=== PATIENT | male | born 1950 | race Caucasian/White ===

== ENCOUNTER 2017-10-30 12:41 | Emergency (ER) | payer MEDICARE, BC ==
[~2017-10-30] VITALS: Ht 193 cm; Wt 95.3 kg
[~2017-10-30 12:41] MED LIST: AMBIEN10 MG PO; ASPIRIN; ATORVASTATIN CA10 MG PO; AUGMENTIN 875-1 EACH PO; AZITHROMYCIN250 MG PO; CARTIA; CARTIA XT180 MG PO; CINNAMON500 MG PO; CYMBALTA; CYMBALTA60 MG PO; DIGOXIN; DIGOXIN250 MCG PO; DILAUDID2 MG PO; ELEQUIS PO; FENOFIBRATE134 MG PO; FENTANYL1 EAC2 TOP; FISH OIL 1,0001 EAC2 PO; FOLIC ACID1 MG PO; FORTEO2.4 ML SC; FUROSEMIDE20 MG PO; GLIPIZIDE5 MG PO; K DUR10 MEQ PO; LISINOPRIL10 MG PO; LISINOPRIL5 MG PO; LYRICA; LYRICA300 MG PO; MAG-OXIDE400 MG PO; METFORMIN HCL500 M2 PO; METOPROLOL; METOPROLOL SUCC25 MG PO; METOPROLOL SUCC50 MG PO; OPANA10 MG PO; OXYCODONE-ACET1 EAC3 PO; PANTOPRAZOLE SO40 MG PO; POTASSIUM CHLO10 ME1 PO; PRADAXA150 MG PO; PREDNISONE PO; PREDNISONE20 MG PO; SUPER B COMPLE150 MG PO; TAMSULOSIN HCL0.4 MG PO; THERA1 EACH PO; TRAZODONE HCL50 MG PO; VITAMIN D2000 UNIT PO; VYTORIN; VYTORIN 10-401 EACH PO; XARELTO20 MG PO
[2017-10-30] MEDS ORDERED: ZOFRAN ODT4 MG PO (13:34)
[2017-10-30 18:04] LABS: BASOPHILS % 0.4 % (0.0-1.0); EOSINOPHILS % 0.8 % (0.0-6.0); LYMPHOCYTES % 42.5 % (18.0-39.1); MEAN CORPUSCULAR HEMOGLOBIN 31.9 pg (28-32); MEAN CORPUSCULAR HGB CONC 33.3 g/dL (31-35); MEAN CORPUSCULAR VOLUME 95.7 fL (81-99); MONOCYTES # (AUTO) 0.5 (0.2-0.8); NEUTROPHILS # (AUTO) 2.1 (2.1-6.9); NEUTROPHILS % 44.7 % (38.7-80.0); PLATELET COUNT 124 x10e3/uL (140-360); RED BLOOD COUNT 4.39 x10e6/uL (4.3-5.7); RED CELL DISTRIBUTION WIDTH 14.7 % (11.7-14.4)
[2017-10-30 18:13] LABS: INR 1.79; PARTIAL THROMBOPLASTIN TIME 39.3 seconds (23.8-35.5); PROTHROMBIN TIME 21.7 seconds (11.9-14.5)
[2017-10-30 18:14] LABS: ALBUMIN 3.6 g/dL (3.5-5.0); ANION GAP 15.7 mmol/L (8-16); CALCIUM 9.4 mg/dL (8.4-10.2); CREATININE, SERUM 1.53 mg/dL (0.72-1.25); POTASSIUM 4.7 mmol/L (3.5-5.1)
[2017-10-30 18:20] LABS: CREATINE KINASE MB 2.5 ng/mL (0.00-5.00); TROPONIN I 0.033 ng/mL (0-0.300)
== END 2017-10-30 18:24 | disposition left against medical advice (07) ==
LOC: ER 12:41
DX: R53.1 Weakness (principal)
CPT/HCPCS: 36415; 80053; 82550; 82553; 84484; 85025; 85610; 85730

== ENCOUNTER → 2018-01-20 | Outpatient (CLI) | payer MEDICARE, BC ==
[~2018-01-20] MED LIST changes: +ZOFRAN ODT4 MG PO
--- NOTE | 2018-01-20 13:27 | Diagnostic Imaging Report ---
EXAM: CT Chest WITHOUT contrast INDICATION: \[id number] \S\[id number] \S\SMOKER/NICOTINE DEPENDENCE COMPARISON: Chest CT dated 09/15/2017 TECHNIQUE: Chest was scanned utilizing a multidetector helical scanner from the lung apex through the level of the adrenal glands without administration of IV contrast. Absence of intravenous contrast decreases sensitivity for detection of lymphadenopathy and vascular pathology. Coronal and sagittal reformations were obtained. Routine protocol was performed. IV CONTRAST: None COMPLICATIONS: None RADIATION DOSE: Total DLP: 646.13 mGy*cm Estimated effective dose: (DLP x 0.014 x size factor) mSv CTDIvol has been reviewed. It is below the limits set by the Radiation Protocol Committee (RPC). FINDINGS: LINES/ TUBES: None. LUNGS AND AIRWAYS: Upper lobe predominant centrilobular and paraseptal emphysematous changes. Resolved right lower lobe consolidations, seen on prior CT dated 09/15/2017. Unchanged 5 mm right middle lobe nodule (series 3, image 104). Another stable lateral right middle lobe 7 mm nodule (series 3, image 98). Not significant change right upper lobe base scarring with mild traction bronchiectasis and surrounding questionably honeycombing (series 3, image 72). Airways are normal. PLEURA: No significant pleural effusion. No pneumothorax. HEART AND MEDIASTINUM: The thyroid gland is normal. No mediastinal or axillary lymphadenopathy. Scattered subcentimeter mediastinal lymph nodes are seen, unchanged. For example 9 mm paratracheal lymph node (series 2, image 54). The heart is mildly enlarged. There is no pericardial effusion. Main pulmonary artery measures 4.1 cm, suggestive of pulmonary hypertension. Atherosclerotic calcification of coronary arteries and aortic valve. Aorta measures 3.6 cm at a level of right pulmonary artery. UPPER ABDOMEN: Unremarkable. BONES: Thoracolumbar posterior fusion with unchanged compression fracture of T10 vertebral body and T12-L1, L1-L2 discectomies. SOFT TISSUES: Unremarkable. IMPRESSION: 1. Interval resolution of posterior right lower lobe opacities, seen on prior CT dated 09/15/2017. 2. Stable right middle lobe lung nodules. Recommend follow-up in one year to ensure stability. 3. Redemonstration of centrilobular and paraseptal emphysematous changes. Signed by: Dr. Justin Tompkins MD on 01/20/2018 1:23 PM
== END | disposition home or self-care (01) ==
LOC: CT 11:18
PROVIDERS: ATTEND Internal Medicine
DX: F17.200 Nicotine dependence, unspecified, uncomplicated (principal); R91.8 Other nonspecific abnormal finding of lung field; J43.9 Emphysema, unspecified
CPT/HCPCS: 71250

== ENCOUNTER 2018-03-01 01:47 | Inpatient (IN) | payer MEDICARE, BC ==
[~2018-03-01] VITALS: Ht 193 cm; Wt 96.6 kg
[2018-03-01] VITALS (7 sets, daily range): BP systolic 129–159; BP diastolic 65–85
[2018-03-01] MEDS ORDERED: MORPHINE SULFATE 2 MG/ML SYR IV STA (01:49)
[2018-03-01] MEDS ORDERED: ONDANSETRON HCL INJ 2 MG/ML VIAL IV STA (01:49)
--- OUTSIDE RECORDS SUMMARY | 2018-03-01 01:49 | XMS REPORT ---
Author Author [facility] Address Unknown Phone Unavailable Care Team Providers Care Management Manager Name Role Phone CAROL HOANG Unavailable Unavailable CHANEL LÓPEZ Unavailable Unavailable Problems This patient has no known problems. Allergies, Adverse Reactions, Alerts This patient has no known allergies or adverse reactions. Medications This patient has no known medications. Results Test Description Test Time Test Comments Text Results Atomic Results Result Comments CT CHEST WO [place] [address] Patient Name: MOUNA DENT MR #: [id number] : 1950 Age/Sex: 67/M Req # : [id number] [facility] Physician: Ordered by: CAROL HOANG MD Report #: [id number] Location: CT Room/Bed: Procedure: [id number] CT/CT CHEST WO Exam Date: 01/20/18 Exam Time: 1146 REPORT STATUS: Signed EXAM: CT Chest WITHOUT contrast INDICATION: COMPARISON: Chest CT dated 09/15/2017 TECHNIQUE: Chest was scanned utilizing a multidetector helical scanner from the lung apex through the level of the adrenal glands without administration of IV contrast. Absence of intravenous contrast decreases sensitivity for detection of lymphadenopathy and vascular pathology. Coronal and sagittal reformations were obtained. Routine protocol was performed. IV CONTRAST: None COMPLICATIONS: None RADIATION DOSE: Total DLP: 646.13 mGy*cm Estimated effective dose: (DLP x 0.014 x size factor) mSv CTDIvol has been reviewed. It is below the limits set by the Radiation Protocol Committee (RPC). FINDINGS: LINES/ TUBES: None. LUNGS AND AIRWAYS: Upper lobe predominant centrilobular and paraseptal emphysematous changes. Resolved right lower lobe consolidations, seen on prior CT dated 09/15/2017. Unchanged 5 mm right middle lobe nodule (series 3, image 104). Another stable lateral right middle lobe 7 mm nodule (series 3, image 98). Not significant change right upper lobe base scarring with mild traction bronchiectasis and surrounding questionably honeycombing (series 3, image 72). Airways are normal. PLEURA: No significant pleural effusion. No pneumothorax. HEART AND MEDIASTINUM: The thyroid gland is normal. No mediastinal or axillary lymphadenopathy. Scattered subcentimeter mediastinal lymph nodes are seen, unchanged. For example 9 mm paratracheal lymph node ( series 2, image 54). The heart is mildly enlarged. There is no pericardial effusion. Main pulmonary artery measures 4.1 cm, suggestive of pulmonary hypertension. Atherosclerotic calcification of coronary arteries and aortic valve. Aorta measures 3.6 cm at a level of right pulmonary artery. UPPER ABDOMEN: Unremarkable. BONES: Thoracolumbar posterior fusion with unchanged compression fracture of T10 vertebral body and T12-L1, L1-L2 discectomies. SOFT TISSUES: Unremarkable. IMPRESSION: 1. Interval resolution of posterior right lower lobe opacities, seen on prior CT dated 09/15/2017. 2. Stable right middle lobe lung nodules. Recommend follow-up in one year to ensure stability. 3. Redemonstration of centrilobular and paraseptal emphysematous changes. Signed by: Dr. Justin Rutherford MD on 2017 1:23 PM Dictated By: JUSTIN RUTHERFORD MD 1323 Transcribed By: FATOUMATA on 01/20/18 1323 COPY TO: CAROL OHANG MD CT CHEST WO [place] [address] Patient Name: MOUNA DENT MR #: [id number] : 1950 Age/Sex: 67/M [facility] # : [id number] [facility] Physician: Ordered by: CAROL HOANG MD Report #: [id number] Location: RESP Room/Bed: Procedure: [id number] CT/CT CHEST WO Exam Date: 09/15/17 Exam Time: 1444 REPORT STATUS: Signed PROCEDURE: CT CHEST WITHOUT CONTRAST CT scan of the chest WITHOUT intravenous contrast, using standard protocol. TECHNIQUE: The chest was scanned utilizing a multidetector helical scanner from the apex to the level of the adrenal glands. No IV contrast was administered as per physician request. Coronal and sagittal multiplanar reformations were obtained. COMPARISON: CT chest 06/27/2017. INDICATIONS : SMOKER FINDINGS: Lines/tubes: None. Lungs and Airways: Diffuse emphysematous changes are present in the upper lobes and bilateral lower lobes. The centrilobular emphysema is most prominent in the right upper lobe. Interval appearance of multiple consolidative opacities in the right lower lobe, series 3 images 93, 101, 112, and 114. Pleura: The pleural spaces are clear. Heart and mediastinum: The thyroid gland is normal. No significant mediastinal, hilar or axillary lymphadenopathy is seen. The heart and pericardium are within normal limits. Atherosclerotic calcifications of the thoracic aorta and coronary arteries. Calcifications of the mitral valve. Soft tissues: Normal. Abdomen: Limited views of the upper abdomen show no abnormality within the visualized liver, spleen, pancreas, or kidneys. The adrenal glands are normal. Bones: The visualized bony thorax is within normal limits. Postoperative changes of the lower thoracic and upper lumbar spine. Degenerative changes of the thoracic spine. IMPRESSION: Consolidative opacities in the right lower lobe may represent a developing pneumonia. CT of the chest in 6 months after therapy is recommended to document resolution. Emphysematous changes. Dictated by: Shalini Rousseau M.D. on 09/15/2017 at 15:43 Electronically approved by: Shalini Rousseau M.D. on 09/15/2017 at 15:43 Dictated By: SHALINI ROUSSEAU MD 42 Transcribed By: JENY on 09/15/171542 COPY TO: CAROL HOANG MD MRI SPINE LUMBAR WO [place] [address] Patient Name: MOUNA DENT MR #: [id number] : 1950 Age/Sex: 67/M Req #: [id number] Adm Physician: Ordered by: CHANEL LÓPEZ MD Report #: [id number] Location: MRI Room/Bed: Procedure: [id number] MRI/MRI SPINE LUMBAR WO Exam Date: 09/05/17 Exam Time: 1000 REPORT STATUS: Signed Exam: Lumbar spine MRI without IV contrast History: Lumbar MRI 08/06/2011, lumbar spine x-ray 09/04/2015 and included lumbar spine from chest CT of 09/04/2015. Comparison studies: Lower back pain, previous surgeries, most recent of 11/13 Technique: Sagittal and axial T2 , sagittal T1 and IR, axial spin density oblique. Intravenous contrast: None Findings: Exam is limited by susceptibility artifact from metallic spinal fusion hardware. Number of lumbar vertebral bodies: 5. Alignment: Normal lordosis. No scoliosis. Approximately approximately 4 mm grade 1 anterolisthesis of L5 on S1. Soft tissues: Postsurgical changes in the dorsal and lower thoracic soft tissues. A T2/STIR hyperintense 11.9 x 3.1 x 4.3 cm (SI x AP x TV) fluid collection in the dorsal thoracolumbar soft tissues which extends from the middle T11 level to the superior L4 level presumably reflects postsurgical seroma. Seroma was not present on the previous lumbar spine MRI of 08/06/2011 and may be related to the 2015 surgery. Paraspinal muscles: Severe symmetric atrophy. Atrophy has progressed since 2010. Lower thoracic cord : The lower spinal cord and conus are poorly visualized due to artifact. Cauda equina: No masses or evidence of arachnoiditis from L4 caudally. Cannot adequately evaluate nerve roots craniad to L4 due to artifact. Vertebrae : No compression fractures, infection or neoplasm. Postsurgical changes : There are decompressive laminectomies from L1 to S1 and posterior instrumented fusion and discectomy from the T12 to S1 with left transsacral fixation screw in place. Patient was previously fused from L2 to the sacrum and with laminectomies from L3 to S1 on the MRI of 08/06/2011. Craniad extent of fusion into the thoracic spine lies outside imaged [id number] on this exam. Cannot further evaluate hardware integrity by MRI. Degenerative changes: L1-L2: Patent canal and grossly patent foramina. L2-L3: Patent canal and grossly patent foramina. L3-L4: Patent canal and grossly patent foramina. L4-L5: Patent canal and grossly patent foramina. L5-S1: Minimal anterolisthesis of L5 on S1 with associated osteophyte complex and hypertrophic changes at the left facet likely results in at least mild to moderate foraminal stenosis. Cannot adequately evaluate the foramen at this level on the previous exam due to extensive artifact. Patent canal and right foramen. Incidental findings: 11 mm T2 hyperintense right renal cyst. IMPRESSION: Exam limited by susceptibility artifact from fusion hardware. 1. Postsurgical changes of posterior thoracolumbar fusion, discectomy and posterior lumbar decompression. 2. Postsurgical seroma in the dorsal paraspinal soft tissues. 3. Foraminal stenosis on the left at L5-S1. Remaining lumbar foramina are grossly patent. Patient lumbar canal. 4. Grade 1 anterolisthesis of L5 on S1, new since 2010. Signed by: Dr. Jose Juan Brock M.D. on 09/08/2017 5:00 AM Dictated By: JOSE JUAN BROCK MD 0500 Transcribed By: FATOUMATA on 09/08/17 0500 COPY TO: CHANEL LÓPEZ MD CT CHEST WO [address] [place], [place], [place] [address] Patient Name: MOUNA DENT MR #: [id number] : 1950 Age/Sex: 67/M Req # : [id number] Adm Physician: CHANEL LÓPEZ MD Ordered by: JOSE JUAN WASHINGTON MD Report #: [id number] Location: MED/SURG2 Room/Bed: [facility] ___ Procedure: [id number] CT/CT CHEST WO Exam Date: 06/27/17 Exam Time: 1126 REPORT STATUS: Signed PROCEDURE: CT CHEST WITHOUT CONTRAST COMPARISON: CTA chest 11/04/14. INDICATIONS: SOB,COUGH TECHNIQUE: Multiple axial views were obtained of the chest from the lung apices down through the upper abdomen. 5 mm slices were obtained without injection of IV contrast. In addition, reformatted coronal and sagittal images were acquired. FINDINGS: Lymph nodes: No enlarged axillary or subclavicular lymph node enlargement. Mediastinal lymph nodes are increased in number. A precarinal lymph node measures 13 mm. Subcarinal lymph node measures 1.3 x 2.7 cm ( previously, 0.8 x 3.6 cm). No evidence of hilar lymphadenopathy given the lack of intravenous contrast. Thyroid/base of neck: The thyroid gland is normal in size. A tiny low attenuating nodule in the left lobe is stable. Mediastinum: The heart is enlarged with coronary artery and aortic valve and mitral valve calcifications. The ascending aorta measures 4 cm in diameter. The main pulmonary artery measures 4.3 cm in diameter. No pericardial effusion. The esophagus appears normal. Lungs: Right lung: Paraseptal and centrilobular emphysematous changes re-demonstrated. Diffuse cylindrical bronchiectasis and bronchial wall thickening are present, similar to previous exam. There is new groundglass attenuation in the posterior upper lobe surrounding several centrilobular blebs. There is new groundglass attenuation in the posterior lower lobe along expected course of a bronchiole. New tiny groundglass densities have developed in the posterior lower lobe associated with focal bronchiectasis and mucus impaction (image 121). Middle lobe nodule measures 5 mm and is stable. Left centrilobular and paraseptal emphysema is re-demonstrated. There is diffuse bronchial wall thickening and cylindrical bronchiectasis. Small patchy areas of groundglass attenuation have developed in the anterior basal segment of the lower lobe. A band of chronic atelectasis/scar in the posterior costophrenic angle is stable. New ground glass nodule has developed in the lingula measuring 6 mm with patchy airspace opacities in the inferior lingula. One of the lower lobe bronchi now contains mucus (image 99). Pleura: A left pleural effusion is new and measures 7 mm. No evidence of right pleural effusion. Abdomen: Visualized portions of the liver, ulna, pancreas, spleen, and right kidney are normal. There is stable thickening of the left adrenal gland. Visualized portion of the bowel and right kidney are unremarkable. Bones: Compression fracture of T10 is redemonstrated containing bilateral pedicle screws. There is lucency surrounding the screws suggestive of loosening. Pedicle screws and vertical stabilizing bars are in the T11-L2 vertebral bodies. The pedicle screws at these levels are intact without surrounding lucency to suggest loosening. Artificial disc plugs are T12-L1 and L1-L2. No new compression fractures. An ununited chronic fracture of the right ninth rib is stable. There are no new rib fractures. CONCLUSION: 1. New groundglass air space opacities and tiny groundglass inflammatory appearing nodules in each lung with areas of mucus impaction suggestive of an infectious/inflammatory process. A component of aspiration cannot be excluded. Recommend follow-up CT in 4-6 weeks to assess interval change/resolution. Prominent mediastinal lymph nodes may be secondary to an infectious/inflammatory process. 2. Emphysema and chronic bronchitis. 3. Small left pleural effusion. 4. Ascending aortic aneurysm. Enlarged main pulmonary artery suggestive of pulmonary artery hypertension. 5. Stable lucency surrounding T10 pedicle screws suggestive of loosening. Stable compression fracture of T10. Dictated by: Viky Galindo M.D. on 06/27/2017 at 12:31 Electronically approved by: Viky Galindo M.D. on 06/27/2017 at 12:31 Dictated By: VIKY GALINDO MD 1231 Transcribed By: JENY on 06/27/17 1231 COPY TO: JOSE JUAN WASHINGTON MD CHEST SINGLE (PORTABLE) [place] [address] Patient Name: MOUNA DENT MR #: [id number] : 1950 Age/Sex: 67/M Req #: [id number] Adm Physician: CHANEL LÓPEZ MD Ordered by : ARISTIDES KELLY MD Report #: [id number] Location: MED/SURG2 Room/Bed: [facility] Procedure: [id number] DX/CHEST SINGLE (PORTABLE) Exam Date: 06/26/17 Exam Time: 0520 REPORT STATUS: Signed PROCEDURE: CHEST SINGLE (PORTABLE) COMPARISON: 06/25/2017. INDICATIONS: PNEUMONIA. SHORTNESS OF BREATH FINDINGS: Lungs are well-inflated. Improvement in lingular patchy opacity relative to 06/25/2017. No new consolidation. Stable cardiomediastinal contour and pulmonary vasculature. No acute osseous abnormality. Cervical and thoracic spinal fusion hardware partially visualized. CONCLUSION: Patchy left lower lung atelectasis has improved relative to 06/25/2017. No new consolidation. Dictated by: Jose Juan Tam M.D. on 06/26/2017 at 9:00 Electronically approved by: Jose Juan Tam M.D. on 06/26/2017 at 9:00 Dictated By: JOSE JUAN TAM MD 09 Transcribed By: JENY on 06/26/17 09 COPY TO: ARISTIDES KELLY MD CHEST 2 VIEWS [facility] [address] [place] [address] Patient Name: MOUNA DENT MR #: [id number] : 1950 Age/Sex: 67/M Req # : [id number] Adm Physician: Ordered by: STIVEN LIN [employer]OR ROOM [employer]LLER Report #: [id number] Location: ER Room/Bed: Procedure: [id number] DX/CHEST 2 VIEWS Exam Date: 06/25/17 Exam Time: 1420 REPORT STATUS: Signed PROCEDURE: Frontal and lateral views of the chest. COMPARISON: [facility], DX, CHEST SINGLE (PORTABLE ), 11/11/2016, 14:37. INDICATIONS: CHEST PAIN FINDINGS: Lines/tubes: None. Lungs: The lungs are well inflated. Ill-defined patchy opacity in the left left lower lung. There is no evidence of consolidation or pulmonary edema. Pleura: Blunting of the right lateral and posterior costophrenic sulci, likely reflecting a small pleural effusion. No right pleural effusion. Heart and mediastinum: Stable enlargement of cardiac silhouette. Vasculature is normal. Bones: No acute bony abnormality. Stable fusion hardware in the lower cervical and lower thoracic/upper lumbar spine IMPRESSION: 1. ill-defined patchy opacity in the left lower lung may reflect atelectasis or developing pneumonia, in the appropriate clinical setting. 2. Small left pleural effusion. Tona Parra M.D. Dictated by: Tona Parra M.D. on 06/25/2017 at 15:24 Electronically approved by: Tona Parra M.D. on 06/25/2017 at 15:24 Dictated By: TONA PARRA MD 1524 Transcribed By: JENY on 06/25/17 1524 COPY TO: STIVEN LIN NP
[2018-03-01 02:18] LABS: BASOPHILS % 0.5 % (0.0-1.0); EOSINOPHILS # (AUTO) 0.1 (0.0-0.4); HEMATOCRIT 40.5 % (38.2-49.6); HEMOGLOBIN 14.2 g/dL (14.0-18.0); LYMPHOCYTES # (AUTO) 2.5 (1.0-3.2); LYMPHOCYTES % 39.8 % (18.0-39.1); MEAN CORPUSCULAR HEMOGLOBIN 33.3 pg (28-32); MEAN CORPUSCULAR HGB CONC 35.1 g/dL (31-35); MEAN CORPUSCULAR VOLUME 94.8 fL (81-99); MONOCYTES # (AUTO) 0.8 (0.2-0.8); MONOCYTES % 13.5 % (4.4-11.3); NEUTROPHILS # (AUTO) 2.7 (2.1-6.9); NEUTROPHILS % 44.5 % (38.7-80.0); PLATELET COUNT 184 x10e3/uL (140-360); RED BLOOD COUNT 4.27 x10e6/uL (4.3-5.7); RED CELL DISTRIBUTION WIDTH 14.8 % (11.7-14.4)
[2018-03-01] MEDS ORDERED: ONDANSETRON HCL 4 MG ORAL DISINTEGRATING TAB ONE (02:22)
[2018-03-01 02:26] LABS: INR 2.06; PROTHROMBIN TIME 21.8 seconds (11.9-14.5)
[2018-03-01] MEDS: PIPER-TAZ 3.375 GM 50 ML IV SCH ×4 (02:28→18:06)
[2018-03-01 02:36] LABS: ALANINE AMINOTRANSFERASE 32 IU/L (0-55); ALBUMIN 3.6 g/dL (3.5-5.0); ALBUMIN/GLOBULIN RATIO 0.9 (0.8-2.0); ALKALINE PHOSPHATASE 54 IU/L (40-150); BLOOD UREA NITROGEN 11 mg/dL (7-26); BUN/CREATININE RATIO 12 (6-25); CALCIUM 9.5 mg/dL (8.4-10.2); CARBON DIOXIDE 23 mmol/L (22-29); CHLORIDE 104 mmol/L (98-107); CREATININE, SERUM 0.94 mg/dL (0.72-1.25); EST GLOMERULAR FILTRATION RATE > 60 ML/MIN (60-); GLUCOSE 162 mg/dL (74-118); SODIUM 140 mmol/L (136-145)
[2018-03-01] MEDS ORDERED: ONDANSETRON HCL 4 MG ORAL DISINTEGRATING TAB PO ONE (02:45)
[2018-03-01] MEDS ORDERED: ONDANSETRON HCL 4 MG ORAL DISINTEGRATING TAB PO PRN (03:15)
[2018-03-01] MEDS ORDERED: DEXTROSE 50% SYRINGE 50 ML IV PRN (03:15)
[2018-03-01] MEDS ORDERED: OPANA10 MG PO (03:33)
[2018-03-01] MEDS ORDERED: LASIX20 MG PO (03:33)
[2018-03-01] MEDS ORDERED: LISINOPRIL2.5 MG PO (03:33)
[2018-03-01] MEDS ORDERED: CARTIA XT180 MG PEG (03:33)
--- NOTE | 2018-03-01 03:35 | Diagnostic Imaging Report ---
LOWER LEG LEFT HISTORY: Pain COMPARISON: None FINDINGS: Bones: No displaced fracture. Old fracture deformity of the proximal fibular diaphysis. Osseous alignment is within normal limits. Joints: Mild degenerative changes noted at the hindfoot Soft tissues: Vascular calcifications are present. IMPRESSION: No acute radiographic abnormality. No evidence of radiopaque foreign body. Signed by: Dr. Hussain Reis M.D. on 03/01/2018 3:31 AM
[2018-03-01] MEDS ORDERED: TRAZODONE HCL 50 MG TAB PO PRN (03:45)
[2018-03-01] MEDS: VANCOMYCIN 1GM/NS 250 ML 250 ML IV SCH ×2 (03:47→14:02)
[2018-03-01] MEDS: SODIUM CHLORIDE 0.9% 1000ML 1,000 ML IV SCH ×2 (04:30→11:13)
[2018-03-01] MEDS: DILTIAZEM HCL 180 MG CAP CD PO SCH ×2 (08:30→16:40)
[2018-03-01] MEDS: FUROSEMIDE 20 MG TAB PO SCH ×2 (08:30→16:40)
[2018-03-01] MEDS: NICOTINE 21 MG/EA PATCH TOP SCH (08:30)
[2018-03-01] MEDS: INSULIN REGULAR, HUMAN 100 UNIT/1 ML 3ML VIAL SQ SCH ×4 (08:30→20:10)
[2018-03-01] MEDS: DIGOXIN 0.25 MG TAB PO SCH (08:30)
[2018-03-01] MEDS: PANTOPRAZOLE SOD 40 MG TABEC PO SCH (08:30)
[2018-03-01] MEDS: PREGABALIN 75 MG CAP PO SCH ×2 (08:30→16:40)
[2018-03-01] MEDS: RIVAROXABAN 15 MG TABLET PO SCH (08:30)
[2018-03-01] MEDS: FOLIC ACID 1 MG TAB PO SCH (08:30)
[2018-03-01] MEDS: METOPROLOL SUCCINATE 50 MG TAB XL PO SCH ×2 (08:30→16:40)
[2018-03-01] MEDS ORDERED: PREGABALIN 300 MG PO SCH (09:00)
[2018-03-01] MEDS ORDERED: RIVAROXABAN 20 MG TABLET PO SCH (09:00)
--- NOTE | 2018-03-01 16:24 | History and Physical ---
He is a 67-year-old male patient who presented with left lower leg pain and swelling. HISTORY OF PRESENT ILLNESS: Mr. Olaf Delvalle is a 67-year-old male patient with a previous history of COPD, on home oxygen at night, atrial fibrillation, chronic back pain, diabetes mellitus, hypertension, hyperlipidemia, presented to the emergency room with the complaint of left lower leg pain, swelling and redness. The patient had 1 week ago left leg injury. The patient had a fall and he had a wound on his left lower leg with a cut. For that, the patient had seen Dr. Eladio Snider. The patient did not improve with the treatment. The patient had come to the emergency room. ALLERGIES: THE PATIENT IS ALLERGIC TO CODEINE. MEDICATIONS: See from the list. SOCIAL HISTORY: The patient is a heavy tobacco smoker and smokes 1 pack per day and uses alcohol. FAMILY HISTORY: Hypertension and diabetes mellitus. REVIEW OF SYSTEMS: Left lower leg pain and swelling. Also, shortness of breath. PHYSICAL EXAMINATION GENERAL: He is a middle-aged male patient lying in bed not in any acute distress. VITALS: Temperature 96, pulse 70, blood pressure 130/70, respiratory rate 18. HEENT: Normocephalic and atraumatic. No JVD. No lymphadenopathy. LUNGS: Bilateral equal fair air entry. No basal rales present. Rhonchi present. HEART: S1 and S2 irregular. Systolic murmur present. ABDOMEN: Soft. Bowel sounds present. NEUROLOGICAL: No focal neurological deficit. EXTREMITIES: Left lower extremity examination with swelling, redness and warm to touch. The patient has a left lower leg anterior tibial area of 2 x 1 cm large wound with eschar and surrounding erythema. ADMITTING IMPRESSION/DIAGNOSES 1. Left lower leg cellulitis. 2. Diabetes mellitus. 3. Hypertension. 4. Coronary artery disease. 5. Atrial fibrillation. 6. Chronic obstructive pulmonary disease, on home oxygen. PLAN: The patient will be admitted with the above diagnoses. The patient will be given wound care and treated with IV antibiotics of vanco and Zosyn. Will consult Dr. Draper from ID. Job#: [id number] [place]
[2018-03-01] MEDS ORDERED: ONDANSETRON HCL 4 MG ORAL DISINTEGRATING TAB SL SCH (18:00)
[2018-03-01] MEDS: ALBUTEROL/IPRATROPIUM 3 ML NEB NEB SCH (19:00)
[2018-03-01] MEDS: DULOXETINE HCL 30 MG DELAYED RELEASE PO SCH (20:15)
[2018-03-01] MEDS: METFORMIN HCL 500 MG TAB CR PO SCH (20:15)
[2018-03-01] MEDS: ATORVASTATIN 10 MG TAB PO SCH (20:15)
[2018-03-01] MEDS: FENOFIBRATE 145 MG TAB PO SCH (20:16)
[2018-03-01] MEDS ORDERED: NON-FORMULARY MEDICATION (Duloxetine Hcl (Cymbalta) 60 MG) PO SCH (21:00)
[2018-03-01] MEDS ORDERED: FENOFIBRATE 145 MG TAB PO SCH (21:00)
[2018-03-01] MEDS ORDERED: LISINOPRIL 2.5 MG TAB PO SCH (21:00)
[2018-03-01] MEDS ORDERED: NON-FORMULARY MEDICATION (Fenofibrate,Micronized (Fenofibrate) 134 MG) PO SCH (21:00)
[2018-03-02] MEDS: SODIUM CHLORIDE 0.9% 1000ML 1,000 ML IV SCH ×2 (00:04→03:13)
[2018-03-02 00:59] VITALS: BP 136/78
[2018-03-02] MEDS: ALBUTEROL/IPRATROPIUM 3 ML NEB NEB SCH ×4 (01:00→19:30)
[2018-03-02] MEDS: VANCOMYCIN 1GM/NS 250 ML 250 ML IV SCH ×2 (01:50→14:00)
[2018-03-02] MEDS: PIPER-TAZ 3.375 GM 50 ML IV SCH ×3 (02:45→16:38)
[2018-03-02 05:38] VITALS: BP 157/85
[2018-03-02 06:46] LABS: BASOPHILS % 0.3 % (0.0-1.0); EOSINOPHILS % 0.3 % (0.0-6.0); HEMATOCRIT 38.4 % (38.2-49.6); HEMOGLOBIN 13.5 g/dL (14.0-18.0); LYMPHOCYTES # (AUTO) 1.5 (1.0-3.2); LYMPHOCYTES % 23.3 % (18.0-39.1); MEAN CORPUSCULAR HGB CONC 35.2 g/dL (31-35); MEAN CORPUSCULAR VOLUME 93.9 fL (81-99); MONOCYTES # (AUTO) 0.8 (0.2-0.8); MONOCYTES % 12.8 % (4.4-11.3); NEUTROPHILS % 62.5 % (38.7-80.0); PLATELET COUNT 174 x10e3/uL (140-360); RED BLOOD COUNT 4.09 x10e6/uL (4.3-5.7); RED CELL DISTRIBUTION WIDTH 14.3 % (11.7-14.4)
--- NOTE | 2018-03-02 07:05 | Diagnostic Imaging Report ---
EXAMINATION: CHEST 2 VIEWS INDICATION: Shortness of breath COMPARISON: CT of the chest on 01/20/2018 FINDINGS: TUBES and LINES: None. LUNGS: Lungs are well inflated. There are bibasilar atelectasis. Fibrocystic changes noted in the right mid lung There is mild prominence of the central pulmonary vasculature, consistent with pulmonary venous congestion. PLEURA: No pleural effusion or pneumothorax. HEART AND MEDIASTINUM: The cardiomediastinal silhouette is unremarkable. BONES AND SOFT TISSUES: No acute osseous lesion. Thoracolumbar spine fusion with transpedicular screws and interlocking rods for lower thoracic spine compression deformity Soft tissues are unremarkable. UPPER ABDOMEN: No free air under the diaphragm. IMPRESSION: 1. Central vascular congestion without overt edema. 2. Perihilar and bibasilar predominant interstitial changes most likely fibrosis Signed by: Dr. Hussain Reis M.D. on 03/02/2018 7:01 AM
[2018-03-02 07:12] LABS: ALANINE AMINOTRANSFERASE 24 IU/L (0-55); ALBUMIN 3.2 g/dL (3.5-5.0); ALBUMIN/GLOBULIN RATIO 0.9 (0.8-2.0); ALKALINE PHOSPHATASE 46 IU/L (40-150); ANION GAP 15.5 mmol/L (8-16); BLOOD UREA NITROGEN 8 mg/dL (7-26); BUN/CREATININE RATIO 10 (6-25); CALCIUM 8.8 mg/dL (8.4-10.2); CARBON DIOXIDE 25 mmol/L (22-29); CHLORIDE 104 mmol/L (98-107); EST GLOMERULAR FILTRATION RATE > 60 ML/MIN (60-); GLUCOSE 94 mg/dL (74-118); POTASSIUM 3.5 mmol/L (3.5-5.1); SODIUM 141 mmol/L (136-145)
[2018-03-02] MEDS: INSULIN REGULAR, HUMAN 100 UNIT/1 ML 3ML VIAL SQ SCH ×4 (07:30→20:53)
[2018-03-02 08:00] VITALS: BP 152/74
[2018-03-02 08:20] VITALS: BP 152/74
[2018-03-02] MEDS: DIGOXIN 0.25 MG TAB PO SCH (08:32)
[2018-03-02] MEDS: PANTOPRAZOLE SOD 40 MG TABEC PO SCH (08:32)
[2018-03-02] MEDS: DILTIAZEM HCL 180 MG CAP CD PO SCH ×2 (08:32→16:35)
[2018-03-02] MEDS: FOLIC ACID 1 MG TAB PO SCH (08:32)
[2018-03-02] MEDS: PREGABALIN 75 MG CAP PO SCH ×2 (08:32→16:38)
[2018-03-02] MEDS: FUROSEMIDE 20 MG TAB PO SCH ×2 (08:32→16:37)
[2018-03-02] MEDS: NICOTINE 21 MG/EA PATCH TOP SCH (08:33)
[2018-03-02] MEDS: METOPROLOL SUCCINATE 50 MG TAB XL PO SCH ×2 (08:33→16:38)
[2018-03-02] MEDS: RIVAROXABAN 15 MG TABLET PO SCH (08:33)
[2018-03-02] MEDS: CADEXOMER IODINE 30 GM TUBE TOP SCH (09:00)
--- NOTE | 2018-03-02 10:53 | Consultation ---
DATE OF CONSULTATION: PULMONARY CONSULTATION Patient of Dr. Leisa Snider, Dr. Narendra Snider, Dr. Draper. HISTORY: Unfortunate 67-year-old gentleman with history of peripheral neuropathy, COPD, diabetes, atrial fibrillation, multiple back surgeries, fell several days ago injuring his left leg which began to swell. ALLERGIES: HE HAS A HISTORY OF ALLERGY TO CODEINE. MEDICATIONS: Include home oxygen at night, Anoro, Zyrtec, B12, Pepcid, insulin, losartan, Pravachol, meloxicam, metformin, and metoprolol. FAMILY HISTORY: Noncontributory. 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 Smoked a pack a day for 52 years, quit for 3 years using Chantix but does not want to use it again. PAST SURGICAL HISTORY: He has had multiple spine operations . PHYSICAL EXAMINATION: GENERAL: He is a tall white male, in no acute distress, looking his stated age. VITAL SIGNS: Temperature 98, pulse 69, respirations 18, blood pressure 117/59. HEAD: Normocephalic, atraumatic. EYES: Extraocular movements intact. LUNGS: Diminished breath sounds. HEART: Irregular rhythm. ABDOMEN: Nontender. EXTREMITIES: There are stasis changes, lower extremities in area of skin wound and apparent cellulitis of the left lower extremities. Baseline FEV1 of 68% according to office records, diffusion capacity however has been reduced. IMPRESSION: 1. Emphysema. 2. History of tiny subcentimeter pulmonary nodules. 3. Smoking. 4. Paroxysmal atrial fibrillation, on anticoagulant. 5. Wound related to fall. Continue supplemental oxygen. Follow up chest x-ray. Bronchodilators. Antibiotics as per infectious disease service. Thank you for this kind referral. Job#: [id number]
--- NOTE | 2018-03-02 11:15 | Consultation ---
DATE OF CONSULTATION: March 02, 2018 REASON FOR CONSULTATION: Cellulitis. Thank you, Dr. Snider, for asking me to see this patient. HISTORY OF PRESENT ILLNESS: The patient is a 67-year-old man referred for cellulitis. He presented to the emergency department yesterday with progressive pain and redness of the left lower extremity. He denies fever and chills. He fell at home about 4 days earlier and landed on the knees and legs sustaining superficial laceration of the patel bilaterally. The patient was evaluated outpatient with x-ray of the left knee due to increased pain, which was negative for fracture. The patient failed outpatient treatment. In the emergency department, he was noted to have a temperature of 96 degrees Fahrenheit, pulse 70, respiratory rate 18, and blood pressure 130/70. Initial laboratory studies showed WBC count of 6150 with 44.5% neutrophils and blood glucose 162. Left lower extremity ultrasound showed no fracture or foreign body. Venous Doppler ultrasound of the left lower extremity also was negative for deep venous thrombosis. PAST MEDICAL HISTORY: Diabetes mellitus, type 2 with peripheral neuropathy, hypertension, hyperlipidemia, atrial fibrillation, chronic obstructive pulmonary disease, on home oxygen at night, chronic back pain. PAST SURGICAL HISTORY: Lower back surgeries 7 times. ALLERGIES: CODEINE WHICH CAUSES RASH. MEDICATIONS: The current antibiotics are: 1. Zosyn 3.275 g IVPB q.8 h. 2. Vancomycin 1 g IVPB q.12 h. FAMILY HISTORY: Noncontributory. SOCIAL HISTORY: He drinks 3 glasses of wine a day for many years. He smokes a pack of cigarettes a day at least 50 years. REVIEW OF SYSTEMS: As per history of present illness. The patient feels better. PHYSICAL EXAMINATION GENERAL: In no acute distress. VITAL SIGNS: T-max 98.2, pulse 70, respiratory rate 19, blood pressure 152/72. Weight 213 pounds. HEENT: Normocephalic. There is no icterus or injection of conjunctivae. There is no ear or nasal discharge. Moist oral mucosa. No pharyngeal erythema is noted. NECK: Supple. No lymphadenopathy or meningismus. LUNGS: Decreased breath sounds bilaterally. HEART: Normal S1 and S2. ABDOMEN: Soft and nontender. EXTREMITIES: There is superficial lacerations of the anterior aspect of the upper third of the legs bilaterally. There is slight effusion of the left knee with pink discoloration. There is trace edema of the legs bilaterally. There is chronic skin changes with venous of both legs. The dorsalis pedis and posterior tibial pulses are palpable in both feet. SKIN: As per extremities. RELATIONSHIP MGR: Awake, alert and oriented to person, place and time. There is decreased sensation of monofilament examination of the feet bilaterally. Also, there is decreased vibration sensation of the feet. Nonfocal. LABORATORY AND DIAGNOSTICS: WBC 6340, hemoglobin 13.5 and platelets 174,000. Neutrophils 62.5, lymphs 23.3, monos 12.8, eosinophils 0.3, basophils 0.3. BUN 8, creatinine 0.8, blood glucose 94. Wound culture is pending. Blood culture also pending. IMPRESSION 1. Cellulitis of the left lower extremity, present on admission, resolving. 2. Superficial laceration of both legs, present on admission. 3. Chronic obstructive pulmonary disease. 4. Diabetes mellitus, type 2 with peripheral neuropathy. 5. Tobacco use disorder. PLAN 1. Continue antibiotics and local wound care. 2. Smoking cessation counseling was provided to the patient. The patient declined intervention. Also, the patient advised to curb alcohol consumption to no more than 1-2 glasses of wine a day. Job#: [id number] AR
[2018-03-02 12:00] VITALS: BP 148/78
[2018-03-02 16:00] VITALS: BP 161/87
[2018-03-02] MEDS: POTASSIUM CHLORIDE 10 MEQ TABCR PO SCH (16:37)
[2018-03-02] MEDS ORDERED: LISINOPRIL 10 MG TAB PO SCH (21:00)
[2018-03-02] MEDS: METFORMIN HCL 500 MG TAB CR PO SCH (21:20)
[2018-03-02] MEDS: FENOFIBRATE 145 MG TAB PO SCH (21:20)
[2018-03-02] MEDS: ATORVASTATIN 10 MG TAB PO SCH (21:20)
[2018-03-02] MEDS: DULOXETINE HCL 30 MG DELAYED RELEASE PO SCH (21:20)
[2018-03-03] MEDS: PIPER-TAZ 3.375 GM 50 ML IV SCH ×3 (02:13→16:50)
[2018-03-03] MEDS: VANCOMYCIN 1GM/NS 250 ML 250 ML IV SCH ×2 (02:30→14:00)
[2018-03-03 07:10] LABS: ANION GAP 15.2 mmol/L (8-16); BLOOD UREA NITROGEN 6 mg/dL (7-26); BUN/CREATININE RATIO 8 (6-25); CALCIUM 9.2 mg/dL (8.4-10.2); CARBON DIOXIDE 25 mmol/L (22-29); CHLORIDE 103 mmol/L (98-107); CREATININE, SERUM 0.77 mg/dL (0.72-1.25); EST GLOMERULAR FILTRATION RATE > 60 ML/MIN (60-); GLUCOSE 81 mg/dL (74-118); POTASSIUM 3.2 mmol/L (3.5-5.1); SODIUM 140 mmol/L (136-145)
[2018-03-03] MEDS: INSULIN REGULAR, HUMAN 100 UNIT/1 ML 3ML VIAL SQ SCH ×4 (07:30→20:31)
[2018-03-03 08:00] VITALS: BP 167/105
[2018-03-03 08:15] VITALS: BP 167/105
[2018-03-03] MEDS: FUROSEMIDE 20 MG TAB PO SCH ×2 (08:25→16:50)
[2018-03-03] MEDS: PANTOPRAZOLE SOD 40 MG TABEC PO SCH (08:25)
[2018-03-03] MEDS: METOPROLOL SUCCINATE 50 MG TAB XL PO SCH ×2 (08:25→16:50)
[2018-03-03] MEDS: PREGABALIN 75 MG CAP PO SCH ×2 (08:25→16:50)
[2018-03-03] MEDS: FOLIC ACID 1 MG TAB PO SCH (08:25)
[2018-03-03] MEDS: DILTIAZEM HCL 180 MG CAP CD PO SCH ×2 (08:25→16:50)
[2018-03-03] MEDS: POTASSIUM CHLORIDE 10 MEQ TABCR PO SCH ×2 (08:25→16:50)
[2018-03-03] MEDS: MORPHINE SULFATE 2 MG/ML SYR IV PRN ×2 (08:25→16:50)
[2018-03-03] MEDS: RIVAROXABAN 15 MG TABLET PO SCH (08:25)
[2018-03-03] MEDS: NICOTINE 21 MG/EA PATCH TOP SCH (08:25)
[2018-03-03] MEDS: CADEXOMER IODINE 30 GM TUBE TOP SCH (09:00)
[2018-03-03] MEDS ORDERED: SILVER ANTIMICROBIAL WOUND GEL 45ML TOP SCH (09:00)
[2018-03-03] MEDS ORDERED: LISINOPRIL 10 MG TAB PO SCH (09:00)
[2018-03-03] MEDS ORDERED: DIGOXIN 0.125 MG TAB PO SCH (09:00)
[2018-03-03] MEDS ORDERED: POTASSIUM CHLORIDE 10 MEQ TABCR PO NR (09:30)
[2018-03-03] MEDS: ALBUTEROL/IPRATROPIUM 3 ML NEB NEB SCH ×3 (10:03→19:00)
[2018-03-03] MEDS: ACETAMINOPHEN 325 MG TAB PO PRN ×2 (11:00→16:50)
[2018-03-03 12:00] VITALS: BP 162/87
[2018-03-03] MEDS ORDERED: TIZANIDINE HCL 4 MG TAB PO SCH (13:30)
[2018-03-03 16:00] VITALS: BP 143/79
[2018-03-03] MEDS ORDERED: MINOCYCLINE HCL50 MG PO ×2 (17:05→17:10)
[2018-03-03 20:13] VITALS: BP 134/83
[2018-03-03] MEDS: METFORMIN HCL 500 MG TAB CR PO SCH (20:13)
[2018-03-03] MEDS: FENOFIBRATE 145 MG TAB PO SCH (20:13)
[2018-03-03] MEDS: DULOXETINE HCL 30 MG DELAYED RELEASE PO SCH (20:13)
[2018-03-03] MEDS: ATORVASTATIN 10 MG TAB PO SCH (20:13)
== END 2018-03-03 21:47 | disposition home or self-care (01) | DRG 603 ==
LOC: ER 01:47 → ERHOLD 03:19 → MED/SURG2 03:23
PROVIDERS: ADMIT Internal Medicine; ATTEND Internal Medicine
DX: L03.116 Cellulitis of left lower limb (principal); J43.9 Emphysema, unspecified; Z72.0 Tobacco use; I10 Essential (primary) hypertension; Z79.01 Long term (current) use of anticoagulants; F17.210 Nicotine dependence, cigarettes, uncomplicated; E11.42 Type 2 diabetes mellitus with diabetic polyneuropathy; E78.5 Hyperlipidemia, unspecified; J44.9 Chronic obstructive pulmonary disease, unspecified; S81.812A Laceration without foreign body, left lower leg, initial encounter; S81.811A Laceration without foreign body, right lower leg, initial encounter; I48.0 Paroxysmal atrial fibrillation; Z88.5 Allergy status to narcotic agent
CPT/HCPCS: 36415; 71046; 80048; 80053; 80162; 80202; 82948; 85025; 85610; 85730; 87040; 87071; 87205; 93971; 94640; 96372; 99284; J2270; J2543; J3370; J7030

== ENCOUNTER 2018-11-02 15:14 | Inpatient (IN) | payer MEDICARE, BC ==
[~2018-11-02] VITALS: Ht 193 cm; Wt 96.8 kg
[~2018-11-02 15:14] MED LIST changes: +LASIX20 MG PO; +LISINOPRIL2.5 MG PO; +MINOCYCLINE HCL50 MG PO
[2018-11-02] MEDS ORDERED: SODIUM CHLORIDE 0.9% 1000ML 1,000 ML IV STA (15:27)
[2018-11-02] MEDS ORDERED: SODIUM CHLORIDE 0.9% 500ML 500 ML IV ONE (15:45)
[2018-11-02 16:21] LABS: BASOPHILS % 0.4 % (0.0-1.0); EOSINOPHILS # (AUTO) 0.1 (0.0-0.4); EOSINOPHILS % 1.5 % (0.0-6.0); HEMATOCRIT 35.9 % (38.2-49.6); HEMOGLOBIN 12.1 g/dL (14.0-18.0); LYMPHOCYTES # (AUTO) 1.8 (1.0-3.2); LYMPHOCYTES % 37.2 % (18.0-39.1); MEAN CORPUSCULAR HEMOGLOBIN 30.9 pg (28-32); MEAN CORPUSCULAR HGB CONC 33.7 g/dL (31-35); MEAN CORPUSCULAR VOLUME 91.8 fL (81-99); MONOCYTES # (AUTO) 0.6 (0.2-0.8); MONOCYTES % 12.1 % (4.4-11.3); NEUTROPHILS # (AUTO) 2.3 (2.1-6.9); NEUTROPHILS % 48.2 % (38.7-80.0); PLATELET COUNT 143 x10e3/uL (140-360); RED BLOOD COUNT 3.91 x10e6/uL (4.3-5.7); RED CELL DISTRIBUTION WIDTH 16.5 % (11.7-14.4)
[2018-11-02 16:33] LABS: INR 1.24; PROTHROMBIN TIME 16.7 seconds (11.9-14.5)
[2018-11-02 16:34] LABS: PARTIAL THROMBOPLASTIN TIME 49.3 seconds (23.8-35.5)
--- NOTE | 2018-11-02 16:40 | NUR ---
X-RAY AT BEDSIDE FOR CXR AT THIS TIME.
[2018-11-02 16:41] LABS: ALBUMIN 3.2 g/dL (3.5-5.0); ALBUMIN/GLOBULIN RATIO 0.8 (0.8-2.0); ANION GAP 16.4 mmol/L (8-16); CALCIUM 8.8 mg/dL (8.4-10.2); CREATININE, SERUM 1.48 mg/dL (0.72-1.25); MAGNESIUM 1.8 MG/DL (1.3-2.1); POTASSIUM 4.4 mmol/L (3.5-5.1)
--- NOTE | 2018-11-02 16:55 | Diagnostic Imaging Report ---
EXAMINATION: CHEST SINGLE (PORTABLE) INDICATION: Coughing hypertension. COMPARISON: 03/02/18. FINDINGS: TUBES and LINES: None. LUNGS: Mild bilateral pulmonary venous congestion and interstitial edema. PLEURA: No pleural effusion or pneumothorax. HEART AND MEDIASTINUM: The cardiac silhouette is mildly to moderately enlarged. Prominence of the pulmonary hilum bilaterally. BONES AND SOFT TISSUES: Lower cervical fusion hardware. UPPER ABDOMEN: No free air under the diaphragm. IMPRESSION: Bilateral pulmonary venous congestion. Decompensated CHF. Signed by: Dr. Mallory Aguayo M.D. on 11/02/2018 4:52 PM
[2018-11-02] MEDS: ALBUTEROL/IPRATROPIUM 3 ML NEB NEB SCH ×2 (17:00→23:00)
[2018-11-02 17:01] LABS: CREATINE KINASE MB 2.3 ng/mL (0-5.0)
[2018-11-02] MEDS ORDERED: SODIUM CHLORIDE 0.9% 1000ML 1,000 ML IV ONE (18:15)
[2018-11-02] MEDS ORDERED: SODIUM CHLORIDE 0.9% 1000ML 1,000 ML IV SCH (18:15)
--- NOTE | 2018-11-02 19:00 | NUR ---
REPORT GIVEN TO PETAR CLARK
[2018-11-02] MEDS ORDERED: OXYCODONE HCL15 MG PO (19:12)
[2018-11-02] MEDS ORDERED: DIGOXIN125 MCG PO (19:12)
[2018-11-02] MEDS ORDERED: MULTIVITAMINS1 EAC7 PO (19:12)
[2018-11-02] MEDS ORDERED: POTASSIUM CHLOR8 MEQ PO (19:12)
[2018-11-02] MEDS ORDERED: METOPROLOL TART25 MG PO (19:12)
[2018-11-02 19:15] LABS: BILIRUBIN,URINE NEGATIVE (NEGATIVE); CLARITY,URINE SL CLOUDY (CLEAR); COLOR,URINE YELLOW (YELLOW); KETONES,URINE NEGATIVE (NEGATIVE); LEUKOCYTE ESTERASE ,URINE NEGATIVE (NEGATIVE); NITRITE,URINE NEGATIVE (NEGATIVE); PROTEIN,URINE DIPSTICK NEGATIVE (NEGATIVE); URINE UROBILINOGEN 0.2 mg/dL (0.2 - 1)
--- NOTE | 2018-11-02 19:18 | NUR ---
SPOKE WITH DR DUEÑAS REGARDING IVF'S AND CHEST XRAY, ADVISED NOT TO GIVE IVF'S PER DR DUEAÑS
[2018-11-02 19:20] LABS: EPITHELIAL CELLS,URINE RARE /LPF
[2018-11-02] MEDS ORDERED: OXYCODONE HCL IR 15 MG TAB PO PRN (19:30)
[2018-11-02 20:11] VITALS: BP 157/81
--- NOTE | 2018-11-02 21:27 | NUR ---
CONSULT TO DR LAWLER CALLED BY [employer] FINISHER ARLINE.
[2018-11-02 21:30] VITALS: BP 157/81
[2018-11-02] MEDS: TRAZODONE HCL 50 MG TAB PO PRN (22:05)
[2018-11-02] MEDS: ONDANSETRON HCL INJ 2MG/ML 2ML 2 MG/ML VIAL IV PRN (22:09)
[2018-11-03] VITALS (8 sets, daily range): BP systolic 135–168; BP diastolic 67–93
--- NOTE | 2018-11-03 00:10 | NUR ---
BLOOD DRAWN FOR LAB,PT TOLERATED WELL.PT RESTING IN BED WITH NO S/S OF DISTRESS.RESPIRATIONS EVEN/NON LABORED.BED IN LOWEST/LOCKED POSITION.BED ALARM ON.CALL LIGHT WITHIN EASY REACH.
[2018-11-03] MEDS: ALBUTEROL/IPRATROPIUM 3 ML NEB NEB SCH ×2 (03:00→07:18)
--- NOTE | 2018-11-03 03:10 | NUR ---
CALL PLACED TO DR HENRY ANSWERING SERVICE TO NOTIFY ABOUT PT'S HR.SPOKE WITH MAILE,DR HENRY PAGED AT THIS TIME.
--- NOTE | 2018-11-03 03:17 | NUR ---
DR MARTE CALLED BACK FOR DR HENRY,NOTIFIED THAT PT IS AFIB WITH HR FLUCTUATING BETWEEN 110-140'S.N/O RECEIVED.
[2018-11-03] MEDS: METOPROLOL TARTRATE INJ 1 MG/ML VIAL IV PRN ×2 (03:26→06:26)
--- NOTE | 2018-11-03 07:09 | NUR ---
REPORT GIVEN TO ONCOMING NURSE,WALKING ROUNDS MADE,PT RESTING IN BED WITH NO S/S OF DISTRESS.PT HR 98 AT THIS TIME.
--- NOTE | 2018-11-03 07:25 | NUR ---
TELE CALLED STATING PT WAS S TACH. PT GETTING BREATHING TX AT THIS TIME AND ASYMPTOMATIC. RT AT BEDSIDE.
[2018-11-03 08:02] LABS: BASOPHILS % 0.4 % (0.0-1.0); EOSINOPHILS # (AUTO) 0.1 (0.0-0.4); EOSINOPHILS % 0.9 % (0.0-6.0); HEMOGLOBIN 12.3 g/dL (14.0-18.0); LYMPHOCYTES % 43.9 % (18.0-39.1); MEAN CORPUSCULAR HEMOGLOBIN 31.1 pg (28-32); MEAN CORPUSCULAR HGB CONC 33.2 g/dL (31-35); MEAN CORPUSCULAR VOLUME 93.4 fL (81-99); NEUTROPHILS # (AUTO) 2.7 (2.1-6.9); NEUTROPHILS % 40.1 % (38.7-80.0); PLATELET COUNT 125 x10e3/uL (140-360); RED BLOOD COUNT 3.96 x10e6/uL (4.3-5.7); RED CELL DISTRIBUTION WIDTH 16.6 % (11.7-14.4)
[2018-11-03] MEDS: DILTIAZEM HCL 180 MG CAP ER PO SCH ×2 (08:17→17:15)
[2018-11-03] MEDS: PANTOPRAZOLE 40 MG 10ML VIAL IV SCH (08:17)
[2018-11-03] MEDS ORDERED: AMIODARONE HCL 900 MG in DEXTROSE 5% 500ML 500 ML IV SCH (08:30)
[2018-11-03 08:39] LABS: ANION GAP 14.7 mmol/L (8-16); CALCIUM 8.9 mg/dL (8.4-10.2); CHOL/HDL RATIO 2.8 (3.9-4.7); CREATININE, SERUM 1.34 mg/dL (0.72-1.25); POTASSIUM 4.7 mmol/L (3.5-5.1)
--- NOTE | 2018-11-03 08:49 | History and Physical ---
CHIEF COMPLAINT: Shortness of breath, trouble breathing, fatigue, overall weakness since last couple of months and progressively worsening. HISTORY OF PRESENT ILLNESS: A 68-year-old pleasant white male with a past medical history of multiple medical problems was admitted at [facility] last evening with the above complaints. The patient was seen in the clinic last week by me for the above complaints. The patient had a blood test done, which showed creatinine of 1.79 on the routine blood test. The patient's baseline creatinine is 0.8. Hence, the patient was advised to go the hospital yesterday. In the emergency room, the patient was seen by the emergency room doctor and admitted for further care and treatment. At present, the patient is lying comfortably in bed. No apparent distress. No chest pain. No shortness of breath at rest. No nausea, vomiting or diarrhea. No abdominal pain. No loss of consciousness present. No headaches. No hematemesis. No melena. No hematuria. No dysuria. No fever. No cough. No witnessed seizures. PAST MEDICAL HISTORY 1. Atrial fibrillation. 2. CHF. 3. Hyperlipidemia. 4. Hypertension. 5. Chronic pain syndrome. 6. Chronic low back pain. MEDICATIONS: As listed in the chart. ALLERGIES: CODEINE. SURGICAL HISTORY: Multiple lower back surgeries. SOCIAL HISTORY: Smoking plus 1 pack per day for 40+ years. No alcohol. No illicit drug use. and lives with family. REVIEW OF SYSTEMS: Per HPI. FAMILY HISTORY: Noncontributory. PHYSICAL EXAMINATION GENERAL: Patient is alert, awake and oriented times 3. No apparent distress. Lying in bed. VITALS: Temperature is 98, pulse is 102 per minute, respiratory rate 16 per minute, blood pressure is 150/80, and saturation is 95%. SKIN: No cyanosis. No icterus. No pallor. HEENT: Normocephalic and atraumatic. PERRLA. NECK: Soft and supple. LUNGS: Air entry bilaterally. Decreased bibasilar few rales plus. HEART: S1 and S2. No gallop. No rub. ABDOMEN: Soft and nontender. Bowel sounds plus. ASSISTANT COUNSEL: Alert, awake and oriented times 3. No focal deficit. EXTREMITIES: No cyanosis. No clubbing. Peripheral edema trace, +1. LABS: On admission to the ER, sodium 137, potassium 4.4, chloride 101, bicarb 24, BUN 27, creatinine 1.48, glucose 137. LFTs noted. Cardiac enzymes times 2 negative. White count 4.7, hemoglobin 12.1, hematocrit 35.9, and platelets 143,000. INR 1.24, PTT 40.3 now. Urine with no infection. Chest x-ray shows bilateral pulmonary venous congestion and decompensated CHF. EKG shows atrial fibrillation at a rate of 67 beats per minute. ASSESSMENT 1. Dyspnea on exertion, progressively worsening. 2. Acute renal insufficiency. 3. History of atrial fibrillation. 4. Congestive heart failure. 5. Chronic obstructive pulmonary disease. 6. Hypertension. 7. Chronic pain. PLAN: Admit patient to med/tele. Oxygen and neb treatments. Cardiology consult. Echocardiogram. Cardiology consultation with Dr. Urbina. Pulmonary consultation with Dr. Major. Renal consultation with Dr. Chávez. Will get ultrasound of kidneys. Further care during clinical course with the patient in the hospital. Discussed with the patient in detail. Job#: [id number] KENZIE
[2018-11-03] MEDS ORDERED: FUROSEMIDE 20 MG TAB PO SCH (09:00)
[2018-11-03] MEDS ORDERED: DIGOXIN 0.125 MG TAB PO SCH ×2 (09:00)
[2018-11-03] MEDS ORDERED: RIVAROXABAN 20 MG TABLET PO SCH (09:00)
[2018-11-03] MEDS: METOPROLOL TARTRATE 25 MG TAB PO SCH ×2 (09:44→17:15)
[2018-11-03] MEDS: RIVAROXABAN 15 MG TABLET PO SCH (09:45)
--- NOTE | 2018-11-03 09:54 | Consultation ---
DATE OF CONSULTATION: November 02, 2018 CARDIOLOGY CONSULTATION REASON FOR CONSULTATION: CHF. CONSULTING PHYSICIAN: Dr. Tavarez HPI: This is a pleasant 68-year-old male that was sent from the PCP's office due to abnormal labs for further evaluation. He stated he has been feeling weak lately. Went to the PCP's office and did some blood work, and got a call back to come to the emergency room for further evaluation. He has a history of diastolic CHF, chronic AFib, and was anticoagulated with Xarelto. He also smokes a pack to 1-1/2 packs of cigarettes daily. He denied any chest pain, any dizziness, any diaphoresis, or any palpitations. Troponin was negative. EKG with AFib and irregularly irregular. BNP 382. Chest x-ray showed bilateral pulmonary venous congestion versus decompensated CHF. PAST MEDICAL HISTORY: AFib, COPD, hyperlipidemia, chronic back pain, anemia. PAST SURGICAL HISTORY: Back surgery times 7 and shoulder fusion. FAMILY HISTORY: Positive for hypertension. SOCIAL HISTORY: He lives at home with the . He smokes 1-1/2 packs of cigarettes daily. MEDICATIONS: See med list. ALLERGIES: HE IS ALLERGIC TO CODEINE. REVIEW OF SYSTEMS: Negative except those mentioned above. PHYSICAL EXAMINATION VITAL SIGNS: Temperature 97.6, heart rate 126, blood pressure 168/93, respirations 18, oxygen saturation 99% on 2 L nasal cannula. GENERAL: He is awake, alert and oriented times 3. HEENT: Mucous membrane moist. NECK: Supple. LUNGS: Bilateral with decreased breath sounds. CARDIOVASCULAR: Irregularly irregular. ABDOMEN: Soft. NEUROLOGICAL: Intact. EXTREMITIES: With no edema. LABS: Sodium 137, potassium 4.4, chloride 101, CO2 24, BUN 27, creatinine 1.48, glucose 127. White blood cells 4.79, hemoglobin 12.1, hematocrit 35.9, and platelets 143,000. PT 16.7, PTT 49.3 and INR 1.24. IMPRESSION 1. Acute diastolic congestive heart failure exacerbation. 2. Atrial fibrillation with rapid ventricular response. 3. Anemia. 4. Acute renal insufficiency. 5. Possible chronic obstructive pulmonary disease exacerbation. 6. Tobacco abuse. 7. Elevated AST. ASSESSMENT AND PLAN 1. Pending echo to assess the LV and valve function. Heart rate fluctuates. Will continue beta elaine, Cardizem and digoxin. 2. Gentle IV fluids and diuretics. 3. Will change albuterol to Xopenex. 4. He has been counseled on tobacco cessation. 5. Okay to use amiodarone IV if heart rate is not getting better with the p.o. medications. 6. Decrease digoxin to every other day due to the elevated liver function tests. Further cardiac workup pending clinical course. Thank you for this consultation. DICTATED BY MAYCO YAP NP Job#: [id number] RI
[2018-11-03] MEDS: OXYCODONE HCL IR 5 MG TAB PO PRN ×2 (11:42→17:51)
--- NOTE | 2018-11-03 11:44 | Consultation ---
DATE OF CONSULTATION: November 03, 2018 PULMONARY CONSULTATION REASON FOR CONSULTATION: Shortness of breath and wheezing. HPI: Mr. Delvalle is a 68-year-old male who is known to me from my office. He has COPD and was following up with me until January 2018. Then he was lost to follow. I saw him initially for COPD. He was started on Anoro. He had lung nodules and lung masses, which resolved on repeat CAT scan done in January of 2018. The patient reports that for the last few days he was having increasing shortness of breath and wheezing with cough so he decided to come to the emergency room. He has atrial fibrillation and increased heart rate here as well. Denies any nausea, vomiting, loss of consciousness, hematuria, dysuria. REVIEW OF SYSTEMS GENERAL: Denies any fever or chills. HEAD: Denies any head trauma. ENT: Denies any earache. CVS: Denies any chest pain. RESPIRATORY: Cough. GI: Denies any nausea or vomiting. OTHER: Rest of the review of systems are negative except as in HPI. PAST MEDICAL HISTORY: Atrial fibrillation, hyperlipidemia, hypertension, back pain. FAMILY AND SOCIAL HISTORY: He is still smokes. Has been a smoker for 50-plus years. Denies any alcohol use. PHYSICAL EXAMINATION VITAL SIGNS: Temperature 98.2, pulse of 102, blood pressure 153/79, respiratory rate of 18. O2 sat 94% on 2 liters. HEENT: Head is atraumatic, normocephalic. NECK: Supple. CHEST: Markedly reduced air entry. HEART: S1, S2 audible. ABDOMEN: Soft, nontender. EXTREMITIES: No pedal edema. NEUROLOGIC: Awake and alert. No focal neurologic deficit. LABS: White count 6.7, hemoglobin 12.3, platelets 125. Chemistries: Sodium 140, potassium 4.7, chloride 104, BUN 22, creatinine 1.34 (was 1.48 yesterday). Troponins have been negative. CHEST X-RAY: I reviewed the images. It is showing bilateral pulmonary congestion. ASSESSMENT: Mr. Delvalle is a 68-year-old male who presented to the emergency room with worsening shortness of breath. Patient has chronic obstructive pulmonary disease. Still smokes. Also has chronic diastolic heart failure, appears to be decompensated with atrial fibrillation. PLAN 1. I will start the patient on low dose of steroids. 2. Continue nebulizer treatment as ordered. 3. I will start the patient on Atrovent q.8 h. as patient is in atrial fibrillation. 4. He is on p.o. Lasix. Will change the Lasix to IV and follow closely. 5. Oxygen as needed to keep the O2 sat more than or equal to 92%. 6. History of lung nodules, now with worsening wheezing and shortness of breath, still smokes. Will repeat a CAT scan of the chest. Thank you for this consult. Job#: [id number]
--- NOTE | 2018-11-03 13:00 | Diagnostic Imaging Report ---
EXAM: CT Chest WITHOUT contrast INDICATION: Shortness of breath. COMPARISON: Chest CT dated 01/20/2018. TECHNIQUE: Chest was scanned utilizing a multidetector helical scanner from the lung apex through the level of the adrenal glands without administration of IV contrast. Absence of intravenous contrast decreases sensitivity for detection of lymphadenopathy and vascular pathology. Coronal and sagittal reformations were obtained. Routine protocol was performed. IV CONTRAST: None COMPLICATIONS: None RADIATION DOSE: Total DLP: 634.8 mGy*cm CTDIvol has been reviewed. It is below the limits set by the Radiation Protocol Committee (RPC). FINDINGS: LINES/ TUBES: None. LUNGS AND AIRWAYS: Upper lobe predominant moderate centrilobular and paraseptal emphysematous changes. Biapical pleural parenchymal scarring. There are mild peripheral interstitial opacities, for example in the left upper lobe on series 3, image 60, unchanged from prior CT and could reflect early fibrotic changes. There is a 10 mm ground glass nodule which abuts a 7 mm solid nodule inferiorly (axial series 3 images 96 to 99; coronal image 55). The 7 mm solid nodule appears similar to the prior study but the ground glass nodular opacity superiorly is new. There are mild dependent groundglass opacities in the right lower lobe, including a new 8 mm ground glass nodular opacity on series 3, image 94 and new 8 mm ground glass nodular opacity on image 74. Unchanged 5 mm right middle lobe nodule on image 105. Central airways are unremarkable. PLEURA: Trace left pleural effusion. No evidence of pneumothorax. HEART AND MEDIASTINUM: The thyroid gland is normal. No mediastinal or axillary lymphadenopathy. Scattered subcentimeter mediastinal lymph nodes are seen, unchanged. The heart is mildly enlarged. There is no pericardial effusion. Main pulmonary artery measures 4.1 cm, suggestive of pulmonary hypertension. Atherosclerotic calcification of coronary arteries, aorta, and aortic valve. Aorta measures 3.6 cm at a level of right pulmonary artery. UPPER ABDOMEN: Unremarkable limited non-contrast views of the upper abdomen. BONES/SOFT TISSUES: Partially seen thoracolumbar posterior fusion with unchanged compression fracture of T10 vertebral body and T12-L1, L1-L2 discectomies. Partially seen lower cervical fixation hardware. IMPRESSION: A 7 mm solid nodule in the right middle lobe is similar to the prior study however abutting this nodule, there is a new 1 cm ground glass nodular opacity. It is unclear if this is a separate infectious or inflammatory process, however given emphysematous changes, a follow-up chest CT is recommended in 3 months to exclude enlarging nodule. Scattered other ground glass nodular opacities, which maybe infectious or inflammatory. Trace left pleural effusion. Signed by: Dr. Elizabeth Saldaña MD on 11/03/2018 12:56 PM
[2018-11-03] MEDS: ONDANSETRON HCL INJ 2MG/ML 2ML 2 MG/ML VIAL IV PRN ×2 (13:42→22:39)
--- NOTE | 2018-11-03 14:52 | NUR ---
Nutrition Screen Note RD Recommendation for Physician: -Continue cardiac diet as ordered Plan of Care: RD following, monitoring for tolerance and adequacy Nutrition reason for involvement: Nutrition Risk Trigger MST Primary Diagnose(s): 1. Acute diastolic congestive heart failure exacerbation. 2. Atrial fibrillation with rapid ventricular response. 3. Anemia. 4. Acute renal insufficiency. 5. Possible chronic obstructive pulmonary disease exacerbation. 6. Tobacco abuse. 7. Elevated AST. PMH: Afib, CHF, HLD, HTN chronic pain syndrome, chronic low back pain Ht: 76in Wt: 220lb BMI: 26.8kg/m2 IBW: 202lb RD Assessment: (11/03) Chart reviewed. Labs and meds reviewed. 68yo M, who is admitted for SOB. Currently on steroid, Xarelto and Lasix. Visited pt in the room. 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 No GI complains noted. LBM 11/02. Pt denies any chewing or swallowing difficulty. Pt was dx with CHF many years ago. Pt requested RD to return for diet education (CHF) when it is appropriate. Will continue to monitor and follow. Current Diet: cardiac diet Malnutrition Evaluation (11/03/2018) The patient does not meet criteria for a specified degree of malnutrition at this time. Will re-evaluate at follow-up as appropriate. Diet Education Needs Assessment: Diet education indicated, pt is not appropriate at this time. Nutrition Care Level: low Signed: Zainab Alcazar, , RD, LD
[2018-11-03] MEDS: METHYLPREDNISOLONE SOD SUCC 40 MG/ML VIAL 1ML IV SCH ×2 (14:53→22:12)
[2018-11-03] MEDS: IPRATROPIUM BROMIDE 0.02% 2.5 ML NEB NEB SCH ×2 (15:00→20:21)
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
--- NOTE | 2018-11-03 15:05 | NUR ---
Visit made by the Spiritual Care Department Pastoral Visitor, Larisa Sams. Pt sleeping soundly and no family present. Pastoral Visitor left a card describing availability of machinist wood and instructions on how to contact a machinist wood. GEORGE AWAD Astronomy Department Chair Spiritual Care Department O: [phone] Pager: [phone] ([phone] calling from)
--- NOTE | 2018-11-03 16:03 | NUR ---
PT OFF THE UNIT TO ULTRASOUND.
--- NOTE | 2018-11-03 16:46 | Diagnostic Imaging Report ---
EXAM: Renal Ultrasound INDICATION: Acute renal insufficiency. COMPARISON: None TECHNIQUE: Transverse and longitudinal images of the kidneys and bladder were obtained. FINDINGS: Right Kidney: Length: Measures 11.2 x 6.4 x 5.9 cm Appearance: Normal echogenicity. Collecting system: No hydronephrosis Stones: None Cyst/Mass: None Left Kidney: Length: Measures 12.1 x 7.4 x 5.8 cm Appearance: Normal echogenicity. Collecting system: No hydronephrosis Stones: None Cyst/Mass: None Bladder: Unremarkable in appearance. Bilateral ureteral jets are present. IMPRESSION: Unremarkable renal ultrasound. No evidence of hydronephrosis. Signed by: Dr. Elizabeth Saldaña MD on 11/03/2018 4:42 PM
[2018-11-03] MEDS: TRAZODONE HCL 50 MG TAB PO PRN (23:24)
[2018-11-04] VITALS (7 sets, daily range): BP systolic 141–155; BP diastolic 72–86
[2018-11-04 06:08] LABS: HEMATOCRIT 40.1 % (38.2-49.6); HEMOGLOBIN 13.1 g/dL (14.0-18.0); LYMPHOCYTES # (AUTO) 1.2 (1.0-3.2); LYMPHOCYTES % 36.2 % (18.0-39.1); MEAN CORPUSCULAR HEMOGLOBIN 30.2 pg (28-32); MEAN CORPUSCULAR HGB CONC 32.7 g/dL (31-35); MEAN CORPUSCULAR VOLUME 92.4 fL (81-99); MONOCYTES # (AUTO) 0.2 (0.2-0.8); MONOCYTES % 6.6 % (4.4-11.3); NEUTROPHILS # (AUTO) 1.8 (2.1-6.9); NEUTROPHILS % 56.3 % (38.7-80.0); PLATELET COUNT 136 x10e3/uL (140-360); RED BLOOD COUNT 4.34 x10e6/uL (4.3-5.7); RED CELL DISTRIBUTION WIDTH 16.1 % (11.7-14.4)
[2018-11-04] MEDS: METHYLPREDNISOLONE SOD SUCC 40 MG/ML VIAL 1ML IV SCH ×2 (06:10→16:43)
[2018-11-04 06:29] LABS: ALBUMIN 3.3 g/dL (3.5-5.0); ALBUMIN/GLOBULIN RATIO 0.8 (0.8-2.0); ANION GAP 17.8 mmol/L (8-16); CALCIUM 9.2 mg/dL (8.4-10.2); CREATININE, SERUM 1.4 mg/dL (0.72-1.25); POTASSIUM 4.8 mmol/L (3.5-5.1)
[2018-11-04] MEDS: LEVALBUTEROL HCL SOLN NEBU 0.63 MG/3 ML NEB INH PRN ×2 (07:00→14:50)
[2018-11-04] MEDS: IPRATROPIUM BROMIDE 0.02% 2.5 ML NEB NEB SCH ×3 (07:00→14:50)
--- NOTE | 2018-11-04 07:02 | NUR ---
Received patient semi fowlers position, side rails upx2, call light within reach. Resting with eyes closed. Arousable to verbal stimuli. Respirations even and unlabored. Will continue to monitor.
--- NOTE | 2018-11-04 07:28 | NUR ---
REPORT GIVEN TO ONCOMING NURSE,WALKING ROUNDS MADE.PT RESTING IN BED WITH NO S/S OF DISTRESS.
[2018-11-04] MEDS: OXYCODONE HCL IR 5 MG TAB PO PRN ×3 (08:59→21:38)
[2018-11-04] MEDS: PANTOPRAZOLE 40 MG 10ML VIAL IV SCH (09:00)
[2018-11-04] MEDS: RIVAROXABAN 15 MG TABLET PO SCH (09:00)
[2018-11-04] MEDS: DILTIAZEM HCL 180 MG CAP ER PO SCH ×2 (09:00→16:30)
[2018-11-04] MEDS: METOPROLOL TARTRATE 25 MG TAB PO SCH ×2 (09:00→16:30)
[2018-11-04] MEDS ORDERED: FUROSEMIDE INJ 10 MG/ML 4 ML VIAL IV SCH (09:00)
[2018-11-04] MEDS ORDERED: DIGOXIN 0.125 MG TAB PO SCH (10:45)
--- NOTE | 2018-11-04 11:13 | Consultation ---
DATE OF CONSULTATION: November 04, 2018 HISTORY OF PRESENT ILLNESS: This is a 68-year-old gentleman with no prior history of any kidney or prostate problems, history of hypertension, no diabetes, has underlying history of COPD. Renal consulted for management of underlying acute kidney injury. He has underlying history of atrial fibrillation. He has had 7 spine surgeries. Two of them were cervical fusion surgeries. He is on oxycodone at home. He denies taking any nonsteroidal anti-inflammatory drug medications. History of tobacco addiction, quit a few years ago. Followed by Dr. Major as an outpatient and Dr. Love as an outpatient. Laboratory tests show white count of 3.1, hemoglobin 13.1. Potassium 4.8. Creatinine 1.4. His globulin is 4. Total protein 7.3. ALLERGIES: CODEINE. CURRENT MEDICATIONS: Patient is on: 1. Trazodone 50 mg p.r.n. for sleep. 2. Xarelto 15 mg daily. 3. Oxycodone for pain. 4. Ondansetron p.r.n. 5. Methylprednisolone 20 mg IV q.12. 6. Furosemide 40 mg daily. 7. Digoxin 0.25 mg p.o. q.8. 8. Diltiazem 180 mg p.o. b.i.d. FAMILY HISTORY: Significant for hypertension. PHYSICAL EXAMINATION GENERAL: Awake, alert, sitting up, in no apparent distress. VITALS: Blood pressure 146/76, pulse rate 80, afebrile, respiratory rate 14. HEAD AND NECK: Corneas clear. Oral mucosa is moist. LUNGS: Relatively clear. HEART: S1 and S2 audible. ABDOMEN: Otherwise soft and nontender. LOWER EXTREMITIES: No edema. Echo shows biatrial enlargement, poor right side function. Left ventricular ejection fraction is 55% to 60%. His EKG shows a history of atrial fibrillation with bundle-branch block pattern. Rate is 67. IMPRESSION AND PLAN: Acute kidney injury in a patient with underlying hypertension, chronic obstructive pulmonary disease, atrial fibrillation. I am a bit concerned about using both Cardizem and digoxin. Would recommend to discontinue digoxin. Will work up underlying abnormal kidney function. Ultrasound of the kidneys, urine [id number] ratio, urinalysis, serum uric acid. Continue with Lasix for now. Will monitor the patient's kidney function and urine output with you. Further recommendations to follow. Job#: [id number] MH
[2018-11-04] MEDS: MUPIROCIN 2% OINT 22 GM TUBE TOP SCH (11:17)
[2018-11-04 11:33] LABS: BILIRUBIN,URINE NEGATIVE (NEGATIVE); CLARITY,URINE CLEAR (CLEAR); COLOR,URINE YELLOW (YELLOW); KETONES,URINE NEGATIVE (NEGATIVE); LEUKOCYTE ESTERASE ,URINE NEGATIVE (NEGATIVE); NITRITE,URINE NEGATIVE (NEGATIVE); PROTEIN,URINE DIPSTICK NEGATIVE (NEGATIVE); URINE UROBILINOGEN 0.2 mg/dL (0.2 - 1)
[2018-11-04 11:51] LABS: BACTERIA,URINE RARE /HPF; EPITHELIAL CELLS,URINE RARE /LPF; RBC,URINE 0-5 /HPF (0-5); WBC,URINE (MAN) 0-5 /HPF (0-5)
[2018-11-04 11:52] LABS: TRANSITIONAL EPI CELLS,URINE RARE
[2018-11-04 12:09] LABS: CREATININE,URINE RANDOM 24.93 mg/dL (63-166)
[2018-11-04] MEDS: ONDANSETRON HCL INJ 2MG/ML 2ML 2 MG/ML VIAL IV PRN (12:58)
--- NOTE | 2018-11-04 13:44 | Diagnostic Imaging Report ---
EXAM: Renal Ultrasound INDICATION: Acute renal insufficiency. COMPARISON: Renal ultrasound 11/03/2017. TECHNIQUE: Transverse and longitudinal images of the kidneys and bladder were obtained. FINDINGS: Right Kidney: Length: Measures 11.1 x 6.3 x 5.8 cm. Appearance: Normal echogenicity. Collecting system: No hydronephrosis Stones: None Cyst/Mass: None Left Kidney: Length: Measures 13.4 x 6.1 x 5.1 cm. Appearance: Normal echogenicity. Collecting system: No hydronephrosis Stones: None Cyst/Mass: None Bladder: Bladder is partially decompressed. A left ureteral jet is visualized, a right ureteral jet is not visualized. IMPRESSION: Unremarkable renal ultrasound. No evidence of hydronephrosis. Signed by: Dr. Elizabeth Saldaña MD on 11/04/2018 1:41 PM
[2018-11-04] MEDS: PREGABALIN 75 MG CAP PO SCH (16:43)
[2018-11-04] MEDS ORDERED: PREGABALIN 300 MG PO SCH (17:00)
--- NOTE | 2018-11-04 19:10 | NUR ---
Patient visited in room during nursing rounds. Patient appear comfortable and sleeping but easily arousable. Call zuniga within reach. Will monitor closely.
--- NOTE | 2018-11-04 19:24 | NUR ---
Report given to oncoming nurse of patient's status. No s/s of acute distress noted.
[2018-11-04] MEDS: TRAZODONE HCL 50 MG TAB PO PRN (20:26)
[2018-11-04] MEDS ORDERED: NON-FORMULARY MEDICATION (Duloxetine Hcl (Cymbalta) 60 MG) PO SCH (21:00)
[2018-11-04] MEDS ORDERED: DULOXETINE HCL 30 MG DELAYED RELEASE PO SCH (21:00)
[2018-11-05] VITALS: BP 142/82
[2018-11-05 04:00] VITALS: BP 140/76
[2018-11-05] MEDS: OXYCODONE HCL IR 5 MG TAB PO PRN ×2 (05:05→11:06)
[2018-11-05 06:29] LABS: ALBUMIN 3.2 g/dL (3.5-5.0); ALBUMIN/GLOBULIN RATIO 0.9 (0.8-2.0); ANION GAP 14.3 mmol/L (8-16); CALCIUM 9.2 mg/dL (8.4-10.2); CREATININE, SERUM 1.46 mg/dL (0.72-1.25); POTASSIUM 4.3 mmol/L (3.5-5.1)
--- NOTE | 2018-11-05 07:05 | NUR ---
Received patient sitting on chair. AAOX3 to time, person, place. Respirations even and unlabored. Instructed patient to use call light for assistance. Voiced understanding.
[2018-11-05 07:49] VITALS: BP 152/97
[2018-11-05 08:15] VITALS: BP 152/97
[2018-11-05] MEDS: DILTIAZEM HCL 180 MG CAP ER PO SCH ×2 (08:36→16:47)
[2018-11-05] MEDS: PANTOPRAZOLE 40 MG 10ML VIAL IV SCH (08:36)
[2018-11-05] MEDS: METHYLPREDNISOLONE SOD SUCC 40 MG/ML VIAL 1ML IV SCH ×2 (08:36→16:46)
[2018-11-05] MEDS: METOPROLOL TARTRATE 25 MG TAB PO SCH ×2 (08:37→16:47)
[2018-11-05] MEDS: PREGABALIN 75 MG CAP PO SCH ×2 (08:37→16:47)
[2018-11-05] MEDS: RIVAROXABAN 15 MG TABLET PO SCH (08:37)
[2018-11-05] MEDS: MUPIROCIN 2% OINT 22 GM TUBE TOP SCH (08:37)
[2018-11-05] MEDS ORDERED: FUROSEMIDE 40 MG TAB PO SCH (09:00)
--- NOTE | 2018-11-05 09:30 | NUR ---
aware of d/c planning. Per "okay to discharge"
--- NOTE | 2018-11-05 10:00 | NUR ---
Paged of d/c plan. Awaiting for call back
[2018-11-05] MEDS ORDERED: XARELTO10 MG PO (10:21)
[2018-11-05] MEDS ORDERED: PREDNISONE20 MG PO (10:23)
--- NOTE | 2018-11-05 10:53 | NUR ---
Notify of orders. States "Ill be there in about an hour"
[2018-11-05 12:05] VITALS: BP 100/59
--- NOTE | 2018-11-05 12:41 | NUR ---
CM SPOKE TO PATIENT AT BEDSIDE REGARDING IMM LETTER. IMM LETTER GIVEN WITH EXPLANATION. ORIGINAL SIGNED AND PLACED IN CHART; COPY OF ORIGINAL DOCUMENT GIVEN TO PATIENT AT BEDSIDE AND PLACED IN CARE TRANSITION FOLDER. CM CONTACT INFORMATION GIVEN TO PATIENT FOR ANY NEEDS OR CONCERNS. PATIENT WITH NO FURTHER QUESTIONS
--- NOTE | 2018-11-05 15:50 | NUR ---
CASE MANAGEMENT INITIAL ASSESSMENT [employer] Operator to bedside to discuss plan of care with patient/family. CM/SW role and care transitions discussed. Anticipated discharge plan discussed along with duration of care. CM discussed patients right to make decisions in care. CM/SW work hours given. Patient lives: PATIENT LIVES IN [address] STORY HOME WITH DELORIS DENT IN [facility] [id number] Admit/Transfer: ED POA/Emergency contact: DELORIS DENT- [phone] Current/Previous Home Health: NONE PCP/Follow-up Care: DR. Eladio LÓPEZ Current/Previous DME: NONE Other Services: NONE; PATIENT INDEPENDENT PRIOR TO ADMISSION Employment Status: RETIRED Areas of Concerns: NONE AT THIS TIME Referral Needs: NONE Education Needs: NONE IMM/SLATER given and signed (if applicable): NO Goal for discharge: DISCHARGE HOME, INDEPENDENT WITH NO NEEDS CM left business card at the bedside with contact information. Name and number was also written on the patients whiteboard. Patient verbalized understanding of discussion. CM will follow-up with ongoing discharge and transition of care needs. Addendum: 11/05/18 at 1553 by Bessy Allison CM IMM GIVEN
[2018-11-05 16:17] VITALS: BP 120/69
--- NOTE | 2018-11-05 18:01 | NUR ---
Per Dr.Khan ribera to discharge and follow up in 3 weeks. Orders from to discharge patient home received
--- NOTE | 2018-11-05 18:25 | NUR ---
left wrist IV discontinued. No signs of infiltration noted. 2x2 gauze and tape placed. Taken via wheelchair by PCT to car. Accompanied by . AAOX4 to time, person, place, situation. Respirations even and unlabored. RX, discharge instructions, and all personal belongings taken with patient.
== END 2018-11-05 18:26 | disposition home or self-care (01) | DRG 292 ==
LOC: ER 15:14 → ERHOLD 18:09 → MED/SURG 20:12
PROVIDERS: ADMIT Internal Medicine; ATTEND Internal Medicine
DX: I11.0 Hypertensive heart disease with heart failure (principal); J44.1 Chronic obstructive pulmonary disease with (acute) exacerbation; N17.9 Acute kidney failure, unspecified; I50.33 Acute on chronic diastolic (congestive) heart failure; I48.2 Chronic atrial fibrillation; I95.9 Hypotension, unspecified; E78.5 Hyperlipidemia, unspecified; D64.9 Anemia, unspecified; F17.210 Nicotine dependence, cigarettes, uncomplicated; Z82.49 Family history of ischemic heart disease and other diseases of the circulatory system; Z79.891 Long term (current) use of opiate analgesic; R91.8 Other nonspecific abnormal finding of lung field; G89.4 Chronic pain syndrome
CPT/HCPCS: 36415; 71045; 71250; 76770; 80048; 80053; 80061; 80162; 81001; 82140; 82550; 82553; 82570; 83605; 83735; 83880; 84156; 84484; 84550; 85025; 85610; 85730; 87040; 87086; 93005; 93306; 94640; 99284; J1940; J2405; J2920; J7040

== ENCOUNTER → 2018-12-25 | Outpatient (CLI) | payer MEDICARE, BC ==
[~2018-12-25] MED LIST changes: +DIGOXIN125 MCG PO; +METOPROLOL TART25 MG PO; +MULTIVITAMINS1 EAC7 PO; +OXYCODONE HCL15 MG PO; +POTASSIUM CHLOR8 MEQ PO; +XARELTO10 MG PO
--- NOTE | 2018-12-25 16:03 | Diagnostic Imaging Report ---
EXAM: CT Chest WITHOUT contrast 12/25/2018 12:47 PM INDICATION: Pulmonary nodule COMPARISON: Chest CT, 11/03/2018 TECHNIQUE: Chest was scanned utilizing a multidetector helical scanner from the lung apex through the level of the adrenal glands without administration of IV contrast. Absence of intravenous contrast decreases sensitivity for detection of lymphadenopathy and vascular pathology. Coronal and sagittal reformations were obtained. Routine protocol was performed. Dose modulation, iterative reconstruction, and/or weight based adjustment of the mA/kV was utilized to reduce the radiation dose to as low as reasonably achievable. IV CONTRAST: None RADIATION DOSE: Total DLP: 285.19 mGy*cm Estimated effective dose: (DLP x 0.014 x size factor) mSv COMPLICATIONS: None FINDINGS: LINES/ TUBES: None. LUNGS AND AIRWAYS: Moderate centrilobular and paraseptal emphysema. Peripheral, subpleural fibrosis. Nodular densities previously reported in the right lower lobe are no longer evident and may have been related to transient atelectasis or infection. 8 mm nodular density in the right middle lobe (series 3, image 100) is stable from previous exam. Trachea and main bronchi are clear. There is bilateral perihilar bronchial wall thickening likely related to bronchitis. PLEURA: Trace left pleural effusion unchanged. No pneumothorax. HEART AND MEDIASTINUM: The thyroid gland is normal. No mediastinal, hilar or axillary lymphadenopathy. Scattered small mediastinal nodes are likely reactive. The heart is upper normal size.. There is no pericardial effusion. There is dense calcification in the mitral annulus. Extensive coronary artery calcifications are seen. Calcifications and aortic valve noted. Main pulmonary artery is dilated measuring 4.5 cm. UPPER ABDOMEN: Included portions of liver, spleen, pancreas and adrenals are grossly unremarkable although evaluation is suboptimal due to extensive streak artifact from spinal hardware. BONES: No acute or suspicious bony lesions. Thoracolumbar fusion hardware is noted. Again seen is a compression fracture at T10. A screw extending into T10 shows adjacent lucency which may indicate loosening. Cervical fusion hardware is partially visualized. SOFT TISSUES: Superficial surrounding soft tissue unremarkable. IMPRESSION: 1. Nodules previously noted in the right lower lobe are no longer seen and may have been related to atelectasis or infection. 2. An 8 mm nodule in the right middle lobe is persistent. Consider six-month follow-up noncontrast chest CT to assure stability. 3. Again noted is moderate and extensive emphysematous change. Bilateral perihilar bronchial wall thickening likely related to bronchitis. Dilated main pulmonary artery likely reflects pulmonary hypertension. 4. Stable trace left pleural effusion. 5. Again noted is compression of the T10 vertebral body with lucency surrounding the stabilization screw. Signed by: Dr. Arnie Gil M.D. on 12/25/2018 4:00 PM
== END ==
LOC: CT 12:42
PROVIDERS: ATTEND Internal Medicine
DX: R91.1 Solitary pulmonary nodule (principal)
CPT/HCPCS: 71250

== ENCOUNTER 2019-01-13 13:22 | Inpatient (IN) | payer MEDICARE, BC ==
[~2019-01-13] VITALS: Ht 193 cm; Wt 102.1 kg
[2019-01-13] MEDS ORDERED: ALBUTEROL SULF 0.083% NEB SOLN 3 ML NEB NEB STA (13:37)
[2019-01-13] MEDS ORDERED: SODIUM CHLORIDE 0.9% 1000ML 1,000 ML IV STA (13:37)
[2019-01-13] MEDS ORDERED: ALBUTEROL/IPRATROPIUM 3 ML NEB NEB ONE (13:45)
[2019-01-13 14:11] LABS: ABG HCO3 25 mmol/L (23-28); ABG PCO2 46 mmHg (41-51); ABG PH 7.34 (7.31-7.41); ABG PO2 318 mmHg (80-105)
[2019-01-13] MEDS ORDERED: DILTIAZEM HCL 5 MG/ML 5 ML VIAL IV STA (14:17)
[2019-01-13 14:19] LABS: BASOPHILS % 0.4 % (0.0-1.0); EOSINOPHILS % 0.3 % (0.0-6.0); HEMATOCRIT 40.3 % (38.2-49.6); HEMOGLOBIN 12.4 g/dL (14.0-18.0); LYMPHOCYTES % 25.5 % (18.0-39.1); MEAN CORPUSCULAR HEMOGLOBIN 28.1 pg (28-32); MEAN CORPUSCULAR HGB CONC 30.8 g/dL (31-35); MEAN CORPUSCULAR VOLUME 91.2 fL (81-99); MONOCYTES # (AUTO) 0.6 (0.2-0.8); MONOCYTES % 7.6 % (4.4-11.3); PLATELET COUNT 137 x10e3/uL (140-360); RED BLOOD COUNT 4.42 x10e6/uL (4.3-5.7); RED CELL DISTRIBUTION WIDTH 17.1 % (11.7-14.4)
[2019-01-13 14:31] LABS: INR 1.24; PROTHROMBIN TIME 16.2 seconds (11.9-14.5)
[2019-01-13 14:32] LABS: PARTIAL THROMBOPLASTIN TIME 39.7 seconds (23.8-35.5)
[2019-01-13 14:40] LABS: ALANINE AMINOTRANSFERASE 17 IU/L (0-55); ALBUMIN 3.5 g/dL (3.5-5.0); ALBUMIN/GLOBULIN RATIO 0.8 (0.8-2.0); ALKALINE PHOSPHATASE 55 IU/L (40-150); ANION GAP 17.2 mmol/L (8-16); BLOOD UREA NITROGEN 24 mg/dL (7-26); BUN/CREATININE RATIO 21 (6-25); CALCIUM 9.8 mg/dL (8.4-10.2); CARBON DIOXIDE 25 mmol/L (22-29); CHLORIDE 106 mmol/L (98-107); CREATINE KINASE 89 IU/L (30-200); CREATININE, SERUM 1.14 mg/dL (0.72-1.25); EST GLOMERULAR FILTRATION RATE > 60 ML/MIN (60-); GLUCOSE 94 mg/dL (74-118); SODIUM 143 mmol/L (136-145)
[2019-01-13 14:52] LABS: POTASSIUM 5.2 mmol/L (3.5-5.1)
[2019-01-13] MEDS ORDERED: FUROSEMIDE INJ 10 MG/ML 4 ML VIAL IV ONE (15:45)
--- NOTE | 2019-01-13 15:54 | Diagnostic Imaging Report ---
EXAMINATION: CHEST SINGLE (PORTABLE) INDICATION: Shortness of breath. COMPARISON: CT chest 12/25/2018. FINDINGS: TUBES and LINES: None. LUNGS: Moderate lung volumes. Emphysematous changes of the lungs. There are perihilar and interstitial opacities. There are patchy opacities in the bilateral mid and lower lung zones. PLEURA: Trace bilateral pleural effusions. No evidence of pneumothorax. HEART AND MEDIASTINUM: Mild cardiomegaly. Atherosclerotic changes of the aortic arch. BONES AND SOFT TISSUES: No acute osseous abnormality. Partially seen spinal fixation hardware. UPPER ABDOMEN: No free air under the diaphragm. IMPRESSION: Mild cardiomegaly with pulmonary interstitial edema. Patchy opacities in bilateral mid and lower lung zones may represent alveolar edema or pneumonia in the appropriate clinical context. Signed by: Dr. Elizabeth Saldaña MD on 01/13/2019 3:51 PM
[2019-01-13 17:08] LABS: PLATELET MORPHOLOGY COMMENT MODERATE LARGE; RBC MORPHOLOGY COMMENT NORMAL
[2019-01-13 17:09] LABS: PLATELET ESTIMATE MARKEDLY DECREASED
--- NOTE | 2019-01-13 21:05 | NUR ---
INFORMED DR. KELLY OF 4 HEAVILY SATURED BRIEF CHANGES OVER THE LAST 4 HOURS.
[2019-01-13] MEDS ORDERED: DEXTROSE 50% SYRINGE 50 ML IV PRN (21:30)
[2019-01-13] MEDS ORDERED: DILTIAZEM HCL 5 MG/ML 5 ML VIAL IV PRN (21:30)
--- NOTE | 2019-01-13 22:05 | NUR ---
patient came from ER awake alert oriented, no distress noted, O2 on 15 liter non rebreather mask. vitals checked, bruises noted to upper abdomen and left arm, on bedside, will continue to monitor.
[2019-01-13 22:50] VITALS: BP 153/91
[2019-01-13 22:54] VITALS: BP 153/91
[2019-01-13] MEDS: ALBUTEROL/IPRATROPIUM 3 ML NEB NEB SCH (23:00)
[2019-01-13] MEDS ORDERED: SUCCINYLCHOLINE CHLORIDE 20 MG/ML 10ML VIAL ONE ×2 (23:02→23:12)
[2019-01-13] MEDS ORDERED: ETOMIDATE 2 MG/ML 10 ML INJ IV ONE (23:02)
[2019-01-13] MEDS: METHYLPREDNISOLONE SOD SUCC 40 MG/ML VIAL 1ML IV SCH (23:24)
[2019-01-14] VITALS (8 sets, daily range): BP systolic 117–151; BP diastolic 70–88
[2019-01-14] MEDS: ALBUTEROL/IPRATROPIUM 3 ML NEB NEB SCH ×6 (03:00→22:45)
[2019-01-14] MEDS: METHYLPREDNISOLONE SOD SUCC 40 MG/ML VIAL 1ML IV SCH ×3 (05:21→21:07)
--- NOTE | 2019-01-14 06:07 | Diagnostic Imaging Report ---
Examination: Single AP view of the chest. COMPARISON: January 13, 2019 INDICATION: Heart failure DISCUSSION: Lines/tubes: None. Lungs: Stable pulmonary edema with enlargement of the central vessels which are. Pleura: No pleural effusion or pneumothorax. Heart and mediastinum: Cardiomegaly Bones and soft tissues: No acute bony abnormalities. IMPRESSION: Stable cardiomegaly with pulmonary edema Signed by: Dr. Jay Rasheed M.D. on 01/14/2019 6:04 AM
[2019-01-14 06:08] LABS: CREATINE KINASE MB 2.5 ng/mL (0-5.0)
[2019-01-14] MEDS ORDERED: OXYCODONE HCL IR 15 MG TAB PO PRN (07:45)
[2019-01-14] MEDS ORDERED: GUAIFENESIN 600 MG TAB PO PRN (07:45)
[2019-01-14] MEDS ORDERED: ONDANSETRON HCL 4 MG ORAL DISINTEGRATING TAB PO PRN (07:45)
[2019-01-14] MEDS: INSULIN LISPRO 100 UNIT/1 ML 3ML VIAL SQ SCH ×4 (08:00→21:06)
[2019-01-14 08:20] LABS: ANION GAP 13.9 mmol/L (8-16); CALCIUM 8.9 mg/dL (8.4-10.2); CREATININE, SERUM 1.19 mg/dL (0.72-1.25); POTASSIUM 3.9 mmol/L (3.5-5.1)
[2019-01-14] MEDS: METOPROLOL TARTRATE 25 MG TAB PO SCH ×2 (08:51→16:41)
[2019-01-14] MEDS: RIVAROXABAN 15 MG TABLET PO SCH (08:51)
[2019-01-14] MEDS: FOLIC ACID 1 MG TAB PO SCH (08:51)
[2019-01-14] MEDS: PREGABALIN 75 MG CAP PO SCH ×2 (08:51→16:41)
[2019-01-14] MEDS: PANTOPRAZOLE SOD 40 MG TABEC PO SCH (08:51)
[2019-01-14] MEDS: CEFTRIAXONE SOD 2 GM/NS 100 ML 100 ML IV SCH (08:51)
[2019-01-14] MEDS: DILTIAZEM HCL 180 MG CAP ER PO SCH ×2 (08:51→16:41)
[2019-01-14] MEDS: MULTIVITAMINS/MINERALS TAB PO SCH (08:51)
[2019-01-14] MEDS: DIGOXIN 0.125 MG TAB PO SCH (08:51)
[2019-01-14] MEDS ORDERED: FUROSEMIDE INJ 10 MG/ML 4 ML VIAL IV SCH ×2 (09:00→17:00)
[2019-01-14] MEDS ORDERED: PREGABALIN 300 MG PO SCH (09:00)
[2019-01-14] MEDS ORDERED: RIVAROXABAN 20 MG TABLET PO SCH (09:00)
--- NOTE | 2019-01-14 12:14 | Consultation ---
DATE OF CONSULTATION: Pulmonary Consultation CHIEF COMPLAINT: Shortness of breath. HISTORY OF PRESENT ILLNESS: Mr. Delvalle is a 68-year-old male, well known to me from my office visit. He has history of COPD. He has not been very compliant with treatment, still smokes. He came in with complains of shortness of breath going on for the last 2 to 3 days. This was associated with cough and increasing phlegm. He uses 4 L oxygen at home and it was not helping, the breathing treatment was not helping, so he decided to come to the emergency room. In the ER, the patient's chest x-ray showing increased congestions bilaterally. He was last seen in the office on 12/21/2018. At that time, he was prescribed an oral. The patient felt better, but kept on smoking. His PFT done in June of 2017 showed FEV1 of 60% with low DLCO. His CT chest, which was done during last admission here showed right lower lobe area consolidation. We repeated CAT scan in October for the area of consolidation, which resolved; however, he had a 7 mm solid nodule in the right middle lobe, which remained stable for six months and a 1 cm ground-glass nodular opacity. Recommendation was to repeat a CAT scan in three months, which was in January of 2019. He has history of paroxysmal atrial fibrillation. His last echocardiogram was done in October of 2018, which showed EF of 55% to 50% with LV dilatation and LA dilatation, consistent with heart failure with preserved ejection fraction. REVIEW OF SYSTEMS: GENERAL: Denies any fever or chills. HEAD: Denies any head trauma. ENT: Denies any earaches. CVS: Denies any chest pain. RESPIRATORY: Shortness of breath. GI: Denies any nausea or vomiting. MUSCULOSKELETAL: Denies any arthralgias or myalgias. NEURO: Denies any focal weakness. The rest of the review of systems are negative except as in HPI. PAST MEDICAL HISTORY: 1. Moderate COPD. 2. Active smoker. 3. Atrial fibrillation. 4. Hypertension. 5. Chronic diastolic heart failure. 6. Hypertension. 7. Peripheral arterial disease. 8. Diabetes. FAMILY AND SOCIAL HISTORY: He has been a smoker for 45 plus years. He still smokes. Denies any alcohol use. Lives with his . PHYSICAL EXAMINATION: VITAL SIGNS: Temperature 98.2, pulse of 96, blood pressure 144/83, respiratory rate is 18 to 20, and O2 saturation 94% on Venti mask. HEENT: Head, atraumatic and normocephalic. NECK: Supple. CHEST: Markedly reduced air entry bilaterally. HEART: S1 and S2 audible. ABDOMEN: Soft, nontender, and nondistended. EXTREMITIES: No clubbing, cyanosis, edema, or extreme redness. LABS: White count of 7000, hemoglobin 12.4, and platelets 137. Chemistry is within normal limits. Creatinine 1.19. Last admission was 1.46. Chest x-ray is showing increased congestion bilaterally. ASSESSMENT AND PLAN: Mr. Delvalle is a 68-year-old male, well known to me from previous admission and office visit. He has [id number] chronic obstructive pulmonary disease, still smokes, came in with acute on chronic hypoxic respiratory failure with worsening shortness of breath and wheezing. He is on home oxygen for his COPD. He also has evidence of diastolic heart failure. CURRENT PROBLEMS: 1. Acute on chronic hypoxic respiratory failure, likely combination of chronic obstructive pulmonary disease and diastolic heart failure, worsening. Continue the patient on Lasix and Solu-Medrol. I will reduce the dose of Solu-Medrol to 20 mg q.6 hours hourly from 40 mg. We will defer the diuretic use to Cardiology. 2. Lung nodule on previous CAT scan, being followed up. I will repeat a CAT scan to follow up on that lung nodule. The patient is high risk for malignancy because of his history of smoking. 3. Continue the patient on nebulizer treatment as ordered. 4. Oxygen. 5. BiPAP to be used as needed. Currently doing well on Venti mask. 6. IV antibiotics, IV Rocephin and azithromycin for chronic obstructive pulmonary disease exacerbation. Atrial fibrillation, currently stable on Xarelto. Cardiology is following the patient. 7. The patient is still a smoker. I counseled him against smoking. MD SID Banks/RUSLAN /[id number]
--- NOTE | 2019-01-14 13:44 | History and Physical ---
CHIEF COMPLAINT: Shortness of breath and cough since last few days. No chest pain. HISTORY OF PRESENT ILLNESS: This is a 68-year-old male with past medical history of COPD, congestive heart failure, hypertension, diabetes, atrial fibrillation, neuropathy, and chronic pain, was in his usual state until the patient has last few days increasing shortness of breath, increasing cough with expectoration. No chest pain. Mild leg edema. No fever, no headache, no dizziness, no diarrhea, no constipation, no hematemesis, no melena, no hematuria. The patient is on Lasix at home p.o., but increasing shortness of breath and orthopnea, so he came to the emergency room. After giving IV Lasix in the ER, the patient feels better today. PAST MEDICAL HISTORY: 1. Atrial fibrillation. 2. COPD. 3. Systolic congestive heart failure. 4. Diabetes mellitus, type 2. 5. Chronic pain syndrome. 6. Hypertension. 7. Peripheral neuropathy. PAST SURGICAL HISTORY: 1. History of lumbosacral spine surgery. 2. Spinal fusion. 3. Cervical and lumbar disk surgery. SOCIAL HISTORY: The patient is , lives with his . HABITS: He is an ex-smoker and currently no smoking of cigarettes. Denies alcohol use or elicit drug use. FAMILY HISTORY: Noncontributory. MEDICATIONS: List attached. REVIEW OF SYSTEMS: GENERAL: Denies fatigue or weakness. HEENT: No diplopia or blurred vision. CARDIOPULMONARY: Has some shortness of breath and cough with expectoration, but no chest pain. ALIMENTARY SYSTEM: No nausea. No vomiting. No diarrhea. No constipation. GENITOURINARY SYSTEM: No dysuria. No hematuria. MUSCULOSKELETAL: He has some joint pain and chronic pain. CENTRAL NERVOUS SYSTEM: No focal weakness. No seizures. PHYSICAL EXAMINATION: GENERAL: This is a 68-year-old male, who is alert and oriented x3, in no gross acute distress. VITAL SIGNS: Temperature 98.6, pulse 99, respiratory rate 20, blood pressure 117/70, and O2 sat 96% HEENT: Head, atraumatic and normocephalic. Pupils bilaterally equal and reactive to light. Extraocular muscles are intact. Tongue is dry. Sclerae and conjunctivae are normal. NECK: Supple. Mild JVD. No carotid bruits. LUNGS: Air entry fair. Decreased breath sounds in both bases. Few rhonchi is both bases. HEART: S1 and S2 irregularly irregular. No S3, S4, or murmur. ABDOMEN: Soft and nontender. No guarding. No rigidity. EXTREMITIES: No clubbing. No cyanosis. A +1 pitting edema. Peripheral pulse +1. No calf tenderness. ECHOCARDIOGRAPHER: Grossly nonfocal. IMAGING: Chest x-ray, pulmonary edema. EKG, AFib with 96 per minute and right-bundle branch block. No acute ST-T changes. LABORATORY DATA: White count 7.3, hemoglobin 12.4, hematocrit 40.3, and platelets 137. Sodium 143, potassium 5.2, BUN and creatinine normal. AST 46. BNP is 597.7. CK and CK-MB normal. ASSESSMENT: 1. Exacerbation of acute on chronic systolic heart failure. 2. Bronchitis. 3. Exacerbation of chronic obstructive pulmonary disease. 4. Hypertension. 5. Diabetes mellitus, type 2. 6. Atrial fibrillation. 7. Chronic pain syndrome. 8. Peripheral neuropathy. PLAN: Admit the patient to IMCU, oxygen. IV Lasix 60 b.i.d. Hold potassium tablet now. BMP now, digoxin level now. IV Rocephin 2 g q.12 hours, IV Solu-Medrol 40 q.6. Cardiology and Pulmonary consult. Continue all home medicines. MD OTIS Stinson/RUSLAN /[id number]
[2019-01-14 13:53] LABS: CREATINE KINASE MB 2.2 ng/mL (0-5.0)
--- NOTE | 2019-01-14 14:40 | Consultation ---
DATE OF CONSULTATION: 01/14/2019 REASON FOR CONSULTATION: Pulmonary edema. HISTORY OF PRESENT ILLNESS: This is a 68-year-old male, who presented with shortness of breath. According to the patient, for the last 2-3 weeks, he has been having shortness of breath that get worse with exertion. He said that yesterday the shortness of breath got worse that he came to the emergency room for further evaluation. He has a history of COPD, AFib, and he smokes daily. He was recently admitted in October due to CHF also. He had chest x-ray done that showed mild cardiomegaly with pulmonary interstitial edema. BNP was 874. He denied any chest pain, any nausea or vomiting. PAST MEDICAL HISTORY: AFib, COPD, hyperlipidemia, chronic back pain, neuropathy, anemia, and tobacco abuse. PAST SURGICAL HISTORY: Back surgery x7 and shoulder fusion. FAMILY HISTORY: Positive for hypertension. SOCIAL HISTORY: He lives at home with family and he smokes daily. MEDICATIONS: See med list. ALLERGIES: HE IS ALLERGIC TO CODEINE. REVIEW OF SYSTEMS: Negative except those mentioned above. He is positive for shortness of breath. PHYSICAL EXAMINATION: VITAL SIGNS: Temperature 98, heart rate 96, blood pressure 144/83, respirations 23, oxygen saturation 95% on BiPAP. GENERAL: He is lethargic, but follows commands. HEENT: Mucous membranes moist. NECK: Supple. LUNGS: Bilateral with decreased breath sounds. CARDIOVASCULAR: Irregularly irregular. ABDOMEN: Soft. NEUROLOGICAL: Intact. EXTREMITIES: With positive edema. LABS: Sodium 143, potassium 5.2, chloride 106, CO2 of 25, BUN 24, creatinine 1.14, glucose 94. White blood cells 7.73, hemoglobin 12.4, hematocrit 40.3, platelet 137. PT 16.2, PTT 39.7, INR 1.24. IMPRESSION: 1. Acute on chronic diastolic congestive heart failure exacerbation. 2. Chronic obstructive pulmonary disease exacerbation. 3. Atrial fibrillation. 4. Diabetes. 5. Hypertension. 6. Tobacco abuse. 7. Hyperkalemia. PLAN: 1. He was admitted in October 2018, had an echocardiogram that showed normal systolic function and EF 55% to 60%. 2. Continue diuretic, beta-elaine, and MILAGRO inhibitor. 3. We will put him on 2 L fluid restriction. 4. Put him on low-salt diet. 5. Potassium is better today, it is 3.9. We will continue his home medications. Heart rate is controlled and he is anticoagulated. Further cardiac workup pending clinical course. Thank you for this consultation. Dictated by Nikki Quevedo NP MD WES Mendes/RUSLAN /[id number]
[2019-01-14] MEDS: FUROSEMIDE INJ 10 MG/ML 4 ML VIAL IV SCH (16:40)
[2019-01-14] MEDS: (Fenofibrate,Micronized (Fenofibrate) 134 MG) PO SCH (21:00)
[2019-01-14] MEDS ORDERED: NON-FORMULARY MEDICATION (Duloxetine Hcl (Cymbalta) 60 MG) PO SCH (21:00)
[2019-01-14] MEDS: LISINOPRIL 2.5 MG TAB PO SCH (21:06)
[2019-01-14] MEDS: DULOXETINE HCL 30 MG DELAYED RELEASE PO SCH (21:06)
[2019-01-14] MEDS: ATORVASTATIN 10 MG TAB PO SCH (21:06)
[2019-01-15] VITALS (7 sets, daily range): BP systolic 105–145; BP diastolic 70–95
[2019-01-15] MEDS: ALBUTEROL/IPRATROPIUM 3 ML NEB NEB SCH ×6 (02:10→23:05)
[2019-01-15] MEDS: METHYLPREDNISOLONE SOD SUCC 40 MG/ML VIAL 1ML IV SCH ×2 (05:32→16:53)
[2019-01-15 06:00] LABS: ALBUMIN/GLOBULIN RATIO 0.8 (0.8-2.0); ANION GAP 13.5 mmol/L (8-16); CALCIUM 9.1 mg/dL (8.4-10.2); CREATININE, SERUM 1.34 mg/dL (0.72-1.25); MAGNESIUM 1.9 MG/DL (1.3-2.1); POTASSIUM 3.5 mmol/L (3.5-5.1)
[2019-01-15] MEDS: INSULIN LISPRO 100 UNIT/1 ML 3ML VIAL SQ SCH ×4 (07:34→20:31)
[2019-01-15] MEDS: PANTOPRAZOLE SOD 40 MG TABEC PO SCH (07:34)
[2019-01-15] MEDS: CEFTRIAXONE SOD 2 GM/NS 100 ML 100 ML IV SCH (08:01)
[2019-01-15] MEDS: FUROSEMIDE INJ 10 MG/ML 4 ML VIAL IV SCH ×2 (08:01→16:52)
[2019-01-15] MEDS: FOLIC ACID 1 MG TAB PO SCH (08:01)
[2019-01-15] MEDS: DILTIAZEM HCL 180 MG CAP ER PO SCH ×2 (08:01→16:53)
[2019-01-15] MEDS: MULTIVITAMINS/MINERALS TAB PO SCH (08:02)
[2019-01-15] MEDS: METOPROLOL TARTRATE 25 MG TAB PO SCH ×2 (08:02→16:53)
[2019-01-15] MEDS: DIGOXIN 0.125 MG TAB PO SCH (08:02)
[2019-01-15] MEDS: PREGABALIN 75 MG CAP PO SCH ×2 (08:02→16:53)
[2019-01-15] MEDS: RIVAROXABAN 15 MG TABLET PO SCH (08:02)
[2019-01-15] MEDS: OXYCODONE HCL IR 5 MG TAB PO PRN (18:29)
[2019-01-15] MEDS: LISINOPRIL 2.5 MG TAB PO SCH (20:32)
[2019-01-15] MEDS: (Fenofibrate,Micronized (Fenofibrate) 134 MG) PO SCH (20:32)
[2019-01-15] MEDS: DULOXETINE HCL 30 MG DELAYED RELEASE PO SCH (20:32)
[2019-01-15] MEDS: ATORVASTATIN 10 MG TAB PO SCH (20:32)
[2019-01-15] MEDS: TRAZODONE HCL 50 MG TAB PO PRN (20:52)
[2019-01-16] VITALS (9 sets, daily range): BP systolic 116–147; BP diastolic 65–96
[2019-01-16] MEDS: ALBUTEROL/IPRATROPIUM 3 ML NEB NEB SCH ×6 (02:30→22:50)
[2019-01-16 05:33] LABS: HEMATOCRIT 40.4 % (38.2-49.6); HEMOGLOBIN 12.9 g/dL (14.0-18.0); LYMPHOCYTES # (AUTO) 0.6 (1.0-3.2); LYMPHOCYTES % 7.9 % (18.0-39.1); MEAN CORPUSCULAR HEMOGLOBIN 28.6 pg (28-32); MEAN CORPUSCULAR HGB CONC 31.9 g/dL (31-35); MEAN CORPUSCULAR VOLUME 89.6 fL (81-99); MONOCYTES % 12.8 % (4.4-11.3); NEUTROPHILS % 78.8 % (38.7-80.0); PLATELET COUNT 141 x10e3/uL (140-360); RED BLOOD COUNT 4.51 x10e6/uL (4.3-5.7); RED CELL DISTRIBUTION WIDTH 16.5 % (11.7-14.4)
[2019-01-16 05:57] LABS: ANION GAP 13.7 mmol/L (8-16); BLOOD UREA NITROGEN 30 mg/dL (7-26); BUN/CREATININE RATIO 26 (6-25); CALCIUM 9.3 mg/dL (8.4-10.2); CARBON DIOXIDE 29 mmol/L (22-29); CHLORIDE 100 mmol/L (98-107); CREATININE, SERUM 1.15 mg/dL (0.72-1.25); EST GLOMERULAR FILTRATION RATE > 60 ML/MIN (60-); GLUCOSE 160 mg/dL (74-118); POTASSIUM 3.7 mmol/L (3.5-5.1); SODIUM 139 mmol/L (136-145)
--- NOTE | 2019-01-16 07:07 | NUR ---
Report given to AM nurse,walking round done.
[2019-01-16] MEDS: INSULIN LISPRO 100 UNIT/1 ML 3ML VIAL SQ SCH ×4 (07:30→21:33)
[2019-01-16] MEDS: METHYLPREDNISOLONE SOD SUCC 40 MG/ML VIAL 1ML IV SCH ×2 (08:33→16:45)
[2019-01-16] MEDS: PANTOPRAZOLE SOD 40 MG TABEC PO SCH (08:33)
[2019-01-16] MEDS: FOLIC ACID 1 MG TAB PO SCH (08:33)
[2019-01-16] MEDS: DIGOXIN 0.125 MG TAB PO SCH (08:33)
[2019-01-16] MEDS: RIVAROXABAN 15 MG TABLET PO SCH (08:33)
[2019-01-16] MEDS: PREGABALIN 75 MG CAP PO SCH ×2 (08:33→16:46)
[2019-01-16] MEDS: DILTIAZEM HCL 180 MG CAP ER PO SCH ×2 (08:33→16:46)
[2019-01-16] MEDS: MULTIVITAMINS/MINERALS TAB PO SCH (08:33)
[2019-01-16] MEDS: CEFTRIAXONE SOD 2 GM/NS 100 ML 100 ML IV SCH (08:33)
[2019-01-16] MEDS: METOPROLOL TARTRATE 25 MG TAB PO SCH ×3 (08:33→16:46)
[2019-01-16] MEDS: FUROSEMIDE INJ 10 MG/ML 4 ML VIAL IV SCH (08:33)
[2019-01-16] MEDS: OXYCODONE HCL IR 5 MG TAB PO PRN ×2 (08:34→18:04)
--- NOTE | 2019-01-16 19:23 | NUR ---
Report received from AM nurse. Patient received sleeping comfortably on his bed. V/S WNL, continued on 4liters oxygen via nasal canula.Bed in lower position,locked. Call zuniga within reach. Will continue to monitor.
[2019-01-16] MEDS: (Fenofibrate,Micronized (Fenofibrate) 134 MG) PO SCH (21:00)
[2019-01-16] MEDS: ATORVASTATIN 10 MG TAB PO SCH (21:32)
[2019-01-16] MEDS: LISINOPRIL 2.5 MG TAB PO SCH (21:32)
[2019-01-16] MEDS: DULOXETINE HCL 30 MG DELAYED RELEASE PO SCH (21:32)
[2019-01-16] MEDS: TRAZODONE HCL 50 MG TAB PO PRN (23:37)
[2019-01-17] VITALS (8 sets, daily range): BP systolic 123–132; BP diastolic 67–90
[2019-01-17] MEDS: ALBUTEROL/IPRATROPIUM 3 ML NEB NEB SCH ×6 (02:34→23:15)
--- NOTE | 2019-01-17 06:38 | NUR ---
Report given to AM Nurse.
[2019-01-17] MEDS: PANTOPRAZOLE SOD 40 MG TABEC PO SCH (07:34)
[2019-01-17] MEDS: INSULIN LISPRO 100 UNIT/1 ML 3ML VIAL SQ SCH ×4 (07:35→21:19)
[2019-01-17] MEDS: OXYCODONE HCL IR 5 MG TAB PO PRN ×3 (08:10→23:31)
[2019-01-17] MEDS: METHYLPREDNISOLONE SOD SUCC 40 MG/ML VIAL 1ML IV SCH (09:00)
[2019-01-17] MEDS: DILTIAZEM HCL 180 MG CAP ER PO SCH ×2 (09:00→16:50)
[2019-01-17] MEDS: FOLIC ACID 1 MG TAB PO SCH (09:00)
[2019-01-17] MEDS: RIVAROXABAN 15 MG TABLET PO SCH (09:00)
[2019-01-17] MEDS: DIGOXIN 0.125 MG TAB PO SCH (09:00)
[2019-01-17] MEDS: MULTIVITAMINS/MINERALS TAB PO SCH (09:00)
[2019-01-17] MEDS: METOPROLOL TARTRATE 25 MG TAB PO SCH ×2 (09:00→16:51)
[2019-01-17] MEDS: FUROSEMIDE INJ 10 MG/ML 4 ML VIAL IV SCH (09:00)
[2019-01-17] MEDS: PREGABALIN 75 MG CAP PO SCH ×2 (09:00→16:51)
[2019-01-17] MEDS: CEFTRIAXONE SOD 2 GM/NS 100 ML 100 ML IV SCH (09:00)
[2019-01-17] MEDS: DULOXETINE HCL 30 MG DELAYED RELEASE PO SCH (21:14)
[2019-01-17] MEDS: ATORVASTATIN 10 MG TAB PO SCH (21:14)
[2019-01-17] MEDS: LISINOPRIL 2.5 MG TAB PO SCH (21:14)
[2019-01-17] MEDS: (Fenofibrate,Micronized (Fenofibrate) 134 MG) PO SCH (21:14)
[2019-01-17] MEDS: TRAZODONE HCL 50 MG TAB PO PRN (21:14)
[2019-01-18] MEDS: ALBUTEROL/IPRATROPIUM 3 ML NEB NEB SCH ×2 (03:00→07:20)
[2019-01-18 04:43] VITALS: BP 141/77
[2019-01-18 06:43] LABS: BASOPHILS % 0.1 % (0.0-1.0); HEMATOCRIT 40.5 % (38.2-49.6); HEMOGLOBIN 12.9 g/dL (14.0-18.0); LYMPHOCYTES % 14.1 % (18.0-39.1); MEAN CORPUSCULAR HEMOGLOBIN 28.4 pg (28-32); MEAN CORPUSCULAR HGB CONC 31.9 g/dL (31-35); MEAN CORPUSCULAR VOLUME 89.2 fL (81-99); NEUTROPHILS % 71.2 % (38.7-80.0); PLATELET COUNT 150 x10e3/uL (140-360); RED BLOOD COUNT 4.54 x10e6/uL (4.3-5.7); RED CELL DISTRIBUTION WIDTH 15.8 % (11.7-14.4)
[2019-01-18 06:52] LABS: ALANINE AMINOTRANSFERASE 10 IU/L (0-55); ALBUMIN 2.8 g/dL (3.5-5.0); ALBUMIN/GLOBULIN RATIO 0.8 (0.8-2.0); ALKALINE PHOSPHATASE 46 IU/L (40-150); ANION GAP 13.4 mmol/L (8-16); BLOOD UREA NITROGEN 37 mg/dL (7-26); BUN/CREATININE RATIO 34 (6-25); CARBON DIOXIDE 27 mmol/L (22-29); CHLORIDE 104 mmol/L (98-107); CREATININE, SERUM 1.09 mg/dL (0.72-1.25); EST GLOMERULAR FILTRATION RATE > 60 ML/MIN (60-); GLUCOSE 132 mg/dL (74-118); POTASSIUM 3.4 mmol/L (3.5-5.1); SODIUM 141 mmol/L (136-145)
--- NOTE | 2019-01-18 07:06 | NUR ---
Report given to AM RN,walking round done.
[2019-01-18] MEDS ORDERED: METHYLPREDNISOLONE SOD SUCC 40 MG/ML VIAL 1ML IV SCH (07:30)
[2019-01-18] MEDS: INSULIN LISPRO 100 UNIT/1 ML 3ML VIAL SQ SCH (07:30)
[2019-01-18 08:00] VITALS: BP 143/93
[2019-01-18] MEDS: PANTOPRAZOLE SOD 40 MG TABEC PO SCH (08:30)
[2019-01-18] MEDS: OXYCODONE HCL IR 5 MG TAB PO PRN (08:30)
[2019-01-18] MEDS ORDERED: POTASSIUM CHLORIDE 10MEQ EA PO SCH (09:00)
[2019-01-18] MEDS: DIGOXIN 0.125 MG TAB PO SCH (09:42)
[2019-01-18] MEDS: FUROSEMIDE INJ 10 MG/ML 4 ML VIAL IV SCH (09:42)
[2019-01-18] MEDS: DILTIAZEM HCL 180 MG CAP ER PO SCH (09:42)
[2019-01-18] MEDS: FOLIC ACID 1 MG TAB PO SCH (09:42)
[2019-01-18] MEDS: CEFTRIAXONE SOD 2 GM/NS 100 ML 100 ML IV SCH (09:42)
[2019-01-18] MEDS: METOPROLOL TARTRATE 25 MG TAB PO SCH (09:43)
[2019-01-18] MEDS: RIVAROXABAN 15 MG TABLET PO SCH (09:43)
[2019-01-18] MEDS: MULTIVITAMINS/MINERALS TAB PO SCH (09:43)
[2019-01-18] MEDS: PREGABALIN 75 MG CAP PO SCH (09:43)
[2019-01-18] MEDS ORDERED: CEFUROXIME500 MG PO (09:50)
--- NOTE | 2019-01-18 10:20 | NUR ---
PT DISCHARGED AT THIS TIME RX GIVEN EDUCATION AND F/U INSTRUCTION IV DC'D SECURED WITH 4X4 GAUZE AND TAPE.
== END 2019-01-18 10:17 | disposition home or self-care (01) | DRG 291 ==
LOC: ER 13:22 → ERHOLD 21:29 → IMCU 22:00
PROVIDERS: ADMIT Internal Medicine; ATTEND Internal Medicine
DX: I11.0 Hypertensive heart disease with heart failure (principal); J96.21 Acute and chronic respiratory failure with hypoxia; J44.1 Chronic obstructive pulmonary disease with (acute) exacerbation; I48.91 Unspecified atrial fibrillation; I50.23 Acute on chronic systolic (congestive) heart failure; Z79.01 Long term (current) use of anticoagulants; G89.4 Chronic pain syndrome; E11.42 Type 2 diabetes mellitus with diabetic polyneuropathy; J40 Bronchitis, not specified as acute or chronic; F17.200 Nicotine dependence, unspecified, uncomplicated; E87.5 Hyperkalemia; R91.1 Solitary pulmonary nodule; Z79.4 Long term (current) use of insulin
CPT/HCPCS: 36415; 36600; 71045; 80048; 80053; 80162; 82550; 82553; 82805; 82948; 83735; 83880; 84484; 85025; 85610; 85730; 93005; 94640; 96372; 99285; J0330; J0696; J1940; J2920; J7030

== ENCOUNTER → 2019-07-20 | Outpatient (CLI) | payer MEDICARE, BC ==
[~2019-07-20] MED LIST changes: +ALBUTEROL SULF 0.083% NEB SOLN 3 ML NEB ONE; +CEFUROXIME500 MG PO
--- NOTE | 2019-07-20 16:55 | Diagnostic Imaging Report ---
Exam: CT chest Clinical history: Pulmonary nodule Comparison: CT chest, December 25, 2018 Technique: Helical images of the chest were obtained without contrast DOSE REDUCTION: The exams was performed according to the departmental dose-optimization program which includes automated exposure control, adjustment of the mA and/or kV according to patient size and/or use of iterative reconstruction technique. Findings: The previously visualized8 mm nodule in the right middle lobe measuring 5 mm today best seen on image 102. Follow-up imaging in 6 months is recommended to in short resolution. Diffuse emphysematous changes are again noted throughout both lungs most pronounced in the right upper lobe. There is no evidence of pleural effusion or pneumothorax. The cardiac size is within normal limits. The great vessels are normal in caliber and orientation. Atherosclerotic calcification of the aorta is noted. Scattered subcentimeter lymph nodes are again noted in the mediastinum without interval change in size. The visualized upper abdominal solid organs are unremarkable. Impression deformity of the T10 vertebral body along with a spinal rods are again noted. Lucency around the pedicle screws of T10 is again appreciated. Impression: 1. Interval decrease in the size of the right middle lobe nodule measuring 5 mm today. It measured 8 mm previously. Follow-up imaging in 6 months is recommended. 2. Diffuse emphysematous changes of the lungs again noted. 3. Stable appearing small left pleural effusion versus pleural thickening. 4. Compression deformity of the T10 vertebral body along with lucency surrounding the pedicle screws again noted. Signed by: Dr. Peter Lafleur MD on 07/20/2019 4:52 PM
== END ==
LOC: RESP 14:07
PROVIDERS: ATTEND Internal Medicine
DX: R91.1 Solitary pulmonary nodule (principal)
CPT/HCPCS: 71250; 94060; 94640; 94727; 94729

== ENCOUNTER 2019-08-06 10:45 | Outpatient (RCR) | payer MEDICARE, BC ==
[~2019-08-06 10:45] MED LIST changes: -ALBUTEROL SULF 0.083% NEB SOLN 3 ML NEB ONE
== END 2019-08-12 ==
LOC: RESP 10:45
PROVIDERS: ATTEND Internal Medicine
DX: J44.9 Chronic obstructive pulmonary disease, unspecified (principal)
CPT/HCPCS: G0238 ×2; G0424 ×2

== ENCOUNTER 2019-08-16 13:00 | Outpatient (RCR) | payer MEDICARE, BC | END 2019-09-11 | LOC: RESP 13:00 | PROVIDERS: ATTEND Internal Medicine | DX: J44.9 Chronic obstructive pulmonary disease, unspecified (principal) | CPT/HCPCS: G0238 ×2; G0424 ×2 ==

== ENCOUNTER → 2019-12-27 | Outpatient (CLI) | payer MEDICARE, BC ==
--- NOTE | 2019-12-27 16:31 | Diagnostic Imaging Report ---
EXAM: CT Chest WITHOUT intravenous contrast 12/27/2019 1:44 PM INDICATION: Pulmonary nodule COMPARISON: Chest CT 07/20/2019 and 01/20/2018 TECHNIQUE: Chest was scanned utilizing a multidetector helical scanner from the lung apex through the level of the adrenal glands without administration of IV contrast. Coronal and sagittal reformations were obtained. Routine protocol was performed. IV CONTRAST: None RADIATION DOSE: Total DLP: 271.7 mGy*cm. Dose modulation, iterative reconstruction, and/or weight based adjustment of the mA/kV was utilized to reduce the radiation dose to as low as reasonably achievable. COMPLICATIONS: None FINDINGS: LINES/ TUBES: None. LUNGS AND AIRWAYS: The central airways are patent. The lungs are hyperinflated. Moderate upper lobe predominant centrilobular and paraseptal emphysema. Diffuse bronchial wall thickening. The 5 mm right middle lobe pulmonary nodule (series 3 image 101) appears unchanged dating back to the CT of 01/20/2018. No new suspicious pulmonary nodules. Bibasilar dependent subsegmental atelectasis. Areas of subpleural reticulation and subpleural cystic changes, most notably at the lower lobes. PLEURA: No pleural effusion or pneumothorax. HEART AND MEDIASTINUM: The thyroid gland is normal. No supraclavicular, axillary, or hilar lymphadenopathy. Prominent mediastinal lymph nodes do not meet size criteria for lymphadenopathy. Multichamber cardiomegaly. Atherosclerotic calcifications involve the thoracic aorta, coronary arteries, and proximal great vessels. The main pulmonary artery is dilated to 4.3 cm. UPPER ABDOMEN: No acute findings. Evaluation limited by streak artifact related to spinal fusion hardware. BONES: Cervical and thoracic fusion hardware in place. Unchanged loss of anterior vertebral body height at T10 resulting in focal kyphosis at T9-10. No acute osseous injury. SOFT TISSUES: Unremarkable. IMPRESSION: Unchanged 5 mm right middle lobe pulmonary nodule appears stable dating back to a CT of 01/20/2018. Given 2 year interval stability, this nodule is almost certainly benign and requires no further imaging follow-up. Unchanged emphysema and bronchial wall thickening. Multichamber cardiomegaly. Main pulmonary artery enlargement to 4.3 cm is suggestive of underlying pulmonary arterial hypertension. Diffuse atherosclerotic calcifications including of the coronary arteries. Signed by: Patricia Kat MD on 12/27/2019 4:28 PM
== END ==
LOC: CT 13:34
PROVIDERS: ATTEND Internal Medicine
DX: R91.1 Solitary pulmonary nodule (principal)
CPT/HCPCS: 71250

== ENCOUNTER 2020-03-15 00:07 | Emergency (ER) | payer MEDICARE, BC ==
[~2020-03-15] VITALS: Ht 193 cm; Wt 102.1 kg
--- OUTSIDE RECORDS SUMMARY | 2020-03-15 00:11 | XMS REPORT | Continuity of Care Document ---
Author Author [facility] t Organization [facility] Address [address] [place] [address] Phone Unavailable Care Team Providers Care Agricultural Research Director Name Role Phone CHANEL LÓPEZ MD PCP VIKTORCAROL AMADO Attphys Unavailable LÓPEZ, CHANEL Attphys Unavailable LEI, KAITLIN Attphys Unavailable LÓPEZ, DILAAMIR Admphys Unavailable LEI, KAITLIN Admphys Unavailable Payers Payer Name Policy Type Policy Number Effective Date Expiration Date S frida [facility] [id number] 2018 00:00:00 [facility] Medicare A & B [id number] 2010 00:00:00 C [facility] Problems Condition Name Condition Details Condition Category Status Onset Date Resolution Date Last Treatment Date Treating Clinician Comments Source At risk for falls At risk for falling Problem Active 2015-09-03 00:00:0 0 [facility] Closed tibial fracture Closed tibial fracture Problem Active 2015-09-03 00:00:00 [facility] Drug overdose Overdose Problem Active 2015-09-03 00:00:00 [facility] Atrial fibrillation with rapid ventricular response [facility] fibrillation with rapid ventricular response Problem Active 2015-03-15 00:00:00 [facility] Congestive heart failure CHF (congestive heart failure) Problem Active 2015-03-15 00:00:00 [facility] Congestive heart failure CHF (congestive heart failure) Problem Active 2014-12-19 00:00:00 [facility] Alcohol abuse Alcohol abuse Problem Active [facility] Cellulitis of left lower extremity Cellulitis of left leg Problem Active [facility] Hypoglycemia Hypoglycemia Problem Active [facility] Renal insufficiency Renal insufficiency Problem Active [facility] Allergies, Adverse Reactions, Alerts Allergy Name Allergy Type Status Severity Reaction(s) Onset Date Inacti ve Date Treating Clinician Comments Source Codeine Allergy to Substance Active 2016-11-11 00:00:00 [facility] Medications Ordered Medication Name Filled Medication Name Start Date Stop Da te Current Medication? Ordering Clinician Indication Dosage Frequency Signature (SIG) Comments Components Source Minocycline Hcl 50 Mg Capsule, 100 Mg Oral Minocycline Hcl 50 Mg Capsule, 100 Mg Oral 2018-03-03 00:00:00 2018-03-03 00:00:00 No Presley Draper Md 100 Twice A Day [facility] Atorvastatin Calcium 10 Mg Tablet Atorvastatin Calcium 10 Mg Tablet Yes 10 Today At 9:00PM [facility] Cefuroxime Axetil (Cefuroxime) 500 Mg Tablet Cefuroxim e Axetil (Cefuroxime) 500 Mg Tablet Yes 500 Twice A Day [facility] Digoxin 125 Mcg Tablet Digoxin 125 Mcg Tablet Yes 125 Q48 Hours [facility] Diltiazem Hcl (Cartia Xt) 180 Mg Cap.er.24h Diltiazem Hcl (Cartia Xt) 180 Mg Cap.er.24h Yes 180 Twice A Day [facility] Duloxetine Hcl (Cymbalta) 60 Mg Capsule. Duloxetine Hcl (Cymbalta) 60 Mg Capsule. Yes 60 Bedtime [facility] Fenofibrate,Micronized (Fenofibrate) 134 Mg Capsule Demetria nofibrate,Micronized (Fenofibrate) 134 Mg Capsule Yes 134 Bedtime [facility] Folic Acid 1 Mg Tablet Folic Acid 1 Mg Tablet Yes 400 Daily [facility] Furosemide (Lasix) 20 Mg Tablet Furosemide (Lasix) 20 Mg Tablet Yes 40 Daily [facility] Lisinopril 2.5 Mg Tablet Lisinopril 2.5 Mg Tablet Yes 5 Bedtime [facility] Metformin Hcl (Metformin Hcl Er) 500 Mg Tab.er.24 Metf ormin Hcl (Metformin Hcl Er) 500 Mg Tab.er.24 Yes 250 Bedtime [facility] Metoprolol Tartrate 25 Mg Tablet Metoprolol Tartrate 25 Mg Tablet Yes 25 Twice A Day [facility] Multivitamin (Multivitamins) 1 Each Capsule Multivitam in (Multivitamins) 1 Each Capsule Yes 1 Daily [facility] Ondansetron (Zofran Odt) 4 Mg Tab.rapdis Ondansetron ( Zofran Odt) 4 Mg Tab.rapdis Yes 4 Every 6 Hours as needed for Nausea And Vomiting [facility] Oxycodone Hcl 15 Mg Tablet Oxycodone Hcl 15 Mg Tablet Yes 15 Every 6 Hours as needed for Pain [facility] Pantoprazole Sodium (Protonix) 40 Mg Tablet. Pantopr azole Sodium (Protonix) 40 Mg Tablet. Yes 40 Daily [facility] Potassium Chloride 8 Meq Capsule.er Potassium Chloride 8 Meq Capsule. er Yes 20 Daily [facility] Prednisone 20 Mg Tab Prednisone 20 Mg Tab Yes 40 Daily [facility] Pregabalin (Lyrica) 300 Mg Capsule Pregabalin (Lyrica) 300 Mg Capsule Yes 300 Twice A Day [facility] Rivaroxaban (Xarelto) 10 Mg Tablet Rivaroxaban (Xarelto) 10 Mg Tablet Yes 15 Daily [facility] Rivaroxaban (Xarelto) 20 Mg Tablet Rivaroxaban (Xarelto) 20 Mg Tablet Yes 15 Daily [facility] Trazodone Hcl 50 Mg Tablet Trazodone Hcl 50 Mg Tablet Yes 50 Bedtime as needed for Sleep [facility] Diltiazem Hcl (Cartia Xt) 180 Mg Cap.er.24h, 180 Mg Or al Diltiazem Hcl (Cartia Xt) 180 Mg Cap.er.24h, 180 Mg Oral 2018-03-01 00:00:00 No 180 Twice A Day [facility] Multivitamins,Therapeutic (Thera) 1 Each Tablet, 1 Tab Oral Multivitamins,Therapeutic (Thera) 1 Each Tablet, 1 Tab Oral 2018-03-01 00:00:00 No 1 Bedtime [facility] Oxymorphone Hcl (Opana) 10 Mg Tablet, 10 Mg Oral Oxymo rphone Hcl (Opana) 10 Mg Tablet, 10 Mg Oral 2018-03-01 00:00:00 No 10 Every 12 Hours as needed for Pain [facility] Amoxicillin/Potassium Clav (Augmentin 87 5-125 Tablet) 1 Each Tablet, 875 Mg Oral Amoxicillin/Potassium Clav (Augmentin 87 5-125 Tablet) 1 Each Tablet, 875 Mg Oral 2017-10-30 00:00:00 No 875 Every 12 Hours [facility] Azithromycin (Z-Danis) 250 Mg Tablet, 0 Oral Azithromyc in (Z-Danis) 250 Mg Tablet, 0 Oral 2017-10-30 00:00:00 No 0 Use As Directed [facility] Furosemide 20 Mg Tablet, 20 Mg Oral Furosemide 20 Mg Tablet, 20 Mg Oral 2017-10-30 00:00:00 No 20 Twice A Day [facility] Lisinopril 10 Mg Tablet, 20 Mg Oral Lisinopril 10 Mg Tablet, 20 Mg Oral 2017-10-30 00:00:00 No 20 Twice A Day [facility] Magnesium Oxide (Mag-Oxide) 400 Mg Tablet, 400 Mg Oral Magnesium Oxide (Mag- Oxide) 400 Mg Tablet, 400 Mg Oral 2017-10-30 00:00:00 No 40 0 Daily [facility] Oxycodone Hcl/Acetaminophen (Oxycodone-A cetaminophen 10-325) 1 Each Tablet, 1 Tab Oral Oxycodone Hcl/Acetaminophen (Oxycodone-A cetaminophen 10-325) 1 Each Tablet, 1 Tab Oral 2017-10-30 00:00:00 No 1 Every 4 Hours as needed for Pain [facility] Potassium Chloride 10 Meq Tab.er.prt, 10 Meq Oral Pota ssium Chloride 10 Meq Tab.er.prt, 10 Meq Oral 2017-10-30 00:00:00 No 10 Twice A Day [facility] Prednisone 20 Mg Tab, 20 Mg Oral Prednisone 20 Mg Tab, 20 Mg Ora l 2017-10-30 00:00:00 No 20 Use As Directed [facility] Prednisone , Oral Prednisone , Oral 2017-10-30 00:00:00 No [facility] Elequis , 5 Mg Oral Elequis , 5 Mg Oral 2017-06-25 00:00:00 No 5 Twice A Day [facility] Metoprolol Succinate 25 Mg Tab.er.24h, 50 Mg Oral Meto prolol Succinate 25 Mg Tab.er.24h, 50 Mg Oral 2017-06-25 00:00:00 No 50 T wice A Day [facility] Zolpidem Tartrate (Ambien) 10 Mg Tablet, 10 Mg Oral Zo lpidem Tartrate (Ambien) 10 Mg Tablet, 10 Mg Oral 2017-06-25 00:00:00 No 10 Bedtime [facility] Teriparatide Inj (Forteo) 2.4 Ml Syr, 20 Mcg Subcutane ously Teriparatide Inj (Forteo) 2.4 Ml Syr, 20 Mcg Subcutaneously 2016-11-11 00:00:00 No 20 Daily [facility] Ezetimibe/Simvastatin (Vytorin 10-40 Mg Tablet) 1 Each Tablet, 1 Tab Oral Ezetimibe/Simvastatin (Vytorin 10-40 Mg Tablet) 1 Each Tablet, 1 Tab Oral 2015-03-15 00:00:00 No 1 Daily [facility] Fentanyl 1 Each Patch.td72, 50 Mcg Topically Fentanyl 1 Each Patch.td72, 50 Mcg Topically 2015-03-15 00:00:00 No 50 Daily [facility] Hydromorphone Hcl (Dilaudid) 2 Mg Tab, 4 Mg Oral Ramah morphone Hcl (Dilaudid) 2 Mg Tab, 4 Mg Oral 2014-12-23 00:00:00 No 4 Four T imes Daily [facility] Glipizide 5 Mg Tablet, 2.5 Mg Oral Glipizide 5 Mg Tablet, 2.5 Mg Oral 2014-12-19 00:00:00 No 2.5 Twice A Day [facility] Lisinopril 5 Mg Tablet, 5 Mg Oral Lisinopril 5 Mg Tablet, 5 Mg O ral 2014-12-19 00:00:00 No 5 Daily [facility] Aspirin , Aspirin , 2014-08-01 00:00:00 [facility] Cartia , Cartia , 2014-08-01 00:00:00 [facility] Cymbalta , Cymbalta , 2014-08-01 00:00:00 [facility] Digoxin , Digoxin , 2014-08-01 00:00:00 [facility] Lyrica , Lyrica , 2014-08-01 00:00:00 [facility] Metoprolol , Metoprolol , 2014-08-01 00:00:00 [facility] Vytorin , Vytorin , 2014-08-01 00:00:00 [facility] Procedures Procedure Date / Time Performed Performing Clinician [facility] e Computed tomography of chest without contrast 2019-07-20 00: 00:00 VIKTOR MEDINA [facility] Computed tomography of chest without contrast 2018-12-25 00: 00:00 [facility] Encounters Start Date/Time End Date/Time Encounter Type [facility] Encounter ID Source 2019-08-16 13:00:00 2019-09-11 23:59:00 Discharged Recurring [facility] [id number] [facility] 2019-08-06 10:45:00 2019-08-12 23:59:00 Discharged Recurring [facility] [id number] [facility] 2019-07-20 14:07:00 2019-07-20 14:07:00 Registered Clinic 3 CAROL HOANG [facility] [id number] [facility] 2019-01-13 21:29:00 2019-01-18 10:17:00 Discharged Inpatient 1 CHANEL LÓPEZ [facility] [id number] [facility] 2018-12-25 12:42:00 2018-12-25 12:42:00 Registered Clinic CAROL MOREIRA [facility] [id number] [facility] 2018-11-02 18:09:00 2018-11-05 18:26:00 Discharged Inpatient 1 KAITLIN ODOM [facility] [id number] [facility] 2018-03-01 03:19:00 2018-03-03 21:47:00 Discharged Inpatient 1 CHANEL LÓPEZ [facility] [id number] [facility] 2018-01-20 11:18:00 2018-01-20 11:18:00 Registered Clinic BILL BLANDHAMMAD [facility] [id number] [facility] 2017-10-30 12:41:00 2017-10-30 18:24:00 Departed Emergency Room [facility] [id number] [facility] 2017-09-15 13:33:00 2017-09-15 13:33:00 Registered Clinic CAROL BLAND [facility] [id number] [facility] 2017-09-05 09:24:00 2017-09-05 09:24:00 Registered Clinic CHANEL ELLER [facility] [id number] [facility] 2017-06-25 18:26:00 2017-07-01 09:50:00 Discharged Inpatient ER CHANEL LÓPEZ [facility] [id number] [facility] Results Test Description Test Time Test Comments Results Result Comments Source CT CHEST WO 2019-12-27 16:18:00 [facility] [address] [address] Patient Name: MOUNA DENT MR #: [id number] : 1950 Age/Sex: 69/M Req #: [id number] Adm Physician: Ordered by: CAROL HOANG MD Report #: [id number] Location: CT Room/Bed: Procedure: [id number] CT/CT CHEST WO Exam Date: 12/27/19 Exam Time: 1400 REPORT STATUS: Signed EXAM: CT Chest WITHOUT intravenous contrast 12/27/2019 1:44 PM INDICATION: Pulmonary nodule COMPARISON: Chest CT 07/20/2019 and 01/20/2018 TECHNIQUE: Chest was scanned utilizing a multidetector helical scanner from the lung apex through the level of the ad renal glands without administration of IV contrast. Coronal and sagittal reformations were obtained. Routine protocol was performed. IV CONTRAST: None RADIATION DOSE: Total DLP: 271.7 mGy*cm. Dose modulation, iterative reconstruction, and/or weight based adjustment of the mA/kV was utilized to reduce the radiation dose to as low as reasonably achievable. COMPLICATIONS: None FINDINGS: LINES/ TUBES: None. LUNGS AND AIRWAYS: The central airways are patent. The lungs are hyperinflated. Moderate upper lobe predominant centrilobular and paraseptal emphysema. Diffuse bronchial wall thickening. The 5 mm right middle lobe pulmonary nodule (series 3 image 101) appears unchanged dating back to the CT of 01/20/2018. No new suspicious pulmonary nodules. Bibasilar dependent subsegmental atelectasis. Areas of subpleural reticulation and subpleural cystic changes, most notably at the lower lobes. PLEURA: No pleural effusion or pneumothorax. HEART AND MEDIASTINUM: The thyroid gland is normal. No supraclavicular, axillary, or hilar lymphadenopathy. Prominent mediastinal lymph nodes do not meet size criteria for lymphadenopathy. Multichamber cardiomegaly. Atherosclerotic calcifications involve the thoracic aorta, coronary arteries, and proximal great vessels. The main pulmonary artery is dilated to 4.3 cm. UPPER ABDOMEN: No acute findings. Evaluation limited by streak artifact related to spinal fusion hardware. BONES: Cervical and thoracic fusion hardware in place. Unchanged loss of anterior vertebral body height at T10 resulting in focal kyphosis at T9-10. No acute osseous injury. SOFT TISSUES: Unremarkable. IMPRESSION: Unchanged 5 mm right middle lobe pulmonary nodule appears stable dating back to a CT of 01/20/2018. Given 2 year interval stability, this nodule is almost certainly benign and requires no further imaging follow-up. Unchanged emphysema and bronchial wall thickening. Multichamber cardiomegaly. Main pulmonary artery enlargement to 4.3 cm is suggestive of underlying pulmonary arterial hypertension. Diffuse atherosclerotic calcifications including of the coronary arteries. Signed by: Janice Colin MD on 12/27/2019 4:28 PM Dictated By: JANICE COLIN MD 27 Transcribed By: FATOUMATA on 12/27/191627 COPY TO: CAROL HOANG MD CT CHEST WO 2019-07-20 16:47:[address] [address] Patient Name: MOUNA DENT MR #: [id number] : 1950 Age/Sex: 69/M Req #: [id number] Adm Physician: Ordered by: CAROL HOANG MD Report #: [id number] Location: [facility] Room/Bed: Procedure: [id number] CT/CT CHEST WO Exam Date: 07/20/19 Exam Time: 1600 REPORT STATUS: Signed Exam: CT chest Clinical history: Pulmonary nodule Comparison: CT chest, December 25, 2018 Technique: Helical images of the chest were obtained without contrast DOSE REDUCTION: The exams was performed according to the departmental dose-optimization program which includes automated exposure control, adjustment of the mA and/or kV according to patient size and/or use of iterative reconstruction technique. Findings: The previously visualized8 mm nodule in the right middle lobe measuring 5 mm today best seen on image 102. Follow-up imaging in 6 months is recommended to in short resolution. Diffuse emphysematous changes are again n oted throughout both lungs most pronounced in the right upper lobe. There is no evidence of pleural effusion or pneumothorax. The cardiac size is within normal limits. The great vessels are normal in caliber and orientation. Atherosclerotic calcification of the aorta is noted. Scattered subcentimeter lymph nodes are again noted in the mediastinum without interval change in size. The visualized upper abdominal solid organs are unremarkable. Impression deformity of the T10 vertebral body along with a spinal rods are again noted. Lucency around the pedicle screws of T10 is again appreciated. Impression: 1. Interval decrease in the size of the right middle lobe nodule measuring 5 mm today. It measured 8 mm previously. Follow-up imaging in 6 months is recommended. 2. Diffuse emphysematous changes of the lungs again noted. 3. Stable appearing small left pleural effusion versus pleural thickening. 4. Compression deformity of the T10 vertebral body along with lucency surrounding the pedicle screws again noted. Signed by: Dr. Peter Lafleur MD on 07/20/2019 4:52 PM Dictated By: AIDA LAFLEUR MD 51 Transcribed By: FATOUMATA on 07/20/191651 COPY TO: CAROL HOANG MD Bedside Glucose 2019-01-18 08:48:00 Test Item Bedside Glucose (test code = 46958-4) 102 70-120 Meter ID: [id number] Glucose 2019-01-18 08:48:00* Test Item Value Reference Range Interpretation Comments Bedside Glucose (test code = 76964-6) 102 70-120 Meter ID: [id number] Peter Smith Hospital Glucose 2019-01-18 08:48:00* Test Item Value Reference Range Interpretation Comments Bedside Glucose (test code = 77446-9) 102 70-120 Meter ID: [id number] Rollins Brookodium Level 2019-01-18 07:14:00* Test Item Value Reference Range Interpretation Comments Sodium Level (test code = 2951-2) 141 136-145 [facility] [id number] 07:14:00* Test Item Value Reference Range Interpretation Comments Potassium Level (test code = 2823-3) 3.4 3.5-5.1 L [facility] HospitalChloride [id number] 07:14:00* Test Item Value Reference Range Interpretation Comments Chloride Level (test code = 2075-0) 104 98-107 [facility] HospitalCarbon Dioxide [id number] 07:14:00* Test Item Value Reference Range Interpretation Comments Carbon Dioxide Level (test code = 2028-9) 27 22-29 [facility] HospitalAnion [id number] 07:14:00* Test Item Value Reference Range Interpretation Comments Anion Gap (test code = 30291-5) 13.4 8-16 [facility] HospitalBlood Urea [id number] 07:14:00* Test Item Value Reference Range Interpretation Comments Blood Urea Nitrogen (test code = 3094-0) 37 7-26 H [facility] HospitalCreatinine2019 07:14:00* Test Item Value Reference Range Interpretation Comments Creatinine (test code = 2160-0) 1.09 0.72-1.25 [facility] HospitalBUN/Creatinine Brcuj3212-72-51 07:14:00* Test Item Value Reference Range Interpretation Comments BUN/Creatinine Ratio (test code = 3097-3) 34 6-25 H [facility] HospitalEstimat Glomerular Filtration Rate 2019-01-18 07:14:00* Test Item Value Reference Range Interpretation Comments Estimat Glomerular Filtration Rate (test code = 423557031) > 60 >60 Ranges were taken from the National Kidney Disease Education Program and the [facility] Foundation literature.Reference ranges:60 or greater: Dozpsi78-97 ( for 3 consecutive months): Chronic kidney disease 15 or less: Kidney failureCHI [facility] Mar[facility] FallsGlucose Rtxob6293-95-95 07:14:00* Test Item Value Reference Range Interpretation Comments Glucose Level (test code = PSE6234) 132 74-118 H [facility] HospitalCalcium Zrtro9744-66-00 07:14:00* Test Item Value Reference Range Interpretation Comments Calcium Level (test code = 30421-5) 9.0 8.4-10.2 [facility] HospitalTotal Cgnezbymv9864-09-94 07:14:00* Test Item Value Reference Range Interpretation Comments Total Bilirubin (test code = 1975-2) 0.6 0.2-1.2 [facility] HospitalAspartate Amino Transf (AST/SGOT) 2019-01-18 07:14:00* Test Item Value Reference Range Interpretation Comments Aspartate Amino Transf (AST/SGOT) (test code = Aspartate Amino Transf (AST/SGOT)) 15 5-34 [facility] HospitalAlanine Aminotransferase (ALT/SGPT) 2019-01-18 07:14:00* Test Item Value Reference Range Interpretation Comments Alanine Aminotransferase (ALT/SGPT) (test code = 1742-6) 10 0-55 [facility] HospitalTotal Zvhfqdo8401-01-69 07:14:00* Test Item Value Reference Range Interpretation Comments Total Protein (test code = 2885-2) 6.4 6.5-8.1 L [facility] HospitalAlbumin2019 07:14:00* Test Item Value Reference Range Interpretation Comments Albumin (test code = 1751-7) 2.8 3.5-5.0 L [facility] HospitalGlobulin2019 07:14:00* Test Item Value Reference Range Interpretation Comments Globulin (test code = 61861-2) 3.6 2.3-3.5 H [facility] HospitalAlbumin/Globulin Zaoji0345-10-00 07:14:00 * Test Item Value Reference Range Interpretation Comments Albumin/Globulin Ratio (test code = 1759-0) 0.8 0.8-2.0 [facility] HospitalAlkaline Jdlblavjrqp1464-31-79 07:14:00* Test Item Value Reference Range Interpretation Comments Alkaline Phosphatase (test code = 6768-6) 46 40-150 [facility] Ebxzo6585-81-60 07:14:00* Test Item Value Reference Range Interpretation Comments Sodium Level (test code = 2951-2) 141 136-145 [facility] HospitalPotassium Msduy5029-15-35 07:14:00* Test Item Value Reference Range Interpretation Comments Potassium Level (test code = 2823-3) 3.4 3.5-5.1 L [facility] HospitalChloride Lataz4213-87-78 07:14:00* Test Item Value Reference Range Interpretation Comments Chloride Level (test code = 2075-0) 104 98-107 [facility] HospitalCarbon Dioxide Kvgtb1539-86-37 07:14:00* Test Item Value Reference Range Interpretation Comments Carbon Dioxide Level (test code = 2028-9) 27 22-29 [facility] HospitalAnion [id number] 07:14:00* Test Item Value Reference Range Interpretation Comments Anion Gap (test code = 90746-6) 13.4 8-16 [facility] HospitalBlood Urea Pmbememp2282-02-74 07:14:00* Test Item Value Reference Range Interpretation Comments Blood Urea Nitrogen (test code = 3094-0) 37 7-26 H [facility] HospitalCreatinine2019 07:14:00* Test Item Value Reference Range Interpretation Comments Creatinine (test code = 2160-0) 1.09 0.72-1.25 [facility] HospitalBUN/Creatinine Jsvvd5580-92-66 07:14:00* Test Item Value Reference Range Interpretation Comments BUN/Creatinine Ratio (test code = 3097-3) 34 6-25 H [facility] HospitalEstimat Glomerular Filtration Rate 2019-01-18 07:14:00* Test Item Value Reference Range Interpretation Comments Estimat Glomerular Filtration Rate (test code = 606157241) > 60 >60 Ranges were taken from the National Kidney Disease Education Program and the [facility] Kid[facility] Foundation literature.Reference ranges:60 or greater: Tffjhf45-54 ( for 3 consecutive months): Chronic kidney disease 15 or less: Kidney failureMemorial Hermann Sugar Land HospitalGlucose Bikdj9247-48-06 07:14:00* Test Item Value Reference Range Interpretation Comments Glucose Level (test code = QRF9622) 132 74-118 H [facility] HospitalCalcium Zqgtx9704-98-34 07:14:00* Test Item Value Reference Range Interpretation Comments Calcium Level (test code = 15165-4) 9.0 8.4-10.2 [facility] HospitalTotal Nhszkrsyv7774-68-95 07:14:00* Test Item Value Reference Range Interpretation Comments Total Bilirubin (test code = 1975-2) 0.6 0.2-1.2 [facility] HospitalAspartate Amino Transf (AST/SGOT) 2019-01-18 07:14:00* Test Item Value Reference Range Interpretation Comments Aspartate Amino Transf (AST/SGOT) (test code = Aspartate Amino Transf (AST/SGOT)) 15 5-34 [facility] HospitalAlanine Aminotransferase (ALT/SGPT) 2019-01-18 07:14:00* Test Item Value Reference Range Interpretation Comments Alanine Aminotransferase (ALT/SGPT) (test code = 1742-6) 10 0-55 [facility] HospitalTotal Qfgrklo8804-08-36 07:14:00* Test Item Value Reference Range Interpretation Comments Total Protein (test code = 2885-2) 6.4 6.5-8.1 L [facility] HospitalAlbumin2019 07:14:00* Test Item Value Reference Range Interpretation Comments Albumin (test code = 1751-7) 2.8 3.5-5.0 L [facility] HospitalGlobulin2019 07:14:00* Test Item Value Reference Range Interpretation Comments Globulin (test code = 51607-6) 3.6 2.3-3.5 H [facility] HospitalAlbumin/Globulin Jfpes5194-72-50 07:14:00 * Test Item Value Reference Range Interpretation Comments Albumin/Globulin Ratio (test code = 1759-0) 0.8 0.8-2.0 [facility] HospitalAlkaline Rmirtjyxdpi8769-57-96 07:14:00* Test Item Value Reference Range Interpretation Comments Alkaline Phosphatase (test code = 6768-6) 46 40-150 [facility]odium Bkiua5621-77-95 07:14:00* Test Item Value Reference Range Interpretation Comments Sodium Level (test code = 2951-2) 141 136-145 [facility] HospitalPotassium Tzufb4056-34-42 07:14:00* Test Item Value Reference Range Interpretation Comments Potassium Level (test code = 2823-3) 3.4 3.5-5.1 L [facility] HospitalChloride Odpgp0631-95-06 07:14:00* Test Item Value Reference Range Interpretation Comments Chloride Level (test code = 2075-0) 104 98-107 [facility] HospitalCarbon Dioxide Iolmk8971-10-26 07:14:00* Test Item Value Reference Range Interpretation Comments Carbon Dioxide Level (test code = 2028-9) 27 22-29 [facility] HospitalAnion Jtu4932-55-52 07:14:00* Test Item Value Reference Range Interpretation Comments Anion Gap (test code = 12019-7) 13.4 8-16 [facility] HospitalBlood Urea Bvynqino3605-89-60 07:14:00* Test Item Value Reference Range Interpretation Comments Blood Urea Nitrogen (test code = 3094-0) 37 7-26 H [facility] HospitalCreatinine2019 07:14:00* Test Item Value Reference Range Interpretation Comments Creatinine (test code = 2160-0) 1.09 0.72-1.25 [facility] HospitalBUN/Creatinine Xdzuz3056-98-06 07:14:00* Test Item Value Reference Range Interpretation Comments BUN/Creatinine Ratio (test code = 3097-3) 34 6-25 H [facility] HospitalEstimat Glomerular Filtration Rate 2019-01-18 07:14:00* Test Item Value Reference Range Interpretation Comments Estimat Glomerular Filtration Rate (test code = 431103248) > 60 >60 Ranges were taken from the National Kidney Disease Education Program and the [facility] Foundation literature.Reference ranges:60 or greater: Vxawzm63-69 ( for 3 consecutive months): Chronic kidney disease 15 or less: Kidney failureMemorial Hermann [facility] HospitalGlucose Hashs5126-23-42 07:14:00* Test Item Value Reference Range Interpretation Comments Glucose Level (test code = XQS3919) 132 74-118 H [facility] HospitalCalcium Jwnjy2526-60-53 07:14:00* Test Item Value Reference Range Interpretation Comments Calcium Level (test code = 35332-8) 9.0 8.4-10.2 [facility] HospitalTotal Nhezdaitr0616-58-06 07:14:00* Test Item Value Reference Range Interpretation Comments Total Bilirubin (test code = 1975-2) 0.6 0.2-1.2 [facility] HospitalAspartate Amino Transf (AST/SGOT) 2019-01-18 07:14:00* Test Item Value Reference Range Interpretation Comments Aspartate Amino Transf (AST/SGOT) (test code = Aspartate Amino Transf (AST/SGOT)) 15 5-34 [facility] HospitalAlanine Aminotransferase (ALT/SGPT) 2019-01-18 07:14:00* Test Item Value Reference Range Interpretation Comments Alanine Aminotransferase (ALT/SGPT) (test code = 1742-6) 10 0-55 [facility]tal Akimvng1934-30-02 07:14:00* Test Item Value Reference Range Interpretation Comments Total Protein (test code = 2885-2) 6.4 6.5-8.1 L [facility] HospitalAlbumin2019 07:14:00* Test Item Value Reference Range Interpretation Comments Albumin (test code = 1751-7) 2.8 3.5-5.0 L [facility] HospitalGlobulin2019 07:14:00* Test Item Value Reference Range Interpretation Comments Globulin (test code = 77097-0) 3.6 2.3-3.5 H [facility] HospitalAlbumin/Globulin Cneyr4242-65-95 07:14:00 * Test Item Value Reference Range Interpretation Comments Albumin/Globulin Ratio (test code = 1759-0) 0.8 0.8-2.0 [facility] HospitalAlkaline Wbafnqbuybp3820-47-16 07:14:00* Test Item Value Reference Range Interpretation Comments Alkaline Phosphatase (test code = 6768-6) 46 40-150 [facility] HospitalWhite Blood Ypqry2489-51-21 06:45:00* Test Item Value Reference Range Interpretation Comments White Blood Count (test code = 6690-2) 7.00 4.8-10.8 [facility] HospitalRed Blood Sozmr8900-70-62 06:45:00* Test Item Value Reference Range Interpretation Comments Red Blood Count (test code = 789-8) 4.54 4.3-5.7 [facility] HospitalHemoglobin2019 06:45:00* Test Item Value Reference Range Interpretation Comments Hemoglobin (test code = 87104-5) 12.9 14.0-18.0 L [facility] HospitalHematocrit2019 06:45:00* Test Item Value Reference Range Interpretation Comments Hematocrit (test code = 4544-3) 40.5 38.2-49.6 [facility] HospitalMean Corpuscular Gpbmnz0094-01-04 06:45:00* Test Item Value Reference Range Interpretation Comments Mean Corpuscular Volume (test code = 787-2) 89.2 81-99 [facility] HospitalMean Corpuscular Dbbhfpmafa5194-39-95 06:45:00* Test Item Value Reference Range Interpretation Comments Mean Corpuscular Hemoglobin (test code = 785-6) 28.4 28-32 [facility] HospitalMean Corpuscular Hemoglobin Concent 2019-01-18 06:45:00* Test Item Value Reference Range Interpretation Comments Mean Corpuscular Hemoglobin Concent (test code = 786-4) 31.9 31-35 [facility] HospitalRed Cell Distribution Qjqbg2091-36-84 06:45:00* Test Item Value Reference Range Interpretation Comments Red Cell Distribution Width (test code = 37543-6) 15.8 11.7 -14.4 H [facility] HospitalPlatelet Ofozv3901-78-22 06:45:00* Test Item Value Reference Range Interpretation Comments Platelet Count (test code = 777-3) 150 140-360 [facility] HospitalNeutrophils (%) (Auto)2019-01-18 06:45:00 * Test Item Value Reference Range Interpretation Comments Neutrophils (%) (Auto) (test code = 87533-5) 71.2 38.7-80.0 [facility] HospitalLymphocytes (%) (Auto)2019-01-18 06:45:00 * Test Item Value Reference Range Interpretation Comments Lymphocytes (%) (Auto) (test code = 736-9) 14.1 18.0-39.1 L [facility] HospitalMonocytes (%) (Auto)2019-01-18 06:45:00* Test Item Value Reference Range Interpretation Comments Monocytes (%) (Auto) (test code = 5905-5) 14.0 4.4-11.3 H [facility] HospitalEosinophils (%) (Auto)2019-01-18 06:45:00 * Test Item Value Reference Range Interpretation Comments Eosinophils (%) (Auto) (test code = 713-8) 0.0 0.0-6.0 [facility] HospitalBasophils (%) (Auto)2019-01-18 06:45:00* Test Item Value Reference Range Interpretation Comments Basophils (%) (Auto) (test code = 706-2) 0.1 0.0-1.0 [facility] HospitalIM GRANULOCYTES %2019-01-18 06:45:00* Test Item Value Reference Range Interpretation Comments IM GRANULOCYTES % (test code = IM GRANULOCYTES %) 0.6 0.0- 1.0 [facility] HospitalNeutrophils # (Auto)2019-01-18 06:45:00* Test Item Value Reference Range Interpretation Comments Neutrophils # (Auto) (test code = 751-8) 5.0 2.1-6.9 [facility] HospitalLymphocytes # (Auto)2019-01-18 06:45:00* Test Item Value Reference Range Interpretation Comments Lymphocytes # (Auto) (test code = 16749-1) 1.0 1.0-3.2 [facility] HospitalMonocytes # (Auto)2019-01-18 06:45:00* Test Item Value Reference Range Interpretation Comments Monocytes # (Auto) (test code = 742-7) 1.0 0.2-0.8 H [facility] HospitalEosinophils # (Auto)2019-01-18 06:45:00* Test Item Value Reference Range Interpretation Comments Eosinophils # (Auto) (test code = 711-2) 0.0 0.0-0.4 [facility] HospitalBasophils # (Auto)2019-01-18 06:45:00* Test Item Value Reference Range Interpretation Comments Basophils # (Auto) (test code = 704-7) 0.0 0.0-0.1 [facility] HospitalAbsolute Immature Granulocyte (auto 2019-01-18 06:45:00* Test Item Value Reference Range Interpretation Comments Absolute Immature Granulocyte (auto (yuliana t code = Absolute Immature Granulocyte (auto) 0.04 0-0.1 [facility] HospitalWhite Blood Zgjnj0087-14-87 06:45:00* Test Item Value Reference Range Interpretation Comments White Blood Count (test code = 6690-2) 7.00 4.8-10.8 [facility] HospitalRed Blood Pppwz4859-18-56 06:45:00* Test Item Value Reference Range Interpretation Comments Red Blood Count (test code = 789-8) 4.54 4.3-5.7 [facility] HospitalHemoglobin2019 06:45:00* Test Item Value Reference Range Interpretation Comments Hemoglobin (test code = 83329-9) 12.9 14.0-18.0 L [facility] HospitalHematocrit2019 06:45:00* Test Item Value Reference Range Interpretation Comments Hematocrit (test code = 4544-3) 40.5 38.2-49.6 [facility] HospitalMean Corpuscular Owyrbu5886-97-76 06:45:00* Test Item Value Reference Range Interpretation Comments Mean Corpuscular Volume (test code = 787-2) 89.2 81-99 [facility] HospitalMean Corpuscular Jjrybndrnk2189-28-39 06:45:00* Test Item Value Reference Range Interpretation Comments Mean Corpuscular Hemoglobin (test code = 785-6) 28.4 28-32 [facility] HospitalMean Corpuscular Hemoglobin Concent 2019-01-18 06:45:00* Test Item Value Reference Range Interpretation Comments Mean Corpuscular Hemoglobin Concent (test code = 786-4) 31.9 31-35 [facility] HospitalRed Cell Distribution Ujqpl2616-35-39 06:45:00* Test Item Value Reference Range Interpretation Comments Red Cell Distribution Width (test code = 76622-7) 15.8 11.7 -14.4 H [facility] HospitalPlatelet Vrtcd5232-15-32 06:45:00* Test Item Value Reference Range Interpretation Comments Platelet Count (test code = 777-3) 150 140-360 [facility] HospitalNeutrophils (%) (Auto)2019-01-18 06:45:00 * Test Item Value Reference Range Interpretation Comments Neutrophils (%) (Auto) (test code = 68032-2) 71.2 38.7-80.0 [facility] HospitalLymphocytes (%) (Auto)2019-01-18 06:45:00 * Test Item Value Reference Range Interpretation Comments Lymphocytes (%) (Auto) (test code = 736-9) 14.1 18.0-39.1 L [facility] HospitalMonocytes (%) (Auto)2019-01-18 06:45:00* Test Item Value Reference Range Interpretation Comments Monocytes (%) (Auto) (test code = 5905-5) 14.0 4.4-11.3 H [facility] HospitalEosinophils (%) (Auto)2019-01-18 06:45:00 * Test Item Value Reference Range Interpretation Comments Eosinophils (%) (Auto) (test code = 713-8) 0.0 0.0-6.0 [facility] HospitalBasophils (%) (Auto)2019-01-18 06:45:00* Test Item Value Reference Range Interpretation Comments Basophils (%) (Auto) (test code = 706-2) 0.1 0.0-1.0 [facility] HospitalIM GRANULOCYTES %2019-01-18 06:45:00* Test Item Value Reference Range Interpretation Comments IM GRANULOCYTES % (test code = IM GRANULOCYTES %) 0.6 0.0- 1.0 [facility] HospitalNeutrophils # (Auto)2019-01-18 06:45:00* Test Item Value Reference Range Interpretation Comments Neutrophils # (Auto) (test code = 751-8) 5.0 2.1-6.9 [facility] HospitalLymphocytes # (Auto)2019-01-18 06:45:00* Test Item Value Reference Range Interpretation Comments Lymphocytes # (Auto) (test code = 43207-1) 1.0 1.0-3.2 [facility] HospitalMonocytes # (Auto)2019-01-18 06:45:00* Test Item Value Reference Range Interpretation Comments Monocytes # (Auto) (test code = 742-7) 1.0 0.2-0.8 H [facility] HospitalEosinophils # (Auto)2019-01-18 06:45:00* Test Item Value Reference Range Interpretation Comments Eosinophils # (Auto) (test code = 711-2) 0.0 0.0-0.4 [facility] HospitalBasophils # (Auto)2019-01-18 06:45:00* Test Item Value Reference Range Interpretation Comments Basophils # (Auto) (test code = 704-7) 0.0 0.0-0.1 [facility] HospitalAbsolute Immature Granulocyte (auto 2019-01-18 06:45:00* Test Item Value Reference Range Interpretation Comments Absolute Immature Granulocyte (auto (yuliana t code = Absolute Immature Granulocyte (auto) 0.04 0-0.1 [facility] HospitalWhite Blood Asjga6451-94-30 06:45:00* Test Item Value Reference Range Interpretation Comments White Blood Count (test code = 6690-2) 7.00 4.8-10.8 [facility] HospitalRed Blood Gkqiz5851-54-77 06:45:00* Test Item Value Reference Range Interpretation Comments Red Blood Count (test code = 789-8) 4.54 4.3-5.7 [facility] HospitalHemoglobin2019 06:45:00* Test Item Value Reference Range Interpretation Comments Hemoglobin (test code = 92782-3) 12.9 14.0-18.0 L [facility] HospitalHematocrit2019 06:45:00* Test Item Value Reference Range Interpretation Comments Hematocrit (test code = 4544-3) 40.5 38.2-49.6 [facility] HospitalMean Corpuscular Tikjbt8418-43-45 06:45:00* Test Item Value Reference Range Interpretation Comments Mean Corpuscular Volume (test code = 787-2) 89.2 81-99 [facility] HospitalMean Corpuscular Ihvymseutp4814-91-50 06:45:00* Test Item Value Reference Range Interpretation Comments Mean Corpuscular Hemoglobin (test code = 785-6) 28.4 28-32 [facility] HospitalMean Corpuscular Hemoglobin Concent 2019-01-18 06:45:00* Test Item Value Reference Range Interpretation Comments Mean Corpuscular Hemoglobin Concent (test code = 786-4) 31.9 31-35 [facility] HospitalRed Cell Distribution Mleay2358-42-63 06:45:00* Test Item Value Reference Range Interpretation Comments Red Cell Distribution Width (test code = 20640-5) 15.8 11.7 -14.4 H [facility] HospitalPlatelet Cnjjj0010-18-87 06:45:00* Test Item Value Reference Range Interpretation Comments Platelet Count (test code = 777-3) 150 140-360 [facility] HospitalNeutrophils (%) (Auto)2019-01-18 06:45:00 * Test Item Value Reference Range Interpretation Comments Neutrophils (%) (Auto) (test code = 05993-6) 71.2 38.7-80.0 [facility] HospitalLymphocytes (%) (Auto)2019-01-18 06:45:00 * Test Item Value Reference Range Interpretation Comments Lymphocytes (%) (Auto) (test code = 736-9) 14.1 18.0-39.1 L [facility] HospitalMonocytes (%) (Auto)2019-01-18 06:45:00* Test Item Value Reference Range Interpretation Comments Monocytes (%) (Auto) (test code = 5905-5) 14.0 4.4-11.3 H [facility] HospitalEosinophils (%) (Auto)2019-01-18 06:45:00 * Test Item Value Reference Range Interpretation Comments Eosinophils (%) (Auto) (test code = 713-8) 0.0 0.0-6.0 [facility] HospitalBasophils (%) (Auto)2019-01-18 06:45:00* Test Item Value Reference Range Interpretation Comments Basophils (%) (Auto) (test code = 706-2) 0.1 0.0-1.0 [facility] HospitalIM GRANULOCYTES %2019-01-18 06:45:00* Test Item Value Reference Range Interpretation Comments IM GRANULOCYTES % (test code = IM GRANULOCYTES %) 0.6 0.0- 1.0 [facility] HospitalNeutrophils # (Auto)2019-01-18 06:45:00* Test Item Value Reference Range Interpretation Comments Neutrophils # (Auto) (test code = 751-8) 5.0 2.1-6.9 [facility] HospitalLymphocytes # (Auto)2019-01-18 06:45:00* Test Item Value Reference Range Interpretation Comments Lymphocytes # (Auto) (test code = 15889-1) 1.0 1.0-3.2 [facility] HospitalMonocytes # (Auto)2019-01-18 06:45:00* Test Item Value Reference Range Interpretation Comments Monocytes # (Auto) (test code = 742-7) 1.0 0.2-0.8 H [facility] HospitalEosinophils # (Auto)2019-01-18 06:45:00* Test Item Value Reference Range Interpretation Comments Eosinophils # (Auto) (test code = 711-2) 0.0 0.0-0.4 [facility] HospitalBasophils # (Auto)2019-01-18 06:45:00* Test Item Value Reference Range Interpretation Comments Basophils # (Auto) (test code = 704-7) 0.0 0.0-0.1 [facility] HospitalAbsolute Immature Granulocyte (auto 2019-01-18 06:45:00* Test Item Value Reference Range Interpretation Comments Absolute Immature Granulocyte (auto (yuliana t code = Absolute Immature Granulocyte (auto) 0.04 0-0.1 [facility]2019-04-05 06:20:00* Test Item Value Reference Range Interpretation Comments Magnesium Level (test code = 91040-2) 1.9 1.3-2.1 [facility]2019-04-05 06:20:00* Test Item Value Reference Range Interpretation Comments Magnesium Level (test code = 75963-2) 1.9 1.3-2.1 [facility]2019-04-05 06:20:00* Test Item Value Reference Range Interpretation Comments Magnesium Level (test code = 15274-8) 1.9 1.3-2.1 [facility] HospitalCreatine Kinase DG8372-64-46 13:55:00* Test Item Value Reference Range Interpretation Comments Creatine Kinase MB (test code = 12118-3) 2.20 0-5.0 [facility] HospitalTrformerly [facility] northeastn U3215-13-39 13:55:00* Test Item Value Reference Range Interpretation Comments Troponin I (test code = JSF9918) 0.064 0-0.300 [facility] HospitalCreatine Kinase RO7001-00-70 13:55:00* Test Item Value Reference Range Interpretation Comments Creatine Kinase MB (test code = 44584-0) 2.20 0-5.0 [place] 23255019-04-04 13:55:00* Test Item Value Reference Range Interpretation Comments Troponin I (test code = GUH5993) 0.064 0-0.300 [facility] HospitalCreatine Kinase NP6554-57-59 13:55:00* Test Item Value Reference Range Interpretation Comments Creatine Kinase MB (test code = 99146-7) 2.20 0-5.0 [facility] HospitalTroponin O1410-75-09 13:55:00* Test Item Value Reference Range Interpretation Comments Troponin I (test code = VWV5015) 0.064 0-0.300 [facility] HospitalCreatine Lxmsrx4083-62-24 13:46:00* Test Item Value Reference Range Interpretation Comments Creatine Kinase (test code = 2157-6) 64 30-200 [facility] HospitalCreatine Bohlcq2695-50-43 13:46:00* Test Item Value Reference Range Interpretation Comments Creatine Kinase (test code = 2157-6) 64 30-200 [facility] HospitalCreatine Vjtbzj7010-66-17 13:46:00* Test Item Value Reference Range Interpretation Comments Creatine Kinase (test code = 2157-6) 64 30-200 [facility] HospitalDigoxin Bpumi6790-00-50 08:49:00* Test Item Value Reference Range Interpretation Comments Digoxin Level (test code = 61145-3) < 0.30 0.8-2.0 L [facility] HospitalDixin Soins0115-44-92 08:49:00* Test Item Value Reference Range Interpretation Comments Digoxin Level (test code = 37215-2) < 0.30 0.8-2.0 L [facility] HospitalDixin Eibrs1338-60-44 08:49:00* Test Item Value Reference Range Interpretation Comments Digoxin Level (test code = 36457-6) < 0.30 0.8-2.0 L [facility] HospitalCHEST SINGLE (PORTABLE)2019-01-14 06:03:00 [place] [address] Patient Name: MOUNA DENT MR #: [id number] : 1950 Age/Sex: 68/M Req #: [id number] Adm Physician: CHANEL LÓPEZ MD Ordered by: ARNIE KELLY MD Report #: [id number] Location: [facility], [place] Room/Bed: [place] [address] Procedure: 04 DX/CHEST SINGLE (PORTABLE) Exam Date: Exam Time: REPORT STATUS: Signed Examinat ion: Single AP view of the chest. COMPARISON: January 13, 2019 INDICATION : Heart failure DISCUSSION: Lines/tubes: None. Lungs: Stab le pulmonary edema with enlargement of the central vessels which are. Ple ura: No pleural effusion or pneumothorax. Heart and mediastinum: Cardiome patsy Bones and soft tissues: No acute bony abnormalities. IMPRESSIO N: Stable cardiomegaly with pulmonary edema Signed by: Dr. Ophelia aguiar M.D. on 01/14/2019 6:04 AM Dictated By: OPHELIA FELIZ MD [facility] Signed By: OPHELIA FELIZ MD on 01/14/19603 Transcribed By: FATOUMATA on 01/14/19603 COPY TO: ARNIE KELLY MD B-Type Natriuretic Gidhqbc9228-22-47 23:51:00* Test Item Value Reference Range Interpretation Comments B-Type Natriuretic Peptide (test code = 07341-4) 874.3 0-100 H [facility] HospitalB-Type Natriuretic Wfmznjk7154-42-72 23:51:00* Test Item Value Reference Range Interpretation Comments B-Type Natriuretic Peptide (test code = 56494-8) 874.3 0-100 H [facility] HospitalB-Type Natriuretic Lxlkdrs1140-16-84 23:51:00* Test Item Value Reference Range Interpretation Comments B-Type Natriuretic Peptide (test code = 54798-8) 874.3 0-100 H [facility] HospitalPlatelet Ywlhziog9436-48-23 17:09:00* Test Item Value Reference Range Interpretation Comments Platelet Estimate (test code = 93543-0) MARKEDLY DECREASED [facility] HospitalPlatelet Morphology Pncmann3307-70-22 17:09:00* Test Item Value Reference Range Interpretation Comments Platelet Morphology Comment (test code = 67465-5) MODERATE LARGE [facility] HospitalRed Cell Morphology Pjboyfw4312-91-81 17:09:00* Test Item Value Reference Range Interpretation Comments Red Cell Morphology Comment (test code = 6742-1) NORMAL [facility] HospitalPlatelet Pfvnjpge6673-53-41 17:09:00* Test Item Value Reference Range Interpretation Comments Platelet Estimate (test code = 00380-4) MARKEDLY DECREASED [facility] HospitalPlatewest [facility] Morphology Uwbxiuq2158-60-62 17:09:00* Test Item Value Reference Range Interpretation Comments Platelet Morphology Comment (test code = 50039-0) MODERATE LARGE [facility] HospitalRed Cell Morphology Ojnzdlm8990-21-80 17:09:00* Test Item Value Reference Range Interpretation Comments Red Cell Morphology Comment (test code = 6742-1) NORMAL [facility] HospitalPlatelet Ffrgbgjx5120-15-64 17:09:00* Test Item Value Reference Range Interpretation Comments Platelet Estimate (test code = 12888-1) MARKEDLY DECREASED [facility] HospitalPlatelet Morphology Veleohf7292-51-81 17:09:00* Test Item Value Reference Range Interpretation Comments Platelet Morphology Comment (test code = 08707-8) MODERATE LARGE [facility] HospitalRed Cell Morphology Paubdan8679-88-77 17:09:00* Test Item Value Reference Range Interpretation Comments Red Cell Morphology Comment (test code = 6742-1) NORMAL [facility] HospitalCHES SINGLE (PORTABLE)2019-01-13 15:47:00 [place] [address] Patient Name: MOUNA DENT MR #: [id number] : 1950 Age/Sex: 68/M Req #: [id number] Adm Physician: Ordered by: ARNIE KELLY MD Report #: [id number] Location: ER Room/Bed: Procedure: [id number] D X/CHEST SINGLE (PORTABLE) Exam Date: 01/13/19 Exam T melodie: 1505 REPORT STATUS: Signed EXAMINATION: CHEST SINGLE (PORTABLE) INDICATION: Shortness of breath. COMPARISON: CT chest 12/25/2018. FINDINGS: TUBES and LINES: N one. LUNGS: Moderate lung volumes. Emphysematous changes of the lungs. Ther e are perihilar and interstitial opacities. There are patchy opacities in the bilateral mid and lower lung zones. PLEURA: Trace bilateral pleural effus ions. No evidence of pneumothorax. HEART AND MEDIASTINUM: Mild cardiomegaly . Atherosclerotic changes of the aortic arch. BONES AND SOFT TISSUES: No acute osseous abnormality. Partially seen spinal fixation hardware. UPPER ABDOMEN: No free air under the diaphragm. IMPRESSION: Mild cardiome patsy with pulmonary interstitial edema. Patchy opacities in bilateral mid and lower lung zones may represent alveolar edema or pneumonia in the appropriate clinical context. Signed by: Dr. Reina Hopkins MD on 01/13/2019 3:51 PM Dictated By: REINA HOPKINS MD [id number] Transcribed By: FATOUMATA on 01/13/19 1551 COPY TO: ARNIE KELLY MD Prothrombin Gnyn8736-18-52 14:34:00* Test Item Value Reference Range Interpretation Comments Prothrombin Time (test code = 5902-2) 16.2 11.9-14.5 H [facility] HospitalProthromb Time International Ratio 2019-01-13 14:34:00* Test Item Value Reference Range Interpretation Comments Prothromb Time International Ratio (test code = 6301-6) 1.24 Oral Anticoagulant Therapy INR Values:1. Low Intensity Therapy 1.5 - 2.02 . Moderate Intensity Therapy 2.0 - 3.03. High Intensity Therapy(1) 2.5 - 3. 54. High Intensity Therapy(2) 3.0 - 4.05. Panic Value INR > 5.0 [facility] Partial Thromboplast Time 2019-01-13 14:34:00* Test Item Value Reference Range Interpretation Comments Activated Partial Thromboplast Time (test code = 09214-5) 39.7 23.8-35.5 H [facility] HospitalProthrombin Cbzd2296-40-94 14:34:00* Test Item Value Reference Range Interpretation Comments Prothrombin Time (test code = 5902-2) 16.2 11.9-14.5 H [facility] HospitalProthromb Time International Ratio 2019-01-13 14:34:00* Test Item Value Reference Range Interpretation Comments Prothromb Time International Ratio (test code = 6301-6) 1.24 Oral Anticoagulant Therapy INR Values:1. Low Intensity Therapy 1.5 - 2.02 . Moderate Intensity Therapy 2.0 - 3.03. High Intensity Therapy(1) 2.5 - 3. 54. High Intensity Therapy(2) 3.0 - 4.05. Panic Value INR > 5.0 [facility]Act[facility] Partial Thromboplast Time 2019-01-13 14:34:00* Test Item Value Reference Range Interpretation Comments Activated Partial Thromboplast Time (test code = 59288-4) 39.7 23.8-35.5 H [facility] HospitalProthrombin Vjtc5466-08-71 14:34:00* Test Item Value Reference Range Interpretation Comments Prothrombin Time (test code = 5902-2) 16.2 11.9-14.5 H [facility] HospitalProthromb Time International Ratio 2019-01-13 14:34:00* Test Item Value Reference Range Interpretation Comments Prothromb Time International Ratio (test code = 6301-6) 1.24 Oral Anticoagulant Therapy INR Values:1. Low Intensity Therapy 1.5 - 2.02 . Moderate Intensity Therapy 2.0 - 3.03. High Intensity Therapy(1) 2.5 - 3. 54. High Intensity Therapy(2) 3.0 - 4.05. Panic Value INR > 5.0 [facility]Act[facility] Partial Thromboplast Time 2019-01-13 14:34:00* Test Item Value Reference Range Interpretation Comments Activated Partial Thromboplast Time (test code = 86094-8) 39.7 23.8-35.5 H [facility] HospitalArterial Blood [id number] 14:12:00* Test Item Value Reference Range Interpretation Comments Arterial Blood pH (test code = 2744-1) 7.34 7.31-7.41 [facility]Ar[facility] Blood Partial Pressure CO2 2019-01-13 14:12:00* Test Item Value Reference Range Interpretation Comments Arterial Blood Partial Pressure CO2 (test code = 2018-) 46 41-51 [facility]Ar[facility] Partial Pressure O2 2019-01-13 14:12:00* Test Item Value Reference Range Interpretation Comments Arterial Blood Partial Pressure O2 (test code = 2018-) 318 80-105 [facility] [id number] 14:12:00* Test Item Value Reference Range Interpretation Comments Arterial Blood HCO3 (test code = 1960-4) 25 23-28 [facility]Ar[facility] Blood Base Fnhfed5666-54-96 14:12:00* Test Item Value Reference Range Interpretation Comments Arterial Blood Base Excess (test code = 1925-7) 0.0 -2-3 [facility] Blood Oxygen Saturation 2019-01-13 14:12:00* Test Item Value Reference Range Interpretation Comments Arterial Blood Oxygen Saturation (test code = 2708-6) 100.0 95-98 H [facility] HospitalFiO22019-04-03 14:12:00* Test Item Value Reference Range Interpretation Comments FiO2 (test code = FiO2) 100 [facility] Blood [id number] 14:12:00* Test Item Value Reference Range Interpretation Comments Arterial Blood pH (test code = 2744-1) 7.34 7.31-7.41 [facility]Ar[facility] Blood Partial Pressure CO2 2019-01-13 14:12:00* Test Item Value Reference Range Interpretation Comments Arterial Blood Partial Pressure CO2 (test code = 2019-8) 46 41-51 [facility]Ar[facility] Partial Pressure O2 2019-01-13 14:12:00* Test Item Value Reference Range Interpretation Comments Arterial Blood Partial Pressure O2 (test code = 2019-8) 318 80-[address] [facility] Blood [id number] 14:12:00* Test Item Value Reference Range Interpretation Comments Arterial Blood HCO3 (test code = 1960-4) [facility] Base Lhyfks3045-11-61 14:12:00* Test Item Value Reference Range Interpretation Comments Arterial Blood Base Excess (test code = 1925-7) 0.0 -2-3 [facility] Blood Oxygen Saturation 2019-01-13 14:12:00* Test Item Value Reference Range Interpretation Comments Arterial Blood Oxygen Saturation (test code = 2708-6) 100.0 95-98 H [facility] HospitalFiO22019-04-03 14:12:00* Test Item Value Reference Range Interpretation Comments FiO2 (test code = FiO2) 100 [facility] Blood [id number] 14:12:00* Test Item Value Reference Range Interpretation Comments Arterial Blood pH (test code = 2744-1) 7.34 7.31-7.41 [facility]Ar[facility] Blood Partial Pressure CO2 2019-01-13 14:12:00* Test Item Value Reference Range Interpretation Comments Arterial Blood Partial Pressure CO2 (test code = 2018-8) 46 41-51 [facility]Ar[facility] Partial Pressure O2 2019-01-13 14:12:00* Test Item Value Reference Range Interpretation Comments Arterial Blood Partial Pressure O2 (test code = 2018-8) 318 80-105 H [facility] Blood [id number] 14:12:00* Test Item Value Reference Range Interpretation Comments Arterial Blood HCO3 (test code = 1960-4) - [facility] Base Vdggnf4560-03-75 14:12:00* Test Item Value Reference Range Interpretation Comments Arterial Blood Base Excess (test code = 1925-7) 0.0 -2-3 [facility] Blood Oxygen Saturation 2019-01-13 14:12:00* Test Item Value Reference Range Interpretation Comments Arterial Blood Oxygen Saturation (test code = 2708-6) 100.0 95-98 H [facility] HospitalFiO22019-04-03 14:12:00* Test Item Value Reference Range Interpretation Comments FiO2 (test code = FiO2) 100 [facility] HospitalCT CHEST [id number] 15:32:00 [facility] [address] [address] Patient Name: MOUNA DENT MR #: [id number] : 1950 Age/Sex: 68/M Req #: [id number] Adm Physician: Ordered by: CAROL HOANG MD Report #: [id number] Location: CT Room/Bed: Procedure: [id number] C T/CT CHEST WO Exam Date: 12/25/18 Exam Time: 1250 REPORT STATUS: Signed EXAM: CT [facility] WITHOUT contrast 12/25/2018 12:47 PM INDICATION: Pulmonary nodule COMPARI SON: Chest CT, 11/03/2018 TECHNIQUE: Chest was scanned utilizing a multidetec tor helical scanner from the lung apex through the level of the adrenal glands without administration of IV contrast. Absence of intravenous contrast decrea ses sensitivity for detection of lymphadenopathy and vascular pathology. Coron al and sagittal reformations were obtained. Routine protocol was performed. Dose modulation, iterative reconstruction, and/or weight based adjustment of the mA/kV was utilized to reduce the radiation dose to as low as reasonably achievable. IV CONTRAST: None RADIATION DOSE: To isai DLP: 285.19 mGy*cm Estimated effective dose: (DLP x 0.014 x si ze factor) mSv COMPLICATIONS: None FINDINGS: LINES/ TUBES : None. LUNGS AND AIRWAYS: Moderate centrilobular and paraseptal emphysema . Peripheral, subpleural fibrosis. Nodular densities previously reported in th e right lower lobe are no longer evident and may have been related to transien t atelectasis or infection. 8 mm nodular density in the right middle lobe (ser ies 3, image 100) is stable from previous exam. Trachea and main bronchi are c lear. There is bilateral perihilar bronchial wall thickening likely related to bronchitis. PLEURA: Trace left pleural effusion unchanged. No pneumothor ax. HEART AND MEDIASTINUM: The thyroid gland is normal. No mediastinal, hi lar or axillary lymphadenopathy. Scattered small mediastinal nodes are likely reactive. The heart is upper normal size.. There is no pericardial effusion. There is dense calcification in the mitral annulus. Extensive coronary artery calcifications are seen. Calcifications and aortic valve noted. Main pulmonary artery is dilated measuring 4.5 cm. UPPER ABDOMEN: Included portions of liver, spleen, pancreas and adrenals are grossly unremarkable although saritha luation is suboptimal due to extensive streak artifact from spinal hardware. BONES: No acute or suspicious bony lesions. Thoracolumbar fusion hardware is noted. Again seen is a compression fracture at T10. A screw extending into T10 shows adjacent lucency which may indicate loosening. Cervical fusion hardware is partially visualized. SOFT TISSUES: Superficial surrounding soft tissue unremarkable. IMPRESSION: 1. Nodules previously noted in the right lower lobe are no longer seen and may have been related to atelectasis or in fection. 2. An 8 mm nodule in the right middle lobe is persistent. Consider six-month follow-up noncontrast chest CT to assure stability. 3. Again n oted is moderate and extensive emphysematous change. Bilateral perihilar bronc hial wall thickening likely related to bronchitis. Dilated main pulmonary valerie ry likely reflects pulmonary hypertension. 4. Stable trace left pleural eff usion. 5. Again noted is compression of the T10 vertebral body with lucency surrounding the stabilization screw. Signed by: Dr. Arnie Gil M.D. on 12/25/2018 4:00 PM Dictated By: ARNIE GIL MD 1600 Transcribed By: FATOUMATA on 12/25/18 1600 COPY TO: CAROL HOANG MD Blood Ierhajh2974-13-98 16:14:00* Test Item Value Reference Range Interpretation Comments Blood Culture (test code = 61013716) NO GROWTH AFTER 5 DAYS, [facility] Oheibzt1622-30-92 16:14:00* Test Item Value Reference Range Interpretation Comments Blood Culture (test code = 03772421) NO GROWTH AFTER 5 DAYS, FINAL [facility]PORT [facility] Gokjybd1608-15-56 16:14:00* Test Item Value Reference Range Interpretation Comments Blood Culture (test code = 53489182) NO GROWTH AFTER 72 HOURS [facility] Ugdgv8744-57-69 06:33:00* Test Item Value Reference Range Interpretation Comments Sodium Level (test code = 2951-2) 138 136-145 [facility] HospitalPotassium Wuotf9147-82-57 06:33:00* Test Item Value Reference Range Interpretation Comments Potassium Level (test code = 2823-3) 4.3 3.5-5.1 [facility] HospitalChloride Glred5140-29-23 06:33:00* Test Item Value Reference Range Interpretation Comments Chloride Level (test code = 2075-0) 99 98-107 [facility] HospitalCarbon Dioxide Hheqb7230-01-44 06:33:00* Test Item Value Reference Range Interpretation Comments Carbon Dioxide Level (test code = 2028-9) 29 22-29 [facility] HospitalAnion Vgw2818-66-18 06:33:00* Test Item Value Reference Range Interpretation Comments Anion Gap (test code = 63391-7) 14.3 8-16 [facility] HospitalBlood Urea Pborpbik5055-45-59 06:33:00* Test Item Value Reference Range Interpretation Comments Blood Urea Nitrogen (test code = 3094-0) 27 7-26 H [facility] HospitalCreatinine2019-01-24 06:33:00* Test Item Value Reference Range Interpretation Comments Creatinine (test code = 2160-0) 1.46 0.72-1.25 H [facility] HospitalBUN/Creatinine Xdhqa3968-81-11 06:33:00* Test Item Value Reference Range Interpretation Comments BUN/Creatinine Ratio (test code = 3097-3) 18 6-25 [facility] HospitalEstimat Glomerular Filtration Rate 2018-11-05 06:33:00* Test Item Value Reference Range Interpretation Comments Estimat Glomerular Filtration Rate (test code = 628452458) 48 >60 L Ranges were taken from the National Kidney Disease Education Program and the [facility] Kidney Foundation literature.Reference ranges:60 or greater: Onkgtz15-79 ( for 3 consecutive months): Chronic kidney disease 15 or less: Kidney failureMemorial Hermann Sugar Land HospitalGlucose Bepch0664-41-66 06:33:00* Test Item Value Reference Range Interpretation Comments Glucose Level (test code = CBK1066) 191 74-118 H [facility] HospitalCalcium Ayqqu6039-59-75 06:33:00* Test Item Value Reference Range Interpretation Comments Calcium Level (test code = 88300-7) 9.2 8.4-10.2 [facility] HospitalTotal Hwkruteuz9067-03-43 06:33:00* Test Item Value Reference Range Interpretation Comments Total Bilirubin (test code = 1975-2) 1.0 0.2-1.2 [facility] HospitalAspartate Amino Transf (AST/SGOT) 2018-11-05 06:33:00* Test Item Value Reference Range Interpretation Comments Aspartate Amino Transf (AST/SGOT) (test code = Aspartate Amino Transf (AST/SGOT)) 33 5-34 [facility] HospitalAlanine Aminotransferase (ALT/SGPT) 2018-11-05 06:33:00* Test Item Value Reference Range Interpretation Comments Alanine Aminotransferase (ALT/SGPT) (test code = 1742-6) 15 0-55 [facility] HospitalTotal Duofjtq5413-85-05 06:33:00* Test Item Value Reference Range Interpretation Comments Total Protein (test code = 2885-2) 6.7 6.5-8.1 [facility] HospitalAlbumin2019-01-24 06:33:00* Test Item Value Reference Range Interpretation Comments Albumin (test code = 1751-7) 3.2 3.5-5.0 L [facility] HospitalGlobulin2019-01-24 06:33:00* Test Item Value Reference Range Interpretation Comments Globulin (test code = 53565-1) 3.5 2.3-3.5 [facility] HospitalAlbumin/Globulin Uxjkw3980-82-51 06:33:00 * Test Item Value Reference Range Interpretation Comments Albumin/Globulin Ratio (test code = 1759-0) 0.9 0.8-2.0 [facility] HospitalAlkaline Fnhhbzyfqcn3340-32-24 06:33:00* Test Item Value Reference Range Interpretation Comments Alkaline Phosphatase (test code = 6768-6) 41 40-150 [facility] HospitalUS RENAL RETROPERITONEAL PFRG4221-16-32 13:37:00 [facility] [address] [place] [address] Patient Name: MOUNA DENT MR #: [id number] : 1950 Age/Sex: 68/M Req #: [id number] Adm Physician: KAITLIN ODOM MD Ordered by: NURIS MURRAY, ALYSIA MURRAY Report #: [id number] Location: MED/SURG Room/Bed: [facility] Procedure: [id number] US /US RENAL RETROPERITONEAL COMP Exam Date: 11/04/18 E xam Time: 1118 REPORT STATUS: Shaila d EXAM: Renal Ultrasound INDICATION: Acute renal insufficiency. COMPARISON: Renal ultrasound 11/03/2017. TECHNIQUE: Transverse and longitud inal images of the kidneys and bladder were obtained. FINDINGS: Right Kidney: Length: Measures 11.1 x 6.3 x 5.8 cm. Appearance: Normal echogenicity. Collecting system: No hydronephrosis Stones: None Cyst/Mas s: None Left Kidney: Length: Measures 13.4 x 6.1 x 5.1 cm. Appearance : Normal echogenicity. Collecting system: No hydronephrosis Stones: None Cyst/Mass: None Bladder: Bladder is partially decompressed. A left uret eral jet is visualized, a right ureteral jet is not visualized. IMPRESSI ON: Unremarkable renal ultrasound. No evidence of hydronephrosis. Sign ed by: Dr. Reina Hopkins MD on 11/04/2018 1:41 PM Dictated By: REINA HOPKINS MD 1341 Transcribed By: SUBHA PAUL on 11/04/18 1341 COPY TO: ALYSIA LAWLER Urine Random Total Kdqnawn5045-34-75 12:11:00* Test Item Value Reference Range Interpretation Comments Urine Random Total Protein (test code = 2888-6) 8.0 10-26 [facility] HospitalUrine Mlhfcrsdil3428-87-91 12:11:00* Test Item Value Reference Range Interpretation Comments Urine Creatinine (test code = 2161-8) 24.93 63-166 L [facility] HospitalUrine Protein/Creatinine Remme2660-91-47 12:11:00* Test Item Value Reference Range Interpretation Comments Urine Protein/Creatinine Ratio (test code = 12478-9) 0.00 [facility] HospitalUrine Random Total Zkftpdh4657-86-57 12:11:00* Test Item Value Reference Range Interpretation Comments Urine Random Total Protein (test code = 2888-6) 8.0 10-26 [facility] HospitalUrine Kidjogffhp9474-22-35 12:11:00* Test Item Value Reference Range Interpretation Comments Urine Creatinine (test code = 2161-8) 24.93 63-166 L [facility] HospitalUrine Protein/Creatinine Qgrga0777-95-85 12:11:00* Test Item Value Reference Range Interpretation Comments Urine Protein/Creatinine Ratio (test code = 92130-3) 0.00 [facility] HospitalUrine Random Total Gbzuzvc5392-26-09 12:11:00* Test Item Value Reference Range Interpretation Comments Urine Random Total Protein (test code = 2888-6) 8.0 1-14 [facility] HospitalUrine Qpvfuxczpv6776-09-78 12:11:00* Test Item Value Reference Range Interpretation Comments Urine Creatinine (test code = 2161-8) 24.93 63-166 L [facility] HospitalUrine Protein/Creatinine Qrlkj6430-89-66 12:11:00* Test Item Value Reference Range Interpretation Comments Urine Protein/Creatinine Ratio (test code = 24142-1) 0.00 [facility] HospitalUrine YRC5760-36-52 11:52:00* Test Item Value Reference Range Interpretation Comments Urine WBC (test code = 5821-4) 0-5 0-5 [facility] HospitalUrine JKE1379-35-44 11:52:00* Test Item Value Reference Range Interpretation Comments Urine RBC (test code = 14896-1) 0-5 0-5 [facility] Hwwqxfly7361-07-36 11:52:00* Test Item Value Reference Range Interpretation Comments Urine Bacteria (test code = 52723-8) RARE NONE [facility] HospitalUrine Epithelial Vdidx7724-56-34 11:52:00 * Test Item Value Reference Range Interpretation Comments Urine Epithelial Cells (test code = 57830-7) RARE NONE [facility] HospitalUrine Transitional Epithelial Cells 2018-11-04 11:52:00* Test Item Value Reference Range Interpretation Comments Urine Transitional Epithelial Cells (test code = 8249-5) RARE NONE [facility] HospitalUrine EYM4174-18-27 11:52:00* Test Item Value Reference Range Interpretation Comments Urine WBC (test code = 5821-4) 0-5 0-5 [facility] HospitalUrine MHG3924-66-39 11:52:00* Test Item Value Reference Range Interpretation Comments Urine RBC (test code = 63661-7) 0-5 0-5 [facility] HospitalU[facility] Eihlvuvh6414-67-06 11:52:00* Test Item Value Reference Range Interpretation Comments Urine Bacteria (test code = 91309-8) RARE NONE [facility] HospitalUrine Epithelial Dxlpw0450-99-19 11:52:00 * Test Item Value Reference Range Interpretation Comments Urine Epithelial Cells (test code = 46114-2) RARE NONE [facility] HospitalU[facility] Transitional Epithelial Cells 2018-11-04 11:52:00* Test Item Value Reference Range Interpretation Comments Urine Transitional Epithelial Cells (test code = 8249-5) RARE NONE [facility] HospitalU[facility] BPF0452-94-69 11:52:00* Test Item Value Reference Range Interpretation Comments Urine WBC (test code = 5821-4) 0-5 0-5 [facility] HospitalU[facility] ARG5063-94-14 11:52:00* Test Item Value Reference Range Interpretation Comments Urine RBC (test code = 53197-5) 0-5 0-5 [facility] Arryjmtn7965-37-72 11:52:00* Test Item Value Reference Range Interpretation Comments Urine Bacteria (test code = 44021-2) RARE NONE [facility] HospitalUrine Epithelial Jxwru0298-97-48 11:52:00 * Test Item Value Reference Range Interpretation Comments Urine Epithelial Cells (test code = 61539-7) RARE NONE [facility] HospitalU[facility] Transitional Epithelial Cells 2018-11-04 11:52:00* Test Item Value Reference Range Interpretation Comments Urine Transitional Epithelial Cells (test code = 8249-5) RARE NONE [facility] HospitalUrine Bedti1782-76-92 11:33:00* Test Item Value Reference Range Interpretation Comments Urine Color (test code = 5778-6) YELLOW YELLOW [facility] HospitalU[facility] Peobhmf1947-38-16 11:33:00* Test Item Value Reference Range Interpretation Comments Urine Clarity (test code = 82081-8) CLEAR CLEAR [facility] HospitalU[facility] Specific Yfoqqiu6550-46-75 11:33:00 * Test Item Value Reference Range Interpretation Comments Urine Specific [place] (test code = 5811-5) 1.015 1.010-1.02 5 [facility] HospitalU[facility] bT5920-38-52 11:33:00* Test Item Value Reference Range Interpretation Comments Urine pH (test code = 18252-7) 7 5-7 [facility] Leukocyte Cxyqangk3612-06-22 11:33:00* Test Item Value Reference Range Interpretation Comments Urine Leukocyte Esterase (test code = 5799-2) NEGATIVE NEGATIVE [facility] HospitalU[facility] Rbiauko4532-77-70 11:33:00* Test Item Value Reference Range Interpretation Comments Urine Nitrite (test code = 97718-1) NEGATIVE NEGATIVE [facility] Myflhvi3145-64-11 11:33:00* Test Item Value Reference Range Interpretation Comments Urine Protein (test code = 5804-0) NEGATIVE NEGATIVE [facility] HospitalU[facility] Glucose (UA)2018-11-04 11:33:00* Test Item Value Reference Range Interpretation Comments Urine Glucose (UA) (test code = 2349-9) NEGATIVE NEGATIVE [facility] Mwvwrtt6652-22-10 11:33:00* Test Item Value Reference Range Interpretation Comments Urine Ketones (test code = 80179-1) NEGATIVE NEGATIVE [facility] Sguadsqoerxc2696-61-01 11:33:00* Test Item Value Reference Range Interpretation Comments Urine Urobilinogen (test code = 97436-9) 0.2 0.2-1 [facility] Wstcyeknv7922-69-37 11:33:00* Test Item Value Reference Range Interpretation Comments Urine Bilirubin (test code = 1978-6) NEGATIVE NEGATIVE [facility] Vovzk4625-80-66 11:33:00* Test Item Value Reference Range Interpretation Comments Urine Blood (test code = 33250-1) TRACE NEGATIVE H [facility] Dbpat6368-66-35 11:33:00* Test Item Value Reference Range Interpretation Comments Urine Color (test code = 5778-6) YELLOW YELLOW [facility] Nmdeshc5908-73-43 11:33:00* Test Item Value Reference Range Interpretation Comments Urine Clarity (test code = 01441-4) CLEAR CLEAR [facility] HospitalU[facility] Specific Vdafuiq1245-28-52 11:33:00 * Test Item Value Reference Range Interpretation Comments Urine Specific [place] (test code = 5811-5) 1.015 1.010-1.02 5 [facility] qS6881-27-41 11:33:00* Test Item Value Reference Range Interpretation Comments Urine pH (test code = 42171-8) 7 5-7 [facility] Leukocyte Zpdhislf3602-90-63 11:33:00* Test Item Value Reference Range Interpretation Comments Urine Leukocyte Esterase (test code = 5799-2) NEGATIVE NEGATIVE [facility] Nsbphix4710-23-37 11:33:00* Test Item Value Reference Range Interpretation Comments Urine Nitrite (test code = 33692-6) NEGATIVE NEGATIVE [facility] Epcuqiq5083-05-95 11:33:00* Test Item Value Reference Range Interpretation Comments Urine Protein (test code = 5804-0) NEGATIVE NEGATIVE [facility] Glucose (UA)2018-11-04 11:33:00* Test Item Value Reference Range Interpretation Comments Urine Glucose (UA) (test code = 2349-9) NEGATIVE NEGATIVE [facility] Racfrfz1982-79-22 11:33:00* Test Item Value Reference Range Interpretation Comments Urine Ketones (test code = 00814-1) NEGATIVE NEGATIVE [facility] Blthexjzrwfc3900-85-83 11:33:00* Test Item Value Reference Range Interpretation Comments Urine Urobilinogen (test code = 88045-1) 0.2 0.2-1 [facility] Erymbjgig9713-63-49 11:33:00* Test Item Value Reference Range Interpretation Comments Urine Bilirubin (test code = 1978-6) NEGATIVE NEGATIVE [facility] Oqygy9205-83-16 11:33:00* Test Item Value Reference Range Interpretation Comments Urine Blood (test code = 87569-1) TRACE NEGATIVE H [facility] Qcjze8691-63-39 11:33:00* Test Item Value Reference Range Interpretation Comments Urine Color (test code = 5778-6) YELLOW YELLOW [facility] Oepldtz8726-81-16 11:33:00* Test Item Value Reference Range Interpretation Comments Urine Clarity (test code = 12264-7) CLEAR CLEAR [facility] HospitalU[facility] Specific Jhcbzry4774-28-51 11:33:00 * Test Item Value Reference Range Interpretation Comments Urine Specific [place] (test code = 5811-5) 1.015 1.010-1.02 5 [facility] mM6388-17-06 11:33:00* Test Item Value Reference Range Interpretation Comments Urine pH (test code = 87962-3) 7 5-7 [facility] Leukocyte Luazigqg7362-38-75 11:33:00* Test Item Value Reference Range Interpretation Comments Urine Leukocyte Esterase (test code = 5799-2) NEGATIVE NEGATIVE [facility] Lzgzazn0297-45-39 11:33:00* Test Item Value Reference Range Interpretation Comments Urine Nitrite (test code = 32898-9) NEGATIVE NEGATIVE [facility] Ptchtvv3497-01-49 11:33:00* Test Item Value Reference Range Interpretation Comments Urine Protein (test code = 5804-0) NEGATIVE NEGATIVE [facility] Glucose (UA)2018-11-04 11:33:00* Test Item Value Reference Range Interpretation Comments Urine Glucose (UA) (test code = 2349-9) NEGATIVE NEGATIVE [facility] Fdjfkmb1790-52-02 11:33:00* Test Item Value Reference Range Interpretation Comments Urine Ketones (test code = 75098-6) NEGATIVE NEGATIVE [facility] Ecwdwnorxrnb2544-61-80 11:33:00* Test Item Value Reference Range Interpretation Comments Urine Urobilinogen (test code = 26528-8) 0.2 0.2-1 [facility] Kpsiskxcg7442-59-93 11:33:00* Test Item Value Reference Range Interpretation Comments Urine Bilirubin (test code = 1978-6) NEGATIVE NEGATIVE [facility] Njcei3936-40-27 11:33:00* Test Item Value Reference Range Interpretation Comments Urine Blood (test code = 60038-5) TRACE NEGATIVE H [facility] HospitalUric Knju0887-40-14 10:51:00* Test Item Value Reference Range Interpretation Comments Uric Acid (test code = 3084-1) 7.2 4.8-8.0 [facility] Yuyb2694-03-83 10:51:00* Test Item Value Reference Range Interpretation Comments Uric Acid (test code = 3084-1) 7.2 4.8-8.0 [facility] Gstt3948-68-20 10:51:00* Test Item Value Reference Range Interpretation Comments Uric Acid (test code = 3084-1) 7.2 4.8-8.0 [facility] HospitalWhite Blood Suspm2466-02-46 06:18:00* Test Item Value Reference Range Interpretation Comments White Blood Count (test code = 6690-2) 3.18 4.8-10.8 L [facility] HospitalRed Blood Oqhqk0141-94-42 06:18:00* Test Item Value Reference Range Interpretation Comments Red Blood Count (test code = 789-8) 4.34 4.3-5.7 [facility] HospitalHemoglobin2019-01-23 06:18:00* Test Item Value Reference Range Interpretation Comments Hemoglobin (test code = 11046-0) 13.1 14.0-18.0 L [facility] HospitalHematocrit2019-01-23 06:18:00* Test Item Value Reference Range Interpretation Comments Hematocrit (test code = 4544-3) 40.1 38.2-49.6 [facility] HospitalMean Corpuscular Fboniq9467-16-38 06:18:00* Test Item Value Reference Range Interpretation Comments Mean Corpuscular Volume (test code = 787-2) 92.4 81-99 [facility] HospitalMean Corpuscular Bpxfbehnrw9814-11-40 06:18:00* Test Item Value Reference Range Interpretation Comments Mean Corpuscular Hemoglobin (test code = 785-6) 30.2 28-32 [facility] HospitalMean Corpuscular Hemoglobin Concent 2018-11-04 06:18:00* Test Item Value Reference Range Interpretation Comments Mean Corpuscular Hemoglobin Concent (test code = 786-4) 32.7 31-35 [facility] HospitalRed Cell Distribution Uknsx3602-20-39 06:18:00* Test Item Value Reference Range Interpretation Comments Red Cell Distribution Width (test code = 96819-1) 16.1 11.7 -14.4 H [facility] HospitalPlatelet Smllq1552-24-94 06:18:00* Test Item Value Reference Range Interpretation Comments Platelet Count (test code = 777-3) 136 140-360 L [facility] HospitalNeutrophils (%) (Auto)2018-11-04 06:18:00 * Test Item Value Reference Range Interpretation Comments Neutrophils (%) (Auto) (test code = 56695-0) 56.3 38.7-80.0 [facility] HospitalLymphocytes (%) (Auto)2018-11-04 06:18:00 * Test Item Value Reference Range Interpretation Comments Lymphocytes (%) (Auto) (test code = 736-9) 36.2 18.0-39.1 [facility] HospitalMonocytes (%) (Auto)2018-11-04 06:18:00* Test Item Value Reference Range Interpretation Comments Monocytes (%) (Auto) (test code = 5905-5) 6.6 4.4-11.3 [facility] HospitalEosinophils (%) (Auto)2018-11-04 06:18:00 * Test Item Value Reference Range Interpretation Comments Eosinophils (%) (Auto) (test code = 713-8) 0.0 0.0-6.0 [facility] HospitalBasophils (%) (Auto)2018-11-04 06:18:00* Test Item Value Reference Range Interpretation Comments Basophils (%) (Auto) (test code = 706-2) 0.0 0.0-1.0 [facility] HospitalIM GRANULOCYTES %2018-11-04 06:18:00* Test Item Value Reference Range Interpretation Comments IM GRANULOCYTES % (test code = IM GRANULOCYTES %) 0.9 0.0- 1.0 [facility] HospitalNeutrophils # (Auto)2018-11-04 06:18:00* Test Item Value Reference Range Interpretation Comments Neutrophils # (Auto) (test code = 751-8) 1.8 2.1-6.9 L [facility] HospitalLymphocytes # (Auto)2018-11-04 06:18:00* Test Item Value Reference Range Interpretation Comments Lymphocytes # (Auto) (test code = 06917-8) 1.2 1.0-3.2 [facility] HospitalMonocytes # (Auto)2018-11-04 06:18:00* Test Item Value Reference Range Interpretation Comments Monocytes # (Auto) (test code = 742-7) 0.2 0.2-0.8 [facility] HospitalEosinophils # (Auto)2018-11-04 06:18:00* Test Item Value Reference Range Interpretation Comments Eosinophils # (Auto) (test code = 711-2) 0.0 0.0-0.4 [facility] HospitalBasophils # (Auto)2018-11-04 06:18:00* Test Item Value Reference Range Interpretation Comments Basophils # (Auto) (test code = 704-7) 0.0 0.0-0.1 [facility] HospitalAbsolute Immature Granulocyte (auto 2018-11-04 06:18:00* Test Item Value Reference Range Interpretation Comments Absolute Immature Granulocyte (auto (yuliana t code = Absolute Immature Granulocyte (auto) 0.03 0-0.1 [facility] HospitalCreatine Kinase LR9790-41-42 18:18:00* Test Item Value Reference Range Interpretation Comments Creatine Kinase MB (test code = 38575-7) 2.00 0-5.0 [facility] HospitalTroponin S0271-39-20 18:18:00* Test Item Value Reference Range Interpretation Comments Troponin I (test code = KCY4408) 0.037 0-0.300 [facility] HospitalCreatine Wlurgf5063-04-88 18:11:00* Test Item Value Reference Range Interpretation Comments Creatine Kinase (test code = 2157-6) 80 30-200 [facility] HospitalUS RENAL RETROPERITONEAL WARF8858-94-73 16:41:00 [place] [address] Patient Name: MOUNA DENT MR #: [id number] : 1950 Age/Sex: 68/M Req #: [id number] Adm Physician: KAITLIN ODOM MD Ordered by: KAITLIN ODOM MD Report #: [id number] Location: MED/SURG Room/Bed: [facility] Procedure: [id number] US/US RENAL RETROPERITONEAL COMP Exam Date: 11/03/18 Exam Time: 1551 REPORT STATUS: Signed EXAM: Renal Ultrasound INDICATION: Acute renal insufficiency. COM PARISON: None TECHNIQUE: Transverse and longitudinal images of the kidneys and bladder were obtained. FINDINGS: Right Kidney: Length: Measures 11.2 x 6.4 x 5.9 cm Appearance: Normal echogenicity. Collecting system: No hydronephrosis Stones: None Cyst/Mass: None Left Kidney: Length: Measures 12.1 x 7.4 x 5.8 cm Appearance: Normal echogenicity. Col lecting system: No hydronephrosis Stones: None Cyst/Mass: None Bladder: Unremarkable in appearance. Bilateral ureteral jets are present. IMPRES YARITZA: Unremarkable renal ultrasound. No evidence of hydronephrosis. Shaila d by: Dr. Reina Hopkins MD on 11/03/2018 4:42 PM Dictated By: REINA HOPKINS MD 41 Transcribed By: RAHEEL SPARROW on 11/03/181641 COPY TO: KAITLIN ODOM MD CT CHEST BY5024-69-43 12:38:00 [place] [address] Patient Name: MOUNA DENT MR #: [id number] : 1950 Age/Sex: 68/M Req #: [id number] [facility] Physician: KAITLIN ODOM MD Ordered by: CAROL HOANG MD Report #: [id number] Location: MED/SURG Room/Bed: [facility] Procedure: [id number] C T/CT CHEST WO Exam Date: 11/03/18 Exam Time: 1200 REPORT STATUS: Signed EXAM: CT [address] WITHOUT contrast INDICATION: Shortness of breath. COMPARISON: Ches t CT dated 01/20/2018. TECHNIQUE: Chest was scanned utilizing a multidetec tor helical scanner from the lung apex through the level of the adrenal glands without administration of IV contrast. Absence of intravenous contrast decrea ses sensitivity for detection of lymphadenopathy and vascular pathology. Coron al and sagittal reformations were obtained. Routine protocol was performed. IV CONTRAST: None COMPLICATIONS: None RADIATION DOSE: Total DLP: 634.8 mGy*cm CTDIvol has been reviewed. It is below the finn its set by the Radiation Protocol Committee (RPC). FINDINGS: LINES/ TUBES: None. LUNGS AND AIRWAYS: Upper lobe predominant moderate ce ntrilobular and paraseptal emphysematous changes. Biapical pleural parenchyma l scarring. There are mild peripheral interstitial opacities, for example in t he left upper lobe on series 3, image 60, unchanged from prior CT and could re flect early fibrotic changes. There is a 10 mm ground glass nodule which abuts a 7 mm solid nodule inferiorly (axial series 3 images 96 to 99; coronal image 55). The 7 mm solid nodule appears similar to the prior study but the gr ound glass nodular opacity superiorly is new. There are mild dependent groundg lass opacities in the right lower lobe, including a new 8 mm ground glass nodu lar opacity on series 3, image 94 and new 8 mm ground glass nodular opacity on image 74. Unchanged 5 mm right middle lobe nodule on image 105. Central airwa ys are unremarkable. PLEURA: Trace left pleural effusion. No evidence of pn eumothorax. HEART AND MEDIASTINUM: The thyroid gland is normal. No mediast inal or axillary lymphadenopathy. Scattered subcentimeter mediastinal lymph no shaneka are seen, unchanged. The heart is mildly enlarged. There is no pericardial effusion. Main pulmonary artery measures 4.1 cm, suggestive of pulmonary hyp ertension. Atherosclerotic calcification of coronary arteries, aorta, and aort ic valve. Aorta measures 3.6 cm at a level of right pulmonary artery. UPP ER ABDOMEN: Unremarkable limited non-contrast views of the upper abdomen. B ONES/SOFT TISSUES: Partially seen thoracolumbar posterior fusion with unchange d compression fracture of T10 vertebral body and T12-L1, L1-L2 discectomies. P artially seen lower cervical fixation hardware. IMPRESSION: A 7 mm solid nodule in the right middle lobe is similar to the prior study however abutting this nodule, there is a new 1 cm ground glass nodular opacity. It is unclear if this is a separate infectious or inflammatory process, however given emphy sematous changes, a follow-up chest CT is recommended in 3 months to exclude e nlarging nodule. Scattered other ground glass nodular opacities, which may be infectious or inflammatory. Trace left pleural effusion. Signed by: Dr. Reina Hopkins MD on 11/03/2018 12:56 PM Dictated By: REINA HOPKINS MD 1256 Transcribed By: RAHEEL SPARROW on 11/03/18 1256 COPY TO: CAROL HOANG MD Triglycerides Rcbcj5736-71-89 08:41:00* Test Item Value Reference Range Interpretation Comments Triglycerides Level (test code = 2571-8) 79 0-149 [facility] HospitalCholesterol Uahcz5831-61-58 08:41:00* Test Item Value Reference Range Interpretation Comments Cholesterol Level (test code = 2093-3) 159 0-199 Less than 200 mg/dL Low Cgrz044 - 239 mg/dL Borderline Vcoi287 m g/dl and greater High Risk [facility] HospitalLDL Sqhxlcorpre5840-20-83 08:41:00* Test Item Value Reference Range Interpretation Comments LDL Cholesterol (test code = 2089-1) 86 60-130 [facility] Fhqwlxkmxvj0674-77-51 08:41:00* Test Item Value Reference Range Interpretation Comments HDL Cholesterol (test code = 2085-9) 57 40-60 [facility] HospitalCholesterol/HDL Hjeck8647-90-94 08:41:00 * Test Item Value Reference Range Interpretation Comments Cholesterol/HDL Ratio (test code = 9830-1) 2.8 3.9-4.7 L [facility] HospitalTriglycerides Ghyvn7030-43-69 08:41:00* Test Item Value Reference Range Interpretation Comments Triglycerides Level (test code = 2571-8) 79 0-149 [facility] HospitalCholesterol Hmody2566-17-34 08:41:00* Test Item Value Reference Range Interpretation Comments Cholesterol Level (test code = 2093-3) 159 0-199 Less than 200 mg/dL Low Bjwq965 - 239 mg/dL Borderline Wkip905 m g/dl and greater High Risk [facility] HospitalLDL Brzypztphhn2320-26-95 08:41:00* Test Item Value Reference Range Interpretation Comments LDL Cholesterol (test code = 2089-1) 86 60-130 [facility] Iyaixolavye6001-72-78 08:41:00* Test Item Value Reference Range Interpretation Comments HDL Cholesterol (test code = 2085-9) 57 40-60 [facility] HospitalCholesterol/HDL Yhgmq9639-31-99 08:41:00 * Test Item Value Reference Range Interpretation Comments Cholesterol/HDL Ratio (test code = 9830-1) 2.8 3.9-4.7 L [facility] HospitalTriglycerides Mbqhg0411-55-23 08:41:00* Test Item Value Reference Range Interpretation Comments Triglycerides Level (test code = 2571-8) 79 0-149 [facility] HospitalCholesterol Gbnxj2938-41-68 08:41:00* Test Item Value Reference Range Interpretation Comments Cholesterol Level (test code = 2093-3) 159 0-199 Less than 200 mg/dL Low Benp465 - 239 mg/dL Borderline Vhxs781 m g/dl and greater High Risk [facility] HospitalLDL Fxfmutcsdld7509-11-19 08:41:00* Test Item Value Reference Range Interpretation Comments LDL Cholesterol (test code = 2089-1) 86 60-130 [facility] HospitalHDL Uwxvldmuykv6570-31-21 08:41:00* Test Item Value Reference Range Interpretation Comments HDL Cholesterol (test code = 2085-9) 57 40-60 [facility] HospitalCholesterol/HDL Whvqe5098-29-74 08:41:00 * Test Item Value Reference Range Interpretation Comments Cholesterol/HDL Ratio (test code = 9830-1) 2.8 3.9-4.7 L [facility] HospitalDigoxin Trqfe4275-90-48 17:20:00* Test Item Value Reference Range Interpretation Comments Digoxin Level (test code = 18937-8) 0.49 0.8-2.0 L [facility] HospitalB-Type Natriuretic Iidfvth7878-09-80 17:00:00* Test Item Value Reference Range Interpretation Comments B-Type Natriuretic Peptide (test code = 01544-9) 382.3 0-100 H [facility] HospitalCHEST SINGLE (PORTABLE)2018-11-02 16:50:00 [facility] [address] [place] [address] Patient Name: MOUNA DENT MR #: [id number] : 1950 Age/Sex: 68/M Req #: [id number] Adm Physician: Ordered by: EDUARDO MESA [employer] Report #: [id number] Location: ER Room/Bed: Procedure: [id number] DX/CHEST SINGLE (PORTABLE) Exam Date: 11/02/18 Exam Time: 1630 REPORT STATUS: Signed EXAMINATION: CHEST SINGLE (PORTABLE) INDICATION: Coughing hypertensi on. COMPARISON: 03/02/18. FINDINGS: TUBES and LINES: None. LUNGS: Mild bilateral pulmonary venous congestion and interstitial edema. PLEURA: No pleural effusion or pneumothorax. HEART AND MEDIASTINUM: The c ardiac silhouette is mildly to moderately enlarged. Prominence of the pulmonar y hilum bilaterally. BONES AND SOFT TISSUES: Lower cervical fusion hardware . UPPER ABDOMEN: No free air under the diaphragm. IMPRESSION: B ilateral pulmonary venous congestion. Decompensated CHF. Signed by: Dr. Mallory Charles M.D. on 11/02/2018 4:52 PM Dictated By: SANTI CHARLES MD, MD 51 Transcri bed By: FATOUMATA on 11/02/181651 COPY TO: EDUARDO MESA NP Magnesium Aumbk7872-78-45 16:45:00* Test Item Value Reference Range Interpretation Comments Magnesium Level (test code = 67715-9) 1.8 1.3-2.1 [facility] HospitalLactic Acid Qphus3217-72-48 16:39:00* Test Item Value Reference Range Interpretation Comments Lactic Acid Level (test code = Lactic Acid Level) 14.3 4.5- 19.8 [facility] HospitalLactic Acid Gosqa6928-80-03 16:39:00* Test Item Value Reference Range Interpretation Comments Lactic Acid Level (test code = Lactic Acid Level) 14.3 4.5- 19.8 [facility] HospitalLactic Acid Pmwlx5168-25-97 16:39:00* Test Item Value Reference Range Interpretation Comments Lactic Acid Level (test code = Lactic Acid Level) 14.3 4.5- 19.8 [facility] HospitalProthrombin Bfys1584-57-97 16:37:00* Test Item Value Reference Range Interpretation Comments Prothrombin Time (test code = 5902-2) 16.7 11.9-14.5 H [facility] HospitalProthromb Time International Ratio 2018-11-02 16:37:00* Test Item Value Reference Range Interpretation Comments Prothromb Time International Ratio (test code = 6301-6) 1.24 Oral Anticoagulant Therapy INR Values:1. Low Intensity Therapy 1.5 - 2.02 . Moderate Intensity Therapy 2.0 - 3.03. High Intensity Therapy(1) 2.5 - 3. 54. High Intensity Therapy(2) 3.0 - 4.05. Panic Value INR > 5.0 [facility] HospitalActivated Partial Thromboplast Time 2018-11-02 16:37:00* Test Item Value Reference Range Interpretation Comments Activated Partial Thromboplast Time (test code = 86832-5) 49.3 23.8-35.5 H [facility]2019-01-21 16:32:00* Test Item Value Reference Range Interpretation Comments Ammonia (test code = 98045-1) 83 [address] [facility]2019-01-21 16:32:00* Test Item Value Reference Range Interpretation Comments Ammonia (test code = 34652-9) 83 [facility]123 [facility]2019-01-21 16:32:00* Test Item Value Reference Range Interpretation Comments Ammonia (test code = 87327-3) 83 [facility]123 [facility] Vplcstc1869-83-94 17:41:00* Test Item Value Reference Range Interpretation Comments Bedside Glucose (test code = 24754-7) 294 70-120 H Meter ID: [id number] Peter Smith Hospital Glucose 2018-03-03 19:50:00* Test Item Value Reference Range Interpretation Comments Bedside Glucose (test code = 69952-0) 230 70-120 H Meter ID: [id number] Rollins Brookodium Level 2018-03-03 07:11:00* Test Item Value Reference Range Interpretation Comments Sodium Level (test code = 2951-2) 140 136-145 [facility] HospitalPotassium Kukjf0648-03-94 07:11:00* Test Item Value Reference Range Interpretation Comments Potassium Level (test code = 2823-3) 3.2 3.5-5.1 L [facility] HospitalChloride Smoqg8263-38-38 07:11:00* Test Item Value Reference Range Interpretation Comments Chloride Level (test code = 2075-0) 103 98-107 [facility] HospitalCarbon Dioxide Swtev5881-01-91 07:11:00* Test Item Value Reference Range Interpretation Comments Carbon Dioxide Level (test code = 2028-9) 25 22-29 [facility] HospitalAnion Xbm5525-40-12 07:11:00* Test Item Value Reference Range Interpretation Comments Anion Gap (test code = 08101-3) 15.2 8-16 [facility] HospitalBlood Urea Rguawlri5419-43-44 07:11:00* Test Item Value Reference Range Interpretation Comments Blood Urea Nitrogen (test code = 3094-0) 6 7-26 L [facility] HospitalCreatinine2018-05-22 07:11:00* Test Item Value Reference Range Interpretation Comments Creatinine (test code = 2160-0) 0.77 0.72-1.25 [facility] HospitalBUN/Creatinine Qdhnh8170-44-63 07:11:00* Test Item Value Reference Range Interpretation Comments BUN/Creatinine Ratio (test code = 3097-3) 8 6-25 [facility] HospitalEstimat Glomerular Filtration Rate 2018-03-03 07:11:00* Test Item Value Reference Range Interpretation Comments Estimat Glomerular Filtration Rate (test code = 80047-6) 60- >60 Ranges were taken from the National Kidney Disease Education Program and the [facility] Kidney Foundation literature.Reference ranges:60 or greater: Czifya70-00 ( for 3 consecutive months): Chronic kidney disease 15 or less: Kidney failureMemorial Hermann Sugar Land HospitalGlucose Uyiap5186-76-72 07:11:00* Test Item Value Reference Range Interpretation Comments Glucose Level (test code = JKY6411) 81 74-118 [facility] HospitalCalcium Secpo3197-28-47 07:11:00* Test Item Value Reference Range Interpretation Comments Calcium Level (test code = 37209-6) 9.2 8.4-10.2 [facility] HospitalDigoxin Nbcjh7125-06-93 07:05:00* Test Item Value Reference Range Interpretation Comments Digoxin Level (test code = 66881-7) -0.30 0.8-2.0 L [facility] HospitalVancomycin Level Ncprpq7307-86-04 02:48:00* Test Item Value Reference Range Interpretation Comments Vancomycin Level Trough (test code = 4092-3) 9.4 5.0-10.0 [facility] HospitalVancomycin Level Goxszz6606-14-08 02:48:00* Test Item Value Reference Range Interpretation Comments Vancomycin Level Trough (test code = 4092-3) 9.4 5.0-10.0 [facility] HospitalBlood Kfvljrw3195-40-22 02:16:00* Test Item Value Reference Range Interpretation Comments Blood Culture (test code = 78130485) NO GROWTH AFTER 48 HOURS [facility] HospitalTotal Uwzwwjnpj0690-49-77 07:14:00* Test Item Value Reference Range Interpretation Comments Total Bilirubin (test code = 1975-2) 1.5 0.2-1.2 H [facility] HospitalAspartate Amino Transf (AST/SGOT) 2018-03-02 07:14:00* Test Item Value Reference Range Interpretation Comments Aspartate Amino Transf (AST/SGOT) (test code = Aspartate Amino Transf (AST/SGOT)) 33 5-34 [facility] HospitalAlanine Aminotransferase (ALT/SGPT) 2018-03-02 07:14:00* Test Item Value Reference Range Interpretation Comments Alanine Aminotransferase (ALT/SGPT) (test code = 1742-6) 24 0-55 [facility] HospitalTotal Ohqvycz4923-48-45 07:14:00* Test Item Value Reference Range Interpretation Comments Total Protein (test code = 2885-2) 6.6 6.5-8.1 [facility] HospitalAlbumin2018-05-21 07:14:00* Test Item Value Reference Range Interpretation Comments Albumin (test code = 1751-7) 3.2 3.5-5.0 L [facility] HospitalGlobulin2018-05-21 07:14:00* Test Item Value Reference Range Interpretation Comments Globulin (test code = 98555-7) 3.4 2.3-3.5 [facility] HospitalAlbumin/Globulin Dpxdo5095-47-47 07:14:00 * Test Item Value Reference Range Interpretation Comments Albumin/Globulin Ratio (test code = 1759-0) 0.9 0.8-2.0 [facility] HospitalAlkaline Wnpkcjcnkay3950-90-09 07:14:00* Test Item Value Reference Range Interpretation Comments Alkaline Phosphatase (test code = 6768-6) 46 40-150 [facility] HospitalWhite Blood Mfgqf8737-38-53 06:49:00* Test Item Value Reference Range Interpretation Comments White Blood Count (test code = 6690-2) 6.34 4.8-10.8 [facility] HospitalRed Blood Wlark4426-82-47 06:49:00* Test Item Value Reference Range Interpretation Comments Red Blood Count (test code = 789-8) 4.09 4.3-5.7 L [facility] HospitalHemoglobin2018-05-21 06:49:00* Test Item Value Reference Range Interpretation Comments Hemoglobin (test code = 11989-2) 13.5 14.0-18.0 L [facility] HospitalHematocrit2018-05-21 06:49:00* Test Item Value Reference Range Interpretation Comments Hematocrit (test code = 4544-3) 38.4 38.2-49.6 [facility] HospitalMean Corpuscular Oowhix8958-94-91 06:49:00* Test Item Value Reference Range Interpretation Comments Mean Corpuscular Volume (test code = 787-2) 93.9 81-99 [facility] HospitalMean Corpuscular Qxbfgdruhz9919-01-12 06:49:00* Test Item Value Reference Range Interpretation Comments Mean Corpuscular Hemoglobin (test code = 785-6) 33.0 28-32 [facility] Hem[facility] Concent 2018-03-02 06:49:00* Test Item Value Reference Range Interpretation Comments Mean Corpuscular Hemoglobin Concent (test code = 786-4) 35.2 31-35 H [facility] HospitalRed Cell Distribution Htvnb3621-08-60 06:49:00* Test Item Value Reference Range Interpretation Comments Red Cell Distribution Width (test code = 71476-5) 14.3 11.7 -14.4 [facility] HospitalPlatelet Mxetc6247-86-68 06:49:00* Test Item Value Reference Range Interpretation Comments Platelet Count (test code = 777-3) 174 140-360 [facility] HospitalNeutrophils (%) (Auto)2018-03-02 06:49:00 * Test Item Value Reference Range Interpretation Comments Neutrophils (%) (Auto) (test code = 82719-4) 62.5 38.7-80.0 [facility] HospitalLymphocytes (%) (Auto)2018-03-02 06:49:00 * Test Item Value Reference Range Interpretation Comments Lymphocytes (%) (Auto) (test code = 736-9) 23.3 18.0-39.1 [facility] HospitalMonocytes (%) (Auto)2018-03-02 06:49:00* Test Item Value Reference Range Interpretation Comments Monocytes (%) (Auto) (test code = 5905-5) 12.8 4.4-11.3 H [facility] HospitalEosinophils (%) (Auto)2018-03-02 06:49:00 * Test Item Value Reference Range Interpretation Comments Eosinophils (%) (Auto) (test code = 713-8) 0.3 0.0-6.0 [facility] HospitalBasophils (%) (Auto)2018-03-02 06:49:00* Test Item Value Reference Range Interpretation Comments Basophils (%) (Auto) (test code = 706-2) 0.3 0.0-1.0 [facility] HospitalIM GRANULOCYTES %2018-03-02 06:49:00* Test Item Value Reference Range Interpretation Comments IM GRANULOCYTES % (test code = IM GRANULOCYTES %) 0.8 0.0- 1.0 [facility] HospitalNeutrophils # (Auto)2018-03-02 06:49:00* Test Item Value Reference Range Interpretation Comments Neutrophils # (Auto) (test code = 751-8) 4.0 2.1-6.9 [facility] HospitalLymphocytes # (Auto)2018-03-02 06:49:00* Test Item Value Reference Range Interpretation Comments Lymphocytes # (Auto) (test code = 76593-1) 1.5 1.0-3.2 [facility] HospitalMonocytes # (Auto)2018-03-02 06:49:00* Test Item Value Reference Range Interpretation Comments Monocytes # (Auto) (test code = 742-7) 0.8 0.2-0.8 [facility] HospitalEosinophils # (Auto)2018-03-02 06:49:00* Test Item Value Reference Range Interpretation Comments Eosinophils # (Auto) (test code = 711-2) 0.0 0.0-0.4 [facility] HospitalBasophils # (Auto)2018-03-02 06:49:00* Test Item Value Reference Range Interpretation Comments Basophils # (Auto) (test code = 704-7) 0.0 0.0-0.1 [facility] HospitalAbsolute Immature Granulocyte (auto 2018-03-02 06:49:00* Test Item Value Reference Range Interpretation Comments Absolute Immature Granulocyte (auto (yuliana t code = Absolute Immature Granulocyte (auto) 0.05 0-0.1 [facility] HospitalProthrombin Twlk6886-06-55 02:28:00* Test Item Value Reference Range Interpretation Comments Prothrombin Time (test code = 5902-2) 21.8 11.9-14.5 H [facility] HospitalProthromb Time International Ratio 2018-03-01 02:28:00* Test Item Value Reference Range Interpretation Comments Prothromb Time International Ratio (test code = 6301-6) 2.06 Oral Anticoagulant Therapy INR Values:1. Low Intensity Therapy 1.5 - 2.02 . Moderate Intensity Therapy 2.0 - 3.03. High Intensity Therapy(1) 2.5 - 3. 54. High Intensity Therapy(2) 3.0 - 4.05. Panic Value INR > 5.0 [facility] HospitalActivated Partial Thromboplast Time 2018-03-01 02:28:00* Test Item Value Reference Range Interpretation Comments Activated Partial Thromboplast Time (test code = 75000-6) 97.0 23.8-35.5 H [facility] HospitalCreatine Kinase DZ3838-79-35 18:21:00* Test Item Value Reference Range Interpretation Comments Creatine Kinase MB (test code = 27898-9) 2.50 0.00-5.00 [facility] HospitalTroponin Q1170-15-04 18:21:00* Test Item Value Reference Range Interpretation Comments Troponin I (test code = ACF2243) 0.033 0-0.300 [facility] HospitalCreatine Kkauzj0409-38-12 18:14:00* Test Item Value Reference Range Interpretation Comments Creatine Kinase (test code = 2157-6) 51 30-200 [facility] Pajsxbg4334-69-87 14:18:00* Test Item Value Reference Range Interpretation Comments Sputum Culture (test code = 624-7) Organism: GEREMIAS ALBICANS [facility] HospitalHemoglobin A1c Zwglutn9665-70-76 06:51:00 * Test Item Value Reference Range Interpretation Comments Hemoglobin A1c Percent (test code = Hemoglobin A1c Percent) 5.3 4.0-7.0 [facility] HospitalDifferential Total Cells Counted 2017-06-26 10:02:00* Test Item Value Reference Range Interpretation Comments Differential Total Cells Counted (test code = Differen tial Total Cells Counted) 100 [facility] HospitalNeutrophils % (Manual)2017-06-26 10:02:00 * Test Item Value Reference Range Interpretation Comments Neutrophils % (Manual) (test code = 31645-7) 77 40-74 H [facility] HospitalLymphocytes % (Manual)2017-06-26 10:02:00 * Test Item Value Reference Range Interpretation Comments Lymphocytes % (Manual) (test code = 737-7) 19 19-48 [facility] HospitalMonocytes % (Manual)2017-06-26 10:02:00* Test Item Value Reference Range Interpretation Comments Monocytes % (Manual) (test code = 744-3) 1 3.4-9.0 L [facility] HospitalReactive Uazzppyxvvm4069-00-10 10:02:00* Test Item Value Reference Range Interpretation Comments Reactive Lymphocytes (test code = 64631-8) 3 [facility] HospitalPlatelet Eewqfmqa4086-94-11 10:02:00* Test Item Value Reference Range Interpretation Comments Platelet Estimate (test code = 45495-5) SLIGHTLY DECREASED [facility] HospitalPlatelet Morphology Nbkjsiy7327-11-53 10:02:00* Test Item Value Reference Range Interpretation Comments Platelet Morphology Comment (test code = 43006-3) FEW LARGE [facility] HospitalRed Cell Morphology Aqgpphn6355-64-06 10:02:00* Test Item Value Reference Range Interpretation Comments Red Cell Morphology Comment (test code = 6742-1) NORMAL [facility] HospitalInfluenza Virus Types A,B Antigen 2017-06-25 17:29:00* Test Item Value Reference Range Interpretation Comments Influenza Virus Types A,B Antigen (test code = 84953-6) NEGATIVE NEGATIVE [facility] HospitalUrine MHI9499-29-24 14:25:00* Test Item Value Reference Range Interpretation Comments Urine WBC (test code = 5821-4) 6-10 0-5 H [facility] HospitalUrine XML1789-69-51 14:25:00* Test Item Value Reference Range Interpretation Comments Urine RBC (test code = 14107-0) NONE 0-5 [facility] HospitalUrine Nfixfcxx2383-48-65 14:25:00* Test Item Value Reference Range Interpretation Comments Urine Bacteria (test code = 25765-9) NONE NONE [facility] HospitalUrine Epithelial Dtues9651-35-92 14:25:00 * Test Item Value Reference Range Interpretation Comments Urine Epithelial Cells (test code = 31894-3) RARE NONE [facility] HospitalUrine Ixjcu5216-90-55 14:01:00* Test Item Value Reference Range Interpretation Comments Urine Color (test code = 5778-6) YELLOW YELLOW [facility] HospitalUrine Hhsxpkx5378-80-27 14:01:00* Test Item Value Reference Range Interpretation Comments Urine Clarity (test code = 85133-4) SL CLOUDY CLEAR H [facility] HospitalUrine Specific Kaamvol8592-39-78 14:01:00 * Test Item Value Reference Range Interpretation Comments Urine Specific [place] (test code = 5811-5) 1.020 1.010-1.02 5 [facility] HospitalUrine rW5182-67-73 14:01:00* Test Item Value Reference Range Interpretation Comments Urine pH (test code = 13630-4) 5 5-7 [facility] HospitalUrine Leukocyte Dkgsilqc0316-43-58 14:01:00* Test Item Value Reference Range Interpretation Comments Urine Leukocyte Esterase (test code = 5799-2) 2+ NEGATIVE H [facility] HospitalUrine Koylvtl1366-33-85 14:01:00* Test Item Value Reference Range Interpretation Comments Urine Nitrite (test code = 96981-4) NEGATIVE NEGATIVE [facility] HospitalUrine Pwizqpz5841-42-70 14:01:00* Test Item Value Reference Range Interpretation Comments Urine Protein (test code = 5804-0) 1+ NEGATIVE H [facility] HospitalUrine Glucose (UA)2017-06-25 14:01:00* Test Item Value Reference Range Interpretation Comments Urine Glucose (UA) (test code = 2349-9) NEGATIVE NEGATIVE [facility] HospitalUrine Yikfnja9061-37-66 14:01:00* Test Item Value Reference Range Interpretation Comments Urine Ketones (test code = 11668-3) NEGATIVE NEGATIVE [facility] Mrkavprlglme5892-00-53 14:01:00* Test Item Value Reference Range Interpretation Comments Urine Urobilinogen (test code = 46008-6) 0.2 0.2-1 [facility] HospitalUrine Nthadiizo6131-08-05 14:01:00* Test Item Value Reference Range Interpretation Comments Urine Bilirubin (test code = 1978-6) NEGATIVE NEGATIVE [facility] HospitalUrine Gnnwj1095-38-54 14:01:00* Test Item Value Reference Range Interpretation Comments Urine Blood (test code = 02899-0) NEGATIVE NEGATIVE [facility] HospitalThyroid Stimulating Hormone (TSH) 2017-06-25 13:33:00* Test Item Value Reference Range Interpretation Comments Thyroid Stimulating Hormone (TSH) (test code = 27646-5) 0.351 0.350-4.940 [facility] HospitalB-Type Natriuretic Hltqqvs1131-43-54 13:25:00* Test Item Value Reference Range Interpretation Comments B-Type Natriuretic Peptide (test code = 96347-5) 442.0 0-100 H [facility] HospitalMagnesium Ejykz4280-60-97 13:15:00* Test Item Value Reference Range Interpretation Comments Magnesium Level (test code = 43011-4) 1.9 1.3-2.1 [facility] HospitalLipase2017-09-13 13:15:00* Test Item Value Reference Range Interpretation Comments Lipase (test code = 3040-3) 23 8-78 [facility] HospitalLactic Acid Ajafb5286-90-55 13:00:00* Test Item Value Reference Range Interpretation Comments Lactic Acid Level (test code = Lactic Acid Level) 9.8 4.5- 19.8 [facility] HospitalCHEST 2 VIEWS [facility] [address] [address] Patient Name: MOUNA DENT MR #: [id number] : 1950 Age/Sex: 67/M Req #: [id number] Adm Physician: CHANEL LÓPEZ MD Ordered by: JOSE JUAN WASHINGTON MD Report #: [id number] Location: [facility] Room/Bed: [facility] Procedure: [id number] D X/CHEST 2 VIEWS Exam Date: 03/02/18 Exam Time: 0640 REPORT STATUS: Signed EXAMINATION: CHEST 2 VIEWS INDICATION: Shortness of breath COMPARISON: CT of the chest on 01/20/2018 FINDINGS: TUBES and LINES: None. LUNGS: Lungs are well inflated. There are bibasilar atelectasis. Fibrocystic changes noted in the right mid lung There is mild prominence of the central pulmonary vasculature, consiste nt with pulmonary venous congestion. PLEURA: No pleural effusion or pneumo thorax. HEART AND MEDIASTINUM: The cardiomediastinal silhouette is unremar kable. BONES AND SOFT TISSUES: No acute osseous lesion. Thoracolumbar spine fusion with transpedicular screws and interlocking rods for lower thorac ic spine compression deformity Soft tissues are unremarkable. UPPER ABDOM EN: No free air under the diaphragm. IMPRESSION: 1. Central vascula r congestion without overt edema. 2. Perihilar and bibasilar predominant inte rstitial changes most likely fibrosis Signed by: Dr. Hussain Reis M.D. on 03/02/2018 7:01 AM Dictated By: HUSSAIN ANDRADE MD 0 Transcribed By: FATOUMATA on 03/02/18700 COPY TO: JOSE JUAN WASHINGTON MD LOWER LEG LEFT [place] [address] Patient Name: MOUNA DENT MR #: [id number] : 1950 Age/Sex: 67/M Req #: [id number] Adm Physician: CHANEL LÓPEZ MD Ordered by: VIRGINIA HANNAH MD Report #: [id number] Location: MED/SURG2 Room/Bed: [facility] Procedure: DX/LOWER LEG LEFT Exam Date: 03/01/18 Exam T melodie: 0305 REPORT STATUS: Signed LOWER LEG LEFT HISTORY: Pain COMPARISON: None FINDINGS: Bones: No displaced fracture. Old fr acture deformity of the proximal fibular diaphysis. Osseous alignment is wit hin normal limits. Joints: Mild degenerative changes noted at the hindfoo t Soft tissues: Vascular calcifications are present. IMPRESSION: No acute radiographic abnormality. No evidence of radiopaque foreign body. Signed by: Dr. Hussain Resi M.D. on 03/01/2018 3:31 AM Dictated By: Joey ANDRDAE MD 0 COPY TO: VIRGINIA HANNAH MD CT CHEST WO [place] [address] Patient Name: MOUNA DENT MR #: [id number] : 1950 Age/Sex: 67/M Req #: [id number] Adm Physician: Ordered by: CAROL HOANG MD Report #: [id number] Location: CT Room/Bed: Procedure: [id number] CT/CT CHEST WO Exam Date: 0 01/20/18 Exam Time: 1146 REPORT STATUS: Signed EXAM: CT Chest WITHOUT contrast INDICATION: COMPARISON: [facility] CT dated 09/15/2017 TECHNIQUE: Chest was scanned utilizing a multidetec tor helical scanner from the lung apex through the level of the adrenal glands without administration of IV contrast. Absence of intravenous contrast decrea ses sensitivity for detection of lymphadenopathy and vascular pathology. Coron al and sagittal reformations were obtained. Routine protocol was performed. IV CONTRAST: None COMPLICATIONS: None RADIATION DOSE: Total DLP: 646.13 mGy*cm Estimated effective dose: (DLP x 0.014 x size fa ctor) mSv CTDIvol has been reviewed. It is below the limits set by the [facility] Protocol Committee (RPC). FINDINGS: LINES/ TUBES: None. LUNGS AND AIRWAYS: Upper lobe predominant centrilobular and parasep isai emphysematous changes. Resolved right lower lobe consolidations, seen on p rior CT dated 09/15/2017. Unchanged 5 mm right middle lobe nodule (series 3, im age 104). Another stable lateral right middle lobe 7 mm nodule (series 3, imag e 98). Not significant change right upper lobe base scarring with mild tractio n bronchiectasis and surrounding questionably honeycombing (series 3, image 72 ). Airways are normal. PLEURA: No significant pleural effusion. No pneumo thorax. HEART AND MEDIASTINUM: The thyroid gland is normal. No mediastinal or axillary lymphadenopathy. Scattered subcentimeter mediastinal lymph nodes are seen, unchanged. For example 9 mm paratracheal lymph node (series 2, image 54). The heart is mildly enlarged. There is no pericardial effusion. Main pu lmonary artery measures 4.1 cm, suggestive of pulmonary hypertension. Atherosc lerotic calcification of coronary arteries and aortic valve. Aorta measures 3. 6 cm at a level of right pulmonary artery. UPPER ABDOMEN: Unremarkable. BONES: Thoracolumbar posterior fusion with unchanged compression fracture of T10 vertebral body and T12-L1, L1-L2 discectomies. SOFT TISSUES: Unremar kable. IMPRESSION: 1. Interval resolution of posterior right lower lobe opacities, seen on prior CT dated 09/15/2017. 2. Stable right middle lobe jeff ng nodules. Recommend follow-up in one year to ensure stability. 3. Redemon stration of centrilobular and paraseptal emphysematous changes. Signed by: Dr. Justin Rutherford MD on 01/20/2018 1:23 PM Dictated By: JUSTIN RUTHERFORD MD 1323 Transcribed By: NITISH GUY on 01/20/18 1323 COPY TO: CAROL HOANG MD CT CHEST WO [place] [address] Patient Name: MOUNA DENT MR #: [id number] : 1950 Age/Sex: 67/M Req #: [id number] Adm Physician: Ordered by: CAROL HOANG MD Report #: [id number] Location: [facility] Room /Bed: Procedure: [id number] CT/CT CHEST WO Exam Date: 09/15/17 Exam Time: 1444 REPORT STATUS: Signed PROCEDURE: CT CHEST WITHOUT CONTRAST CT scan of the chest WITHOUT intraven ous contrast, using standard protocol. TECHNIQUE: The chest was scann ed utilizing a multidetector helical scanner from the apex to the level of th e adrenal glands. No IV contrast was administered as per physician request. Coronal and sagittal multiplanar reformations were obtained. COMPARISO N: CT chest 06/27/2017. INDICATIONS: SMOKER FINDINGS: Lines/tubes : None. Lungs and Airways: Diffuse emphysematous changes are present in t he upper lobes and bilateral lower lobes. The centrilobular emphysema is m ost prominent in the right upper lobe. Interval appearance of multiple consol idative opacities in the right lower lobe, series 3 images 93, 101, 112, and 114. Pleura: The pleural spaces are clear. Heart and mediastinum: T he thyroid gland is normal. No significant mediastinal, hilar or axillary lym phadenopathy is seen. The heart and pericardium are within normal limits. Ath erosclerotic calcifications of the thoracic aorta and coronary arteries. Calc ifications of the mitral valve. Soft tissues: Normal. Abdomen: Li mited views of the upper abdomen show no abnormality within the visualized li anahy, spleen, pancreas, or kidneys. The adrenal glands are normal. Bones : The visualized bony thorax is within normal limits. Postoperative changes o f the lower thoracic and upper lumbar spine. Degenerative changes of the thor acic spine. IMPRESSION: Consolidative opacities in the right lower lobe may represent a developing pneumonia. CT of the chest in 6 months after therapy is recommended to document resolution. Emphysematous changes. Dictated by: Shalini Rousseau M.D. on 09/15/2017 at 15:43 Electronically approved by: Shalini Rousseau M.D. on 09/15/2017 at 15:43 Dict ated By: SHALINI ROUSSEAU MD 15 43 Transcribed By: JENY on 09/15/17 3143 COPY TO: CAROL HOANG MD MRI SPINE LUMBAR WO [place] [address] Patient Name: MOUNA DENT MR #: [id number] : 1950 Age/Sex: 67/M Req #: [id number] Adm Physician: Ordered by: CHANEL LÓPEZ MD Report #: [id number] Location: MRI Room/Bed: Procedure: [id number] MRI/MRI SPINE LUMBAR WO E xam Date: 09/05/17 Exam Time: 1000 REPORT STATU S: Signed Exam: Lumbar spine MRI without IV contrast History: Lumbar MRI , lumbar spine x-ray 09/04/2015 and included lumbar spine from chest C T of 09/04/2015. Comparison studies: Lower back pain, previous surgeries, most recent of 11/13/2014 Technique: Sagittal and axial T2 , sagittal T1 and IR, axial spin density oblique. Intravenous contrast: None Findings: Exam is limited by susceptibility artifact from metallic spinal fusion hard velázquez. Number of lumbar vertebral bodies: 5. Alignment: Normal lordosis . No scoliosis. Approximately approximately 4 mm grade 1 anterolisthesis of L5 on S1. Soft tissues: Postsurgical changes in the dorsal and lower thoracic soft tissues. A T2/STIR hyperintense 11.9 x 3.1 x 4.3 cm (SI x AP x TV) fluid collection in the dorsal thoracolumbar soft tissues which extends from the middle T11 level to the superior L4 level presumably reflects postsurgical ser genoveva. Seroma was not present on the previous lumbar spine MRI of 08/06/2011 and may be related to the 2015 surgery. Paraspinal muscles: Severe symmetric a trophy. Atrophy has progressed since 2010. Lower thoracic cord: The lower spinal cord and conus are poorly visualized due to artifact. Cauda equi na: No masses or evidence of arachnoiditis from L4 caudally. Cannot adequately evaluate nerve roots craniad to L4 due to artifact. Vertebrae: No compr ession fractures, infection or neoplasm. Postsurgical changes: There are decompressive laminectomies from L1 to S1 and posterior instrumented fusion an d discectomy from the T12 to S1 with left transsacral fixation screw in place. Patient was previously fused from L2 to the sacrum and with laminectomies from L3 to S1 on the MRI of 08/06/2011. Craniad extent of fusion into the thoracic spine lies outside imaged [id number] on this exam. Cannot further evaluate hardware integrity by MRI. Degenerative changes: L1-L2: Patent canal and grossly patent foramina. L2-L3: Patent canal and grossly patent f oramina. L3-L4: Patent canal and grossly patent foramina. L4-L5: P atent canal and grossly patent foramina. L5-S1: Minimal anterolisthesis o f L5 on S1 with associated osteophyte complex and hypertrophic changes at the left facet likely results in at least mild to moderate foraminal stenosis. Can not adequately evaluate the foramen at this level on the previous exam due to extensive artifact. Patent canal and right foramen. Incidental findings: 11 mm T2 hyperintense right renal cyst. IMPRESSION: Exam limited by susceptibility artifact from fusion hardware. 1. Postsurgical changes of posterior thoracolumbar fusion, discectomy and posterior lumbar decompression. 2. Postsurgical seroma in the dorsal paraspinal soft tissues. 3. Ximena inal stenosis on the left at L5-S1. Remaining lumbar foramina are grossly reynolds nt. Patient lumbar canal. 4. Grade 1 anterolisthesis of L5 on S1, new since 2 011. Signed by: Dr. Jose Juan Brock M.D. on 09/08/2017 5:00 AM Dictat ed By: JOSE JUAN BROCK MD 9 COPY TO: LATOYA LÓPEZ MD CT CHEST WO [place] [address] Patient Name: MOUNA DENT MR #: [id number] : 1950 Age/Sex: 67/M Req #: [id number] Adm Physician: CHANEL LÓPEZ MD Ordered by: JOSE JUAN WASHINGTON MD Report #: [id number] Location: [facility] Room/Bed: [facility] Procedure: [id number] C T/CT CHEST WO Exam Date: 06/27/17 Exam Time: 1126 REPORT STATUS: Signed PROCEDURE: CT CHEST WITHOUT CONTRAST COM PARISON: CTA chest 11/04/14. INDICATIONS: SOB,COUGH TECHNIQ UE: Multiple axial views were obtained of the chest from the lung apices down through the upper abdomen. 5 mm slices were obtained without injection of IV contrast. In addition, reformatted coronal and sagittal images were a cquired. FINDINGS: Lymph nodes: No enlarged axillary or subclavic ular lymph node enlargement. Mediastinal lymph nodes are increased in number. A precarinal lymph node measures 13 mm. Subcarinal lymph node measures 1.3 x 2.7 cm (previously, 0.8 x 3.6 cm). No evidence of hilar lymphadenopathy g iven the lack of intravenous contrast. Thyroid/base of neck: The thyroid g land is normal in size. A tiny low attenuating nodule in the left lobe is sta ble. Mediastinum: The heart is enlarged with coronary artery and aortic valve and mitral valve calcifications. The ascending aorta measures 4 cm in diameter. The main pulmonary artery measures 4.3 cm in diameter. No pericardi al effusion. The esophagus appears normal. Lungs: Right lung: Paraseptal and centrilobular emphysematous changes re-demonstrated. Diffuse cylindrical bronchiectasis and bronchial wall thickening are present, similar to previous exam. There is new groundglass attenuation in the posterior upper lobe surr ounding several centrilobular blebs. There is new groundglass attenuation in the posterior lower lobe along expected course of a bronchiole. New tiny g roundglass densities have developed in the posterior lower lobe associated wi th focal bronchiectasis and mucus impaction (image 121). Middle lobe nodule m easures 5 mm and is stable. Left centrilobular and paraseptal emphysema is re-demonstrated. There is diffuse bronchial wall thickening and cylindrical bronchiectasis. Small patchy areas of groundglass attenuation have developed in the anterior basal segment of the lower lobe. A band of chronic atelect asis/scar in the posterior costophrenic angle is stable. New ground glass nod ule has developed in the lingula measuring 6 mm with patchy airspace opacitie s in the inferior lingula. One of the lower lobe bronchi now contains mucus ( image 99). Pleura: A left pleural effusion is new and measures 7 mm. No ev idence of right pleural effusion. Abdomen: Visualized portions of the l iver, ulna, pancreas, spleen, and right kidney are normal. There is stable th ickening of the left adrenal gland. Visualized portion of the bowel and right kidney are unremarkable. Bones: Compression fracture of T10 is redemon strated containing bilateral pedicle screws. There is lucency surrounding the screws suggestive of loosening. Pedicle screws and vertical stabilizing bars are in the T11-L2 vertebral bodies. The pedicle screws at these levels are intact without surrounding lucency to suggest loosening. Artificial disc pl ugs are T12-L1 and L1-L2. No new compression fractures. 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 There are no new rib fractures. CONCLUSION: 1. New groundglass air space opacities and tiny jose undglass inflammatory appearing nodules in each lung with areas of mucus i mpaction suggestive of an infectious/inflammatory process. A component of asp iration cannot be excluded. Recommend follow-up CT in 4-6 weeks to assess int erval change/resolution. Prominent mediastinal lymph nodes may be secondary t o an infectious/inflammatory process. 2. Emphysema and chronic bronchitis. 3. Small left pleural effusion. 4. Ascending aortic aneurysm. Enlarged main pulmonary artery suggestive of pulmonary artery hypertension. 5. Stable jeff cency surrounding T10 pedicle screws suggestive of loosening. Stable compress ion fracture of T10. Dictated by: Viky Galindo M.D. on 06/27/2017 at 12:31 Electronically approved by: Viky Galindo M.D. on 06/27/2017 at 12:31 Dictated By: VIKY GALINDO MD Electronically Sig everett By: VIKY GALINDO MD on 06/27/17 1231 Transcribed By: JENY on 06/27/17 1231 COPY TO: JOSE JUAN WASHINGTON MD CHEST SINGLE (PORTABLE) [place] [address] Patient Name: MOUNA DENT MR #: [id number] : 1950 Age/Sex: 67/M Req #: [id number] Adm Physician: CHANEL LÓPEZ MD Ordered by: ARNIE KELLY MD Report #: [id number] ocation: MED/SURG2 Room/Bed: [facility] Procedure: DX/CHEST SINGLE (PORTABLE) Exam Date: 06/26/17 Ex am Time: 0520 REPORT STATUS: Signed PROCEDURE: CHEST SINGLE (PORTABLE) COMPARISON: 06/25/2017. INDICATIONS: PNEUMONIA. SHORTNESS OF BREATH FIN DINGS: Lungs are well-inflated. Improvement in lingular patchy opacity relative to 06/25/2017. No new consolidation. Stable cardiomediastinal conto ur and pulmonary vasculature. No acute osseous abnormality. Cervical and thor acic spinal fusion hardware partially visualized. CONCLUSION: Patchy left lower lung atelectasis has improved relative to 06/25/2017. No new consol idation. Dictated by: Jose Juan Tam M.D. on 06/26/2017 at 9:00 Elect ronically approved by: Jose Juan Tam M.D. 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 COMPARISON: [facility], DX, CHEST SINGLE (PORTABLE), 11/11/2016, 14:37. ALBINA CATIONS: CHEST PAIN FINDINGS: Lines/tubes: None. Lungs: Th e lungs are well inflated. Ill-defined patchy opacity in the left left lower lung. There is no evidence of consolidation or pulmonary edema. Pleura: Blunting of the right lateral and posterior costophrenic sulci, likely refle cting a small pleural effusion. No right pleural effusion. Heart and media stinum: Stable enlargement of cardiac silhouette. Vasculature is normal. Bones: No acute bony abnormality. Stable fusion hardware in the lower cerv ical and lower thoracic/upper lumbar spine IMPRESSION: 1. ill-defin ed patchy opacity in the left lower lung may reflect atelectasis or developin g pneumonia, in the appropriate clinical setting. 2. Small left pleural eff usion. Jhonatan Parra M.D. Dictated by: Nikole Tafoya on 06/25/2017 at 15:24 Electronically approved by: Jhonatan Parra M.D. on 06/25/2017 at 15:24 Dictated By: JHONATAN PARRA MD El ectronically Signed By: JHONATAN PARRA MD on 06/25/17 1524 Transcribed By: [facility] on 06/25/17 1524 COPY TO: STIVEN LIN NP
[2020-03-15] MEDS ORDERED: MULTIVITAMINS- 12 INJECTION 10 ML, FOLIC ACID MDV 5 MG, THIAMINE HCL INJ 100 MG in SODI... IV ONE (00:15)
--- NOTE | 2020-03-15 00:25 | NUR ---
Patient given a urinal. Patient states he does not need to urinate at this time.
--- NOTE | 2020-03-15 00:37 | Emergency Department Note ---
History of Present Illnes History of Present Illness Chief Complaint: Alcohol Abuse/Intoxication History of Present Illness This is a 69 year old male PRESENTS TO THE ER VIA EMS FROM HOME C/O FAMILY PT UNCONSCIOUS IN WALKER IN THE GARAGE; PER EMS, FAMILY COULD NOT AROUSE PT FOR "15 MINUTES"; ON ARRIVAL BY EMS, PT A&OX4, DIAPHORETIC AND CLAMMY; PT REPORTS DRINKING X3 GLASSES OF WINE; NAD NOTED AT THIS TIME; PT REPORTS HE WAS IN GARAGE SMOKING AND DRINKING, STATES HE DRINKS ETOH EVERY DAY, HAS NO COMPLAINTS AT THIS TIME. 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 Onset (how long ago): hour(s) (1) Location: NONE Quality: REPORTED UNRESPONSIVE BY FAMILY WHEN THEY CALLED 911 Radiation: non-radiation Severity: unable to specify Onset quality: unable to specify (PER EMS FAMILY FOUND HIM IN GARAGE UNRESPONSIVE SITTING IN HIS WALKER SEAT.) Duration (how long): hour(s) (1) Timing of current episode: unable to specify Progression: resolved Chronicity: new Context: recent illness Relieving factors: none Exacerbating factors: none Associated symptoms: denies other symptoms Treatments prior to arrival: none Past Medical/Family History Physician Review I have reviewed the patient's past medical and family history. Any updates have been documented here. Past Medical History Recent Fever: No Clinical Suspicion of Infectio: No New/Unexplained Change in Ment: No Past Medical History: Hypertension, COPD, CHF, A-Fib Other Medical History: PERIPHERAL NEUROPATHY ETOH ABUSE - DAILY DRINKER Past Surgical History: Back Surgery Other Surgery: 1 LUMBAR LAMINECTOMY C-SPINE SURGERY Social History Smoking Cessation: Current every day smoker Counseling Performed: Yes Alcohol Use: Daily Any Illegal Drug Use: No TB Exposure/Symptoms: No Physically hurt or threatened: No Other Last Tetanus: <10 YRS Any Pre-Existing Lines (PICC,: No Is patient up to date on immun: No Last Flu: unk Last Pneumovax: unk Review of Systems Review of Systems Constitutional: no symptoms EENTM: no symptoms Cardiovascular: no symptoms Respiratory: no symptoms Gastrointestinal: no symptoms Genitourinary: no symptoms Musculoskeletal: no symptoms Neurological: as per HPI Psychological: no symptoms Endocrine: no symptoms Hematological/Lymphatic: no symptoms Review of other systems All other systems reviewed and negative. Physical Exam Related Data Allergies: Coded Allergies: codeine (Verified Allergy, Unknown, 11/11/16) Triage Vital Signs Vital Signs Date Time Temp Pulse Resp B/P (MAP) Pulse Ox O2 Delivery O2 Flow Rate FiO2 03/15/20 00:07 97.9 70 14 124/67 93 Vital signs reviewed: Yes Physical Exam CONSTITUTIONAL Constitutional: well-developed, well-nourished HENT HENT: normocephalic, atraumatic, oropharynx clear/moist, nose normal HENT L/R: left ext ear normal, right ext ear normal EYES Eyes: PERRL, conjunctivae normal NECK Neck: ROM normal PULMONARY Pulmonary: effort normal, other (MILDLY DECREASED BREATH SOUNDS AT BASES BILATERAL) CARDIOVASCULAR Cardiovascular: regular rhythm, heart sounds normal, capillary refill normal, normal rate GASTROINTESTINAL Abdominal: soft, nontender, bowel sounds normal GENITOURINARY Genitourinary: exam deferred SKIN Skin: warm, dry MUSCULOSKELETAL Musculoskeletal: ROM normal NEUROLOGICAL Neurological: alert, oriented x 3, no gross motor or sensory deficits PSYCHOLOGICAL Psychological: mood/affect normal, judgement normal Results Laboratory Laboratory Laboratory Tests Test 03/15/20 00:21 White Blood Count 4.51 x10e3/uL (4.8-10.8) Red Blood Count 4.26 x10e6/uL (4.3-5.7) Hemoglobin 13.7 g/dL (14.0-18.0) Hematocrit 41.8 % (38.2-49.6) Mean Corpuscular Volume 98.1 fL (81-99) Mean Corpuscular Hemoglobin 32.2 pg (28-32) Mean Corpuscular Hemoglobin Concent 32.8 g/dL (31-35) Red Cell Distribution Width 15.3 % (11.7-14.4) Platelet Count 113 x10e3/uL (140-360) Neutrophils (%) (Auto) 40.5 % (38.7-80.0) Lymphocytes (%) (Auto) 41.0 % (18.0-39.1) Monocytes (%) (Auto) 14.9 % (4.4-11.3) Eosinophils (%) (Auto) 2.0 % (0.0-6.0) Basophils (%) (Auto) 0.7 % (0.0-1.0) Neutrophils # (Auto) 1.8 (2.1-6.9) Lymphocytes # (Auto) 1.9 (1.0-3.2) Monocytes # (Auto) 0.7 (0.2-0.8) Eosinophils # (Auto) 0.1 (0.0-0.4) Basophils # (Auto) 0.0 (0.0-0.1) Absolute Immature Granulocyte (auto 0.04 x10e3/uL (0-0.1) Sodium Level 140 mmol/L (136-145) Potassium Level 4.0 mmol/L (3.5-5.1) Chloride Level 101 mmol/L (98-107) Carbon Dioxide Level 25 mmol/L (22-29) Anion Gap 18.0 mmol/L (8-16) Blood Urea Nitrogen 26 mg/dL (7-26) Creatinine 1.35 mg/dL (0.72-1.25) Estimat Glomerular Filtration Rate 52 ML/MIN (60-) BUN/Creatinine Ratio 19 (6-25) Glucose Level 102 mg/dL (74-118) Calcium Level 8.9 mg/dL (8.4-10.2) Total Bilirubin 0.6 mg/dL (0.2-1.2) Aspartate Amino Transf (AST/SGOT) 40 IU/L (5-34) Alanine Aminotransferase (ALT/SGPT) 21 IU/L (0-55) Alkaline Phosphatase 42 IU/L (40-150) Creatine Kinase 87 IU/L (30-200) Creatine Kinase MB 3.70 ng/mL (0-5.0) Troponin I 0.108 ng/mL (0-0.300) Total Protein 7.0 g/dL (6.5-8.1) Albumin 3.6 g/dL (3.5-5.0) Globulin 3.4 g/dL (2.3-3.5) Albumin/Globulin Ratio 1.1 (0.8-2.0) Ethyl Alcohol Level 220.4 mg/dL (0.0-10.0) Lab results reviewed: Yes Imaging Imaging results reviewed: Yes Impressions Procedure: [id number] DX/CHEST SINGLE (PORTABLE) Exam Date: 03/15/20 Exam Time: 49 REPORT STATUS: Signed EXAMINATION: CHEST SINGLE (PORTABLE) COMPARISON: CT chest 12/27/2019 INDICATION: ^SOB, HAS COPD ^20200315 ^0050 ^Y DISCUSSION: Frontal view of the chest obtained at 0053 hours. HEART AND MEDIASTINUM: Stable cardiomegaly. Mild pulmonary venous congestion and prominence of the pulmonary artery suggestive of pulmonary artery hypertension. LINES: None. LUNGS/PLEURA: Diffuse hyperinflation consistent with COPD/emphysema. Prominent reticular markings in the mid and lower lung zones. No confluent infiltrates. No nodules. No pleural effusion or pneumothorax. BONES AND SOFT TISSUES: No focal osseous lesion. The soft tissues are normal. IMPRESSION: 1. Cardiomegaly without evidence of CHF. Mild pulmonary venous hypertension. Prominent main pulmonary artery suggestive of pulmonary artery hypertension. 2. Pulmonary hyperinflation suggestive of COPD/emphysema. No acute pulmonary process. Signed by: Dr. Evelyn Noble MD on 03/15/2020 1:22 AM Dictated By: EVELYN NOBLE MD 1 Transcribed By: FATOUMATA on 03/15/20121 Procedures 12 Lead ECG Interpretation Cco: Interpreted by ED physician Rhythm: atrial fibrillation Rate: normal BPM: 73 QRS axis: normal Conduction: complete RBBB ST segment flattening: all T waves normal: No (INVERTED IN MULTIPLE LEADS) Q waves: III, V1, V2 Clinical Impression: abnormal ECG Critical Care Time Subsequent provider I assumed direction of critical care for this patient from another provider of my specialty. Assessment & Plan Assessment & Plan Final Impression: (1) ALCOHOL USE, UNSPECIFIED WITH INTOXICATION, UNSPECIFIED (2) Alcohol abuse Assessment & Plan PT REPORTEDLY FOUND UNRESPONSIVE BY FAMILY IN HIS GARAGE, HE REPORTS HE WAS IN GARAGE DRINKING AND SMOKING, DENIES ANY COMPLAINTS AT THIS TIME CBC, CMP, EKG, CARDIAC ENZYMES, ETOH, CXR ORDERED TO EVAL FOR ETOH INTOXICATION, MYOCARDIAL INFARCTION, ELECTROLYTE ABNORMALITY. Depart Disposition: HOME, SELF-CARE Last Vital Signs Date Time Temp Pulse Resp B/P (MAP) Pulse Ox O2 Delivery O2 Flow Rate FiO2 03/15/20 00:15 68 14 124/67 93 03/15/20 00:07 97.9 Home Meds Reported Medications Cefuroxime Axetil (CEFUROXIME) 500 Mg Tablet, 500 MG PO BID for 7 Days 01/18/19 Prednisone (PREDNISONE) 20 Mg Tab, 40 MG PO DAILY for 4 Days, TAB 11/05/18 Rivaroxaban (XARELTO) 10 Mg Tablet, 15 MG PO DAILY 11/05/18 Oxycodone Hcl (OXYCODONE HCL) 15 Mg Tablet, 15 MG PO Q6HR PRN for PAIN 11/02/18 Multivitamin (MULTIVITAMINS) 1 Each Capsule, 1 CAP PO DAILY 11/02/18 Metoprolol Tartrate (METOPROLOL TARTRATE) 25 Mg Tablet, 25 MG PO BID, #60 TAB 11/02/18 Potassium Chloride (POTASSIUM CHLORIDE) 8 Meq Capsule.er, 20 MEQ PO DAILY 11/02/18 Digoxin (DIGOXIN) 125 Mcg Tablet, 125 MCG PO q48 hours, #15 11/02/18 Lisinopril (LISINOPRIL) 2.5 Mg Tablet, 5 MG PO HS, #30 TAB 03/01/18 Diltiazem Hcl (CARTIA XT) 180 Mg Cap.er.24h, 180 MG PO BID, #60 03/01/18 Furosemide (LASIX) 20 Mg Tablet, 40 MG PO DAILY, #30 TAB 03/01/18 Ondansetron (ZOFRAN ODT) 4 Mg Tab.rapdis, 4 MG PO Q6H PRN for NAUSEA AND VOM ITING, TAB 10/30/17 Trazodone Hcl (TRAZODONE HCL) 50 Mg Tablet, 50 MG PO HS PRN for SLEEP, #30 TAB 06/25/17 Rivaroxaban (XARELTO) 20 Mg Tablet, 15 MG PO DAILY 06/25/17 Pantoprazole Sodium* (PROTONIX) 40 Mg Tablet.dr, 40 MG PO DAILY, TAB 11/11/16 Atorvastatin Calcium (ATORVASTATIN CALCIUM) 10 Mg Tablet, 10 MG PO 2100, #30 TAB 09/03/15 Metformin Hcl (METFORMIN HCL ER) 500 Mg Tab.er.24, 250 MG PO HS, #60 TAB 12/19/14 Fenofibrate,Micronized (FENOFIBRATE) 134 Mg Capsule, 134 MG PO HS 08/01/14 Pregabalin (LYRICA) 300 Mg Capsule, 300 MG PO BID 08/01/14 Folic Acid (FOLIC ACID) 1 Mg Tablet, 400 MCG PO DAILY, #30 TAB 08/01/14 Duloxetine Hcl (CYMBALTA) 60 Mg Capsule.dr, 60 MG PO HS 08/01/14 Medications in the ED Multivitamins 10 ml/Folic Acid 5 mg/Thiamine HCl 100 mg/Sodium Chloride 1,012 ml @ 250 mls/hr Q4H3M ONCE IV ; Start 03/15/20 at 00:15; Stop 03/15/20 at 00:16; Status DC VIRGINIA HANNAH MD Mar 15, 2020 00:37
[2020-03-15 01:03] LABS: BASOPHILS % 0.7 % (0.0-1.0); EOSINOPHILS # (AUTO) 0.1 (0.0-0.4); HEMATOCRIT 41.8 % (38.2-49.6); HEMOGLOBIN 13.7 g/dL (14.0-18.0); LYMPHOCYTES # (AUTO) 1.9 (1.0-3.2); MEAN CORPUSCULAR HEMOGLOBIN 32.2 pg (28-32); MEAN CORPUSCULAR HGB CONC 32.8 g/dL (31-35); MEAN CORPUSCULAR VOLUME 98.1 fL (81-99); MONOCYTES # (AUTO) 0.7 (0.2-0.8); MONOCYTES % 14.9 % (4.4-11.3); NEUTROPHILS # (AUTO) 1.8 (2.1-6.9); NEUTROPHILS % 40.5 % (38.7-80.0); PLATELET COUNT 113 x10e3/uL (140-360); RED BLOOD COUNT 4.26 x10e6/uL (4.3-5.7); RED CELL DISTRIBUTION WIDTH 15.3 % (11.7-14.4)
[2020-03-15 01:26] LABS: ALBUMIN 3.6 g/dL (3.5-5.0); ALBUMIN/GLOBULIN RATIO 1.1 (0.8-2.0); CALCIUM 8.9 mg/dL (8.4-10.2); CREATININE, SERUM 1.35 mg/dL (0.72-1.25)
--- NOTE | 2020-03-15 01:26 | Diagnostic Imaging Report ---
EXAMINATION: CHEST SINGLE (PORTABLE) COMPARISON: CT chest 12/27/2019 INDICATION: ^SOB, HAS COPD ^20200315 ^0050 ^Y DISCUSSION: Frontal view of the chest obtained at 0053 hours. HEART AND MEDIASTINUM: Stable cardiomegaly. Mild pulmonary venous congestion and prominence of the pulmonary artery suggestive of pulmonary artery hypertension. LINES: None. LUNGS/PLEURA: Diffuse hyperinflation consistent with COPD/emphysema. Prominent reticular markings in the mid and lower lung zones. No confluent infiltrates. No nodules. No pleural effusion or pneumothorax. BONES AND SOFT TISSUES: No focal osseous lesion. The soft tissues are normal. IMPRESSION: 1. Cardiomegaly without evidence of CHF. Mild pulmonary venous hypertension. Prominent main pulmonary artery suggestive of pulmonary artery hypertension. 2. Pulmonary hyperinflation suggestive of COPD/emphysema. No acute pulmonary process. Signed by: Dr. Viky Noble MD on 03/15/2020 1:22 AM
[2020-03-15 01:48] LABS: CREATINE KINASE MB 3.7 ng/mL (0-5.0)
[2020-03-15 02:21] VITALS: BP 110/64
== END 2020-03-15 02:30 | disposition home or self-care (01) ==
LOC: ER 00:07
DX: F10.129 Alcohol abuse with intoxication, unspecified (principal); I10 Essential (primary) hypertension; I51.7 Cardiomegaly; I50.9 Heart failure, unspecified; I48.91 Unspecified atrial fibrillation; J44.9 Chronic obstructive pulmonary disease, unspecified; G62.9 Polyneuropathy, unspecified; F17.210 Nicotine dependence, cigarettes, uncomplicated
CPT/HCPCS: 36415; 71045; 80053; 80320; 82550; 82553; 84484; 85025; 93005; 99284

== ENCOUNTER 2020-06-28 15:07 | Emergency (ER) | payer MEDICARE, BC ==
[~2020-06-28] VITALS: Ht 193 cm; Wt 102.1 kg
[2020-06-28] MEDS ORDERED: SODIUM CHLORIDE 0.9% 500ML 500 ML IV STA (15:18)
[2020-06-28 15:41] LABS: BASOPHILS % 0.4 % (0.0-1.0); EOSINOPHILS # (AUTO) 0.1 (0.0-0.4); EOSINOPHILS % 1.9 % (0.0-6.0); HEMOGLOBIN 14.1 g/dL (14.0-18.0); LYMPHOCYTES # (AUTO) 2.2 (1.0-3.2); LYMPHOCYTES % 41.2 % (18.0-39.1); MEAN CORPUSCULAR HEMOGLOBIN 31.9 pg (28-32); MEAN CORPUSCULAR HGB CONC 33.6 g/dL (31-35); MONOCYTES # (AUTO) 0.7 (0.2-0.8); MONOCYTES % 12.6 % (4.4-11.3); NEUTROPHILS # (AUTO) 2.3 (2.1-6.9); NEUTROPHILS % 43.3 % (38.7-80.0); PLATELET COUNT 168 x10e3/uL (140-360); RED BLOOD COUNT 4.42 x10e6/uL (4.3-5.7); RED CELL DISTRIBUTION WIDTH 15.5 % (11.7-14.4)
--- NOTE | 2020-06-28 15:45 | Emergency Department Note ---
History of Present Illnes History of Present Illness Chief Complaint: General Medicine Complaints History of Present Illness This is a 70 year old male Chief Complaint Comment PATIENT IN FROM PCP OFFICE FOR EVALUATION OF HYPOTENSION AND WEAKNESS; EMS STATES BP WAS 70/40 AT PCP OFFICE. PATIENT HAS BEEN BEING TREATED FOR CELLULITIS TO BILATERAL LOWER EXTREMITIES - NEXT APPOINTMENT TOMORROW. DENIES PAIN. 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 Any updates have been documented here. Past Medical History Recent Fever: No Clinical Suspicion of Infectio: No New/Unexplained Change in Ment: No Past Medical History: Hypertension, COPD, CHF, A-Fib Other Medical History: PERIPHERAL NEUROPATHY ETOH ABUSE - DAILY DRINKER Past Surgical History: Back Surgery Other Surgery: 1 LUMBAR LAMINECTOMY C-SPINE SURGERY Other Last Tetanus: <10 YRS Review of Systems Review of Systems Constitutional: Reports as per HPI EENTM: Reports no symptoms Cardiovascular: Reports no symptoms Respiratory: Reports no symptoms Gastrointestinal: Reports no symptoms Genitourinary: Reports no symptoms Musculoskeletal: Reports no symptoms Integumentary: Reports as per HPI (Cellulitis) Neurological: Reports no symptoms Psychological: Reports no symptoms Endocrine: Reports no symptoms Hematological/Lymphatic: Reports no symptoms Physical Exam Related Data Allergies: Coded Allergies: codeine (Verified Allergy, Unknown, 11/11/16) Triage Vital Signs Vital Signs Date Time Temp Pulse Resp B/P (MAP) Pulse Ox O2 Delivery O2 Flow Rate FiO2 06/28/20 15:23 92 16 116/72 94 Room Air Vital signs reviewed: Yes Physical Exam CONSTITUTIONAL Constitutional: Present well-developed, Present well-nourished HENT HENT: Present normocephalic, Present atraumatic, Present oropharynx clear/moist, Present nose normal HENT L/R: Present left ext ear normal, Present right ext ear normal EYES Eyes: Reports PERRL, Reports conjunctivae normal NECK Neck: Present ROM normal PULMONARY Pulmonary: Present effort normal, Present breath sounds normal CARDIOVASCULAR Cardiovascular: Present regular rhythm, Present heart sounds normal, Present capillary refill normal, Present normal rate GASTROINTESTINAL Abdominal: Present soft, Present nontender, Present bowel sounds normal GENITOURINARY Genitourinary: Present exam deferred SKIN Skin: Present warm, Present dry, Present other (Erythema and flaking to BLE around ankles) MUSCULOSKELETAL Musculoskeletal: Present ROM normal NEUROLOGICAL Neurological: Present alert, Present oriented x 3, Present no gross motor or sensory deficits PSYCHOLOGICAL Psychological: Present mood/affect normal, Present judgement normal Results Laboratory Lab results reviewed: Yes Imaging Imaging results reviewed: Yes Procedures 12 Lead ECG Interpretation ECG Interpretation : Sales Engineer Engineered Products: Interpreted by ED physician Date: Jun 28, 2020 Prior ECG tracings: reviewed Rhythm: atrial fibrillation Rate: tachycardia BPM: 101 QRS axis: normal Conduction: right bundle branch block ST segments normal: Yes T waves normal: Yes Clinical Impression: abnormal ECG Assessment & Plan Medical Decision Making MDM 70-year-old male presents for an episode of hypotension at clinic. He denies any symptoms in his blood pressure has since been within normal limits. Examination shows overall well-appearing male in no acute distress, vital signs stable, within normal limits. There is some cellulitis to the lower extremities which is currently being managed and he has a infectious disease appointment. Workup is largely unremarkable. We'll discharge patient home with instructions follow up with his infectious disease appointment. He will continue to take his Doxy. Reassessment Reassessment time: 17:06 Reassessment Resting comfortably Assessment & Plan Final Impression: (1) Cellulitis Depart Disposition: HOME, SELF-CARE Last Vital Signs Date Time Temp Pulse Resp B/P (MAP) Pulse Ox O2 Delivery O2 Flow Rate FiO2 06/28/20 15:23 92 16 116/72 94 Room Air Home Meds Reported Medications Cefuroxime Axetil (CEFUROXIME) 500 Mg Tablet, 500 MG PO BID for 7 Days 01/18/19 Prednisone (PREDNISONE) 20 Mg Tab, 40 MG PO DAILY for 4 Days, TAB 11/05/18 Rivaroxaban (XARELTO) 10 Mg Tablet, 15 MG PO DAILY 11/05/18 Oxycodone Hcl (OXYCODONE HCL) 15 Mg Tablet, 15 MG PO Q6HR PRN for PAIN 11/02/18 Multivitamin (MULTIVITAMINS) 1 Each Capsule, 1 CAP PO DAILY 11/02/18 Metoprolol Tartrate (METOPROLOL TARTRATE) 25 Mg Tablet, 25 MG PO BID, #60 TAB 11/02/18 Potassium Chloride (POTASSIUM CHLORIDE) 8 Meq Capsule.er, 20 MEQ PO DAILY 11/02/18 Digoxin (DIGOXIN) 125 Mcg Tablet, 125 MCG PO q48 hours, #15 11/02/18 Lisinopril (LISINOPRIL) 2.5 Mg Tablet, 5 MG PO HS, #30 TAB 03/01/18 Diltiazem Hcl (CARTIA XT) 180 Mg Cap.er.24h, 180 MG PO BID, #60 03/01/18 Furosemide (LASIX) 20 Mg Tablet, 40 MG PO DAILY, #30 TAB 03/01/18 Ondansetron (ZOFRAN ODT) 4 Mg Tab.rapdis, 4 MG PO Q6H PRN for NAUSEA AND VOMITING, TAB 10/30/17 Trazodone Hcl (TRAZODONE HCL) 50 Mg Tablet, 50 MG PO HS PRN for SLEEP, #30 TAB 06/25/17 Rivaroxaban (XARELTO) 20 Mg Tablet, 15 MG PO DAILY 06/25/17 Pantoprazole Sodium* (PROTONIX) 40 Mg Tablet.dr, 40 MG PO DAILY, TAB 11/11/16 Atorvastatin Calcium (ATORVASTATIN CALCIUM) 10 Mg Tablet, 10 MG PO 2100, #30 TAB 09/03/15 Metformin Hcl (METFORMIN HCL ER) 500 Mg Tab.er.24, 250 MG PO HS, #60 TAB 12/19/14 Fenofibrate,Micronized (FENOFIBRATE) 134 Mg Capsule, 134 MG PO HS 08/01/14 Pregabalin (LYRICA) 300 Mg Capsule, 300 MG PO BID 08/01/14 Folic Acid (FOLIC ACID) 1 Mg Tablet, 400 MCG PO DAILY, #30 TAB 08/01/14 Duloxetine Hcl (CYMBALTA) 60 Mg Capsule.dr, 60 MG PO HS 08/01/14 Medications in the ED Sodium Chloride 500 ml @ 0 mls/hr Q0M STAT IV ; Start 06/28/20 at 15:18; Stop 06/28/20 at 15:20; Status DC JEET CHERRY MD Jun 28, 2020 15:45
[2020-06-28 15:57] LABS: ALANINE AMINOTRANSFERASE 22 IU/L (0-55); ALBUMIN 3.8 g/dL (3.5-5.0); ALBUMIN/GLOBULIN RATIO 1.1 (0.8-2.0); ALKALINE PHOSPHATASE 52 IU/L (40-150); ANION GAP 18.4 mmol/L (8-16); BLOOD UREA NITROGEN 28 mg/dL (7-26); BUN/CREATININE RATIO 27 (6-25); CALCIUM 8.3 mg/dL (8.4-10.2); CARBON DIOXIDE 22 mmol/L (22-29); CHLORIDE 102 mmol/L (98-107); CREATININE, SERUM 1.02 mg/dL (0.72-1.25); EST GLOMERULAR FILTRATION RATE > 60 ML/MIN (60-); GLUCOSE 79 mg/dL (74-118); POTASSIUM 4.4 mmol/L (3.5-5.1); SODIUM 138 mmol/L (136-145)
--- NOTE | 2020-06-28 15:57 | Diagnostic Imaging Report ---
EXAMINATION: CHEST SINGLE (PORTABLE) INDICATION: Hypotension COMPARISON: Chest radiograph 06/25/2017 FINDINGS: LINES/TUBES:EKG leads overlie the chest. LUNGS:The lungs are hyperinflated. There is perihilar fullness and indistinctness of the pulmonary vasculature. No focal consolidation. PLEURA:No pleural effusion or pneumothorax. MEDIASTINUM:The cardiomediastinal silhouette appears normal in size and shape. Atherosclerotic calcifications of the thoracic aorta. BONES/SOFT TISSUES:No acute osseous injury. Partial visualization of cervical and thoracolumbar fusion hardware. ABDOMEN:No free air under the diaphragm. IMPRESSION: Mild interstitial pulmonary edema. No focal pneumonia. Signed by: Patricia Kat MD on 06/28/2020 3:53 PM
--- NOTE | 2020-06-28 16:35 | Diagnostic Imaging Report ---
Exam: ANKLE LIMITED BILATERAL - 2 views of each side History: Cellulitis Comparison: None. Findings: Right ankle: No fractures or acute osseous abnormalities. Specifically, no focal osseous destruction or periosteal reaction. Diffuse osseous demineralization. No joint malalignment or dislocation. Ankle mortise appears symmetric. Mild diffuse soft tissue swelling. Left ankle: No fractures or acute osseous abnormalities. Specifically, no focal osseous destruction or periosteal reaction. Diffuse osseous demineralization. No joint malalignment or dislocation. Ankle mortise appears symmetric. Mild degenerative arthrosis at the talonavicular joint. Mild diffuse soft tissue swelling. Impression: 1. Mild diffuse soft tissue swelling surrounding the bilateral ankles, likely correlates with reported cellulitis. 2. No acute osseous abnormalities, specifically no focal osseous destruction to suggest osteomyelitis. If clinical concern for osteomyelitis persists, consider ankle/hindfoot MRI for further evaluation. Signed by: Dr. Jerald Stallings M.D. on 06/28/2020 4:32 PM
== END 2020-06-28 17:42 | disposition home or self-care (01) ==
LOC: ER 15:20
DX: L03.116 Cellulitis of left lower limb (principal); L03.115 Cellulitis of right lower limb; R53.1 Weakness; I10 Essential (primary) hypertension; G62.9 Polyneuropathy, unspecified; I48.91 Unspecified atrial fibrillation; I50.9 Heart failure, unspecified
CPT/HCPCS: 36415; 71045; 73600; 80053; 83880; 84484; 85025; 93005; 99284; J7040

== ENCOUNTER 2020-06-29 16:59 | Inpatient (IN) | payer MEDICARE, BC ==
[~2020-06-29] VITALS: Ht 193 cm; Wt 93.1 kg
[2020-06-29] MEDS ORDERED: VANCOMYCIN 1GM/NS 250 ML 250 ML IV SCH (19:45)
[2020-06-29 20:00] VITALS: BP 121/73
[2020-06-29] MEDS ORDERED: TRAZODONE HCL 50 MG TAB PO PRN (20:00)
[2020-06-29] MEDS ORDERED: ACETAMINOPHEN 325 MG TAB PO PRN (20:00)
[2020-06-29 20:24] LABS: BASOPHILS % 0.6 % (0.0-1.0); EOSINOPHILS # (AUTO) 0.1 (0.0-0.4); EOSINOPHILS % 2.2 % (0.0-6.0); HEMATOCRIT 41.6 % (38.2-49.6); HEMOGLOBIN 13.7 g/dL (14.0-18.0); LYMPHOCYTES # (AUTO) 1.8 (1.0-3.2); LYMPHOCYTES % 32.5 % (18.0-39.1); MEAN CORPUSCULAR HEMOGLOBIN 32.5 pg (28-32); MEAN CORPUSCULAR HGB CONC 32.9 g/dL (31-35); MEAN CORPUSCULAR VOLUME 98.6 fL (81-99); MONOCYTES # (AUTO) 0.7 (0.2-0.8); MONOCYTES % 13.8 % (4.4-11.3); NEUTROPHILS # (AUTO) 2.7 (2.1-6.9); NEUTROPHILS % 50.2 % (38.7-80.0); PLATELET COUNT 144 x10e3/uL (140-360); RED BLOOD COUNT 4.22 x10e6/uL (4.3-5.7); RED CELL DISTRIBUTION WIDTH 15.6 % (11.7-14.4)
[2020-06-29 20:47] LABS: ALANINE AMINOTRANSFERASE 19 IU/L (0-55); ALBUMIN 3.8 g/dL (3.5-5.0); ALBUMIN/GLOBULIN RATIO 1.2 (0.8-2.0); ALKALINE PHOSPHATASE 67 IU/L (40-150); ANION GAP 16.1 mmol/L (8-16); BLOOD UREA NITROGEN 26 mg/dL (7-26); BUN/CREATININE RATIO 25 (6-25); CALCIUM 8.3 mg/dL (8.4-10.2); CARBON DIOXIDE 26 mmol/L (22-29); CHLORIDE 104 mmol/L (98-107); CREATININE, SERUM 1.02 mg/dL (0.72-1.25); EST GLOMERULAR FILTRATION RATE > 60 ML/MIN (60-); GLUCOSE 87 mg/dL (74-118); POTASSIUM 4.1 mmol/L (3.5-5.1); SODIUM 142 mmol/L (136-145)
[2020-06-29] MEDS: CEFEPIME 1GM/NS 0.9% 50 ML 50 ML IV SCH (21:10)
[2020-06-29] MEDS: FENOFIBRATE 145 MG TAB PO SCH (21:10)
[2020-06-29] MEDS: DULOXETINE HCL 30 MG DELAYED RELEASE PO SCH (21:10)
[2020-06-29] MEDS: ATORVASTATIN 10 MG TAB PO SCH (21:10)
[2020-06-29] MEDS ORDERED: SODIUM CHLORIDE 0.9% 250ML 250 ML ONE (21:11)
[2020-06-29 22:00] VITALS: BP 121/73
[2020-06-30] VITALS (8 sets, daily range): BP systolic 134–155; BP diastolic 67–97
[2020-06-30] MEDS: ONDANSETRON HCL 4 MG ORAL DISINTEGRATING TAB PO PRN ×2 (02:40→09:00)
--- NOTE | 2020-06-30 06:42 | NUR ---
PICC is in SVC per verbal report from radiologist Dr Tapia. Picc is ok to use
--- NOTE | 2020-06-30 06:42 | NUR ---
RECEIVED BEDSIDE SHIFT REPORT FROM OFF GOING NURSE. PATIENT IS RESTING IN BED. NO ACUTE DISTRESS NOTED. CALL LIGHT WITHIN REACH. BED IN THE LOWEST POSITION.
--- NOTE | 2020-06-30 07:27 | Diagnostic Imaging Report ---
EXAMINATION: CHEST XRAY LINE PLACEMENT INDICATION: ^PICC PLACEMENT ^[id number] ^0624 COMPARISON: None FINDINGS: TUBES and LINES: Left PICC tip projects over the proximal SVC. LUNGS: Normal lung volumes. Lungs are clear. No consolidations. PLEURA: No pleural effusion or pneumothorax. HEART AND MEDIASTINUM: Unchanged cardiomediastinal silhouette with unchanged increased perihilar densities. IMPRESSION: Left PICC tip projects over the proximal SVC. No pneumothorax. Signed by: Richy Tapia MD on 06/30/2020 7:24 AM
[2020-06-30] MEDS ORDERED: ANORO ELLIPTA1 EACH INH (08:42)
[2020-06-30] MEDS ORDERED: MAGNESIUM OXID400 MG PO (08:42)
[2020-06-30] MEDS ORDERED: ARNUITY ELLIP100 MCG INH (08:42)
[2020-06-30] MEDS ORDERED: MS CONTIN15 MG PO (08:42)
[2020-06-30] MEDS: FUROSEMIDE 40 MG TAB PO SCH (09:00)
[2020-06-30] MEDS ORDERED: PREGABALIN 25 MG CAP PO SCH (09:00)
[2020-06-30] MEDS: PREGABALIN 75 MG CAP PO SCH ×2 (09:00→16:53)
[2020-06-30] MEDS: HOME MEDICATION--PATIENTS OWN INH SCH ×2 (09:00)
[2020-06-30] MEDS: FOLIC ACID 1 MG TAB PO SCH (09:00)
[2020-06-30] MEDS: CEFEPIME 1GM/NS 0.9% 50 ML 50 ML IV SCH ×2 (09:00→20:58)
[2020-06-30] MEDS: MULTIVITAMINS/MINERALS TAB PO SCH (09:00)
[2020-06-30] MEDS: DIGOXIN 0.125 MG TAB PO SCH (09:48)
[2020-06-30] MEDS: METOPROLOL TARTRATE 25 MG TAB PO SCH (09:48)
[2020-06-30] MEDS: RIVAROXABAN 15 MG TABLET PO SCH (09:49)
[2020-06-30] MEDS: MAGNESIUM OXIDE 400 MG TAB PO SCH (09:49)
[2020-06-30] MEDS: VANCOMYCIN 1GM/NS 250 ML 250 ML IV SCH ×2 (09:49→22:34)
--- OUTSIDE RECORDS SUMMARY | 2020-06-30 10:32 | XMS REPORT | Continuity of Care Document ---
Author Author 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 Medicare A & B [id number] 2010 00:00:00 [facility] [id number] I [facility] Problems Condition Name Condition Details Condition Category Status Onset Date Resolution Date Last Treatment Date Treating Clinician Comments Source At risk for falls At risk for falling Problem Active 2015-09-03 00:00:0 0 [facility] Closed tibial fracture Closed tibial fracture Problem Active 2015-09-03 00:00:00 [facility] Drug overdose Overdose Problem Active 2015-09-03 00:00:00 [facility] Atrial fibrillation with rapid ventricular response [facility] fibrillation with rapid ventricular response Problem Active 2015-03-15 00:00:00 [facility] Congestive heart failure CHF (congestive heart failure) Problem Active 2015-03-15 00:00:00 [facility] Congestive heart failure CHF (congestive heart failure) Problem Active 2014-12-19 00:00:00 [facility] Alcohol abuse Alcohol abuse Problem Active [facility] Cellulitis of left lower extremity Cellulitis of left leg Problem Active [facility] Hypoglycemia Hypoglycemia Problem Active [facility] Renal insufficiency Renal insufficiency Problem Active [facility] Cellulitis Problem Active [facility] Allergies, Adverse Reactions, Alerts Allergy Name Allergy Type Status Severity Reaction(s) Onset Date Inacti ve Date Treating Clinician Comments Source Codeine Allergy to substance Active 2016-11-11 00:00:00 [facility] Family History Family Member Diagnosis Comments Start Date Stop Date Source 33 FATHER Family history of malignant neoplasm [facility] Social History Social Habit Start Date Stop Date Quantity Comments Source Sex Assigned At 1950 00:00:00 1950 00:00:00 Male [facility] Medications Ordered Medication Name Filled Medication Name Start Date Stop Da te Current Medication? Ordering Clinician Indication Dosage Frequency Signature (SIG) Comments Components Source Minocycline Hcl Minocycline Hcl 2018-03-03 17:05:00 2018-03-03 00:00:00 No 100 Twice A Day [facility] Atorvastatin Calcium Atorvastatin Calcium Yes 10 Today At 9:00PM [facility] Cefuroxime Axetil (Cefuroxime) 500 Mg TABLET Cefuroxim e Axetil (Cefuroxime) 500 Mg TABLET Yes 500 Twice A Day [facility] Digoxin Digoxin Yes 125 Q48 Hours [facility] Diltiazem Hcl (Cartia Xt) 180 Mg CAP.ER.24H Diltiazem Hcl (Cartia Xt) 180 Mg CAP.ER.24H Yes 180 Twice A Day [facility] Duloxetine Hcl (Cymbalta) 60 Mg CAPSULE. Duloxetine Hcl (Cymbalta) 60 Mg CAPSULE. Yes 60 Bedtime [facility] Fenofibrate,Micronized (Fenofibrate) 134 Mg CAPSULE Fe nofibrate,Micronized (Fenofibrate) 134 Mg CAPSULE Yes 134 Bedtime [facility] Folic Acid Folic Acid Yes 400 Daily I [facility] Furosemide (Lasix) 20 Mg TABLET Furosemide (Lasix) 20 Mg TABLET Yes 40 Daily [facility] Lisinopril Lisinopril Yes 5 Bedtime [facility] Metformin Hcl (Metformin Hcl Er) 500 Mg TAB.ER.24 Metf ormin Hcl (Metformin Hcl Er) 500 Mg TAB.ER.24 Yes 250 Bedtime [facility] Metoprolol Tartrate Metoprolol Tartrate Yes 25 Twice A Day [facility] Multivitamin (Multivitamins) 1 Each CAPSULE Multivitam in (Multivitamins) 1 Each CAPSULE Yes 1 Daily [facility] Ondansetron (Zofran Odt) 4 Mg TAB.RAPDIS Ondansetron ( Zofran Odt) 4 Mg TAB.RAPDIS Yes 4 Every 6 Hours as needed for Nausea And Vomiting [facility] Oxycodone Hcl Oxycodone Hcl Yes 15 Ever y 6 Hours as needed for Pain [facility] Pantoprazole Sodium (Protonix) 40 Mg TABLET. Pantopr azole Sodium (Protonix) 40 Mg TABLET. Yes 40 Daily [facility] Potassium Chloride Potassium Chloride Yes 20 Da america [facility] Prednisone Prednisone Yes 40 Daily [facility] Pregabalin (Lyrica) 300 Mg CAPSULE Pregabalin (Lyrica) 300 Mg CAPSULE Yes 300 Twice A Day [facility] Rivaroxaban (Xarelto) 10 Mg TABLET Rivaroxaban (Xarelto) 10 Mg TABLET Yes 15 Daily [facility] Rivaroxaban (Xarelto) 20 Mg TABLET Rivaroxaban (Xarelto) 20 Mg TABLET Yes 15 Daily [facility] Trazodone Hcl Trazodone Hcl Yes 50 Bedtime as n eeded for Sleep [facility] Diltiazem Hcl (Cartia Xt) 180 Mg CAP.ER.24H Diltiazem Hcl (Cartia Xt) 180 Mg CAP.ER.24H 2018-03-01 00:00:00 No 180 Twice A Day [facility] Multivitamins,Therapeutic (Thera) 1 Each TABLET Multiv itamins,Therapeutic (Thera) 1 Each TABLET 2018-03-01 00:00:00 No 1 Be dtime [facility] Oxymorphone Hcl (Opana) 10 Mg TABLET Oxymorphone Hcl (Opana) 10 Mg TABLET 2018-03-01 00:00:00 No 10 Every 12 Hours as ne eded for Pain [facility] Amoxicillin/Potassium Clav (Augmentin 875-125 Tablet) 1 Each TABLET Amoxicillin/Potassium Clav (Augmentin 875-125 Tablet) 1 Each TABLET 2017-10-30 00:00:00 No 875 Every 12 Hours [facility] Azithromycin (Z-Danis) 250 Mg TABLET Azithromycin (Z-Danis) 250 Mg T ABLET 2017-10-30 00:00:00 No 0 Use As Directed [facility] Furosemide Furosemide 2017-10-30 00:00:00 No 20 Twi ce A Day [facility] Lisinopril Lisinopril 2017-10-30 00:00:00 No 20 Twi ce A Day [facility] Magnesium Oxide (Mag-Oxide) 400 Mg TABLET Magnesium Ox allison (Mag-Oxide) 400 Mg TABLET 2017-10-30 00:00:00 No 400 Daily [facility] Oxycodone Hcl/Acetaminophen (Oxycodone-Acetaminophen 1 0-325) 1 Each TABLET Oxycodone Hcl/Acetaminophen (Oxycodone-Acetaminophen 10-325) 1 Each TABLET 2017-10-30 00:00:00 No 1 Every 4 Hours as nee ded for Pain [facility] Potassium Chloride Potassium Chloride 2017-10-30 00:00:00 No [address] [facility] Prednisone Prednisone 2017-10-30 00:00:00 No 20 Use As Directed [facility] Prednisone Prednisone 2017-10-30 00:00:00 No [facility] Elequis Elequis 2017-06-25 00:00:00 No 5 Twice A D ay [facility] Metoprolol Succinate Metoprolol Succinate 2017-06-25 00:00:00 No [address] [facility] Zolpidem Tartrate (Ambien) 10 Mg TABLET Zolpidem Tartrate (A mbien) 10 Mg TABLET 2017-06-25 00:00:00 No 10 Bedtime [facility] Teriparatide Inj (Forteo) 2.4 Ml SYR Teriparatide Inj (Forteo) 2 .4 Ml SYR 2016-11-11 00:00:00 No 20 Daily [facility] Ezetimibe/Simvastatin (Vytorin 10-40 Mg Tablet) 1 Each TABLET Ezetimibe/Simvastatin (Vytorin 10-40 Mg Tablet) 1 Each TABLET 2015-03-15 00:00:00 No 1 Daily [facility] Fentanyl Fentanyl 2015-03-15 00:00:00 No 50 Daily [facility] Hydromorphone Hcl (Dilaudid) 2 Mg TAB Hydromorphone Hcl (Dilaudi d) 2 Mg TAB 2014-12-23 00:00:00 No 4 Four Times Daily [facility] Glipizide Glipizide 2014-12-19 00:00:00 No 2.5 Twice A Day [facility] Lisinopril Lisinopril 2014-12-19 00:00:00 No 5 Keily ly [facility] Aspirin Aspirin 2014-08-01 00:00:00 [facility] Cartia Cartia 2014-08-01 00:00:00 [facility] Cymbalta Cymbalta 2014-08-01 00:00:00 [facility] Digoxin Digoxin 2014-08-01 00:00:00 [facility] Lyrica Lyrica 2014-08-01 00:00:00 [facility] Metoprolol Metoprolol 2014-08-01 00:00:00 [facility] Vytorin Vytorin 2014-08-01 00:00:00 No [facility] Vital Signs Vital Name Observation Time Observation Value Comments Source Weight 2020-06-28 15:23:00 225 [lb_av] [facility] BMI (Body Mass Index) 2020-06-28 15:23:00 27.4 kg/m2 [facility] Body Temperature 2020-03-15 02:21:00 98.2 [degF] [facility] Procedures Procedure Date / Time Performed Performing Clinician Sour e Computed tomography of chest without contrast 2019-12-27 00:00:0 0 [facility] Plan of Care Planned Activity Planned Date Details Comments Source Instructions Cellulitis [facility] Encounters Start Date/Time End Date/Time En[facility] ID Source 2020-06-28 15:20:00 2020-06-28 17:42:00 Departed Emergency Room 1 Jeet Ceballos [facility] [id number] [facility] 2020-03-15 00:07:00 2020-03-15 02:30:00 Departed Emergency Room 1 VIRGINIA HANNAH [facility] [id number] [facility] 2019-12-27 13:34:00 2019-12-27 13:34:00 Registered Clinic 3 CAROL HOANG [facility] [id number] [facility] 2019-08-16 13:00:00 2019-09-11 23:59:00 Discharged Recurring [facility] [id number] [facility] 2019-08-06 10:45:00 2019-08-12 23:59:00 Discharged Recurring [facility] [id number] [facility] 2019-07-20 14:07:00 2019-07-20 14:07:00 Registered Clinic 3 CAROL HOANG [facility] [id number] [facility] 2019-01-13 21:29:00 2019-01-18 10:17:00 Discharged Inpatient 1 CHANEL LÓPEZ [facility] [id number] [facility] 2018-12-25 12:42:00 2018-12-25 12:42:00 Registered Clinic 3 CAROL HOANG [facility] [id number] [facility] 2018-11-02 18:09:00 2018-11-05 18:26:00 Discharged Inpatient 1 KAITLIN ODOM [facility] [id number] [facility] 2018-03-01 03:19:00 2018-03-03 21:47:00 Discharged Inpatient 1 CHANEL LÓPEZ [facility] [id number] [facility] 2018-01-20 11:18:00 2018-01-20 11:18:00 Registered Clinic AUDREY HOANG MEDINA [facility] [id number] [facility] 2017-10-30 12:41:00 2017-10-30 18:24:00 Departed Emergency Room [facility] [id number] [facility] 2017-09-15 13:33:00 2017-09-15 13:33:00 Registered Clinic BILL BLANDHAMMAD [facility] [id number] [facility] 2017-09-05 09:24:00 2017-09-05 09:24:00 Registered Clinic CHANEL ELLER [facility] [id number] [facility] 2017-06-25 18:26:00 2017-07-01 09:50:00 Discharged Inpatient ER CHANEL LÓPEZ [facility] [id number] [facility] Results Test Description Test Time Test Comments Results Result Comments Source CHEST XRAY LINE PLACEMENT 2020-06-30 06:41:00 [facility] [address] [place] [id number] Patient Name: MOUNA DENT MR #: [id number] : 1950 Age/Sex: 70/M Req #: [id number] Adm Physician: VALENTÍN KNIGHT MD Ordered by: DAVI GUERRERO MD Report #: [id number] Location: [facility] Room/Bed: [facility] Procedure: [id number] DX/CHEST XRAY LINE PLACEMENT Exam Date: 06/30/20 Exam Time: 623 REPORT STATUS: Signed EXAMINATION: CHEST XRAY LINE PLACEMENT INDICATION: PICC PLACEMENT 20200630 COMPARISON: None FINDINGS: TUBES and LINES: Left PICC tip projects over the proximal SVC. LUNGS: Normal lung volumes. Lungs are clear. No consolidations. PLEURA: No pleural effusion or pneumothorax. HEART AND MEDIASTINUM: Unchanged cardiomediastinal silhouette with unchanged increased perihilar densities. IMPRESSION: Left PICC tip projects over the proximal SVC. No pneumothorax. Signed by: Shalini Tapia MD on 06/30/2020 7:24 AM Dictated By: SHALINI TAPIA MD 3 Transcribed By: FATOUMATA on 06/30/20723 COPY TO: DAVI GUERRERO MD Troponin I measurement by highly sensitive enzyme immu noassay 2020-06-28 17:01:00 Test Item Troponin I (test code = 08603-8) 0.048 0-0.300 [facility] [id number] 16:24:00 [place] [address] Patient Name: MOUNA DENT MR #: [id number] : 1950 Age/Sex: 70/M Req #: [id number] [facility] Physician: Ordered by: Jeet Ceballos MD Report #: [id number] Location: ER Room/Bed: Procedure: [id number] DX/ANKLE LIMITED BILATERAL Exam Date: 06/28/20 Exam Time: 155 0 REPORT STATUS: Signed Exam: A NKLE LIMITED BILATERAL - 2 views of each side History: Cellulitis Com parison: None. Findings: Right ankle: No fractures or acute osseous abnormalities. Specifically, no focal osseous destruction or periosteal react ion. Diffuse osseous demineralization. No joint malalignment or dislocation. A nkle mortise appears symmetric. Mild diffuse soft tissue swelling. Left a nkle: No fractures or acute osseous abnormalities. Specifically, no focal osse ous destruction or periosteal reaction. Diffuse osseous demineralization. No joint malalignment or dislocation. Ankle mortise appears symmetric. Mild dege nerative arthrosis at the talonavicular joint. Mild diffuse soft tissue swelli ng. Impression: 1. Mild diffuse soft tissue swelling surrounding the bilateral ankles, likely correlates with reported cellulitis. 2. No acute o sseous abnormalities, specifically no focal osseous destruction to suggest ost eomyelitis. If clinical concern for osteomyelitis persists, consider ankle/hin dfoot MRI for further evaluation. Signed by: Dr. Jerald Stallings M.D. on 06/28/2020 4:32 PM Dictated By: JERALD STALLINGS MD 31 Transcribed By: FATOUMATA on 06/28/201631 COPY TO: JEET CEBALLOS MD CHEST SINGLE (PORTABLE)2020-06-28 15:52:00 [address] [place], [place] [address] Patient Name: MOUNA DENT MR #: [id number] : 1950 Age/Sex: 70/M Req #: [id number] Adm Physician: Ordered by: Jeet Ceballos MD Report #: [id number] Location: ER Room/Bed: Procedure: [id number] DX/CHEST SINGLE (PORTABLE) Exam Date: 06/28/20 Exam Time: 151 5 REPORT STATUS: Signed EXAMINAT ION: CHEST SINGLE (PORTABLE) INDICATION: Hypotension COMPARISON: Chest radiograph 06/25/2017 FINDINGS: LINES/TUBES:EKG leads overli e the chest. LUNGS:The lungs are hyperinflated. There is perihilar fullness and indistinctness of the pulmonary vasculature. No focal consolidation. PLEURA:No pleural effusion or pneumothorax. MEDIASTINUM:The cardiomediasti nal silhouette appears normal in size and shape. Atherosclerotic calcification s of the thoracic aorta. BONES/SOFT TISSUES:No acute osseous injury. Partia l visualization of cervical and thoracolumbar fusion hardware. ABDOMEN:No free air under the diaphragm. IMPRESSION: Mild interstitial pulmonar y edema. No focal pneumonia. Signed by: Janice Colin MD on 06/28/2020 3:53 PM Dictated By: JANICE COLIN MD 52 COPY TO: JEET CEBALLOS MD Blood leukocytes automated count (number/volume)2020-06-28 15:30:00* Test Item Value Reference Range Interpretation Comments White Blood Count (test code = 6690-2) 5.22 4.8-10.8 [facility] erythrocytes automated count (number/volume)2020-06-28 15:30:00* Test Item Value Reference Range Interpretation Comments Red Blood Count (test code = 789-8) 4.42 4.3-5.7 [facility] (moles/volume)2020-06-28 15:30:00* Test Item Value Reference Range Interpretation Comments Hemoglobin (test code = 28544-3) 14.1 14.0-18.0 [facility] blood hematocrit (volume fraction)2020-06-28 15:30:00* Test Item Value Reference Range Interpretation Comments Hematocrit (test code = 4544-3) 42.0 38.2-49.6 [facility]ville[facility] erythrocyte mean corpuscular [id number] 15:30:00* Test Item Value Reference Range Interpretation Comments Mean Corpuscular Volume (test code = 787-2) 95.0 81-99 [facility] erythrocyte mean corpuscular hemoglobin (mass per erythrocyte)2020-06-28 15:30:00* Test Item Value Reference Range Interpretation Comments Mean Corpuscular Hemoglobin (test code = 785-6) 31.9 28-32 [facility]ville[facility] erythrocyte mean corpuscular hemoglobin concentration measurement (mass/volume)2020-06-28 15:30:00* Test Item Value Reference Range Interpretation Comments Mean Corpuscular Hemoglobin Concent (test code = 786-4) 33.6 31-35 [facility]villeRDW [id number]-[id number] 15:30:00* Test Item Value Reference Range Interpretation Comments Red Cell Distribution Width (test code = 64882-3) 15.5 11.7 -14.4 [facility]ville[facility] blood platelet count (count/volume)2020-06-28 15:30:00* Test Item Value Reference Range Interpretation Comments Platelet Count (test code = 777-3) 168 140-360 [facility] neutrophil count as percentage of total bueskvcjrq0714-23-25 15:30:00* Test Item Value Reference Range Interpretation Comments Neutrophils (%) (Auto) (test code = 89698-5) 43.3 38.7-80.0 [facility] lymphocyte count as percentage ot total [id number] 15:30:00* Test Item Value Reference Range Interpretation Comments Lymphocytes (%) (Auto) (test code = 736-9) 41.2 18.0-39.1 [facility] monocyte count as percentage of total miforgfmzz9778-00-12 15:30:00* Test Item Value Reference Range Interpretation Comments Monocytes (%) (Auto) (test code = 5905-5) 12.6 4.4-11.3 [facility] blood eosinophil count as percentage of total iqdhopoemf1067-84-17 15:30:00* Test Item Value Reference Range Interpretation Comments Eosinophils (%) (Auto) (test code = 713-8) 1.9 0.0-6.0 [facility] blood basophil count as percentage of total [id number] 15:30:00* Test Item Value Reference Range Interpretation Comments Basophils (%) (Auto) (test code = 706-2) 0.4 0.0-1.0 [facility]villeFluoroscopic procedure less than one hour ilhhdxfq2709-16-08 15:30:00* Test Item Value Reference Range Interpretation Comments IM GRANULOCYTES % (test code = IM GRANULOCYTES %) 0.6 0.0- 1.0 [facility] blood neutrophil count 2020-06-28 15:30:00* Test Item Value Reference Range Interpretation Comments Neutrophils # (Auto) (test code = 751-8) 2.3 2.1-6.9 [facility] lymphocytes count (number/volume) 2020-06-28 15:30:00* Test Item Value Reference Range Interpretation Comments Lymphocytes # (Auto) (test code = 97233-7) 2.2 1.0-3.2 [facility] monocytes automated count (number/volume)2020-06-28 15:30:00* Test Item Value Reference Range Interpretation Comments Monocytes # (Auto) (test code = 742-7) 0.7 0.2-0.8 [facility] blood eosinophil count 2020-06-28 15:30:00* Test Item Value Reference Range Interpretation Comments Eosinophils # (Auto) (test code = 711-2) 0.1 0.0-0.4 [facility] blood basophil count (count/volume)2020-06-28 15:30:00* Test Item Value Reference Range Interpretation Comments Basophils # (Auto) (test code = 704-7) 0.0 0.0-0.1 [facility]villeFluoroscopic procedure less than one hour [id number] 15:30:00* Test Item Value Reference Range Interpretation Comments Absolute Immature Granulocyte (auto (yuliana t code = Absolute Immature Granulocyte (auto) 0.03 0-0.1 [facility] sodium measurement (moles/volume)2020-06-28 15:30:00* Test Item Value Reference Range Interpretation Comments Sodium Level (test code = 2951-2) 138 136-145 [facility] or plasma potassium measurement (moles/volume)2020-06-28 15:30:00* Test Item Value Reference Range Interpretation Comments Potassium Level (test code = 2823-3) 4.4 3.5-5.1 [facility] [place] [facility] or plasma chloride measurement (moles/volume)2020-06-28 15:30:00* Test Item Value Reference Range Interpretation Comments Chloride Level (test code = 2075-0) 102 98-107 [facility]um or plasma carbon dioxide, total measurement (moles/volume)2020-06-28 15:30:00* Test Item Value Reference Range Interpretation Comments Carbon Dioxide Level (test code = 2028-9) 22 22-29 [facility] or plasma anion aqq4510-80-56 15:30:00* Test Item Value Reference Range Interpretation Comments Anion Gap (test code = 31577-5) 18.4 8-16 [facility] [place] [facility] or plasma urea nitrogen measurement (mass/volume)2020-06-28 15:30:00* Test Item Value Reference Range Interpretation Comments Blood Urea Nitrogen (test code = 3094-0) 28 7-26 [facility] [place] [facility] or plasma creatinine measurement (mass/volume)2020-06-28 15:30:00* Test Item Value Reference Range Interpretation Comments Creatinine (test code = 2160-0) 1.02 0.72-1.25 [facility] or plasma urea nitrogen/creatinine mass [id number] 15:30:00* Test Item Value Reference Range Interpretation Comments BUN/Creatinine Ratio (test code = 3097-3) 27 6-25 [facility]villeEstimated glomerular filtration rate (GFR) ertquykzvphsn3481-92-00 15:30:00* Test Item Value Reference Range Interpretation Comments Estimat Glomerular Filtration Rate (test code = 839580586) > 60 >60 Ranges were taken from the National Kidney Disease Education Program and the [facility] [employer] literature.Reference ranges:60 or greater: Zgmtkg68-40 ( for 3 consecutive months): Chronic kidney disease 15 or less: Kidney failureVal[facility]villeGlucose anzgutyjvec2721-33-31 15:30:00* Test Item Value Reference Range Interpretation Comments Glucose Level (test code = EJS9733) 79 74-118 [facility] [place] [facility]ener[facility] or plasma calcium measurement (mass/volume)2020-06-28 15:30:00* Test Item Value Reference Range Interpretation Comments Calcium Level (test code = 61281-7) 8.3 8.4-10.2 [facility] or plasma total bilirubin measurement (mass/volume)2020-06-28 15:30:00* Test Item Value Reference Range Interpretation Comments Total Bilirubin (test code = 1975-2) 0.6 0.2-1.2 [facility]villeFluoroscopic procedure less than one hour elhrjgwi4212-08-43 15:30:00* Test Item Value Reference Range Interpretation Comments Aspartate Amino Transf (AST/SGOT) (test code = Aspartate Amino Transf (AST/SGOT)) 43 5-34 [facility]Allenerum or plasma alanine aminotransferase measurement (enzymatic activity/volume)2020-06-28 15:30:00* Test Item Value Reference Range Interpretation Comments Alanine Aminotransferase (ALT/SGPT) (test code = 1742-6) 22 0-55 [facility] or plasma protein measurement (mass/volume)2020-06-28 15:30:00* Test Item Value Reference Range Interpretation Comments Total Protein (test code = 2885-2) 7.3 6.5-8.1 [facility] or plasma albumin measurement (mass/volume)2020-06-28 15:30:00* Test Item Value Reference Range Interpretation Comments Albumin (test code = 1751-7) 3.8 3.5-5.0 [facility]villePlasma globulin measurement (mass/volume) 2020-06-28 15:30:00* Test Item Value Reference Range Interpretation Comments Globulin (test code = 80986-3) 3.5 2.3-3.5 [facility] or plasma albumin/globulin mass xteqg3829-50-11 15:30:00* Test Item Value Reference Range Interpretation Comments Albumin/Globulin Ratio (test code = 1759-0) 1.1 0.8-2.0 [facility] or plasma alkaline phosphatase measurement (enzymatic activity/volume)2020-06-28 15:30:00* Test Item Value Reference Range Interpretation Comments Alkaline Phosphatase (test code = 6768-6) 52 40-150 [facility] Uto-yRtm1963-72-16 15:30:00* Test Item Value Reference Range Interpretation Comments B-Type Natriuretic Peptide (test code = 80678-9) 99.8 0-100 [facility]villeCHEST SINGLE (PORTABLE)2020-03-15 01:18:00 [place] [address] Patient Name: MOUNA DENT MR #: [id number] : 1950 Age/Sex: 69/M Req #: [id number] Adm Physician: Ordered by: VIRGINIA HANNAH MD Report #: [id number] Location: ER Room/Bed: Procedure: [id number] DX/CHES T SINGLE (PORTABLE) Exam Date: 03/15/20 Exam Time: 0 050 REPORT STATUS: Signed EXAMIN ATION: CHEST SINGLE (PORTABLE) COMPARISON: CT chest 12/27/2019 IND ICATION: SOB, HAS COPD 20200315 0050 Y DISCUSSION: Frontal view of the chest obtained at 0053 hours. HEART AND MEDIASTINUM: Stable c ardiomegaly. Mild pulmonary venous congestion and prominence of the pulmonary artery suggestive of pulmonary artery hypertension. LINES: None. LUNGS/PLEURA: Diffuse hyperinflation consistent with COPD/emphysema. Prominent reticular markings in the mid and lower lung zones. No confluent infiltrates. No nodules. No pleural effusion or pneumothorax. BONES AND SOFT TISSUES: No focal osseous lesion. The soft tissues are normal. IMPRESSION: 1 . Cardiomegaly without evidence of CHF. Mild pulmonary venous hypertension. P rominent main pulmonary artery suggestive of pulmonary artery hypertension. 2. Pulmonary hyperinflation suggestive of COPD/emphysema. No acute pulmonary process. Signed by: Dr. Viky Galindo MD on 03/15/2020 1:22 AM Di ctated By: VIKY GALINDO MD 1 Transcribed By: FATOUMATA on 03/15/20121 COPY TO: VIRGINIA NAVARRETE MD Serum or plasma creatine kinase measurement (enzymatic activity/volume)2020-03-15 00:21:00* Test Item Value Reference Range Interpretation Comments Creatine Kinase (test code = 2157-6) 87 30-200 [facility] or plasma creatine kinase MB measurement (mass/volume)2020-03-15 00:21:00* Test Item Value Reference Range Interpretation Comments Creatine Kinase MB (test code = 17900-7) 3.70 0-5.0 [facility] or plasma ethanol measurement (mass/volume)2020-03-15 00:21:00* Test Item Value Reference Range Interpretation Comments Ethyl Alcohol Level (test code = 5643-2) 220.4 0.0-10.0 [facility] [id number] 16:18:00 [facility] [address] [address] Patient Name: MOUNA DENT MR #: [id number] : 1950 Age/Sex: 69/M Req #: [id number] Adm Physician: Ordered by: CAROL HOANG MD Report #: [id number] Location: CT Room/Bed: Procedure: [id number] C T/CT CHEST WO Exam Date: 12/27/19 Exam Time: 1400 REPORT STATUS: Signed EXAM: CT [facility] WITHOUT intravenous contrast 12/27/2019 1:44 PM INDICATION: Pulmonary nodul e COMPARISON: Chest CT 07/20/2019 and 01/20/2018 TECHNIQUE: Chest was scanne d utilizing a multidetector helical scanner from the lung apex through the lev el of the adrenal glands without administration of IV contrast. Coronal and sa gittal reformations were obtained. Routine protocol was performed. IV CON TRAST: None RADIATION DOSE: Total DLP: 271.7 mGy*cm. Dose modulation, iterativ e reconstruction, and/or weight based adjustment of the mA/kV was utilized to reduce the radiation dose to as low as reasonably achievable. COMPLICATIONS : None FINDINGS: LINES/ TUBES: None. LUNGS AND AIRWAYS: The cent ral airways are patent. The lungs are hyperinflated. Moderate upper lobe predo minant centrilobular and paraseptal emphysema. Diffuse bronchial wall thickeni ng. The 5 mm right middle lobe pulmonary nodule (series 3 image 101) appears u nchanged dating back to the CT of 01/20/2018. No new suspicious pulmonary nodul es. Bibasilar dependent subsegmental atelectasis. Areas of subpleural reticula tion and subpleural cystic changes, most notably at the lower lobes. PLEU RA: No pleural effusion or pneumothorax. HEART AND MEDIASTINUM: The thyroid gland is normal. No supraclavicular, axillary, or hilar lymphadenopathy. Pro minent mediastinal lymph nodes do not meet size criteria for lymphadenopathy. Multichamber cardiomegaly. Atherosclerotic calcifications involve the thoracic aorta, coronary arteries, and proximal great vessels. The main pulmonary valerie ry is dilated to 4.3 cm. UPPER ABDOMEN: No acute findings. Evaluation finn ited by streak artifact related to spinal fusion hardware. BONES: Cervica l and thoracic fusion hardware in place. Unchanged loss of anterior vertebral body height at T10 resulting in focal kyphosis at T9-10. No acute osseous inju ry. SOFT TISSUES: Unremarkable. IMPRESSION: Unchanged 5 mm right mi ddle lobe pulmonary nodule appears stable dating back to a CT of 01/20/2018. Gi anjelica 2 year interval stability, this nodule is almost certainly benign and requ ires no further imaging follow-up. Unchanged emphysema and bronchial wall t hickening. Multichamber cardiomegaly. Main pulmonary artery enlargement to 4.3 cm is suggestive of underlying pulmonary arterial hypertension. Diffu se atherosclerotic calcifications including of the coronary arteries. Shaila d by: Janice Colin MD on 12/27/2019 4:28 PM Dictated By: JANICE COLIN MD Louise ctronically Signed By: JANICE COLIN MD on 12/27/191627 Transcribed By: FATOUMATA antonio 12/27/198 COPY TO: CAROL HOANG MD CT CHEST WO 2019-07-20 16:47:00 [place] [address] Patient Name: MOUNA DENT MR #: [id number] : 1950 Age/Sex: 69/M Req #: [id number] Adm Physician: Ordered by: CAROL HOANG MD Report #: [id number] Location: RESP Room/Bed: Procedure: [id number] C T/CT CHEST WO Exam Date: 07/20/19 Exam Time: 1600 REPORT STATUS: Signed Exam: CT [facility] Clinical history: Pulmonary nodule Comparison: CT chest, December 25, 2018 Technique: Helical images of the chest were obtained without contrast DOSE REDUCTION: The exams was performed according to the departmental do se-optimization program which includes automated exposure control, adjustment of the mA and/or kV according to patient size and/or use of iterative reconstr uction technique. Findings: The previously visualized8 mm nodule in the rig ht middle lobe measuring 5 mm today best seen on image 102. Follow-up imaging in 6 months is recommended to in short resolution. Diffuse emphysematous prater es are again noted throughout both lungs most pronounced in the right upper lo be. There is no evidence of pleural effusion or pneumothorax. The cardiac size is within normal limits. The great vessels are normal in caliber and orientat ion. Atherosclerotic calcification of the aorta is noted. Scattered subcentime ter lymph nodes are again noted in the mediastinum without interval change in size. The visualized upper abdominal solid organs are unremarkable. Im pression deformity of the T10 vertebral body along with a spinal rods are agai n noted. Lucency around the pedicle screws of T10 is again appreciated. Imp ression: 1. Interval decrease in the size of the right middle lobe nodule raymond uring 5 mm today. It measured 8 mm previously. Follow-up imaging in 6 months i s recommended. 2. Diffuse emphysematous changes of the lungs again noted. 3. Stable appearing small left pleural effusion versus pleural thickening. 4. Compression deformity of the T10 vertebral body along with lucency surrounding the pedicle screws again noted. Signed by: Dr. Peter Lafleur MD on 9 4:52 PM Dictated By: AIDA LAFLEUR MD 51 Transcribed By: FATOUMATA on 07/20/191651 CO PY TO: CAROL HOANG MD Bedside Kntuppp9441-13-32 08:48:00* Test Item Value Reference Range Interpretation Comments Bedside Glucose (test code = 31267-4) 102 70-120 Meter ID: [id number] Regional Medical Centerside Glucose 2019-01-18 08:48:00* Test Item Value Reference Range Interpretation Comments Bedside Glucose (test code = 49466-4) 102 70-120 Meter ID: [id number] Regional Medical Centerside Glucose 2019-01-18 08:48:00* Test Item Value Reference Range Interpretation Comments Bedside Glucose (test code = 70160-2) 102 70-120 Meter ID: [id number] [facility] McAllenodium Level 2019-01-18 07:14:00* Test Item Value Reference Range Interpretation Comments Sodium Level (test code = 2951-2) 141 136-145 [facility]villePotassium Gmtnf0585-77-17 07:14:00* Test Item Value Reference Range Interpretation Comments Potassium Level (test code = 2823-3) 3.4 3.5-5.1 L [facility] BrownsvilleChloride Bhzzt3609-35-25 07:14:00* Test Item Value Reference Range Interpretation Comments Chloride Level (test code = 2075-0) 104 98-107 [facility] BrownsvilleCarbon Dioxide Npshp6457-47-27 07:14:00* Test Item Value Reference Range Interpretation Comments Carbon Dioxide Level (test code = 2028-9) 27 22-29 [facility] BrownsvilleAnion Igu9814-57-17 07:14:00* Test Item Value Reference Range Interpretation Comments Anion Gap (test code = 11131-6) 13.4 8-16 [facility] BrownsvilleBlood Urea Xesmeurb9610-71-87 07:14:00* Test Item Value Reference Range Interpretation Comments Blood Urea Nitrogen (test code = 3094-0) 37 7-26 H [facility] BrownsvilleCreatinine2019 07:14:00* Test Item Value Reference Range Interpretation Comments Creatinine (test code = 2160-0) 1.09 0.72-1.25 [facility]villeBUN/Creatinine Tvrba8754-17-21 07:14:00* Test Item Value Reference Range Interpretation Comments BUN/Creatinine Ratio (test code = 3097-3) 34 6-25 H [facility] BrownsvilleEstimat Glomerular Filtration Rate 2019-01-18 07:14:00* Test Item Value Reference Range Interpretation Comments Estimat Glomerular Filtration Rate (test code = 994776902) > 60 >60 Ranges were taken from the National Kidney Disease Education Program and the [facility] Kidney Foundation literature.Reference ranges:60 or greater: Ibdzzh47-72 ( for 3 consecutive months): Chronic kidney disease 15 or less: Kidney failureValley Baptist Medical Center – BrownsvilleGlucose Wfgxs1612-79-75 07:14:00* Test Item Value Reference Range Interpretation Comments Glucose Level (test code = SGG4000) 132 74-118 H [facility] BrownsvilleCalcium Rdnuf8355-45-66 07:14:00* Test Item Value Reference Range Interpretation Comments Calcium Level (test code = 24494-7) 9.0 8.4-10.2 [facility] BrownsvilleTotal Qabjylbam2699-37-17 07:14:00* Test Item Value Reference Range Interpretation Comments Total Bilirubin (test code = 1975-2) 0.6 0.2-1.2 [facility] BrownsvilleAspartate Amino Transf (AST/SGOT) 2019-01-18 07:14:00* Test Item Value Reference Range Interpretation Comments Aspartate Amino Transf (AST/SGOT) (test code = Aspartate Amino Transf (AST/SGOT)) 15 5-34 [facility] BrownsvilleAlanine Aminotransferase (ALT/SGPT) 2019-01-18 07:14:00* Test Item Value Reference Range Interpretation Comments Alanine Aminotransferase (ALT/SGPT) (test code = 1742-6) 10 0-55 [facility] BrownsvilleTotal Jryczop4499-78-95 07:14:00* Test Item Value Reference Range Interpretation Comments Total Protein (test code = 2885-2) 6.4 6.5-8.1 L [facility] BrownsvilleAlbumin2019 07:14:00* Test Item Value Reference Range Interpretation Comments Albumin (test code = 1751-7) 2.8 3.5-5.0 L [facility] BrownsvilleGlobulin2019 07:14:00* Test Item Value Reference Range Interpretation Comments Globulin (test code = 46196-7) 3.6 2.3-3.5 H [facility] BrownsvilleAlbumin/Globulin Knlkz3413-28-94 07:14:00 * Test Item Value Reference Range Interpretation Comments Albumin/Globulin Ratio (test code = 1759-0) 0.8 0.8-2.0 [facility] BrownsvilleAlkaline Xnptmuwpfmh6007-80-56 07:14:00* Test Item Value Reference Range Interpretation Comments Alkaline Phosphatase (test code = 6768-6) 46 40-150 [facility] McAllenodium Ucivz1243-79-86 07:14:00* Test Item Value Reference Range Interpretation Comments Sodium Level (test code = 2951-2) 141 136-145 [facility]villePotassium Swkaf5242-93-22 07:14:00* Test Item Value Reference Range Interpretation Comments Potassium Level (test code = 2823-3) 3.4 3.5-5.1 L [facility] BrownsvilleChloride Qdjrk4590-22-34 07:14:00* Test Item Value Reference Range Interpretation Comments Chloride Level (test code = 2075-0) 104 98-107 [facility] BrownsvilleCarbon Dioxide Tzbqo9599-36-32 07:14:00* Test Item Value Reference Range Interpretation Comments Carbon Dioxide Level (test code = 2028-9) 27 22-29 [facility] BrownsvilleAnion Rpn9290-14-52 07:14:00* Test Item Value Reference Range Interpretation Comments Anion Gap (test code = 24534-8) 13.4 8-16 [facility] BrownsvilleBlood Urea Hyhuftqs1084-77-32 07:14:00* Test Item Value Reference Range Interpretation Comments Blood Urea Nitrogen (test code = 3094-0) 37 7-26 H [facility] BrownsvilleCreatinine2019 07:14:00* Test Item Value Reference Range Interpretation Comments Creatinine (test code = 2160-0) 1.09 0.72-1.25 [facility]villeBUN/Creatinine Xgpym9423-16-91 07:14:00* Test Item Value Reference Range Interpretation Comments BUN/Creatinine Ratio (test code = 3097-3) 34 6-25 H [facility] BrownsvilleEstimat Glomerular Filtration Rate 2019-01-18 07:14:00* Test Item Value Reference Range Interpretation Comments Estimat Glomerular Filtration Rate (test code = 040113236) > 60 >60 Ranges were taken from the National Kidney Disease Education Program and the [facility] Kidney Foundation literature.Reference ranges:60 or greater: Ijiuto78-54 ( for 3 consecutive months): Chronic kidney disease 15 or less: Kidney failureValley Baptist Medical Center – BrownsvilleGlucose Vaxle2251-87-62 07:14:00* Test Item Value Reference Range Interpretation Comments Glucose Level (test code = OZH5835) 132 74-118 H [facility] BrownsvilleCalcium Xobjd5641-25-90 07:14:00* Test Item Value Reference Range Interpretation Comments Calcium Level (test code = 50470-5) 9.0 8.4-10.2 [facility] BrownsvilleTotal Ynbfqmcuk9941-24-47 07:14:00* Test Item Value Reference Range Interpretation Comments Total Bilirubin (test code = 1975-2) 0.6 0.2-1.2 [facility] BrownsvilleAspartate Amino Transf (AST/SGOT) 2019-01-18 07:14:00* Test Item Value Reference Range Interpretation Comments Aspartate Amino Transf (AST/SGOT) (test code = Aspartate Amino Transf (AST/SGOT)) 15 5-34 [facility] BrownsvilleAlanine Aminotransferase (ALT/SGPT) 2019-01-18 07:14:00* Test Item Value Reference Range Interpretation Comments Alanine Aminotransferase (ALT/SGPT) (test code = 1742-6) 10 0-55 [facility] BrownsvilleTotal Dqdqkac9506-67-42 07:14:00* Test Item Value Reference Range Interpretation Comments Total Protein (test code = 2885-2) 6.4 6.5-8.1 L [facility] BrownsvilleAlbumin2019 07:14:00* Test Item Value Reference Range Interpretation Comments Albumin (test code = 1751-7) 2.8 3.5-5.0 L [facility] BrownsvilleGlobulin2019 07:14:00* Test Item Value Reference Range Interpretation Comments Globulin (test code = 38845-0) 3.6 2.3-3.5 H [facility] BrownsvilleAlbumin/Globulin Lvmxf7184-50-71 07:14:00 * Test Item Value Reference Range Interpretation Comments Albumin/Globulin Ratio (test code = 1759-0) 0.8 0.8-2.0 [facility] BrownsvilleAlkaline Bhumheummkl4086-90-61 07:14:00* Test Item Value Reference Range Interpretation Comments Alkaline Phosphatase (test code = 6768-6) 46 40-150 [facility] McAllenodium Imfkv5658-46-41 07:14:00* Test Item Value Reference Range Interpretation Comments Sodium Level (test code = 2951-2) 141 136-145 [facility] BrownsvillePotassium Whpfy9788-70-49 07:14:00* Test Item Value Reference Range Interpretation Comments Potassium Level (test code = 2823-3) 3.4 3.5-5.1 L [facility] BrownsvilleChloride Lixth1364-66-90 07:14:00* Test Item Value Reference Range Interpretation Comments Chloride Level (test code = 2075-0) 104 98-107 [facility] BrownsvilleCarbon Dioxide Cstef6862-64-11 07:14:00* Test Item Value Reference Range Interpretation Comments Carbon Dioxide Level (test code = 2028-9) 27 22-29 [facility] BrownsvilleAnion Hvd0424-89-40 07:14:00* Test Item Value Reference Range Interpretation Comments Anion Gap (test code = 15485-9) 13.4 8-16 [facility] BrownsvilleBlood Urea Unznqcew5722-34-14 07:14:00* Test Item Value Reference Range Interpretation Comments Blood Urea Nitrogen (test code = 3094-0) 37 7-26 H [facility] BrownsvilleCreatinine2019 07:14:00* Test Item Value Reference Range Interpretation Comments Creatinine (test code = 2160-0) 1.09 0.72-1.25 [facility]villeBUN/Creatinine Nrali5855-36-63 07:14:00* Test Item Value Reference Range Interpretation Comments BUN/Creatinine Ratio (test code = 3097-3) 34 6-25 H [facility] BrownsvilleEstimat Glomerular Filtration Rate 2019-01-18 07:14:00* Test Item Value Reference Range Interpretation Comments Estimat Glomerular Filtration Rate (test code = 274396303) > 60 >60 Ranges were taken from the National Kidney Disease Education Program and the [facility] Kidney Foundation literature.Reference ranges:60 or greater: Rcdyan45-71 ( for 3 consecutive months): Chronic kidney disease 15 or less: Kidney failureValley Baptist Medical Center – BrownsvilleGlucose Kvaqz8582-06-93 07:14:00* Test Item Value Reference Range Interpretation Comments Glucose Level (test code = XWS8049) 132 74-118 H [facility] BrownsvilleCalcium Euenz3368-40-41 07:14:00* Test Item Value Reference Range Interpretation Comments Calcium Level (test code = 64753-4) 9.0 8.4-10.2 [facility] BrownsvilleTotal Xbjukgjhy6617-46-99 07:14:00* Test Item Value Reference Range Interpretation Comments Total Bilirubin (test code = 1975-2) 0.6 0.2-1.2 [facility] BrownsvilleAspartate Amino Transf (AST/SGOT) 2019-01-18 07:14:00* Test Item Value Reference Range Interpretation Comments Aspartate Amino Transf (AST/SGOT) (test code = Aspartate Amino Transf (AST/SGOT)) 15 5-34 [facility] BrownsvilleAlanine Aminotransferase (ALT/SGPT) 2019-01-18 07:14:00* Test Item Value Reference Range Interpretation Comments Alanine Aminotransferase (ALT/SGPT) (test code = 1742-6) 10 0-55 [facility] BrownsvilleTotal Prfiruw4616-83-41 07:14:00* Test Item Value Reference Range Interpretation Comments Total Protein (test code = 2885-2) 6.4 6.5-8.1 L [facility] BrownsvilleAlbumin2019 07:14:00* Test Item Value Reference Range Interpretation Comments Albumin (test code = 1751-7) 2.8 3.5-5.0 L [facility] BrownsvilleGlobulin2019 07:14:00* Test Item Value Reference Range Interpretation Comments Globulin (test code = 34334-2) 3.6 2.3-3.5 H [facility] BrownsvilleAlbumin/Globulin Kzzbs7600-86-25 07:14:00 * Test Item Value Reference Range Interpretation Comments Albumin/Globulin Ratio (test code = 1759-0) 0.8 0.8-2.0 [facility] BrownsvilleAlkaline Phxkjlqyghr8232-47-19 07:14:00* Test Item Value Reference Range Interpretation Comments Alkaline Phosphatase (test code = 6768-6) 46 40-150 [facility] BrownsvilleWhite Blood Anvwk6455-85-71 06:45:00* Test Item Value Reference Range Interpretation Comments White Blood Count (test code = 6690-2) 7.00 4.8-10.8 [facility] BrownsvilleRed Blood Glrmb0572-09-84 06:45:00* Test Item Value Reference Range Interpretation Comments Red Blood Count (test code = 789-8) 4.54 4.3-5.7 [facility] BrownsvilleHemoglobin2019 06:45:00* Test Item Value Reference Range Interpretation Comments Hemoglobin (test code = 84118-3) 12.9 14.0-18.0 L [facility] BrownsvilleHematocrit2019 06:45:00* Test Item Value Reference Range Interpretation Comments Hematocrit (test code = 4544-3) 40.5 38.2-49.6 [facility] BrownsvilleMean Corpuscular Qfvgqn0814-97-07 06:45:00* Test Item Value Reference Range Interpretation Comments Mean Corpuscular Volume (test code = 787-2) 89.2 81-99 [facility] BrownsvilleMean Corpuscular Fxyxqdfcsd9507-54-49 06:45:00* Test Item Value Reference Range Interpretation Comments Mean Corpuscular Hemoglobin (test code = 785-6) 28.4 28-32 [facility] BrownsvilleMean Corpuscular Hemoglobin Concent 2019-01-18 06:45:00* Test Item Value Reference Range Interpretation Comments Mean Corpuscular Hemoglobin Concent (test code = 786-4) 31.9 31-35 [facility] BrownsvilleRed Cell Distribution Bkmhd3993-20-44 06:45:00* Test Item Value Reference Range Interpretation Comments Red Cell Distribution Width (test code = 12352-8) 15.8 11.7 -14.4 H [facility] BrownsvillePlatelet Nmdlr0425-73-21 06:45:00* Test Item Value Reference Range Interpretation Comments Platelet Count (test code = 777-3) 150 140-360 [facility] BrownsvilleNeutrophils (%) (Auto)2019-01-18 06:45:00 * Test Item Value Reference Range Interpretation Comments Neutrophils (%) (Auto) (test code = 24068-5) 71.2 38.7-80.0 [facility] BrownsvilleLymphocytes (%) (Auto)2019-01-18 06:45:00 * Test Item Value Reference Range Interpretation Comments Lymphocytes (%) (Auto) (test code = 736-9) 14.1 18.0-39.1 L [facility] BrownsvilleMonocytes (%) (Auto)2019-01-18 06:45:00* Test Item Value Reference Range Interpretation Comments Monocytes (%) (Auto) (test code = 5905-5) 14.0 4.4-11.3 H [facility] BrownsvilleEosinophils (%) (Auto)2019-01-18 06:45:00 * Test Item Value Reference Range Interpretation Comments Eosinophils (%) (Auto) (test code = 713-8) 0.0 0.0-6.0 [facility] BrownsvilleBasophils (%) (Auto)2019-01-18 06:45:00* Test Item Value Reference Range Interpretation Comments Basophils (%) (Auto) (test code = 706-2) 0.1 0.0-1.0 [facility]IM [facility]ULOC[facility]TES %2019-01-18 06:45:00* Test Item Value Reference Range Interpretation Comments IM GRANULOCYTES % (test code = IM GRANULOCYTES %) 0.6 0.0- 1.0 [facility]villeNeutrophils # (Auto)2019-01-18 06:45:00* Test Item Value Reference Range Interpretation Comments Neutrophils # (Auto) (test code = 751-8) 5.0 2.1-6.9 [facility]villeLymphocytes # (Auto)2019-01-18 06:45:00* Test Item Value Reference Range Interpretation Comments Lymphocytes # (Auto) (test code = 65224-1) 1.0 1.0-3.2 [facility]villeMonocytes # (Auto)2019-01-18 06:45:00* Test Item Value Reference Range Interpretation Comments Monocytes # (Auto) (test code = 742-7) 1.0 0.2-0.8 H [facility]villeEosinophils # (Auto)2019-01-18 06:45:00* Test Item Value Reference Range Interpretation Comments Eosinophils # (Auto) (test code = 711-2) 0.0 0.0-0.4 [facility]Basophils # (Auto)2019-01-18 06:45:00* Test Item Value Reference Range Interpretation Comments Basophils # (Auto) (test code = 704-7) 0.0 0.0-0.1 [facility]villeAbsolute Immature Granulocyte (auto 2019-01-18 06:45:00* Test Item Value Reference Range Interpretation Comments Absolute Immature Granulocyte (auto (yuliana t code = Absolute Immature Granulocyte (auto) 0.04 0-0.1 [facility]villeWhite Blood Vioqn5828-57-17 06:45:00* Test Item Value Reference Range Interpretation Comments White Blood Count (test code = 6690-2) 7.00 4.8-10.8 [facility]villeRed Blood Trbnc8374-68-35 06:45:00* Test Item Value Reference Range Interpretation Comments Red Blood Count (test code = 789-8) 4.54 4.3-5.7 [facility]villeHemoglobin2019 06:45:00* Test Item Value Reference Range Interpretation Comments Hemoglobin (test code = 60134-8) 12.9 14.0-18.0 L [facility]villeHematocrit2019 06:45:00* Test Item Value Reference Range Interpretation Comments Hematocrit (test code = 4544-3) 40.5 38.2-49.6 [facility]villeMean Corpuscular Kgsdec2743-42-43 06:45:00* Test Item Value Reference Range Interpretation Comments Mean Corpuscular Volume (test code = 787-2) 89.2 81-99 [facility]villeMean Corpuscular Jftribujlz6219-76-55 06:45:00* Test Item Value Reference Range Interpretation Comments Mean Corpuscular Hemoglobin (test code = 785-6) 28.4 28-32 [facility]villeMean Corpuscular Hemoglobin Concent 2019-01-18 06:45:00* Test Item Value Reference Range Interpretation Comments Mean Corpuscular Hemoglobin Concent (test code = 786-4) 31.9 31-35 [facility]villeRed Cell Distribution Aqbtj1511-29-17 06:45:00* Test Item Value Reference Range Interpretation Comments Red Cell Distribution Width (test code = 04478-1) 15.8 11.7 -14.4 H [facility]villePlatelet Utoic0768-58-16 06:45:00* Test Item Value Reference Range Interpretation Comments Platelet Count (test code = 777-3) 150 140-360 [facility]villeNeutrophils (%) (Auto)2019-01-18 06:45:00 * Test Item Value Reference Range Interpretation Comments Neutrophils (%) (Auto) (test code = 79166-3) 71.2 38.7-80.0 [facility]villeLymphocytes (%) (Auto)2019-01-18 06:45:00 * Test Item Value Reference Range Interpretation Comments Lymphocytes (%) (Auto) (test code = 736-9) 14.1 18.0-39.1 L [facility]villeMonocytes (%) (Auto)2019-01-18 06:45:00* Test Item Value Reference Range Interpretation Comments Monocytes (%) (Auto) (test code = 5905-5) 14.0 4.4-11.3 H [facility]villeEosinophils (%) (Auto)2019-01-18 06:45:00 * Test Item Value Reference Range Interpretation Comments Eosinophils (%) (Auto) (test code = 713-8) 0.0 0.0-6.0 [facility]Basophils (%) (Auto)2019-01-18 06:45:00* Test Item Value Reference Range Interpretation Comments Basophils (%) (Auto) (test code = 706-2) 0.1 0.0-1.0 [facility]villeIM GRANULOCYTES %2019-01-18 06:45:00* Test Item Value Reference Range Interpretation Comments IM GRANULOCYTES % (test code = IM GRANULOCYTES %) 0.6 0.0- 1.0 [facility]villeNeutrophils # (Auto)2019-01-18 06:45:00* Test Item Value Reference Range Interpretation Comments Neutrophils # (Auto) (test code = 751-8) 5.0 2.1-6.9 [facility]villeLymphocytes # (Auto)2019-01-18 06:45:00* Test Item Value Reference Range Interpretation Comments Lymphocytes # (Auto) (test code = 22189-4) 1.0 1.0-3.2 [facility]villeMonocytes # (Auto)2019-01-18 06:45:00* Test Item Value Reference Range Interpretation Comments Monocytes # (Auto) (test code = 742-7) 1.0 0.2-0.8 H [facility]villeEosinophils # (Auto)2019-01-18 06:45:00* Test Item Value Reference Range Interpretation Comments Eosinophils # (Auto) (test code = 711-2) 0.0 0.0-0.4 [facility]villeBasophils # (Auto)2019-01-18 06:45:00* Test Item Value Reference Range Interpretation Comments Basophils # (Auto) (test code = 704-7) 0.0 0.0-0.1 [facility]villeAbsolute Immature Granulocyte (auto 2019-01-18 06:45:00* Test Item Value Reference Range Interpretation Comments Absolute Immature Granulocyte (auto (yuliana t code = Absolute Immature Granulocyte (auto) 0.04 0-0.1 [facility]villeWhite Blood Owrof1981-54-52 06:45:00* Test Item Value Reference Range Interpretation Comments White Blood Count (test code = 6690-2) 7.00 4.8-10.8 [facility]villeRed Blood Xykkr5693-90-88 06:45:00* Test Item Value Reference Range Interpretation Comments Red Blood Count (test code = 789-8) 4.54 4.3-5.7 [facility]villeHemoglobin2019 06:45:00* Test Item Value Reference Range Interpretation Comments Hemoglobin (test code = 96300-5) 12.9 14.0-18.0 L [facility]villeHematocrit2019 06:45:00* Test Item Value Reference Range Interpretation Comments Hematocrit (test code = 4544-3) 40.5 38.2-49.6 [facility]villeMean Corpuscular Pmaaei6212-02-38 06:45:00* Test Item Value Reference Range Interpretation Comments Mean Corpuscular Volume (test code = 787-2) 89.2 81-99 [facility]villeMean Corpuscular Ejtsdjufic8358-92-31 06:45:00* Test Item Value Reference Range Interpretation Comments Mean Corpuscular Hemoglobin (test code = 785-6) 28.4 28-32 [facility]villeMean Corpuscular Hemoglobin Concent 2019-01-18 06:45:00* Test Item Value Reference Range Interpretation Comments Mean Corpuscular Hemoglobin Concent (test code = 786-4) 31.9 31-35 [facility]villeRed Cell Distribution Syaag8051-24-76 06:45:00* Test Item Value Reference Range Interpretation Comments Red Cell Distribution Width (test code = 72370-8) 15.8 11.7 -14.4 H [facility]villePlatelet Jkjxg9959-27-11 06:45:00* Test Item Value Reference Range Interpretation Comments Platelet Count (test code = 777-3) 150 140-360 [facility]villeNeutrophils (%) (Auto)2019-01-18 06:45:00 * Test Item Value Reference Range Interpretation Comments Neutrophils (%) (Auto) (test code = 70191-1) 71.2 38.7-80.0 [facility]villeLymphocytes (%) (Auto)2019-01-18 06:45:00 * Test Item Value Reference Range Interpretation Comments Lymphocytes (%) (Auto) (test code = 736-9) 14.1 18.0-39.1 L [facility]villeMonocytes (%) (Auto)2019-01-18 06:45:00* Test Item Value Reference Range Interpretation Comments Monocytes (%) (Auto) (test code = 5905-5) 14.0 4.4-11.3 H [facility]villeEosinophils (%) (Auto)2019-01-18 06:45:00 * Test Item Value Reference Range Interpretation Comments Eosinophils (%) (Auto) (test code = 713-8) 0.0 0.0-6.0 [facility]villeBasophils (%) (Auto)2019-01-18 06:45:00* Test Item Value Reference Range Interpretation Comments Basophils (%) (Auto) (test code = 706-2) 0.1 0.0-1.0 [facility]villeIM GRANULOCYTES %2019-01-18 06:45:00* Test Item Value Reference Range Interpretation Comments IM GRANULOCYTES % (test code = IM GRANULOCYTES %) 0.6 0.0- 1.0 [facility]villeNeutrophils # (Auto)2019-01-18 06:45:00* Test Item Value Reference Range Interpretation Comments Neutrophils # (Auto) (test code = 751-8) 5.0 2.1-6.9 [facility]villeLymphocytes # (Auto)2019-01-18 06:45:00* Test Item Value Reference Range Interpretation Comments Lymphocytes # (Auto) (test code = 77388-6) 1.0 1.0-3.2 [facility]villeMonocytes # (Auto)2019-01-18 06:45:00* Test Item Value Reference Range Interpretation Comments Monocytes # (Auto) (test code = 742-7) 1.0 0.2-0.8 H [facility]villeEosinophils # (Auto)2019-01-18 06:45:00* Test Item Value Reference Range Interpretation Comments Eosinophils # (Auto) (test code = 711-2) 0.0 0.0-0.4 [facility]villeBasophils # (Auto)2019-01-18 06:45:00* Test Item Value Reference Range Interpretation Comments Basophils # (Auto) (test code = 704-7) 0.0 0.0-0.1 [facility]villeAbsolute Immature Granulocyte (auto 2019-01-18 06:45:00* Test Item Value Reference Range Interpretation Comments Absolute Immature Granulocyte (auto (yuliana t code = Absolute Immature Granulocyte (auto) 0.04 0-0.1 [facility]villeMagnesium Smwip6224-32-18 06:20:00* Test Item Value Reference Range Interpretation Comments Magnesium Level (test code = 18066-9) 1.9 1.3-2.1 [facility]villeMagnesium Jlnfl5611-25-01 06:20:00* Test Item Value Reference Range Interpretation Comments Magnesium Level (test code = 70138-0) 1.9 1.3-2.1 [facility]villeMagnesium Sjxim0381-40-07 06:20:00* Test Item Value Reference Range Interpretation Comments Magnesium Level (test code = 52459-0) 1.9 1.3-2.1 [facility]villeCreatine Kinase [id number] 13:55:00* Test Item Value Reference Range Interpretation Comments Creatine Kinase MB (test code = 72652-1) 2.20 0-5.0 [place] 06083019-04-04 13:55:00* Test Item Value Reference Range Interpretation Comments Troponin I (test code = ZWX5199) 0.064 0-0.300 [facility]villeCreatine Kinase [id number] 13:55:00* Test Item Value Reference Range Interpretation Comments Creatine Kinase MB (test code = 22516-0) 2.20 0-5.0 [facility]villeTrcolumbia [facility] K7957-42-47 13:55:00* Test Item Value Reference Range Interpretation Comments Troponin I (test code = QPY6604) 0.064 0-0.300 [facility]villeCreatine Kinase GO8012-91-07 13:55:00* Test Item Value Reference Range Interpretation Comments Creatine Kinase MB (test code = 27059-8) 2.20 0-5.0 [place] 06083019-04-04 13:55:00* Test Item Value Reference Range Interpretation Comments Troponin I (test code = CZF8002) 0.064 0-0.300 [facility]villeCreatine Qsfspi6158-41-98 13:46:00* Test Item Value Reference Range Interpretation Comments Creatine Kinase (test code = 2157-6) 64 30-200 [facility]villeCreatine Ujubuy4280-87-19 13:46:00* Test Item Value Reference Range Interpretation Comments Creatine Kinase (test code = 2157-6) 64 30-200 [facility]villeCreatine Hbwodl9867-54-71 13:46:00* Test Item Value Reference Range Interpretation Comments Creatine Kinase (test code = 2157-6) 64 30-200 [facility] BrownsvilleDixin Brhcy7595-98-81 08:49:00* Test Item Value Reference Range Interpretation Comments Digoxin Level (test code = 80614-7) < 0.30 0.8-2.0 [facility] Mptdj2170-46-63 08:49:00* Test Item Value Reference Range Interpretation Comments Digoxin Level (test code = 20955-7) < 0.30 0.8-2.0 L [facility] Fwnmt2421-53-40 08:49:00* Test Item Value Reference Range Interpretation Comments Digoxin Level (test code = 65099-5) < 0.30 0.8-2.0 L [facility] MarcosCHES SINGLE (PORTABLE)2019-01-14 06:03:00 [facility] [address] [address] Patient Name: MOUNA DENT MR #: [id number] : 1950 Age/Sex: 68/M Req #: [id number] Adm Physician: CHANEL LÓPEZ MD Ordered by: ARISTIDES KELLY MD Report #: [id number] Location: [facility] Room/Bed: [place] [address] Procedure: DX/CHEST SINGLE (PORTABLE) Exam Date: Exam Time: [...] 6:04 AM Dictated By: OPHELIA FELIZ MD [facility] Signed By: OPHELIA FELIZ MD on 01/14/19603 Transcribed By: FATOUMATA on 01/14/19603 COPY TO: ARISTIDES KELLY MD B-Type Natriuretic Zopdqdt9501-36-89 23:51:00* Test Item Value Reference Range Interpretation Comments B-Type Natriuretic Peptide (test code = 12620-0) 874.3 0-100 H [facility]villeB-Type Natriuretic Qvtpdvr5230-16-07 23:51:00* Test Item Value Reference Range Interpretation Comments B-Type Natriuretic Peptide (test code = 06596-3) 874.3 0-100 H [facility]villeB-Type Natriuretic Ahkwgmx3077-96-14 23:51:00* Test Item Value Reference Range Interpretation Comments B-Type Natriuretic Peptide (test code = 91813-9) 874.3 0-100 H [facility]villePlatelet Yhrlncag9530-94-52 17:09:00* Test Item Value Reference Range Interpretation Comments Platelet Estimate (test code = 99577-0) MARKEDLY DECREASED [facility]villePlatelet Morphology Crypiuq4867-09-01 17:09:00* Test Item Value Reference Range Interpretation Comments Platelet Morphology Comment (test code = 02981-5) MODERATE LARGE [facility]villeRed Cell Morphology Rhmvodz2488-09-95 17:09:00* Test Item Value Reference Range Interpretation Comments Red Cell Morphology Comment (test code = 6742-1) NORMAL [facility]villePlatelet Fxmjidie6494-37-53 17:09:00* Test Item Value Reference Range Interpretation Comments Platelet Estimate (test code = 63318-0) MARKEDLY DECREASED [facility] BrownsvillePlatelet Morphology Rpmbhve4808-51-50 17:09:00* Test Item Value Reference Range Interpretation Comments Platelet Morphology Comment (test code = 83371-8) MODERATE LARGE [facility]villeRed Cell Morphology Oyfzmkn9201-21-16 17:09:00* Test Item Value Reference Range Interpretation Comments Red Cell Morphology Comment (test code = 6742-1) NORMAL [facility]villePlatelet Gntbdzaq9850-02-70 17:09:00* Test Item Value Reference Range Interpretation Comments Platelet Estimate (test code = 73770-9) MARKEDLY DECREASED [facility] BrownsvillePlatelet Morphology Rciymdc4023-44-62 17:09:00* Test Item Value Reference Range Interpretation Comments Platelet Morphology Comment (test code = 55279-6) MODERATE LARGE [facility]villeRed Cell Morphology Pawnuid2747-66-06 17:09:00* Test Item Value Reference Range Interpretation Comments Red Cell Morphology Comment (test code = 6742-1) NORMAL [facility]villeCHEST SINGLE (PORTABLE)2019-01-13 15:47:00 [facility] [address] [address] Patient Name: MOUNA DENT MR #: [id number] : 1950 Age/Sex: 68/M Req #: [id number] Adm Physician: Ordered by: ARISTIDES KELLY MD Report #: [id number] Location: ER Room/Bed: Procedure: [id number] D X/CHEST SINGLE (PORTABLE) Exam Date: 01/13/19 [...] 3:51 PM Dictated By: REINA HOPKINS MD 50 Transcribed By: FATOUMATA on 01/13/191550 COPY TO: ARISTIDES KELLY MD Prothrombin Orbz2726-86-31 14:34:00* Test Item Value Reference Range Interpretation Comments Prothrombin Time (test code = 5902-2) 16.2 11.9-14.5 H [facility]villeProthromb Time International Ratio 2019-01-13 14:34:00* Test Item Value Reference Range Interpretation Comments Prothromb Time International Ratio (test code = 6301-6) 1.24 Oral Anticoagulant Therapy INR Values:1. Low Intensity Therapy 1.5 - 2.02 . Moderate Intensity Therapy 2.0 - 3.03. High Intensity Therapy(1) 2.5 - 3. 54. High Intensity Therapy(2) 3.0 - 4.05. Panic Value INR > 5.0 [facility] BrownsvilleActivated Partial Thromboplast Time 2019-01-13 14:34:00* Test Item Value Reference Range Interpretation Comments Activated Partial Thromboplast Time (test code = 29267-1) 39.7 23.8-35.5 H [facility]villeProthrombin Hdpm4104-69-90 14:34:00* Test Item Value Reference Range Interpretation Comments Prothrombin Time (test code = 5902-2) 16.2 11.9-14.5 H [facility] BrownsvilleProthromb Time International Ratio 2019-01-13 14:34:00* Test Item Value Reference Range Interpretation Comments Prothromb Time International Ratio (test code = 6301-6) 1.24 Oral Anticoagulant Therapy INR Values:1. Low Intensity Therapy 1.5 - 2.02 . Moderate Intensity Therapy 2.0 - 3.03. High Intensity Therapy(1) 2.5 - 3. 54. High Intensity Therapy(2) 3.0 - 4.05. Panic Value INR > 5.0 [facility]villeActivated Partial Thromboplast Time 2019-01-13 14:34:00* Test Item Value Reference Range Interpretation Comments Activated Partial Thromboplast Time (test code = 51028-2) 39.7 23.8-35.5 H [facility]villeProthrombin Hmbm9033-31-43 14:34:00* Test Item Value Reference Range Interpretation Comments Prothrombin Time (test code = 5902-2) 16.2 11.9-14.5 H [facility]villeProthromb Time International Ratio 2019-01-13 14:34:00* Test Item Value Reference Range Interpretation Comments Prothromb Time International Ratio (test code = 6301-6) 1.24 Oral Anticoagulant Therapy INR Values:1. Low Intensity Therapy 1.5 - 2.02 . Moderate Intensity Therapy 2.0 - 3.03. High Intensity Therapy(1) 2.5 - 3. 54. High Intensity Therapy(2) 3.0 - 4.05. Panic Value INR > 5.0 [facility]villeActivated Partial Thromboplast Time 2019-01-13 14:34:00* Test Item Value Reference Range Interpretation Comments Activated Partial Thromboplast Time (test code = 16752-6) 39.7 23.8-35.5 H [facility]villeArterial Blood [id number] 14:12:00* Test Item Value Reference Range Interpretation Comments Arterial Blood pH (test code = 2744-1) 7.34 7.31-7.41 [facility]villeArterial Blood Partial Pressure CO2 2019-01-13 14:12:00* Test Item Value Reference Range Interpretation Comments Arterial Blood Partial Pressure CO2 (test code = 2019-8) 46 41-51 [facility]villeArterial Blood Partial Pressure O2 2019-01-13 14:12:00* Test Item Value Reference Range Interpretation Comments Arterial Blood Partial Pressure O2 (test code = 2018-8) 318 80-105 H [facility]villeArterial Blood [id number] 14:12:00* Test Item Value Reference Range Interpretation Comments Arterial Blood HCO3 (test code = 1960-4) 25 23-28 [facility]villeArterial Blood Base Batqwp9228-26-30 14:12:00* Test Item Value Reference Range Interpretation Comments Arterial Blood Base Excess (test code = 1925-7) 0.0 -2-3 [facility]villeArterial Blood Oxygen Saturation 2019-01-13 14:12:00* Test Item Value Reference Range Interpretation Comments Arterial Blood Oxygen Saturation (test code = 2708-6) 100.0 95-98 H [facility] BrownsvilleFiO22019-04-03 14:12:00* Test Item Value Reference Range Interpretation Comments FiO2 (test code = FiO2) 100 [facility] Blood [id number] 14:12:00* Test Item Value Reference Range Interpretation Comments Arterial Blood pH (test code = 2744-1) 7.34 7.31-7.41 [facility]villeArterial Blood Partial Pressure CO2 2019-01-13 14:12:00* Test Item Value Reference Range Interpretation Comments Arterial Blood Partial Pressure CO2 (test code = 2018-8) 46 41-51 [facility]villeArterial Blood Partial Pressure O2 2019-01-13 14:12:00* Test Item Value Reference Range Interpretation Comments Arterial Blood Partial Pressure O2 (test code = 2018-8) 318 80-105 H [facility] Blood [id number] 14:12:00* Test Item Value Reference Range Interpretation Comments Arterial Blood HCO3 (test code = 1960-4) 25 23-28 [facility] Base Myrehe7025-86-71 14:12:00* Test Item Value Reference Range Interpretation Comments Arterial Blood Base Excess (test code = 1925-7) 0.0 -2-3 [facility]villeArterial Blood Oxygen Saturation 2019-01-13 14:12:00* Test Item Value Reference Range Interpretation Comments Arterial Blood Oxygen Saturation (test code = 2708-6) 100.0 95-98 H [facility] BrownsvilleFiO22019-04-03 14:12:00* Test Item Value Reference Range Interpretation Comments FiO2 (test code = FiO2) 100 [facility] Blood [id number] 14:12:00* Test Item Value Reference Range Interpretation Comments Arterial Blood pH (test code = 2744-1) 7.34 7.31-7.41 [facility]villeArterial Blood Partial Pressure CO2 2019-01-13 14:12:00* Test Item Value Reference Range Interpretation Comments Arterial Blood Partial Pressure CO2 (test code = 2019-05) 46 41-51 [facility]villeArterial Blood Partial Pressure O2 2019-01-13 14:12:00* Test Item Value Reference Range Interpretation Comments Arterial Blood Partial Pressure O2 (test code = 2019-05) 318 80-105 H [facility]villeArterial Blood JKP99987-68-12 14:12:00* Test Item Value Reference Range Interpretation Comments Arterial Blood HCO3 (test code = 1960-4) 25 23-28 [facility]villeArterial Blood Base Dqevdi2364-62-07 14:12:00* Test Item Value Reference Range Interpretation Comments Arterial Blood Base Excess (test code = 1925-7) 0.0 -2-3 [facility]villeArterial Blood Oxygen Saturation 2019-01-13 14:12:00* Test Item Value Reference Range Interpretation Comments Arterial Blood Oxygen Saturation (test code = 2708-6) 100.0 95-98 H [facility] BrownsvilleFiO22019-04-03 14:12:00* Test Item Value Reference Range Interpretation Comments FiO2 (test code = FiO2) 100 [facility]villeCT CHEST [id number] 15:32:00 [place] [address] Patient Name: MOUNA DENT MR #: [id number] : 1950 Age/Sex: 68/M Req #: [id number] Adm Physician: Ordered by: CAROL HOANG MD Report #: [id number] Location: [place] Room/Bed: Procedure: [id number] C T/CT CHEST WO Exam Date: 12/25/18 Exam Time: 1250 REPORT STATUS: Signed EXAM: CT [address] WITHOUT contrast 12/25/2018 12:47 PM INDICATION: Pulmonary [...] fracture at T10. A screw extending into T1 0 shows adjacent lucency which may indicate loosening. Cervical fusion hardwar e is partially visualized. SOFT TISSUES: Superficial surrounding soft tis richard unremarkable. IMPRESSION: 1. Nodules previously noted in the righ t lower lobe are no longer seen and [...] surrounding the stabilization screw. Signed by: Dr. Aristides Gil M.D. on 12/25/2018 4:00 PM Dictated By: ARISTIDES GIL MD 1600 Transcribed By: FATOUMATA on 12/25/18 1600 COPY TO: CAROL HOANG MD Blood Wmxjopn7618-10-07 16:14:00* Test Item Value Reference Range Interpretation Comments Blood Culture (test code = 25595686) NO GROWTH AFTER 5 DAYS, FINAL REPORT [facility]villeBlood Oteveva8299-00-01 16:14:00* Test Item Value Reference Range Interpretation Comments Blood Culture (test code = 78282087) NO GROWTH AFTER 5 DAYS, FINAL REPORT [facility] Dkfevnw5064-99-25 16:14:00* Test Item Value Reference Range Interpretation Comments Blood Culture (test code = 58417987) NO GROWTH AFTER 72 HOURS [facility] Vujgw1060-51-77 06:33:00* Test Item Value Reference Range Interpretation Comments Sodium Level (test code = 2951-2) 138 136-145 [facility]villePotassium Inknj4294-06-54 06:33:00* Test Item Value Reference Range Interpretation Comments Potassium Level (test code = 2823-3) 4.3 3.5-5.1 [facility]villeChloride Wvdqj2644-68-86 06:33:00* Test Item Value Reference Range Interpretation Comments Chloride Level (test code = 2075-0) 99 98-107 [facility]villeCarbon Dioxide Uoxwv2983-12-18 06:33:00* Test Item Value Reference Range Interpretation Comments Carbon Dioxide Level (test code = 2028-9) 29 22-29 [facility]villeAnion Wpu4549-75-26 06:33:00* Test Item Value Reference Range Interpretation Comments Anion Gap (test code = 86098-9) 14.3 8-16 [facility]villeBlood Urea Syirmpci7304-83-80 06:33:00* Test Item Value Reference Range Interpretation Comments Blood Urea Nitrogen (test code = 3094-0) 27 7-26 H [facility]villeCreatinine2019-01-24 06:33:00* Test Item Value Reference Range Interpretation Comments Creatinine (test code = 2160-0) 1.46 0.72-1.25 H [facility]villeBUN/Creatinine Zvrjd9724-95-79 06:33:00* Test Item Value Reference Range Interpretation Comments BUN/Creatinine Ratio (test code = 3097-3) 18 6-25 [facility] BrownsvilleEstimat Glomerular Filtration Rate 2018-11-05 06:33:00* Test Item Value Reference Range Interpretation Comments Estimat Glomerular Filtration Rate (test code = 279502370) 48 >60 L Ranges were taken from the National Kidney Disease Education Program and the [facility] care[facility] [employer] literature.Reference ranges:60 or greater: Lvcwqm89-64 ( for 3 consecutive months): Chronic kidney disease 15 or less: Kidney failureVal[facility] BrownsvilleGlucose Aggzw9468-68-69 06:33:00* Test Item Value Reference Range Interpretation Comments Glucose Level (test code = YKT8691) 191 74-118 H [facility]villeCalcium Ieiyn2359-15-38 06:33:00* Test Item Value Reference Range Interpretation Comments Calcium Level (test code = 56330-4) 9.2 8.4-10.2 [facility]villeTotal Kccwoqipe3347-89-59 06:33:00* Test Item Value Reference Range Interpretation Comments Total Bilirubin (test code = 1975-2) 1.0 0.2-1.2 [facility] BrownsvilleAspartate Amino Transf (AST/SGOT) 2018-11-05 06:33:00* Test Item Value Reference Range Interpretation Comments Aspartate Amino Transf (AST/SGOT) (test code = Aspartate Amino Transf (AST/SGOT)) 33 5-34 [facility]villeAlanine Aminotransferase (ALT/SGPT) 2018-11-05 06:33:00* Test Item Value Reference Range Interpretation Comments Alanine Aminotransferase (ALT/SGPT) (test code = 1742-6) 15 0-55 [facility]villeTotal Ckpxjca8395-28-32 06:33:00* Test Item Value Reference Range Interpretation Comments Total Protein (test code = 2885-2) 6.7 6.5-8.1 [facility] BrownsvilleAlbumin2019-01-24 06:33:00* Test Item Value Reference Range Interpretation Comments Albumin (test code = 1751-7) 3.2 3.5-5.0 L [facility] BrownsvilleGlobulin2019-01-24 06:33:00* Test Item Value Reference Range Interpretation Comments Globulin (test code = 16752-3) 3.5 2.3-3.5 [facility]villeAlbumin/Globulin Ovdgy4309-44-70 06:33:00 * Test Item Value Reference Range Interpretation Comments Albumin/Globulin Ratio (test code = 1759-0) 0.9 0.8-2.0 [facility]villeAlkaline Rsiggprasef2292-09-41 06:33:00* Test Item Value Reference Range Interpretation Comments Alkaline Phosphatase (test code = 6768-6) 41 40-150 [facility] BrownsvilleUS RENAL RETROPERITONEAL ZSEY9325-70-81 13:37:00 [facility] [address] [place] [address] Patient Name: MOUNA DENT MR #: [id number] : 1950 Age/Sex: 68/M Req #: [id number] Adm Physician: KAITLIN ODOM MD Ordered by: NURIS MURRAY, ALYSIA MURRAY Report #: [id number] Location: MED/SURG Room/Bed: [facility] Procedure: [id number] US /US RENAL RETROPERITONEAL COMP Exam Date: [...] COPY TO: ALYSIA LAWLER Urine Random Total Odnvwry8750-24-18 12:11:00* Test Item Value Reference Range Interpretation Comments Urine Random Total Protein (test code = 2888-6) 8.0 1-14 [facility]villeUrine Jneolrydsy4982-38-43 12:11:00* Test Item Value Reference Range Interpretation Comments Urine Creatinine (test code = 2161-8) 24.93 63-166 L [facility]villeUrine Protein/Creatinine Pukxw0213-20-16 12:11:00* Test Item Value Reference Range Interpretation Comments Urine Protein/Creatinine Ratio (test code = 37237-1) 0.00 [facility]villeUrine Random Total Mcbyjwz9237-10-68 12:11:00* Test Item Value Reference Range Interpretation Comments Urine Random Total Protein (test code = 2888-6) 8.0 -14 [facility]villeUrine Kugtxkyqaw8106-09-16 12:11:00* Test Item Value Reference Range Interpretation Comments Urine Creatinine (test code = 2161-8) 24.93 63-166 L [facility] Protein/Creatinine Xzycf4554-87-85 12:11:00* Test Item Value Reference Range Interpretation Comments Urine Protein/Creatinine Ratio (test code = 11886-6) 0.00 [facility] Random Total Vqrdplx1685-78-48 12:11:00* Test Item Value Reference Range Interpretation Comments Urine Random Total Protein (test code = 2888-6) 8.0 -14 [facility]villeUrine Anhurwrvma9451-78-63 12:11:00* Test Item Value Reference Range Interpretation Comments Urine Creatinine (test code = 2161-8) 24.93 63-166 L [facility] Protein/Creatinine Famog2448-39-01 12:11:00* Test Item Value Reference Range Interpretation Comments Urine Protein/Creatinine Ratio (test code = 80419-7) 0.00 [facility]villeUrine BLZ7845-82-97 11:52:00* Test Item Value Reference Range Interpretation Comments Urine WBC (test code = 5821-4) 0-5 0-5 [facility]villeUrine VKR5003-42-92 11:52:00* Test Item Value Reference Range Interpretation Comments Urine RBC (test code = 43116-2) 0-5 0-5 [facility]villeUrine Wcnisbjb3796-17-68 11:52:00* Test Item Value Reference Range Interpretation Comments Urine Bacteria (test code = 36991-8) RARE NONE [facility]villeUrine Epithelial Ueskg9376-01-66 11:52:00 * Test Item Value Reference Range Interpretation Comments Urine Epithelial Cells (test code = 94705-6) RARE NONE [facility]villeUrine Transitional Epithelial Cells 2018-11-04 11:52:00* Test Item Value Reference Range Interpretation Comments Urine Transitional Epithelial Cells (test code = 8249-5) RARE NONE [facility]villeUrine ETQ1706-12-82 11:52:00* Test Item Value Reference Range Interpretation Comments Urine WBC (test code = 5821-4) 0-5 0-5 [facility] NWF6577-66-05 11:52:00* Test Item Value Reference Range Interpretation Comments Urine RBC (test code = 79236-2) 0-5 0-5 [facility] Fcwqfruy8101-83-06 11:52:00* Test Item Value Reference Range Interpretation Comments Urine Bacteria (test code = 59317-5) RARE NONE [facility] Epithelial Izbrq5485-01-84 11:52:00 * Test Item Value Reference Range Interpretation Comments Urine Epithelial Cells (test code = 68080-2) RARE NONE [facility] Transitional Epithelial Cells 2018-11-04 11:52:00* Test Item Value Reference Range Interpretation Comments Urine Transitional Epithelial Cells (test code = 8249-5) RARE NONE [facility] OLB7442-16-10 11:52:00* Test Item Value Reference Range Interpretation Comments Urine WBC (test code = 5821-4) 0-5 0-5 [facility] MJK1232-41-03 11:52:00* Test Item Value Reference Range Interpretation Comments Urine RBC (test code = 94967-8) 0-5 0-5 [facility] Rjxsfnru9308-78-29 11:52:00* Test Item Value Reference Range Interpretation Comments Urine Bacteria (test code = 38407-3) RARE NONE [facility] Epithelial Ztftk5286-50-45 11:52:00 * Test Item Value Reference Range Interpretation Comments Urine Epithelial Cells (test code = 16802-4) RARE NONE [facility]villeU[facility] Transitional Epithelial Cells 2018-11-04 11:52:00* Test Item Value Reference Range Interpretation Comments Urine Transitional Epithelial Cells (test code = 8249-5) RARE NONE [facility] Wcnhx2798-50-74 11:33:00* Test Item Value Reference Range Interpretation Comments Urine Color (test code = 5778-6) YELLOW YELLOW [facility]villeUrine Wsnhgma0998-64-93 11:33:00* Test Item Value Reference Range Interpretation Comments Urine Clarity (test code = 23226-5) CLEAR CLEAR [facility]villeU[facility] Specific Thndwgy4070-90-35 11:33:00 * Test Item Value Reference Range Interpretation Comments Urine Specific [place] (test code = 5811-5) 1.015 1.010-1.02 5 [facility]villeUrine lP7826-61-96 11:33:00* Test Item Value Reference Range Interpretation Comments Urine pH (test code = 54768-9) 7 5-7 [facility]villeU[facility] Leukocyte Sqseneor6107-02-26 11:33:00* Test Item Value Reference Range Interpretation Comments Urine Leukocyte Esterase (test code = 5799-2) NEGATIVE NEGATIVE [facility] Qtwqotc7976-32-25 11:33:00* Test Item Value Reference Range Interpretation Comments Urine Nitrite (test code = 67367-5) NEGATIVE NEGATIVE [facility]villeU[facility] Mdatdhu0881-33-25 11:33:00* Test Item Value Reference Range Interpretation Comments Urine Protein (test code = 5804-0) NEGATIVE NEGATIVE [facility] Glucose (UA)2018-11-04 11:33:00* Test Item Value Reference Range Interpretation Comments Urine Glucose (UA) (test code = 2349-9) NEGATIVE NEGATIVE [facility]villeU[facility] Ymqmoxf8601-21-17 11:33:00* Test Item Value Reference Range Interpretation Comments Urine Ketones (test code = 88565-3) NEGATIVE NEGATIVE [facility] Dcxolyirquwu5831-33-16 11:33:00* Test Item Value Reference Range Interpretation Comments Urine Urobilinogen (test code = 11926-2) 0.2 0.2-1 [facility]villeU[facility] Mnqfgulpc5804-49-76 11:33:00* Test Item Value Reference Range Interpretation Comments Urine Bilirubin (test code = 1978-6) NEGATIVE NEGATIVE [facility]villeU[facility] Xngzq3428-23-13 11:33:00* Test Item Value Reference Range Interpretation Comments Urine Blood (test code = 39564-7) TRACE NEGATIVE H [facility]villeUrine Kjyfm6154-99-33 11:33:00* Test Item Value Reference Range Interpretation Comments Urine Color (test code = 5778-6) YELLOW YELLOW [facility]villeU[facility] Ysckeot9693-30-11 11:33:00* Test Item Value Reference Range Interpretation Comments Urine Clarity (test code = 99570-6) CLEAR CLEAR [facility]villeU[facility] Specific Qxatlwg1523-60-74 11:33:00 * Test Item Value Reference Range Interpretation Comments Urine Specific [place] (test code = 5811-5) 1.015 1.010-1.02 5 [facility]villeU[facility] cE4530-78-89 11:33:00* Test Item Value Reference Range Interpretation Comments Urine pH (test code = 58003-3) 7 5-7 [facility]villeU[facility] Leukocyte Czrdjcph5437-67-34 11:33:00* Test Item Value Reference Range Interpretation Comments Urine Leukocyte Esterase (test code = 5799-2) NEGATIVE NEGATIVE [facility]villeU[facility] Qysfeom6036-54-83 11:33:00* Test Item Value Reference Range Interpretation Comments Urine Nitrite (test code = 93608-7) NEGATIVE NEGATIVE [facility]villeU[facility] Usglzsh1352-69-21 11:33:00* Test Item Value Reference Range Interpretation Comments Urine Protein (test code = 5804-0) NEGATIVE NEGATIVE [facility]villeU[facility] Glucose (UA)2018-11-04 11:33:00* Test Item Value Reference Range Interpretation Comments Urine Glucose (UA) (test code = 2349-9) NEGATIVE NEGATIVE [facility]villeU[facility] Tmbfcjp9573-49-96 11:33:00* Test Item Value Reference Range Interpretation Comments Urine Ketones (test code = 32653-4) NEGATIVE NEGATIVE [facility]villeU[facility] Qzcddtugedsy4356-70-55 11:33:00* Test Item Value Reference Range Interpretation Comments Urine Urobilinogen (test code = 11284-8) 0.2 0.2-1 [facility]villeU[facility] Rqpbcfoqg6140-01-01 11:33:00* Test Item Value Reference Range Interpretation Comments Urine Bilirubin (test code = 1978-6) NEGATIVE NEGATIVE [facility]villeU[facility] Ggkqe9278-55-19 11:33:00* Test Item Value Reference Range Interpretation Comments Urine Blood (test code = 44106-0) TRACE NEGATIVE H [facility]villeUrine Dwnby0188-61-69 11:33:00* Test Item Value Reference Range Interpretation Comments Urine Color (test code = 5778-6) YELLOW YELLOW [facility]villeU[facility] Lpmfsls1826-83-84 11:33:00* Test Item Value Reference Range Interpretation Comments Urine Clarity (test code = 63173-4) CLEAR CLEAR [facility]villeU[facility] Specific Ftcbtej2371-21-92 11:33:00 * Test Item Value Reference Range Interpretation Comments Urine Specific [place] (test code = 5811-5) 1.015 1.010-1.02 5 [facility]villeU[facility] tI7566-37-11 11:33:00* Test Item Value Reference Range Interpretation Comments Urine pH (test code = 89927-6) 7 5-7 [facility]villeU[facility] Leukocyte Uaqtgmhr4580-81-62 11:33:00* Test Item Value Reference Range Interpretation Comments Urine Leukocyte Esterase (test code = 5799-2) NEGATIVE NEGATIVE [facility]villeU[facility] Bufuvjn5483-54-65 11:33:00* Test Item Value Reference Range Interpretation Comments Urine Nitrite (test code = 28711-5) NEGATIVE NEGATIVE [facility]villeU[facility] Ifvbfop7600-54-54 11:33:00* Test Item Value Reference Range Interpretation Comments Urine Protein (test code = 5804-0) NEGATIVE NEGATIVE [facility]villeU[facility] Glucose (UA)2018-11-04 11:33:00* Test Item Value Reference Range Interpretation Comments Urine Glucose (UA) (test code = 2349-9) NEGATIVE NEGATIVE [facility]villeUrine Aqwdwom1963-94-44 11:33:00* Test Item Value Reference Range Interpretation Comments Urine Ketones (test code = 06988-5) NEGATIVE NEGATIVE [facility]villeUrine Vvivgshgcswt5276-14-52 11:33:00* Test Item Value Reference Range Interpretation Comments Urine Urobilinogen (test code = 84578-7) 0.2 0.2-1 [facility]villeUrine Vebtykxih7788-38-62 11:33:00* Test Item Value Reference Range Interpretation Comments Urine Bilirubin (test code = 1978-6) NEGATIVE NEGATIVE [facility]villeUrine Olngy6587-80-86 11:33:00* Test Item Value Reference Range Interpretation Comments Urine Blood (test code = 61191-8) TRACE NEGATIVE H [facility] BrownsvilleUric Pxbr8301-48-40 10:51:00* Test Item Value Reference Range Interpretation Comments Uric Acid (test code = 3084-1) 7.2 4.8-8.0 [facility] BrownsvilleUric Fxhf7922-13-89 10:51:00* Test Item Value Reference Range Interpretation Comments Uric Acid (test code = 3084-1) 7.2 4.8-8.0 [facility]villeUric Bmet9016-65-05 10:51:00* Test Item Value Reference Range Interpretation Comments Uric Acid (test code = 3084-1) 7.2 4.8-8.0 [facility] BrownsvilleWhite Blood Uoxut4040-26-71 06:18:00* Test Item Value Reference Range Interpretation Comments White Blood Count (test code = 6690-2) 3.18 4.8-10.8 L [facility] BrownsvilleRed Blood Blqjs2112-31-69 06:18:00* Test Item Value Reference Range Interpretation Comments Red Blood Count (test code = 789-8) 4.34 4.3-5.7 [facility]villeHemoglobin2019-01-23 06:18:00* Test Item Value Reference Range Interpretation Comments Hemoglobin (test code = 46906-7) 13.1 14.0-18.0 L [facility] BrownsvilleHematocrit2019-01-23 06:18:00* Test Item Value Reference Range Interpretation Comments Hematocrit (test code = 4544-3) 40.1 38.2-49.6 [facility] BrownsvilleMean Corpuscular Sotfye2974-96-66 06:18:00* Test Item Value Reference Range Interpretation Comments Mean Corpuscular Volume (test code = 787-2) 92.4 81-99 [facility] BrownsvilleMean Corpuscular Nhwyajeanq3491-03-90 06:18:00* Test Item Value Reference Range Interpretation Comments Mean Corpuscular Hemoglobin (test code = 785-6) 30.2 28-32 [facility] BrownsvilleMean Corpuscular Hemoglobin Concent 2018-11-04 06:18:00* Test Item Value Reference Range Interpretation Comments Mean Corpuscular Hemoglobin Concent (test code = 786-4) 32.7 31-35 [facility] BrownsvilleRed Cell Distribution Ofrah9696-91-46 06:18:00* Test Item Value Reference Range Interpretation Comments Red Cell Distribution Width (test code = 42880-3) 16.1 11.7 -14.4 H [facility] BrownsvillePlatelet Gxpqn4761-00-61 06:18:00* Test Item Value Reference Range Interpretation Comments Platelet Count (test code = 777-3) 136 140-360 L [facility] BrownsvilleNeutrophils (%) (Auto)2018-11-04 06:18:00 * Test Item Value Reference Range Interpretation Comments Neutrophils (%) (Auto) (test code = 75849-7) 56.3 38.7-80.0 [facility] BrownsvilleLymphocytes (%) (Auto)2018-11-04 06:18:00 * Test Item Value Reference Range Interpretation Comments Lymphocytes (%) (Auto) (test code = 736-9) 36.2 18.0-39.1 [facility]villeMonocytes (%) (Auto)2018-11-04 06:18:00* Test Item Value Reference Range Interpretation Comments Monocytes (%) (Auto) (test code = 5905-5) 6.6 4.4-11.3 [facility]villeEosinophils (%) (Auto)2018-11-04 06:18:00 * Test Item Value Reference Range Interpretation Comments Eosinophils (%) (Auto) (test code = 713-8) 0.0 0.0-6.0 [facility]villeBasophils (%) (Auto)2018-11-04 06:18:00* Test Item Value Reference Range Interpretation Comments Basophils (%) (Auto) (test code = 706-2) 0.0 0.0-1.0 [facility] BrownsvilleIM GRANULOCYTES %2018-11-04 06:18:00* Test Item Value Reference Range Interpretation Comments IM GRANULOCYTES % (test code = IM GRANULOCYTES %) 0.9 0.0- 1.0 [facility] BrownsvilleNeutrophils # (Auto)2018-11-04 06:18:00* Test Item Value Reference Range Interpretation Comments Neutrophils # (Auto) (test code = 751-8) 1.8 2.1-6.9 L [facility] BrownsvilleLymphocytes # (Auto)2018-11-04 06:18:00* Test Item Value Reference Range Interpretation Comments Lymphocytes # (Auto) (test code = 11072-3) 1.2 1.0-3.2 [facility]villeMonocytes # (Auto)2018-11-04 06:18:00* Test Item Value Reference Range Interpretation Comments Monocytes # (Auto) (test code = 742-7) 0.2 0.2-0.8 [facility]villeEosinophils # (Auto)2018-11-04 06:18:00* Test Item Value Reference Range Interpretation Comments Eosinophils # (Auto) (test code = 711-2) 0.0 0.0-0.4 [facility]villeBasophils # (Auto)2018-11-04 06:18:00* Test Item Value Reference Range Interpretation Comments Basophils # (Auto) (test code = 704-7) 0.0 0.0-0.1 [facility] BrownsvilleAbsolute Immature Granulocyte (auto 2018-11-04 06:18:00* Test Item Value Reference Range Interpretation Comments Absolute Immature Granulocyte (auto (yuliana t code = Absolute Immature Granulocyte (auto) 0.03 0-0.1 [facility] BrownsvilleCreatine Kinase OI8819-20-05 18:18:00* Test Item Value Reference Range Interpretation Comments Creatine Kinase MB (test code = 54596-9) 2.00 0-5.0 [facility] BrownsvilleTroponin G9616-40-93 18:18:00* Test Item Value Reference Range Interpretation Comments Troponin I (test code = SVR5159) 0.037 0-0.300 [facility] BrownsvilleCreatine Uyhmcg2299-28-46 18:11:00* Test Item Value Reference Range Interpretation Comments Creatine Kinase (test code = 2157-6) 80 30-200 [facility] BrownsvilleUS RENAL RETROPERITONEAL TSJO1838-32-19 16:41:00 [facility] [address] [address] Patient Name: MOUNA DENT MR #: [id number] : 1950 Age/Sex: 68/M Req #: [id number] [facility] Physician: KAITLIN ODOM MD Ordered by: KAITLIN ODOM MD Report #: [id number] Location: MED/SURG Room/Bed: [facility] Procedure: [id number] US/US RENAL RETROPERITONEAL COMP Exam Date: 11/03/18 Exam Time: 1551 REPORT STATUS: Signed EXAM: Renal Ultrasound INDICATION: Acute renal insufficiency. COM PARISON: None TECHNIQUE: Transverse and longitudinal images of the kidneys and bladder were obtained. FINDINGS: Right Kidney: Length : Measures 11.2 x 6.4 x 5.9 cm [...] COPY TO: KAITLIN ODOM MD CT CHEST RM2928-99-16 12:38:[address] [place] [address] Patient Name: MOUNA DENT MR #: [id number] : 1950 Age/Sex: 68/M Req #: [id number] Adm Physician: KAITLIN ODOM MD Ordered by: CAROL HOANG MD Report #: [id number] Location: MED/SURG Room/Bed: [facility] Procedure: [id number] C T/CT CHEST WO Exam Date: 11/03/18 Exam Time: 1200 REPORT STATUS: Signed EXAM: CT [address] WITHOUT contrast INDICATION: Shortness of breath. COMPARISON: [facility] t CT dated 01/20/2018. TECHNIQUE: Chest was [...] is similar to the prior study however abuttin g this nodule, there is a new 1 [...] 1256 COPY TO: CAROL HOANG MD Triglycerides Jqywj1873-08-48 08:41:00* Test Item Value Reference Range Interpretation Comments Triglycerides Level (test code = 2571-8) 79 0-149 [facility] BrownsvilleCholesterol Otpep4794-18-52 08:41:00* Test Item Value Reference Range Interpretation Comments Cholesterol Level (test code = 2093-3) 159 0-199 Less than 200 mg/dL Low Ehoz788 - 239 mg/dL Borderline Gjcv369 m g/dl and greater High Risk [facility] BrownsvilleLDL Dpylltguevl6798-00-40 08:41:00* Test Item Value Reference Range Interpretation Comments LDL Cholesterol (test code = 2089-1) 86 60-130 [facility] BrownsvilleHDL Orsddcvccrq3656-97-98 08:41:00* Test Item Value Reference Range Interpretation Comments HDL Cholesterol (test code = 2085-9) 57 40-60 [facility]villeCholesterol/HDL Dpezt8550-11-29 08:41:00 * Test Item Value Reference Range Interpretation Comments Cholesterol/HDL Ratio (test code = 9830-1) 2.8 3.9-4.7 L [facility] BrownsvilleTriglycerides Oltbc7552-60-48 08:41:00* Test Item Value Reference Range Interpretation Comments Triglycerides Level (test code = 2571-8) 79 0-149 [facility] BrownsvilleCholesterol Erbhv9893-37-28 08:41:00* Test Item Value Reference Range Interpretation Comments Cholesterol Level (test code = 2093-3) 159 0-199 Less than 200 mg/dL Low Jggo642 - 239 mg/dL Borderline Linx372 m g/dl and greater High Risk [facility] BrownsvilleLDL Rnfoajgmfqk3441-59-39 08:41:00* Test Item Value Reference Range Interpretation Comments LDL Cholesterol (test code = 2089-1) 86 60-130 [facility] [facility]villeHDL Ckowwpwqxwf9015-15-51 08:41:00* Test Item Value Reference Range Interpretation Comments HDL Cholesterol (test code = 2085-9) 57 40-60 [facility]villeCholesterol/HDL Lcbip2658-05-88 08:41:00 * Test Item Value Reference Range Interpretation Comments Cholesterol/HDL Ratio (test code = 9830-1) 2.8 3.9-4.7 L [facility]villeTriglycerides Mfbeo7953-47-95 08:41:00* Test Item Value Reference Range Interpretation Comments Triglycerides Level (test code = 2571-8) 79 0-149 [facility]villeCholesterol Wsajf6338-60-26 08:41:00* Test Item Value Reference Range Interpretation Comments Cholesterol Level (test code = 2093-3) 159 0-199 Less than 200 mg/dL Low Cgjk202 - 239 mg/dL Borderline Rfom223 m g/dl and greater High Risk [facility]villeLDL Llczgwqqyoz4047-86-36 08:41:00* Test Item Value Reference Range Interpretation Comments LDL Cholesterol (test code = 2089-1) 86 60-130 [facility]villeHDL Ggmjgkxjyyd9418-44-78 08:41:00* Test Item Value Reference Range Interpretation Comments HDL Cholesterol (test code = 2085-9) 57 40-60 [facility]villeCholesterol/HDL Dggre4328-04-04 08:41:00 * Test Item Value Reference Range Interpretation Comments Cholesterol/HDL Ratio (test code = 9830-1) 2.8 3.9-4.7 L [facility]villeDigoxin Pimul1641-69-21 17:20:00* Test Item Value Reference Range Interpretation Comments Digoxin Level (test code = 88801-5) 0.49 0.8-2.0 L [facility]villeB-Type Natriuretic Qeqhnbf8472-72-27 17:00:00* Test Item Value Reference Range Interpretation Comments B-Type Natriuretic Peptide (test code = 76488-1) 382.3 0-100 H [facility]villeCHEST SINGLE (PORTABLE)2018-11-02 16:50:00 [facility] [address] [place] [address] Patient Name: MOUNA DENT MR #: [id number] : 1950 Age/Sex: 68/M Req #: [id number] Adm Physician: Ordered by: EDUARDO MESA ROOM CLERK Report #: [id number] Location: ER Room/Bed: Procedure: [id number] DX/CHEST SINGLE (PORTABLE) Exam Date: 11/02/18 Exam [...] FATOUMATA on 11/02/181651 COPY TO: EDUARDO MESA ROOM CLERK Magnesium Snetx9073-09-91 16:45:00* Test Item Value Reference Range Interpretation Comments Magnesium Level (test code = 36161-7) 1.8 1.3-2.1 [facility]villeLactic Acid Mxwqg2480-64-30 16:39:00* Test Item Value Reference Range Interpretation Comments Lactic Acid Level (test code = Lactic Acid Level) 14.3 4.5- 19.8 [facility]villeLactic Acid Vzyue6552-79-79 16:39:00* Test Item Value Reference Range Interpretation Comments Lactic Acid Level (test code = Lactic Acid Level) 14.3 4.5- 19.8 [facility]villeLactic Acid Sblwi4990-46-47 16:39:00* Test Item Value Reference Range Interpretation Comments Lactic Acid Level (test code = Lactic Acid Level) 14.3 4.5- 19.8 [facility]villeProthrombin Iedy4488-41-65 16:37:00* Test Item Value Reference Range Interpretation Comments Prothrombin Time (test code = 5902-2) 16.7 11.9-14.5 H [facility]villeProthromb Time International Ratio 2018-11-02 16:37:00* Test Item Value Reference Range Interpretation Comments Prothromb Time International Ratio (test code = 6301-6) 1.24 Oral Anticoagulant Therapy INR Values:1. Low Intensity Therapy 1.5 - 2.02 . Moderate Intensity Therapy 2.0 - 3.03. High Intensity Therapy(1) 2.5 - 3. 54. High Intensity Therapy(2) 3.0 - 4.05. Panic Value INR > 5.0 [facility]villeActivated Partial Thromboplast Time 2018-11-02 16:37:00* Test Item Value Reference Range Interpretation Comments Activated Partial Thromboplast Time (test code = 06827-3) 49.3 23.8-35.5 H [facility]2019-01-21 16:32:00* Test Item Value Reference Range Interpretation Comments Ammonia (test code = 89263-5) 83 31-123 [facility]2019-01-21 16:32:00* Test Item Value Reference Range Interpretation Comments Ammonia (test code = 83281-8) 83 31-123 [facility]2019-01-21 16:32:00* Test Item Value Reference Range Interpretation Comments Ammonia (test code = 24515-0) 83 31-123 [facility]villeBedside Kpztecd6486-22-19 17:41:00* Test Item Value Reference Range Interpretation Comments Bedside Glucose (test code = 80461-5) 294 70-120 H Meter ID: [id number] [facility] BrownsvilleBedside Glucose 2018-03-03 19:50:00* Test Item Value Reference Range Interpretation Comments Bedside Glucose (test code = 59385-6) 230 70-120 H Meter ID: [id number] [facility] Health System McAllenodium Level 2018-03-03 07:11:00* Test Item Value Reference Range Interpretation Comments Sodium Level (test code = 2951-2) 140 136-145 [facility]villePotassium Iedmy3485-93-16 07:11:00* Test Item Value Reference Range Interpretation Comments Potassium Level (test code = 2823-3) 3.2 3.5-5.1 L [facility]villeChloride Zfkty1521-43-46 07:11:00* Test Item Value Reference Range Interpretation Comments Chloride Level (test code = 2075-0) 103 98-107 [facility] BrownsvilleCarbon Dioxide Xnjma1411-61-79 07:11:00* Test Item Value Reference Range Interpretation Comments Carbon Dioxide Level (test code = 2028-9) 25 22-29 [facility]villeAnion Iij5725-94-88 07:11:00* Test Item Value Reference Range Interpretation Comments Anion Gap (test code = 01319-8) 15.2 8-16 [facility]villeBlood Urea Lwsuecao5726-52-48 07:11:00* Test Item Value Reference Range Interpretation Comments Blood Urea Nitrogen (test code = 3094-0) 6 7-26 L [facility]villeCreatinine2018-05-22 07:11:00* Test Item Value Reference Range Interpretation Comments Creatinine (test code = 2160-0) 0.77 0.72-1.25 [facility]villeBUN/Creatinine Vnvbu8974-56-96 07:11:00* Test Item Value Reference Range Interpretation Comments BUN/Creatinine Ratio (test code = 3097-3) 8 6-25 [facility] BrownsvilleEstimat Glomerular Filtration Rate 2018-03-03 07:11:00* Test Item Value Reference Range Interpretation Comments Estimat Glomerular Filtration Rate (test code = 71356-7) 60- >60 Ranges were taken from the National Kidney Disease Education Program and the [facility] Kid[facility] Foundation literature.Reference ranges:60 or greater: Krkwla87-73 ( for 3 consecutive months): Chronic kidney disease 15 or less: Kidney failureValley [facility] Medical Center – BrownsvilleGlucose Qsvbz7722-37-43 07:11:00* Test Item Value Reference Range Interpretation Comments Glucose Level (test code = BXM7153) 81 74-118 [facility]villeCalcium Mjajl6511-62-13 07:11:00* Test Item Value Reference Range Interpretation Comments Calcium Level (test code = 97115-4) 9.2 8.4-10.2 [facility]villeDigoxin Ksmtx4364-26-24 07:05:00* Test Item Value Reference Range Interpretation Comments Digoxin Level (test code = 70636-3) -0.30 0.8-2.0 L [facility]villeVancomycin Level Xxamrg4491-97-53 02:48:00* Test Item Value Reference Range Interpretation Comments Vancomycin Level Trough (test code = 4092-3) 9.4 5.0-10.0 [facility]villeVancomycin Level Swugun0055-68-35 02:48:00* Test Item Value Reference Range Interpretation Comments Vancomycin Level Trough (test code = 4092-3) 9.4 5.0-10.0 [facility] BrownsvilleBlood Xdjoyjq7629-10-66 02:16:00* Test Item Value Reference Range Interpretation Comments Blood Culture (test code = 87479761) NO GROWTH AFTER 48 HOURS [facility] BrownsvilleTotal Auwfuptww7706-31-65 07:14:00* Test Item Value Reference Range Interpretation Comments Total Bilirubin (test code = 1975-2) 1.5 0.2-1.2 H [facility] BrownsvilleAspartate Amino Transf (AST/SGOT) 2018-03-02 07:14:00* Test Item Value Reference Range Interpretation Comments Aspartate Amino Transf (AST/SGOT) (test code = Aspartate Amino Transf (AST/SGOT)) 33 5-34 [facility]villeAlanine Aminotransferase (ALT/SGPT) 2018-03-02 07:14:00* Test Item Value Reference Range Interpretation Comments Alanine Aminotransferase (ALT/SGPT) (test code = 1742-6) 24 0-55 [facility]villeTotal Synvpch2754-99-90 07:14:00* Test Item Value Reference Range Interpretation Comments Total Protein (test code = 2885-2) 6.6 6.5-8.1 [facility] BrownsvilleAlbumin2018-05-21 07:14:00* Test Item Value Reference Range Interpretation Comments Albumin (test code = 1751-7) 3.2 3.5-5.0 L [facility]villeGlobulin2018-05-21 07:14:00* Test Item Value Reference Range Interpretation Comments Globulin (test code = 81474-1) 3.4 2.3-3.5 [facility]villeAlbumin/Globulin Laahp0053-29-25 07:14:00 * Test Item Value Reference Range Interpretation Comments Albumin/Globulin Ratio (test code = 1759-0) 0.9 0.8-2.0 [facility]villeAlkaline Gpjzdwuvkuz0155-00-35 07:14:00* Test Item Value Reference Range Interpretation Comments Alkaline Phosphatase (test code = 6768-6) 46 40-150 [facility]villeWhite Blood Qhiyr0966-59-16 06:49:00* Test Item Value Reference Range Interpretation Comments White Blood Count (test code = 6690-2) 6.34 4.8-10.8 [facility]villeRed Blood Dzauw6762-98-12 06:49:00* Test Item Value Reference Range Interpretation Comments Red Blood Count (test code = 789-8) 4.09 4.3-5.7 L [facility]villeHemoglobin2018-05-21 06:49:00* Test Item Value Reference Range Interpretation Comments Hemoglobin (test code = 18620-4) 13.5 14.0-18.0 L [facility]villeHematocrit2018-05-21 06:49:00* Test Item Value Reference Range Interpretation Comments Hematocrit (test code = 4544-3) 38.4 38.2-49.6 [facility]villeMean Corpuscular Lkbfim5837-20-89 06:49:00* Test Item Value Reference Range Interpretation Comments Mean Corpuscular Volume (test code = 787-2) 93.9 81-99 [facility]villeMean Corpuscular Qzjhansrlx6125-88-15 06:49:00* Test Item Value Reference Range Interpretation Comments Mean Corpuscular Hemoglobin (test code = 785-6) 33.0 28-32 H [facility] BrownsvilleMean Corpuscular Hemoglobin Concent 2018-03-02 06:49:00* Test Item Value Reference Range Interpretation Comments Mean Corpuscular Hemoglobin Concent (test code = 786-4) 35.2 31-35 H [facility]villeRed Cell Distribution Ewukr9486-45-62 06:49:00* Test Item Value Reference Range Interpretation Comments Red Cell Distribution Width (test code = 07561-2) 14.3 11.7 -14.4 [facility]villePlatelet Dkjcx4712-78-56 06:49:00* Test Item Value Reference Range Interpretation Comments Platelet Count (test code = 777-3) 174 140-360 [facility]villeNeutrophils (%) (Auto)2018-03-02 06:49:00 * Test Item Value Reference Range Interpretation Comments Neutrophils (%) (Auto) (test code = 16892-6) 62.5 38.7-80.0 [facility]villeLymphocytes (%) (Auto)2018-03-02 06:49:00 * Test Item Value Reference Range Interpretation Comments Lymphocytes (%) (Auto) (test code = 736-9) 23.3 18.0-39.1 [facility]villeMonocytes (%) (Auto)2018-03-02 06:49:00* Test Item Value Reference Range Interpretation Comments Monocytes (%) (Auto) (test code = 5905-5) 12.8 4.4-11.3 H [facility]villeEosinophils (%) (Auto)2018-03-02 06:49:00 * Test Item Value Reference Range Interpretation Comments Eosinophils (%) (Auto) (test code = 713-8) 0.3 0.0-6.0 [facility]villeBasophils (%) (Auto)2018-03-02 06:49:00* Test Item Value Reference Range Interpretation Comments Basophils (%) (Auto) (test code = 706-2) 0.3 0.0-1.0 [facility]villeIM GRANULOCYTES %2018-03-02 06:49:00* Test Item Value Reference Range Interpretation Comments IM GRANULOCYTES % (test code = IM GRANULOCYTES %) 0.8 0.0- 1.0 [facility]villeNeutrophils # (Auto)2018-03-02 06:49:00* Test Item Value Reference Range Interpretation Comments Neutrophils # (Auto) (test code = 751-8) 4.0 2.1-6.9 [facility]villeLymphocytes # (Auto)2018-03-02 06:49:00* Test Item Value Reference Range Interpretation Comments Lymphocytes # (Auto) (test code = 24186-9) 1.5 1.0-3.2 [facility]villeMonocytes # (Auto)2018-03-02 06:49:00* Test Item Value Reference Range Interpretation Comments Monocytes # (Auto) (test code = 742-7) 0.8 0.2-0.8 [facility]villeEosinophils # (Auto)2018-03-02 06:49:00* Test Item Value Reference Range Interpretation Comments Eosinophils # (Auto) (test code = 711-2) 0.0 0.0-0.4 [facility]villeBasophils # (Auto)2018-03-02 06:49:00* Test Item Value Reference Range Interpretation Comments Basophils # (Auto) (test code = 704-7) 0.0 0.0-0.1 [facility] BrownsvilleAbsolute Immature Granulocyte (auto 2018-03-02 06:49:00* Test Item Value Reference Range Interpretation Comments Absolute Immature Granulocyte (auto (yuliana t code = Absolute Immature Granulocyte (auto) 0.05 0-0.1 [facility]villeProthrombin Njri7241-00-96 02:28:00* Test Item Value Reference Range Interpretation Comments Prothrombin Time (test code = 5902-2) 21.8 11.9-14.5 H [facility] BrownsvilleProthromb Time International Ratio 2018-03-01 02:28:00* Test Item Value Reference Range Interpretation Comments Prothromb Time International Ratio (test code = 6301-6) 2.06 Oral Anticoagulant Therapy INR Values:1. Low Intensity Therapy 1.5 - 2.02 . Moderate Intensity Therapy 2.0 - 3.03. High Intensity Therapy(1) 2.5 - 3. 54. High Intensity Therapy(2) 3.0 - 4.05. Panic Value INR > 5.0 [facility]villeActivated Partial Thromboplast Time 2018-03-01 02:28:00* Test Item Value Reference Range Interpretation Comments Activated Partial Thromboplast Time (test code = 62000-3) 97.0 23.8-35.5 H [facility]villeCreatine Kinase TV0474-60-59 18:21:00* Test Item Value Reference Range Interpretation Comments Creatine Kinase MB (test code = 68694-9) 2.50 0.00-5.00 [facility]villeTroponin L3854-77-42 18:21:00* Test Item Value Reference Range Interpretation Comments Troponin I (test code = BLB6462) 0.033 0-0.300 [facility]villeCreatine Zfsfqe6812-32-94 18:14:00* Test Item Value Reference Range Interpretation Comments Creatine Kinase (test code = 2157-6) 51 30-200 [facility] McAllenputum Adtrckh8542-12-40 14:18:00* Test Item Value Reference Range Interpretation Comments Sputum Culture (test code = 624-7) Organism: GEREMIAS ALBICANS [facility]villeHemoglobin A1c Lqmcxcu9811-63-07 06:51:00 * Test Item Value Reference Range Interpretation Comments Hemoglobin A1c Percent (test code = Hemoglobin A1c Percent) 5.3 4.0-7.0 [facility]villeDifferential Total Cells Counted 2017-06-26 10:02:00* Test Item Value Reference Range Interpretation Comments Differential Total Cells Counted (test code = Forrest vargas Total Cells Counted) 100 [facility]villeNeutrophils % (Manual)2017-06-26 10:02:00 * Test Item Value Reference Range Interpretation Comments Neutrophils % (Manual) (test code = 93415-4) 77 40-74 H [facility]villeLymphocytes % (Manual)2017-06-26 10:02:00 * Test Item Value Reference Range Interpretation Comments Lymphocytes % (Manual) (test code = 737-7) 19 19-48 [facility]villeMonocytes % (Manual)2017-06-26 10:02:00* Test Item Value Reference Range Interpretation Comments Monocytes % (Manual) (test code = 744-3) 1 3.4-9.0 L [facility]villeReactive Bfammdwnzzp4416-15-72 10:02:00* Test Item Value Reference Range Interpretation Comments Reactive Lymphocytes (test code = 42693-1) 3 [facility]villePlatelet Tiffwjil4986-72-38 10:02:00* Test Item Value Reference Range Interpretation Comments Platelet Estimate (test code = 08398-1) SLIGHTLY DECREASED [facility] BrownsvillePlatelet Morphology Tohxmqn5358-44-15 10:02:00* Test Item Value Reference Range Interpretation Comments Platelet Morphology Comment (test code = 37877-4) FEW LARGE [facility]villeRed Cell Morphology Atxsgsc4556-93-97 10:02:00* Test Item Value Reference Range Interpretation Comments Red Cell Morphology Comment (test code = 6742-1) NORMAL [facility]villeInfluenza Virus Types A,B Antigen 2017-06-25 17:29:00* Test Item Value Reference Range Interpretation Comments Influenza Virus Types A,B Antigen (test code = 46467-4) NEGATIVE NEGATIVE [facility] BrownsvilleUrine JOX3235-52-23 14:25:00* Test Item Value Reference Range Interpretation Comments Urine WBC (test code = 5821-4) 6-10 0-5 H [facility] BrownsvilleUrine LZB6162-33-39 14:25:00* Test Item Value Reference Range Interpretation Comments Urine RBC (test code = 71740-0) NONE 0-5 [facility]villeUrine Kveikfki4502-71-79 14:25:00* Test Item Value Reference Range Interpretation Comments Urine Bacteria (test code = 47406-2) NONE NONE [facility]villeUrine Epithelial Anomu0019-06-89 14:25:00 * Test Item Value Reference Range Interpretation Comments Urine Epithelial Cells (test code = 28941-1) RARE NONE [facility]villeUrine Izixd2106-30-38 14:01:00* Test Item Value Reference Range Interpretation Comments Urine Color (test code = 5778-6) YELLOW YELLOW [facility]villeUrine Vddutsd3387-06-25 14:01:00* Test Item Value Reference Range Interpretation Comments Urine Clarity (test code = 72404-2) SL CLOUDY CLEAR [facility] Specific Bwjuver1712-61-95 14:01:00 * Test Item Value Reference Range Interpretation Comments Urine Specific [place] (test code = 5811-5) 1.020 1.010-1.02 5 [facility]villeUrine uS2245-11-82 14:01:00* Test Item Value Reference Range Interpretation Comments Urine pH (test code = 38093-9) 5 5-7 [facility]villeUrine Leukocyte Anumtgaz5312-23-82 14:01:00* Test Item Value Reference Range Interpretation Comments Urine Leukocyte Esterase (test code = 5799-2) 2+ NEGATIVE H [facility]villeUrine Waznyud6064-70-04 14:01:00* Test Item Value Reference Range Interpretation Comments Urine Nitrite (test code = 85351-1) NEGATIVE NEGATIVE [facility]villeUrine Dvxdjje7745-95-94 14:01:00* Test Item Value Reference Range Interpretation Comments Urine Protein (test code = 5804-0) 1+ NEGATIVE H [facility]villeUrine Glucose (UA)2017-06-25 14:01:00* Test Item Value Reference Range Interpretation Comments Urine Glucose (UA) (test code = 2349-9) NEGATIVE NEGATIVE [facility]villeUrine Zxxhtpk3605-38-91 14:01:00* Test Item Value Reference Range Interpretation Comments Urine Ketones (test code = 85761-0) NEGATIVE NEGATIVE [facility] BrownsvilleUrine Plyabkedlpas6333-97-13 14:01:00* Test Item Value Reference Range Interpretation Comments Urine Urobilinogen (test code = 98026-2) 0.2 0.2-1 [facility]villeUrine Eeyudnozj2893-87-65 14:01:00* Test Item Value Reference Range Interpretation Comments Urine Bilirubin (test code = 1978-6) NEGATIVE NEGATIVE [facility]villeUrine Wajfk5722-89-11 14:01:00* Test Item Value Reference Range Interpretation Comments Urine Blood (test code = 49503-4) NEGATIVE NEGATIVE [facility] BrownsvilleThyroid Stimulating Hormone (TSH) 2017-06-25 13:33:00* Test Item Value Reference Range Interpretation Comments Thyroid Stimulating Hormone (TSH) (test code = 89419-2) 0.351 0.350-4.940 [facility] BrownsvilleB-Type Natriuretic Gdqhcbp7912-36-62 13:25:00* Test Item Value Reference Range Interpretation Comments B-Type Natriuretic Peptide (test code = 41762-6) 442.0 0-100 H [facility] BrownsvilleMagnesium Duhep9976-63-86 13:15:00* Test Item Value Reference Range Interpretation Comments Magnesium Level (test code = 89865-6) 1.9 1.3-2.1 [facility] BrownsvilleLipase2017-09-13 13:15:00* Test Item Value Reference Range Interpretation Comments Lipase (test code = 3040-3) 23 8-78 [facility]villeLactic Acid Urlas7252-66-40 13:00:00* Test Item Value Reference Range Interpretation Comments Lactic Acid Level (test code = Lactic Acid Level) 9.8 4.5- 19.8 [facility]villeCHEST 2 VIEWS [facility] [address] [place] [address] Patient Name: MOUNA DENT MR #: [id number] : 1950 Age/Sex: 67/M Req #: [id number] Adm Physician: CHANEL LÓPEZ MD Ordered by: JOSE JUAN WASHINGTON MD Report #: [id number] Location: MED/SURG2 Room/Bed: [facility] Procedure: [id number] D X/CHEST 2 VIEWS Exam Date: 03/02/18 Exam Time: 0640 REPORT STATUS: Signed EXAMINATION: CHEST 2 VIEWS INDICATION: Shortness of breath COMPARISON: CT of the chest on 01/20/2018 FINDINGS: TUBES and LINES: None. LUNGS: Lungs are well inflated . There are bibasilar atelectasis. Fibrocystic changes noted [...] 7:01 AM Dictated By: HUSSAIN ANDRADE MD Electronicall y Signed By: HUSSAIN ANDRADE MD on 03/02/18700 Transcribed By: FATOUMATA antonio 03/02/18 07 COPY TO: JOSE JUAN WASHINGTON MD LOWER LEG LEFT [place] [address] Patient Name: MOUNA DENT MR #: [id number] : 1950 Age/Sex: 67/M Req #: [id number] Adm Physician: CHANEL LÓPEZ MD Ordered by: VIRGINIA HANNAH MD Report #: [id number] Location: MED/SURG2 Room/Bed: 208-1 Procedure: DX/LOWER LEG LEFT Exam Date: 03/01/18 [...] radiopaque foreign body. Signed by: Dr. Hussain Reis M.D. on 03/01/2018 3:31 AM Dictated By: Joey ANDRADE MD 0 COPY TO: VIRGINIA HANNAH MD CT CHEST WO [place] [address] Patient Name: MOUNA DENT MR #: [id number] : 1950 Age/Sex: 67/M Req #: [id number] Adm Physician: Ordered by: CAROL HOANG MD Report #: [id number] Location: CT Room/Bed: Procedure: [id number] CT/CT CHEST WO Exam Date: 0 01/20/18 Exam Time: 1146 REPORT STATUS: Signed EXAM: CT Chest WITHOUT contrast INDICATION: COMPARISON: [facility] CT dated 09/15/2017 TECHNIQUE: Chest was scanned [...] is below the limits set by the [facility] Protocol Committee (RPC). FINDINGS: LINES/ TUBES: None. [...] and paraseptal emphysematous changes. Signed by: Dr. Roxane Rutherford MD on 01/20/2018 1:23 PM Dictated By: ROXANE RUTHERFORD MD 1323 Transcribed By: NITISH GUY on 01/20/18 1323 COPY TO: CAROL HOANG MD CT CHEST WO [place] [address] Patient Name: MOUNA DENT MR #: [id number] : 1950 Age/Sex: 67/M Req #: [id number] Adm Physician: Ordered by: CAROL HOANG MD Report #: [id number] [facility]: [facility] Room /Bed: Procedure: [id number] CT/CT CHEST WO Exam Date: 09/15/17 Exam [...] Shalini Rousseau M.D. on 09/15/2017 at 15:43 Electronicall y approved by: Shalini Rousseau M.D. on 09/15/2017 at 15:43 Dict ated By: SHALINI ROUSSEAU MD 15 43 Transcribed By: JENY on 09/15/17 1543 COPY TO: CAROL HOANG MD MRI SPINE LUMBAR WO [place] [address] Patient Name: MOUNA DENT MR #: [id number] : 1950 Age/Sex: 67/M Req #: [id number] Adm Physician: Ordered by: CHANEL LÓPEZ MD Report #: [id number] Location: MRI Room/Bed: Procedure: [id number] MRI/MRI SPINE LUMBAR WO E xam Date: [...] L2 to the sacrum and with laminectomies fro m L3 to S1 on the MRI of 08/06/2011. Craniad extent of fusion into the thoraci c spine lies outside imaged [id number] on this exam. Cannot further evaluat e hardware integrity by MRI. Degenerative changes: L1-L2: Patent can al and grossly patent foramina. L2-L3: Patent canal [...] hyperintense right renal cyst. IMPRESSION: Exam limited b y susceptibility artifact from fusion hardware. 1. Postsurgical changes of posterior thoracolumbar fusion, discectomy and posterior lumbar decompression . 2. Postsurgical seroma in the dorsal paraspinal [...] TO: LATOYA LÓPEZ MD CT CHEST WO [facility] [address] [address] Patient Name: MOUNA DENT MR #: [id number] : 1950 Age/Sex: 67/M Req #: [id number] Adm Physician: CHANEL LÓPEZ MD Ordered by: JOSE JUAN WASHINGTON MD Report #: [id number] Location: MED/SURG2 Room/Bed: [facility] Procedure: [id number] C T/CT CHEST WO Exam Date: 06/27/17 Exam Time: 1126 REPORT STATUS: Signed PROCEDURE: CT CHEST WITHOUT CONTRAST COM OMIDON: CTA chest 11/04/14. INDICATIONS: SOB,COUGH TECHNIQ UE: [...] measures 13 mm. Subcarinal lymph node measures 1. 3 x 2.7 cm (previously, 0.8 x 3.6 [...] bronchial wall thickening are present, similar to previou s exam. There is new groundglass attenuation in [...] bodies. The pedicle screws at these levels ar e intact without surrounding lucency to suggest loosening. [...] JOSE JUAN WASHINGTON MD CHEST SINGLE (PORTABLE) [place] [address] Patient Name: MOUNA DENT MR #: [id number] : 1950 Age/Sex: 67/M Req #: [id number] Adm Physician: CHANEL LÓPEZ MD Ordered by: ARISTIDES KELLY MD Report #: [id number] ocation: MED/SURG2 Room/Bed: 207-1 Procedure: DX/CHEST SINGLE (PORTABLE) Exam Date: 06/26/17 [...] JOSE JUAN TAM MD 0900 COPY TO: ARISTIDES KELLY MD CHEST 2 VIEWS [address] [address] Patient Name: MOUNA DENT MR #: [id number] : 1950 Age/Sex: 67/M Req #: [id number] Adm Physician: Ordered by: STIVEN LIN ROOM CLERK Report #: [id number] Location: ER Room/Bed: Procedure: [id number] DX/CHEST 2 VIEWS Exam Date: 06/25/17 Exam Time: 1420 REPORT STATUS: Signed PROCEDURE: Frontal and lateral views of the chest. COMPARISON: [facility], DX, CHEST SINGLE (PORTABLE), 11/11/2016, 14:37. [...] PARRA MD on 06/25/17 1524 Transcribed By: INFC E on 06/25/17 1524 COPY TO: STIVEN LIN NP
[2020-06-30] MEDS ORDERED: GADOBENATE DIMEGLUMINE 1 ML IV ONE (11:45)
[2020-06-30 12:16] LABS: CHOL/HDL RATIO 2.1 (3.9-4.7)
--- NOTE | 2020-06-30 13:18 | Diagnostic Imaging Report ---
TECHNIQUE: Magnetic resonance imaging of the left ankle was performed without and with injected contrast. 20 cc of MultiHance COMPARISON: None available. HISTORY: Left leg cellulitis, evaluate for osteomyelitis FINDINGS: No fracture or infiltrating lesion. Degenerative arthrosis of the posterior subchondral joint with cystic change. Skin thickening and subcutaneous edema of the hindfoot. No soft tissue abscess. The tendons are unremarkable. The ankle ligaments are unremarkable. Atrophy of the foot musculature. IMPRESSION: No osteomyelitis or abscess Signed by: Dr. Jay Rasheed M.D. on 06/30/2020 1:15 PM
--- NOTE | 2020-06-30 13:29 | NUR ---
WOUND CARE NURSE INITIAL CONSULTATION. 70 YEAR OLD MALE ADMITTED TO [facility] WITH DX OF LEFT LEG CELLULITIS. PT STATES HE IS DIABETIC AND HAS NEUROPATHY. HEAD TO TOE SKIN ASSESSMENT PERFORMED TODAY. PT PRESENTS WITH A 32X24Y8.1CM CRUSTED SKIN LESION TO LEFT DORSAL FOOT, 3X3.5X0.1 CM CRUSTED LESION, LEFT LATERAL FOOT WELL WITH A 4X3.5X0.1CM CRUSTED LESION ON RIGHT LATERAL ANKLE. STRONG PALPABLE PULSES ARE PRESENT. ERYTHEMA TO LEFT LOWER EXTREMITY IS ALSO NOTED. THERE ARE NO OTHER AREAS OF CONCERN AT THIS TIME. +1 PITTING EDEMA, RIGHT LOWER LEG. 2+ PITTING EDEMA, LEFT LOWER LEG. EDUCATED PT ON PLAN OF CARE, DRESSING CHANGES, GLUCOSE CONTROL AND NUTRITION. STATES UNDERSTANDING. LABS: WBC: 5.39 ALB: 3.1 ESR: 21 RECOMMENDATIONS: WASH BILATERAL FOOT WITH WARM SOAP AND WATER, APPLY BACTROBAN AND COVER WITH 4X4 GAUZE, KERLIX AND TAPE. CHANGE DRESSING DAILY. ENCOURAGE PT TO REPOSITION EVERY TWO HOURS AND PRN. PILLOW SUSPENSIONS AND HEEL PROTECTORS WHILE IN BED. PLACE PT ON ALTERNATING LOW AIR LOSS MATTRESS. THANKS FOR THIS CONSULTATION. Addendum: 06/30/20 at 1345 by Jennifer Jc RN Amended: Links added.
[2020-06-30] MEDS ORDERED: LISINOPRIL 2.5 MG TAB PO ONE (14:30)
--- NOTE | 2020-06-30 15:36 | NUR ---
Nutrition Screen Note RD Recommendation for Physician: -Recommend ADA/low sodium diet -If meal intake is <50% of meals, offer Glucerna nutrition supplement Plan of Care: RD following, monitoring for tolerance and adequacy Nutrition reason for involvement: Nutrition Risk Trigger Primary Diagnose(s): left leg cellulitis PMH: Atrial fibrillation, COPD, Systolic congestive heart failure, Diabetes mellitus, type 2, Chronic pain syndrome, Hypertension, Peripheral neuropathy. Ht: 76 in Wt:207.31 lb BMI: 25.2 kg/m2 IBW:[address] Assessment: (06/30/20) Chart reviewed. Labs and meds reviewed. Pt is a 70 year old male admitted with left leg cellulitis. Pt was drowsy at time of visit and fell asleep; therefore, unable to complete entire assessment. Pt reports eating <50% of his meals for the past 2-3 days. Unable to verify weight status with pt. Pt has weights ranging from 215-225 lbs on a previous admission in January 2019. Pt currently has a weight of 207 lbs in chart. If PO intake continues to be <50% of meals, offer Glucerna nutrition supplement. Current Diet: regular Malnutrition Evaluation (06/30/20) The patient does not meet criteria for a specified degree of malnutrition at this time. Will re-evaluate at follow-up as appropriate. Unable to complete entire assessment. Diet Education Needs Assessment: RD is available for diet education as needed Nutrition Care Level: low Signed: Teresa Paulino, MARGI, LD
--- NOTE | 2020-06-30 15:41 | Consultation ---
DATE OF CONSULTATION: HISTORY OF PRESENT ILLNESS: Olaf Delvalle is a 70-year-old male patient, admitted with a primary history of hypertension, hyperlipidemia, CHF with preserved EF, chronic atrial fibrillation, COPD, admitted for left lower extremity wound evaluation. The patient recalls having bilateral lower extremity worsening skin discoloration and the open wound started in May of 2019 and that it has gotten worse in the last few months with left lower extremity oozing serous drainage that started about three weeks ago. The patient also reports lower extremity swelling and numbness that he denies any lower extremity pain. He has history of chronic atrial fibrillation and admitted with atrial fibrillation with increased ventricular response. PAST MEDICAL HISTORY: Hypertension, hyperlipidemia, chronic atrial fibrillation, CHF with preserved EF, lung nodule, and chronic back pain. PAST SURGICAL HISTORY: Back surgery x7 and shoulder fusion. FAMILY HISTORY: Positive for hypertension. SOCIAL HISTORY: He lives at home with his . He smokes 1 to 1.5 packs of cigarettes daily and ETOH use/wine daily. HOME MEDICATIONS: Metoprolol 12.5 mg p.o. b.i.d., digoxin 0.125 mcg daily, atorvastatin 10 mg daily, furosemide 40 mg daily, magnesium oxide 400 mg daily, Xarelto 15 mg daily, Cymbalta 60 mg p.o. at bedtime, folic acid 400 mcg p.o. daily, multivitamin one cap p.o. daily, pregabalin 300 mg b.i.d., trazodone 50 mg p.o. at bedtime, and he takes morphine sulfate 50 mg tablet every 6 hours p.r.n. for pain. ALLERGIES: HE IS ALLERGIC TO CODEINE. REVIEW OF SYSTEMS: Negative except those mentioned above. PHYSICAL EXAMINATION: VITAL SIGNS: Blood pressure 149/94, heart rate of 114, respiratory rate of 18, 97.9 temperature, and pulse oximetry 95% on room air. GENERAL: The patient is well developed, well nourished, in no acute respiratory distress. SKIN: Normal in appearance, texture, and temperature, warm and dry. Although, there is scattered bruising to upper extremities with lower extremities have dark discoloration. HEENT: The patient's cranium is normocephalic and atraumatic. Pupils are equally round and reactive to light and accommodation. Sclerae nonicteric. Ears are normal. Mucosa is moist. Throat is clear. NECK: Supple. Full range of motion. No cervical lymphadenopathy. No thyromegaly. Carotid artery upstroke is normal bilaterally without bruits. No JVD or hepatojugular reflux. RESPIRATORY: Normal respiratory effort. LUNGS: Diminished breath sounds throughout all lung carvajal with no crackles heard. CARDIOVASCULAR: S1 and S2 is audible. Irregular rate and rhythm. No significant murmurs. GI: Soft, nontender, nondistended. Bowel sounds are present. EXTREMITIES: Trace edema with discoloration of bilateral lower extremity. Pulses are palpable 2+ in the DP and +1 PT. NEUROLOGIC: Motor and sensory examination of the upper extremity are normal and the lower extremity with diminished sensation. Reflexes are normal and symmetrical bilaterally. LABORATORY DATA: Sodium is 142, potassium is 4.1, chloride 104, creatinine is 1.02, BUN is 26, estimated GFR greater than 60, and glucose is 87. AST 38, ALT 19, ALP 67, and BNP 492. Triglycerides 58, cholesterol 152, LDL is 68, HDL 72, and cholesterol/HDL ratio 2.1. Chest x-ray showed mild interstitial pulmonary edema. ASSESSMENT: 1. Chronic venous insufficiency. 2. Acute diastolic congestive heart failure exacerbation. 3. Atrial fibrillation with increased ventricular response. 4. Left lower extremity cellulitis. 5. Tobacco abuse/active smoker and alcohol use. PLAN: 1. Monitor on telemetry. 2. Obtain baseline EKG and echocardiogram to evaluate valves and LV function. 3. Restart cardiac medications. Continue anticoagulation, Xarelto, digoxin, and metoprolol for rate control. 4. Congestive heart failure education and optimize congestive heart failure regimen. 5. We will evaluate for any need for peripheral vascular intervention. We will continue to follow. Thank you for this consultation. Dictated by Zhane Triplett NP MD LANDEN De Santiago/RUSLAN /[id number]
--- NOTE | 2020-06-30 16:55 | NUR ---
this is infectious disease consultation patient seen and examined chart reviewed Chief complaint infection of the leg concern osteomyelitis Olaf Delvalle is a 70-year-old male patient, admitted With redness and swelling of his foot as well as swelling the patient who has been having left lower extremity his wound which is not healing getting progressively worse. The patient denies any fever or chills but he is having severe pain in the leg as well as redness and swelling and failure of medical treatment as an outpatient patient was sent here to be admitted started IV antibiotic is feeling better. a primary history of hypertension, hyperlipidemia, CHF with preserved EF, chronic atrial fibrillation, COPD, admitted for left lower extremity wound evaluation. The patient recalls having bilateral lower extremity worsening skin discoloration and the open wound started in May of 2019 and that it has gotten worse in the last few months with left lower extremity oozing serous drainage that started about three weeks ago. The patient also reports lower extremity swelling and numbness that he denies any lower extremity pain. He has history of chronic atrial fibrillation and admitted with atrial fibrillation with increased ventricular response. PAST MEDICAL HISTORY: Hypertension, hyperlipidemia, chronic atrial fibrillation, CHF with preserved EF, lung nodule, and chronic back pain. PAST SURGICAL HISTORY: Back surgery x7 and shoulder fusion. FAMILY HISTORY: Positive for hypertension. SOCIAL HISTORY: He lives at home with his . He smokes 1 to 1.5 packs of cigarettes daily and ETOH use/wine daily. HOME MEDICATIONS: Metoprolol 12.5 mg p.o. b.i.d., digoxin 0.125 mcg daily, atorvastatin 10 mg daily, furosemide 40 mg daily, magnesium oxide 400 mg daily, Xarelto 15 mg daily, Cymbalta 60 mg p.o. at bedtime, folic acid 400 mcg p.o. daily, multivitamin one cap p.o. daily, pregabalin 300 mg b.i.d., trazodone 50 mg p.o. at bedtime, and he takes morphine sulfate 50 mg tablet every 6 hours p.r.n. for pain. ALLERGIES: HE IS ALLERGIC TO CODEINE. REVIEW OF SYSTEMS: Negative except those mentioned above. PHYSICAL EXAMINATION: VITAL SIGNS: Blood pressure 149/94, heart rate of 114, respiratory rate of 18, 97.9 temperature, and pulse oximetry 95% on room air. GENERAL: The patient is well developed, well nourished, in no acute respiratory distress. SKIN: Normal in appearance, texture, and temperature, warm and dry. Although, there is scattered bruising to upper extremities with lower extremities have dark discoloration. HEENT: The patient's cranium is normocephalic and atraumatic. Pupils are equally round and reactive to light and accommodation. Sclerae nonicteric. Ears are normal. Mucosa is moist. Throat is clear. NECK: Supple. Full range of motion. No cervical lymphadenopathy. No thyromegaly. Carotid artery upstroke is normal bilaterally without bruits. No JVD or hepatojugular reflux. RESPIRATORY: Normal respiratory effort. LUNGS: Diminished breath sounds throughout all lung carvajal with no crackles heard. CARDIOVASCULAR: S1 and S2 is audible. Irregular rate and rhythm. No significant murmurs. GI: Soft, nontender, nondistended. Bowel sounds are present. EXTREMITIES: Trace edema with discoloration of bilateral lower extremity. Pulses are palpable 2+ in the DP and +1 PT. NEUROLOGIC: Motor and sensory examination of the upper extremity are normal and the lower extremity with diminished sensation. Reflexes are normal and symmetrical bilaterally. LABORATORY DATA: Sodium is 142, potassium is 4.1, chloride 104, creatinine is 1.02, BUN is 26, estimated GFR greater than 60, and glucose is 87. AST 38, ALT 19, ALP 67, and BNP 492. Triglycerides 58, cholesterol 152, LDL is 68, HDL 72, and cholesterol/HDL ratio 2.1. Chest x-ray showed mild interstitial pulmonary edema. ASSESSMENT: left lower extremity cellulitis/concerned osteomyelitis Concern peripheral vascular disease Concerned congestive heart failure acute on chronic Continue with antibiotic as ordered or pain x-ray keep her legs elevated cardiology was consulted. Other medical problem 1. Chronic venous insufficiency. 2. Acute diastolic congestive heart failure exacerbation. 3. Atrial fibrillation with increased ventricular response. 4. Left lower extremity cellulitis. 5. Tobacco abuse/active smoker and alcohol use.
[2020-06-30] MEDS ORDERED: LOPERAMIDE HCL 2 MG CAP PO ONE (17:10)
--- NOTE | 2020-06-30 19:00 | NUR ---
Bedside rounds completed with morning nurse. Pt alert and oriented, lying in bed, HOB 45 degrees, denies pain at this time. Call light within reach.
--- NOTE | 2020-06-30 19:02 | NUR ---
BEDSIDE SHIFT REPORT GIVEN TO ONCOMING NURSE. PATIENT IS RESTING IN BED, NO ACUTE DISTRESS NOTED. CALL LIGHT WITHIN REACH. BED IN THE LOWEST POSITION.
[2020-06-30] MEDS: ATORVASTATIN 10 MG TAB PO SCH (20:58)
[2020-06-30] MEDS: FENOFIBRATE 145 MG TAB PO SCH (20:58)
[2020-06-30] MEDS: DULOXETINE HCL 30 MG DELAYED RELEASE PO SCH (20:58)
[2020-06-30] MEDS: MORPHINE SULFATE 15MG TAB CR PO PRN (21:15)
--- NOTE | 2020-06-30 23:10 | NUR ---
BILATERAL FEET WOUND CARE, PT TOLERATED WELL, HELL PROTECTORS IN PLACE.
[2020-07-01] VITALS (9 sets, daily range): BP systolic 123–145; BP diastolic 78–95
--- NOTE | 2020-07-01 03:58 | History and Physical ---
REASON FOR ADMISSION: Lower extremity cellulitis. HISTORY OF PRESENT ILLNESS: A 70-year-old male with multiple comorbidities, hypertension, hyperlipidemia, CHF, chronic atrial fibrillation, COPD, came into the ED with worsening lower extremity discoloration, concerns for underlying wound infection. The patient was admitted, started on IV antibiotic therapy. He reports having recent infection in the left lower extremity with some drainage. Cardiology, ID, have been consulted. The patient is seen and evaluated at bedside on the medical floor. He is currently doing well with no other issues at this time. REVIEW OF SYSTEMS: Pertinent positives, worsening left lower extremity cellulitis with redness. The rest of 14-point review of systems have been reviewed with the patient and are negative. ALLERGIES: TO CODEINE. HOME MEDICATIONS: Metoprolol, digoxin, Lipitor, furosemide, magnesium oxide, Xarelto, Cymbalta, folic acid, multivitamin, Lyrica, trazodone, morphine sulfate tabs p.r.n. PAST MEDICAL HISTORY: Hypertension, hyperlipidemia, chronic atrial fibrillation, CHF with preserved EF, lung nodule, and chronic back pain. PAST SURGICAL HISTORY: He had back surgeries x7 and shoulder fusion. FAMILY HISTORY: Hypertension. SOCIAL HISTORY: Lives with his . He is . He smokes 1/2 pack per day. He is an occasional drinker. No drugs. PHYSICAL EXAMINATION: VITAL SIGNS: Temperature is 97.2, pulse 84, respiratory rate is 18, blood pressure is 137/67, pulse ox 95% on room air. GENERAL: In no acute distress. Alert and oriented x3. Cooperative on examination. HEENT: Head is normocephalic and atraumatic. Eyes; pupils are equal, round, reactive to light bilaterally. Extraocular movements are intact bilaterally. Throat, no evidence of erythema or exudate in the posterior pharynx. Has poor dentition. NECK: Supple. Good range of motion. PULMONARY: Clear to auscultation bilaterally. No wheezing, rales, or rhonchi. No crackles appreciated. CARDIOVASCULAR: Positive S1, S2. No murmurs, rubs, or gallops appreciated. ABDOMEN: Soft, nondistended, and nontender to palpation. Bowel sounds present. MUSCULOSKELETAL: Strength 5/5 throughout. Left lower extremity has some wrapping with some evidence of cellulitis. LABORATORY DATA: Labs show white count 5.3, hemoglobin 13.7, hematocrit is 42, platelets of 144. Sodium 140, potassium 4.1, chloride 104, bicarb 26, anion gap is 16, BUN is 26 and creatinine is 1, glucose 87, calcium 8.3. LFTs within normal range. BNP 492. Albumin is 3.8, LDL is 68. Coronavirus is pending. MICROBIOLOGY: None. IMAGING STUDIES: PICC line inserted. Ankle MRI shows no osteomyelitis or abscess. IMPRESSION: 1. Left lower extremity cellulitis with chronic venous insufficiency. 2. Acute diastolic heart failure with exacerbation. 3. Atrial fibrillation. 4. History of chronic tobacco abuse. PLAN: At this time, continue with broad-spectrum IV antibiotics. Blood cultures, no growth today. Get a.m. labs. Resume same home medications. ID and Cardiology were consulted. I spoke with Cardiology, they are not interested in doing angiogram at this time. The patient has very good pulses. Continue with Xarelto for DVT prophylaxis. Follow recommendations by the consultants. We will consult with Podiatry. MD DASH Jin/LOKIL /[id number]
[2020-07-01] MEDS: HOME MEDICATION--PATIENTS OWN INH SCH ×2 (06:00)
--- NOTE | 2020-07-01 07:35 | NUR ---
received pt from previous shift, pt sleeping in bed
[2020-07-01] MEDS: CEFEPIME 1GM/NS 0.9% 50 ML 50 ML IV SCH ×2 (08:25→20:01)
[2020-07-01] MEDS: FUROSEMIDE 40 MG TAB PO SCH (08:25)
[2020-07-01] MEDS: MULTIVITAMINS/MINERALS TAB PO SCH (08:35)
[2020-07-01] MEDS: METOPROLOL TARTRATE 25 MG TAB PO SCH (08:35)
[2020-07-01] MEDS: RIVAROXABAN 15 MG TABLET PO SCH (08:35)
[2020-07-01] MEDS: MAGNESIUM OXIDE 400 MG TAB PO SCH (08:35)
[2020-07-01] MEDS: ASPIRIN 81 MG ENTERIC COATED PO SCH (08:36)
[2020-07-01] MEDS: FOLIC ACID 1 MG TAB PO SCH (08:45)
[2020-07-01] MEDS: PREGABALIN 75 MG CAP PO SCH ×2 (09:03→16:56)
--- NOTE | 2020-07-01 09:12 | NUR ---
patient seen and examined chart reviewed Infectious disease progress note doing well 70-year-old male with multiple comorbidities, hypertension, hyperlipidemia, CHF, chronic atrial fibrillation, COPD, came into the ED with worsening lower extremity discoloration, concerns for underlying wound infection. The patient was admitted, started on IV antibiotic therapy. He reports having recent infection in the left lower extremity with some drainage. Cardiology, ID, have been consulted. The patient is seen and evaluated at bedside on the medical floor. He is currently doing well with no other issues at this time.
[2020-07-01] MEDS: VANCOMYCIN 1GM/NS 250 ML 250 ML IV SCH ×2 (11:34→22:46)
[2020-07-01] MEDS: MUPIROCIN 2% OINT 22 GM TUBE TOP SCH (12:56)
--- NOTE | 2020-07-01 13:05 | NUR ---
drsg change to bilateral lower extremities done
--- NOTE | 2020-07-01 16:20 | NUR ---
pt up in chair
--- NOTE | 2020-07-01 16:21 | Progress Note ---
DATE: SUBJECTIVE: Mr. Delvalle is doing well. There are no new complaints. His leg seems to be getting better and he was seen by Cardiology, and there is no vascular workup needed at the present time. PHYSICAL EXAMINATION: GENERAL: He is currently alert and oriented. Does not seem to be in acute distress. VITAL SIGNS: Stable, currently afebrile. HEENT: He is not icteric. NECK: Supple. CHEST: Clear bilateral. HEART: S1 and S2. ABDOMEN: Soft. Bowel sounds present. EXTREMITIES: There is no edema. The leg seems to be better. LABORATORY DATA: Reviewed. The MRI does not reveal osteomyelitis. IMPRESSION: Cellulitis, bilateral lower extremities, better; dermatitis; venous stasis dermatitis. Podiatry to see the patient. He has some pressure wound. May need debridement. There is no need for long-term IV antibiotic. We will keep him on intravenous antibiotic while he is here in the hospital, to be discharged home with oral antibiotic early next week. MD VÍCTOR Sabillon/RUSLAN /[id number]
[2020-07-01 16:54] LABS: BASOPHILS % 0.2 % (0.0-1.0); EOSINOPHILS # (AUTO) 0.2 (0.0-0.4); EOSINOPHILS % 2.6 % (0.0-6.0); HEMATOCRIT 38.6 % (38.2-49.6); HEMOGLOBIN 13.1 g/dL (14.0-18.0); LYMPHOCYTES # (AUTO) 1.7 (1.0-3.2); LYMPHOCYTES % 29.4 % (18.0-39.1); MEAN CORPUSCULAR HEMOGLOBIN 32.5 pg (28-32); MEAN CORPUSCULAR HGB CONC 33.9 g/dL (31-35); MEAN CORPUSCULAR VOLUME 95.8 fL (81-99); MONOCYTES # (AUTO) 0.7 (0.2-0.8); MONOCYTES % 12.1 % (4.4-11.3); NEUTROPHILS # (AUTO) 3.2 (2.1-6.9); NEUTROPHILS % 55.2 % (38.7-80.0); PLATELET COUNT 116 x10e3/uL (140-360); RED BLOOD COUNT 4.03 x10e6/uL (4.3-5.7); RED CELL DISTRIBUTION WIDTH 15.5 % (11.7-14.4)
[2020-07-01] MEDS: MORPHINE SULFATE 15MG TAB CR PO PRN (16:56)
[2020-07-01 17:09] LABS: ANION GAP 14.4 mmol/L (8-16); BLOOD UREA NITROGEN 19 mg/dL (7-26); BUN/CREATININE RATIO 23 (6-25); CALCIUM 8.5 mg/dL (8.4-10.2); CARBON DIOXIDE 25 mmol/L (22-29); CHLORIDE 102 mmol/L (98-107); CREATININE, SERUM 0.82 mg/dL (0.72-1.25); EST GLOMERULAR FILTRATION RATE > 60 ML/MIN (60-); GLUCOSE 95 mg/dL (74-118); POTASSIUM 3.4 mmol/L (3.5-5.1); SODIUM 138 mmol/L (136-145)
--- NOTE | 2020-07-01 18:54 | NUR ---
report given to next shift
[2020-07-01] MEDS: ATORVASTATIN 10 MG TAB PO SCH (20:02)
[2020-07-01] MEDS: DULOXETINE HCL 30 MG DELAYED RELEASE PO SCH (20:02)
[2020-07-01] MEDS: FENOFIBRATE 145 MG TAB PO SCH (20:02)
[2020-07-02] VITALS (8 sets, daily range): BP systolic 115–145; BP diastolic 67–88
--- NOTE | 2020-07-02 04:02 | Progress Note ---
DATE: 07/01/2020 Medicine Progress Note SUBJECTIVE: The patient reportedly is doing well today with no complaints. PHYSICAL EXAMINATION: VITAL SIGNS: Temperature is 98.1, pulse is 80, respirations 17, blood pressure 117/67, and pulse ox 95% on room air. GENERAL: In no acute distress. Alert and oriented x3. Cooperative on examination. HEENT: Head is normocephalic and atraumatic. Eyes; pupils are equal, round, and reactive to light bilaterally. Extraocular movements are intact bilaterally. NECK: Supple. Good range of motion. MUSCULOSKELETAL: Strength is 5/5 throughout. No evidence of any muscle deficits on examination. SKIN: Intact warm to touch. Good cap refill. ABDOMEN: Soft, nondistended, and nontender palpation. Bowel sounds present. CARDIOVASCULAR: Positive S1 and S2. No gallops appreciated. ABDOMEN: Soft. LABORATORY DATA: White count 5.7, hemoglobin 13, hematocrit 39, and platelets of 116. Chemistries reviewed, stable. Potassium is 3.4 replaced. Serology, Coronavirus nondetected. MICROBIOLOGY: None. IMAGING STUDIES: Ankle MRI, no osteomyelitis or abscess. Lower extremity arterial Doppler is pending. IMPRESSION: 1. Left lower extremity cellulitis with chronic venous insufficiency. 2. Acute diastolic heart failure with exacerbation. 3. Atrial fibrillation. 4. History of chronic tobacco abuse. PLAN: At this time, the patient is doing better. MRI of the ankle shows no evidence of osteomyelitis. Podiatry will evaluate the patient likely needs debridement locally. Continue with aggressive IV antibiotic therapy. Blood cultures no growth to date. Monitor urine output closely. Monitor the rest of electrolytes as well. Consultants involved are noted. Xarelto for DVT prophylaxis. MD DASH Jin/RUSLAN /[id number]
[2020-07-02] MEDS: HOME MEDICATION--PATIENTS OWN INH SCH ×2 (06:00)
--- NOTE | 2020-07-02 07:15 | NUR ---
ASSUMED CARE. AWAKE AND ALERT. ACYANOTIC. RESTING IN BED. NO DISTRESS NOTED. CALL LIGHT IN REACH. SIDE RAILS UP X2. BED LOW AND LOCKED.
[2020-07-02 07:21] LABS: BASOPHILS % 0.4 % (0.0-1.0); EOSINOPHILS # (AUTO) 0.2 (0.0-0.4); EOSINOPHILS % 4.6 % (0.0-6.0); HEMATOCRIT 39.7 % (38.2-49.6); HEMOGLOBIN 13.5 g/dL (14.0-18.0); LYMPHOCYTES # (AUTO) 1.3 (1.0-3.2); LYMPHOCYTES % 24.5 % (18.0-39.1); MEAN CORPUSCULAR HEMOGLOBIN 33.3 pg (28-32); MEAN CORPUSCULAR VOLUME 97.8 fL (81-99); MONOCYTES # (AUTO) 0.7 (0.2-0.8); MONOCYTES % 12.5 % (4.4-11.3); NEUTROPHILS % 57.2 % (38.7-80.0); PLATELET COUNT 106 x10e3/uL (140-360); RED BLOOD COUNT 4.06 x10e6/uL (4.3-5.7); RED CELL DISTRIBUTION WIDTH 15.2 % (11.7-14.4)
[2020-07-02 07:32] LABS: ANION GAP 15.7 mmol/L (8-16); BLOOD UREA NITROGEN 16 mg/dL (7-26); BUN/CREATININE RATIO 21 (6-25); CALCIUM 8.1 mg/dL (8.4-10.2); CARBON DIOXIDE 21 mmol/L (22-29); CHLORIDE 104 mmol/L (98-107); CREATININE, SERUM 0.75 mg/dL (0.72-1.25); EST GLOMERULAR FILTRATION RATE > 60 ML/MIN (60-); GLUCOSE 94 mg/dL (74-118); POTASSIUM 3.7 mmol/L (3.5-5.1); SODIUM 137 mmol/L (136-145)
[2020-07-02] MEDS: CEFEPIME 1GM/NS 0.9% 50 ML 50 ML IV SCH ×2 (08:45→20:42)
[2020-07-02] MEDS: ASPIRIN 81 MG ENTERIC COATED PO SCH (08:58)
[2020-07-02] MEDS: FUROSEMIDE 40 MG TAB PO SCH (08:59)
[2020-07-02] MEDS: FOLIC ACID 1 MG TAB PO SCH (08:59)
[2020-07-02] MEDS: MUPIROCIN 2% OINT 22 GM TUBE TOP SCH (09:00)
[2020-07-02] MEDS: MULTIVITAMINS/MINERALS TAB PO SCH (09:00)
[2020-07-02] MEDS: MAGNESIUM OXIDE 400 MG TAB PO SCH (09:00)
[2020-07-02] MEDS: PREGABALIN 75 MG CAP PO SCH ×2 (09:00→16:35)
[2020-07-02] MEDS: METOPROLOL TARTRATE 25 MG TAB PO SCH (09:00)
[2020-07-02] MEDS: DIGOXIN 0.125 MG TAB PO SCH (09:00)
[2020-07-02] MEDS: RIVAROXABAN 15 MG TABLET PO SCH (09:00)
[2020-07-02] MEDS: VANCOMYCIN 1GM/NS 250 ML 250 ML IV SCH ×2 (10:30→22:00)
--- NOTE | 2020-07-02 16:45 | NUR ---
Mr. Delvalle is doing well. There are no new complaints. His leg seems to be getting better and he was seen by Cardiology, and there is no vascular workup needed at the present time. PHYSICAL EXAMINATION: GENERAL: He is currently alert and oriented. Does not seem to be in acute distress. VITAL SIGNS: Stable, currently afebrile. HEENT: He is not icteric. NECK: Supple. CHEST: Clear bilateral. HEART: S1 and S2. ABDOMEN: Soft. Bowel sounds present. EXTREMITIES: There is no edema. The leg seems to be better. LABORATORY DATA: Reviewed. The MRI does not reveal osteomyelitis. IMPRESSION: Cellulitis, bilateral lower extremities, better; dermatitis; venous stasis dermatitis. Podiatry to see the patient. He has some pressure wound. May need debridement. There is no need for long-term IV antibiotic. We will keep him on intravenous antibiotic while he is here in the hospital, HOME WITH ROCEPHIN 1 gm daily 10 days to see dermatolgy as outpatient
--- NOTE | 2020-07-02 21:15 | Consultation ---
DATE OF CONSULTATION: 07/02/2020 HISTORY OF PRESENT ILLNESS: The patient is seen today on IV antibiotics and local wound care, currently under the care of Dr. Rueda and Dr. Clay of Infectious Disease. PAST MEDICAL HISTORY: The patient's previous medical history includes diabetes and peripheral vascular disease, and chronic draining ulceration, left foot. REVIEW OF SYSTEMS: Otherwise negative. PHYSICAL EXAMINATION: Physical evaluation of lower extremity: VASCULAR STATUS: The patient has a mildly palpable pedal pulses both dorsalis pedis or posterior tibial. Ultrasound shows adequate perfusion and no blockage bilaterally. NEUROLOGIC: There is a loss of protective sensation as evidenced by Linwood-Jayme monofilament testing bilaterally and symmetrical. DERMATOLOGIC: There are multiple excoriations and lesions on the dorsal aspect of the foot with a psoriatic type plaque. There is also a 2 cm ulceration on the lateral aspect of the styloid process of the left foot, which is certainly the deepest of the wounds, that was evaluated in the office last week and debrided full thickness through skin and subcutaneous tissue and does appear to be following a normal course of healing at this point. There is no drainage or foul odor today. DIAGNOSIS: Cellulitis. MRI is negative for bone infection. At this point, the patient is currently on IV antibiotics and stable. Local wound care with Bactroban and dry gauze to be continued while in-house and then on an outpatient basis. The patient will continue under the care of Infectious Disease with IV antibiotics and orals as deemed appropriate. Once discharged, he can follow in my office within 1 week for further local wound care. Dressings to be continued and IVs continued as per Dr. Clay. Thank you very much, Dr. Rueda for asking me to follow this patient. LISA Hernandez/RUSLAN /[id number]
[2020-07-02] MEDS: DULOXETINE HCL 30 MG DELAYED RELEASE PO SCH (21:18)
[2020-07-02] MEDS: ATORVASTATIN 10 MG TAB PO SCH (21:19)
[2020-07-02] MEDS: FENOFIBRATE 145 MG TAB PO SCH (21:19)
[2020-07-03] VITALS: BP 132/79
--- NOTE | 2020-07-03 03:57 | Progress Note ---
DATE: 07/02/2020 Medicine Progress Note SUBJECTIVE: The patient is doing well today with no complaints. Spoke with Podiatry, no further workup is needed. Cardiology has no further workup needed. PHYSICAL EXAMINATION: VITAL SIGNS: Afebrile. Normotensive. Respiratory rate is good. GENERAL: No acute distress. Alert and oriented x3. Cooperative on examination. HEENT: Normocephalic and atraumatic. Eyes; pupils are equal, round, and reactive to light bilaterally. Extraocular movements intact bilaterally. PULMONARY: Clear to auscultation bilaterally. No wheezing, no rales, no rhonchi, no crackles appreciated. CARDIOVASCULAR: Positive S1 and S2. No murmurs, rubs, or gallops appreciated. ABDOMEN: Soft, nondistended, nontender to palpation. Bowel sounds present. MUSCULOSKELETAL: Strength is 5/5 throughout. NEUROLOGICAL: Cranial nerves II through XII grossly intact. Alert and oriented x3. Cooperative on examination. LABORATORY DATA: CBC, stable. Chemistry, reviewed, stable. MICROBIOLOGY: None. IMAGING STUDIES: MRI of the ankle shows no evidence of any osteomyelitis. IMPRESSION: 1. Left lower extremity cellulitis with chronic venous insufficiency. 2. Acute diastolic heart failure with underlying exacerbation, much improved. 3. Atrial fibrillation, chronic. 4. History of tobacco abuse. PLAN: At this time, MRI of the ankle shows no evidence of osteomyelitis. Cardiology: Does not need any angiogram. No further workup needed. Podiatry: I spoke with Podiatry. No evidence of osteomyelitis. Does not need any debridement. Follow up as an outpatient. ID: Blood cultures are no growth. IV antibiotics. We will discuss with him tomorrow about antibiotic therapy for home likely to be oral. Otherwise, all consultants were noted. Micheline for DVT prophylaxis. A.m. labs. MD DASH Jin/RUSLAN /[id number]
[2020-07-03 04:00] VITALS: BP 149/98
[2020-07-03] MEDS: HOME MEDICATION--PATIENTS OWN INH SCH ×2 (06:00)
[2020-07-03 07:25] VITALS: BP 136/97
[2020-07-03 08:16] VITALS: BP 136/97
[2020-07-03] MEDS: FOLIC ACID 1 MG TAB PO SCH (08:22)
[2020-07-03] MEDS: CEFEPIME 1GM/NS 0.9% 50 ML 50 ML IV SCH (08:22)
[2020-07-03] MEDS: FUROSEMIDE 40 MG TAB PO SCH (08:22)
[2020-07-03] MEDS: ASPIRIN 81 MG ENTERIC COATED PO SCH (08:22)
[2020-07-03] MEDS: METOPROLOL TARTRATE 25 MG TAB PO SCH (08:23)
[2020-07-03] MEDS: MAGNESIUM OXIDE 400 MG TAB PO SCH (08:23)
[2020-07-03] MEDS: PREGABALIN 75 MG CAP PO SCH (08:23)
[2020-07-03] MEDS: RIVAROXABAN 15 MG TABLET PO SCH (08:23)
[2020-07-03] MEDS: MUPIROCIN 2% OINT 22 GM TUBE TOP SCH (08:23)
[2020-07-03] MEDS: MULTIVITAMINS/MINERALS TAB PO SCH (08:23)
[2020-07-03] MEDS ORDERED: METOPROLOL TARTRATE 25 MG TAB PO SCH ×2 (08:45→17:00)
[2020-07-03] MEDS: VANCOMYCIN 1GM/NS 250 ML 250 ML IV SCH (10:00)
[2020-07-03 11:14] VITALS: BP 132/88
[2020-07-03] MEDS: MORPHINE SULFATE 15MG TAB CR PO PRN (11:27)
--- NOTE | 2020-07-03 11:47 | NUR ---
INFECTIOUS DISEASE PROGRESS NOTE DR. DAVI GUERRERO ROS: +BLE pain 14 POINT ROS NEGATIVE UNLESS OTHERWISE NOTED PHYSICAL EXAMINATION: GENERAL: He is currently alert and oriented. Does not seem to be in acute distress. VITAL SIGNS: Stable, currently afebrile. HEENT: He is not icteric. NECK: Supple. CHEST: Clear bilateral. HEART: S1 and S2. ABDOMEN: Soft. Bowel sounds present. EXTREMITIES: There is no edema. The leg seems to be better. LABORATORY DATA: Reviewed. RADIOLOGY: reviewed IMPRESSION: Left Lower Extremity Cellulitis with venous insufficiency Dermatitis venous stasis wounds diastolic heart failure with exacerbation- improved Afib, chronic PLAN: s/p Rocephin D/c with Doxy and Cipro x14 days See me in clinic in 2-3 weeks MRI negative for OM No Debridment per podiatry Tory Short MSN, [employer], AGACNP-BC
--- NOTE | 2020-07-03 13:32 | NUR ---
Wound care to bilateral lower extremities done at this time. Pt education was done regarding wound care at this time. Pt verbalized understanding of daily wound care.
[2020-07-03 15:19] VITALS: BP 135/88
--- NOTE | 2020-07-03 16:08 | NUR ---
Pt discharged home at this time. Oral antibiotics were called into pt pharmacy by infectious disease PA. Pt verbalized understanding of all discharge instructions and follow up appointments. Pt verbalized understanding of wound care treatment. Left upper arm was discontinued per physician orders. PICC line lumen intact at 43cm which same length noted at time of insertion. Minimal bleeding noted to insertion site and pressure dressing applied to insertion site.
--- NOTE | 2020-07-04 03:26 | Progress Note ---
DATE: 07/03/2020 The patient is seen today with continued cellulitis bilateral lower extremities. He is making some improvement with IV antibiotics, at this point, multiple ulcerations and excoriations are present bilateral lower extremities and basically unchanged from before. We will continue with local wound care and switching to oral antibiotics as per Dr. Clay. He will be discharged today and following up with Dr. Clay on an outpatient basis. I would also like for him to follow with me within 2 weeks of discharge for further local wound care and evaluation. LISA Hernandez/RUSLAN /[id number]
--- NOTE | 2020-07-04 09:22 | Discharge Summary ---
FINAL DISCHARGE DIAGNOSES: 1. Left lower extremity cellulitis with chronic venous insufficiency. 2. Acute diastolic heart failure with underlying exacerbation-resolved. 3. Atrial fibrillation, chronic. 4. History of tobacco abuse. CONSULTANTS: Podiatry, Infectious Disease, and Cardiology. VITAL SIGNS: Temperature was 97.9, pulse 88, respiratory rate is 19, blood pressure 135/88, pulse ox 99% on room air. LABORATORY DATA: Labs show white count 5.3, hemoglobin 13.5, hematocrit is 39.7, and platelets of 106. Chemistry; sodium 137, potassium 3.7, chloride 104, bicarb 21, anion gap of 15, BUN is 16, creatinine is 0.75, glucose 94, calcium 8.1, hemoglobin A1c 5.3. LFTs within normal range. CRP is 4. Albumin is 3.8. LDL 68. IMAGING STUDIES: MRI of the of the left ankle shows no evidence of any osteomyelitis. Arterial lower extremity Doppler shows no evidence of stenosis. HOSPITAL COURSE: A 70-year-old male, comes into the ED concerning for underlying left ankle osteomyelitis, needing further evaluation and management. Cardiology was consulted. Arterial Doppler showed no evidence of any stenosis or infection, with very good flow, in which Cardiology recommends no angiogram or any further intervention needed at this time. The patient will maintain on the same cardioprotective medications with no changes. The patient was cleared for discharge by Cardiology. The patient was on broad-spectrum IV antibiotic therapy prompting ID and Podiatry consultation. Imaging studies, MRI of the ankle shows no evidence of any osteomyelitis. I spoke with Dr. Gama, Podiatry, recommends oral local wound care with outpatient followup with him in the office with no further workup needed in the hospital. I spoke with Infectious Disease. The patient was doing well with no complaints. The patient does not need IV antibiotics with discharge, instead needs only oral antibiotics and oral doxycycline and Cipro, was sent to the patient's pharmacy by Dr. Clay's Suni ABDULLAHI. The patient is doing well with no complaints. He is back to normal baseline. He has been cleared for discharge by all consultants. On the day of discharge, vital signs were stable, labs reviewed and stable. The patient is seen and evaluated and examined thoroughly on the day of discharge with no other complaints. The patient verbalized understanding and agrees to plan of care to follow up accordingly as an outpatient with the primary care physician in 1 week and the rest of the consults described above in about 1 to 2 weeks' time. MEDICATIONS: See med reconciliation form. DISPOSITION: Home. CONDITION: Stable. DIET: Heart healthy. In the event of any worsening symptoms, the patient was advised to come back to the ED for further evaluation. Discharge summary took greater than 35 minutes. MD DASH Jin/RUSLAN /[id number]
== END 2020-07-03 15:57 | disposition home or self-care (01) | DRG 299 ==
LOC: MED/SURG3 17:54
PROVIDERS: ADMIT Internal Medicine; ATTEND Internal Medicine
PROC: 02HV33Z Insertion of Infusion Device into Superior Vena Cava, Percutaneous Approach (ICD-10-PCS; principal; 2020-06-30)
DX: I87.2 Venous insufficiency (chronic) (peripheral) (principal); I50.31 Acute diastolic (congestive) heart failure; L03.116 Cellulitis of left lower limb; I48.20 Chronic atrial fibrillation, unspecified; L97.528 Non-pressure chronic ulcer of other part of left foot with other specified severity; I11.0 Hypertensive heart disease with heart failure; Z79.01 Long term (current) use of anticoagulants; Z11.59 Encounter for screening for other viral diseases; E78.5 Hyperlipidemia, unspecified; J44.9 Chronic obstructive pulmonary disease, unspecified; F17.200 Nicotine dependence, unspecified, uncomplicated; E11.51 Type 2 diabetes mellitus with diabetic peripheral angiopathy without gangrene; Z79.4 Long term (current) use of insulin; E11.621 Type 2 diabetes mellitus with foot ulcer; L30.9 Dermatitis, unspecified
CPT/HCPCS: 36415; 36569; 71045; 80048; 80053; 80061; 80202; 83036; 83880; 85025; 85651; 86140; 93005; 93925; 99251; J0692; J3370; J7050; Q0162; U0002

== ENCOUNTER → 2020-09-20 | Outpatient (CLI) | payer MEDICARE, BC ==
[~2020-09-20] MED LIST changes: +ANORO ELLIPTA1 EACH INH; +ARNUITY ELLIP100 MCG INH; +MAGNESIUM OXID400 MG PO; +MS CONTIN15 MG PO
== END ==
LOC: CT 13:32
PROVIDERS: ATTEND Otolaryngology
DX: R43.0 Anosmia (principal); J34.2 Deviated nasal septum
CPT/HCPCS: 70486

== ENCOUNTER 2020-11-24 17:55 | Emergency (ER) | payer MEDICARE, BC ==
[~2020-11-24] VITALS: Ht 193 cm; Wt 94.3 kg
[2020-11-24 18:22] LABS: BASOPHILS % 0.3 % (0.0-1.0); EOSINOPHILS # (AUTO) 0.1 (0.0-0.4); EOSINOPHILS % 0.7 % (0.0-6.0); HEMATOCRIT 37.1 % (38.2-49.6); HEMOGLOBIN 12.6 g/dL (14.0-18.0); LYMPHOCYTES # (AUTO) 0.8 (1.0-3.2); LYMPHOCYTES % 11.8 % (18.0-39.1); MEAN CORPUSCULAR HEMOGLOBIN 33.2 pg (28-32); MEAN CORPUSCULAR VOLUME 97.9 fL (81-99); MONOCYTES # (AUTO) 0.9 (0.2-0.8); MONOCYTES % 13.2 % (4.4-11.3); NEUTROPHILS % 72.1 % (38.7-80.0); PLATELET COUNT 176 x10e3/uL (140-360); RED BLOOD COUNT 3.79 x10e6/uL (4.3-5.7); RED CELL DISTRIBUTION WIDTH 14.2 % (11.7-14.4)
[2020-11-24 18:41] LABS: ALANINE AMINOTRANSFERASE 20 IU/L (0-55); ALBUMIN 2.9 g/dL (3.5-5.0); ALBUMIN/GLOBULIN RATIO 0.9 (0.8-2.0); ALKALINE PHOSPHATASE 53 IU/L (40-150); ANION GAP 20.1 mmol/L (8-16); BLOOD UREA NITROGEN 33 mg/dL (7-26); BUN/CREATININE RATIO 31 (6-25); CARBON DIOXIDE 24 mmol/L (22-29); CHLORIDE 95 mmol/L (98-107); CREATININE, SERUM 1.05 mg/dL (0.72-1.25); EST GLOMERULAR FILTRATION RATE > 60 ML/MIN (60-); GLUCOSE 92 mg/dL (74-118); POTASSIUM 4.1 mmol/L (3.5-5.1); SODIUM 135 mmol/L (136-145)
[2020-11-24 18:43] LABS: CALCIUM 13.2 mg/dL (8.4-10.2)
[2020-11-24] MEDS: SODIUM CHLORIDE 0.9% 1000ML 1,000 ML IV SCH (18:55)
[2020-11-24 19:42] LABS: AMPHETAMINES SCREEN,URINE NEGATIVE (NEGATIVE); BENZODIAZEPINES SCREEN,URINE NEGATIVE (NEGATIVE); CLARITY,URINE CLEAR (CLEAR); COLOR,URINE YELLOW (YELLOW); KETONES,URINE NEGATIVE (NEGATIVE); LEUKOCYTE ESTERASE ,URINE SMALL (NEGATIVE); NITRITE,URINE NEGATIVE (NEGATIVE); PHENCYCLIDINE SCREEN,URINE NEGATIVE (NEGATIVE); PROTEIN,URINE DIPSTICK NEGATIVE (NEGATIVE)
[2020-11-24 19:43] LABS: URINE UROBILINOGEN 0.2 mg/dL (0.2 - 1)
[2020-11-24 20:00] LABS: BACTERIA,URINE RARE /HPF; RBC,URINE 0-5 /HPF (0-5)
[2020-11-24] MEDS ORDERED: AZITHROMYCIN250 MG PO (20:01)
[2020-11-24 20:35] VITALS: BP 121/82
== END 2020-11-24 20:41 | disposition home or self-care (01) ==
LOC: ER 18:05
DX: R53.1 Weakness (principal); J44.9 Chronic obstructive pulmonary disease, unspecified; F10.129 Alcohol abuse with intoxication, unspecified; I11.0 Hypertensive heart disease with heart failure; I48.91 Unspecified atrial fibrillation; Z20.822 Contact with and (suspected) exposure to COVID-19; F17.200 Nicotine dependence, unspecified, uncomplicated; Z88.6 Allergy status to analgesic agent; Z79.02 Long term (current) use of antithrombotics/antiplatelets
CPT/HCPCS: 36415; 71045; 80053; 80307; 80320; 81001; 83880; 84484; 85025; 99284; J7030; U0002